=== PATIENT | female | born 1970 | race Caucasian/White ===

== ENCOUNTER 2020-09-03 10:30 | Outpatient (REF) | payer OTHER, SELFPAY ==
[2020-09-03 11:58] LABS: MANUAL DIFF FLAG NO
[2020-09-03 12:10] LABS: Basophils Absolute Auto 0.1 X10*3/uL (0.0-0.2); Basophils Percent Auto 0.8 % (0-2); Eosinophils Absolute Auto 0.2 X10*3/uL (0.0-0.4); Eosinophils Percent Auto 2.3 % (0-4); Hematocrit 38.4 % (37-47); Hemoglobin 12.8 g/dl (12.0-16.0); Imm Gran Abs Auto 0.04 X10*3/uL (0.00-0.03); Imm Gran Pct Auto 0.5 % (0.0-0.4); Lymphocytes Absolute Auto 2.2 X10*3/uL (1.2-4.9); Lymphocytes Percent Auto 26.1 % (20-40); Mean Corpuscular HGB Conc 33.3 g/dl (31.0-35.0); Mean Corpuscular Hemoglobin 28.8 pg (27.0-33.0); Mean Corpuscular Volume 86.5 fL (80-98); Mean Platelet Volume 10.9 fL (9.4-12.3); Monocytes Percent Auto 12.3 % (2-11); Neutrophils Absolute Auto 4.8 X10*3/uL (2.0-8.3); Platelet Count 347 X10*3/uL (160-400); Red Blood Count 4.44 X10*6/uL (4.20-5.50); Red Cell Distribution Width 13.7 % (11.0-16.0); White Blood Count 8.3 X10*3/uL (4.8-10.8)
== END 2020-09-03 10:31 | disposition home or self-care (01) ==
LOC: HO.LAB 10:30
PROVIDERS: PCP Internal Medicine; Referring Provider Internal Medicine; Visit Provider Internal Medicine Pulmonary Disease
DX: J45.51 Severe persistent asthma with (acute) exacerbation (principal); Z91.09 Other allergy status, other than to drugs and biological substances; Z79.899 Other long term (current) drug therapy; Z79.891 Long term (current) use of opiate analgesic; Z87.891 Personal history of nicotine dependence
CPT/HCPCS: 36415; 82785; 85025; 86003

== ENCOUNTER → 2020-10-02 10:20 | Outpatient (BNVA) | payer OTHER, SELFPAY | PROVIDERS: PCP Internal Medicine; Visit Provider Internal Medicine Pulmonary Disease | DX: Z76.89 Persons encountering health services in other specified circumstances (principal) ==

== ENCOUNTER 2020-11-21 14:25 | Outpatient (REF) | payer OTHER, SELFPAY ==
[2020-11-21 17:34] LABS: MANUAL DIFF FLAG NO
[2020-11-21 17:43] LABS: Glucose Urine UA NEG (NEG); Leukocyte Esterase Urine NEG (NEG); Nitrite Urine NEG (NEG); Urine Blood NEG (NEG); Urine Ketones 5 MG/DL (NEG); Urine Protein NEG (NEG-TRACE)
[2020-11-21 17:46] LABS: Basophils Absolute Auto 0.1 X10*3/uL (0.0-0.2); Basophils Percent Auto 0.7 % (0-2); Eosinophils Absolute Auto 0.2 X10*3/uL (0.0-0.4); Eosinophils Percent Auto 1.8 % (0-4); Hemoglobin 13.4 g/dl (12.0-16.0); Imm Gran Abs Auto 0.04 X10*3/uL (0.00-0.03); Imm Gran Pct Auto 0.4 % (0.0-0.4); Lymphocytes Absolute Auto 2.3 X10*3/uL (1.2-4.9); Lymphocytes Percent Auto 23.7 % (20-40); Mean Corpuscular HGB Conc 33.5 g/dl (31.0-35.0); Mean Corpuscular Hemoglobin 29.7 pg (27.0-33.0); Mean Corpuscular Volume 88.7 fL (80-98); Monocytes Percent Auto 9.8 % (2-11); Neutrophils Absolute Auto 6.3 X10*3/uL (2.0-8.3); Neutrophils Percent Auto 63.6 % (45-73); Platelet Count 354 X10*3/uL (160-400); Red Blood Count 4.51 X10*6/uL (4.20-5.50); Red Cell Distribution Width 13.4 % (11.0-16.0); White Blood Count 9.9 X10*3/uL (4.8-10.8)
[2020-11-21 17:46] LABS: Appearance Urine CLEAR; Color Urine YELLOW
[2020-11-21 18:03] LABS: Bacteria Urine TRACE /LPF; RBC Urine 0 /HPF (0); Squamous Epithelial Cell Urine 2+ /LPF; WBC Urine 0 /HPF (0-4)
[2020-11-21 18:10] LABS: Alanine Aminotransferase 10 U/L (0-31); Albumin Level 4.5 g/dL (3.5-5.0); Alkaline Phosphatase 53 U/L (39-117); Anion Gap 15 (12-20); Aspartate Amino Transferase 15 U/L (5-31); Bilirubin Total < 0.2 mg/dL (0.0-1.0); Blood Urea Nitrogen 25 mg/dL (9-16); C Reactive Protein 0.65 mg/dL (< or = 0.50); Calcium 9.2 mg/dL (8.4-10.2); Carbon Dioxide 24 mmol/L (22-29); Chloride 103 mmol/L (96-108); Estimated Glomerular Filt Rate > 60; Glucose Random 82 mg/dL (60-115); Potassium 4.1 mmol/l (3.3-5.1); Sodium 138 mmol/L (135-145); Total Protein 7.5 g/dL (6.5-8.0)
[2020-11-21 18:31] LABS: Erythrocyte Sedimentation Rate 10 MM/HR (0-20)
[2020-11-22 11:02] LABS: Thyroglobulin Antibodies <1 IU/mL (< or = 1); Thyroid Peroxidase Antibodies <1 IU/mL (<9)
[2020-11-22 15:48] LABS: Cyclic Citrullinated Peptide <16 UNITS
[2020-11-23 13:27] LABS: Complement C3 141 mg/dL (83-193)
[2020-11-23 21:42] LABS: Immunoglobulin E 60 kU/L (<OR=114)
== END 2020-11-21 14:26 | disposition home or self-care (01) ==
LOC: HO.LAB 14:25
PROVIDERS: Internal Medicine Pulmonary Disease; PCP Internal Medicine; Referring Provider Internal Medicine; Visit Provider Student in an Organized Health Care Education/Training Program
DX: R76.8 Other specified abnormal immunological findings in serum (principal); M25.50 Pain in unspecified joint; Z79.899 Other long term (current) drug therapy; Z79.891 Long term (current) use of opiate analgesic; Z91.09 Other allergy status, other than to drugs and biological substances
CPT/HCPCS: 36415; 80053; 81001; 82785; 85025; 85652; 86140; 86160; 86200; 86376; 86800

== ENCOUNTER → 2020-12-10 10:06 | Outpatient (BNVA) | payer OTHER, SELFPAY | PROVIDERS: PCP Internal Medicine; Visit Provider Internal Medicine Pulmonary Disease ==

== ENCOUNTER → 2021-11-11 09:42 | Outpatient (BNVA) | payer OTHER, SELFPAY | PROVIDERS: PCP Internal Medicine; Visit Provider Internal Medicine Pulmonary Disease ==

== ENCOUNTER 2021-12-16 10:41 | Outpatient (REF) | payer OTHER, SELFPAY ==
--- NOTE | ~2021-12-16 | MM_ITS ---
EXAMINATION: MM SCREENING DIGITAL BREAST TOMOSYNTHESIS, BILATERAL CLINICAL INFORMATION: Screening. Asymptomatic. The lifetime risk of breast cancer based on the Tyrer-Cuzick Model is 5%. COMPARISON: Outside mammography: 08/21/2017, 08/17/2017, 02/12/2015 ([facility]). TECHNIQUE: Digital breast tomosynthesis is performed in both the craniocaudal and mediolateral oblique views along with computer-aided detection (CAD). Synthesized 2D images are generated from the tomosynthesis. FINDINGS: There are scattered areas of fibroglandular density (ACR BI-RADS breast composition Category b). There are no significant masses, abnormal calcifications, or other abnormalities. No significant changes from prior outside exam. There is biopsy clip marker again noted mid lower inner left breast. The axilla and skin contours are unremarkable. MM/MM tomosynthesis screening BI IMPRESSION: No mammographic evidence of malignancy. ASSESSMENT: BI-RADS 1: Negative RECOMMENDATION: Routine annual mammography screening. This patient's information was entered into a reminder system with a target due date for their next mammogram.
== END 2021-12-16 10:42 | disposition home or self-care (01) ==
LOC: HO.MAMMO 10:41
PROVIDERS: Visit Provider Advanced Practice Midwife
DX: Z12.31 Encounter for screening mammogram for malignant neoplasm of breast (principal)
CPT/HCPCS: 77063; 77067

== ENCOUNTER → 2022-03-05 09:06 | Outpatient (BNVA) | payer OTHER, SELFPAY | PROVIDERS: PCP Internal Medicine; Visit Provider Internal Medicine Rheumatology | DX: M75.102 Unspecified rotator cuff tear or rupture of left shoulder, not specified as traumatic (principal); M79.7 Fibromyalgia; R76.8 Other specified abnormal immunological findings in serum | CPT/HCPCS: 99212 ==

== ENCOUNTER → 2022-05-14 10:02 | Outpatient (BNVA) | payer OTHER, SELFPAY | PROVIDERS: PCP Internal Medicine; Visit Provider Internal Medicine Pulmonary Disease | DX: J45.50 Severe persistent asthma, uncomplicated (principal); Z91.09 Other allergy status, other than to drugs and biological substances | CPT/HCPCS: 99212 ==

== ENCOUNTER 2022-07-08 10:48 | Outpatient (REF) | payer OTHER, SELFPAY ==
[2022-07-08 13:37] LABS: MANUAL DIFF FLAG NO
[2022-07-08 13:40] LABS: Basophils Absolute Auto 0.1 X10*3/uL (0.0-0.2); Basophils Percent Auto 0.6 % (0-2); Eosinophils Absolute Auto 0.2 X10*3/uL (0.0-0.4); Eosinophils Percent Auto 1.6 % (0-4); Hematocrit 40.4 % (37.0-47.0); Hemoglobin 13.7 g/dl (12.0-16.0); Imm Gran Abs Auto 0.07 X10*3/uL (0.00-0.03); Imm Gran Pct Auto 0.6 % (0.0-0.4); Lymphocytes Percent Auto 17.6 % (20-40); Mean Corpuscular HGB Conc 33.9 g/dl (31.0-35.0); Mean Corpuscular Hemoglobin 30.1 pg (27.0-33.0); Mean Corpuscular Volume 88.8 fL (80.0-98.0); Mean Platelet Volume 10.7 fL (9.4-12.3); Monocytes Percent Auto 8.7 % (2-11); Neutrophils Percent Auto 70.9 % (45-73); Platelet Count 409 X10*3/uL (160-400); Red Blood Count 4.55 X10*6/uL (4.20-5.50); Red Cell Distribution Width 12.7 % (11.0-16.0); White Blood Count 11.3 X10*3/uL (4.8-10.8)
[2022-07-08 13:53] LABS: Iron 67 mcg/dL (30-160); Percent Iron Saturation 22 % (15-50); Total Iron Binding Capacity 303 mcg/dL (228-428); Unsaturated Iron Binding 236 ug/dL
[2022-07-08 14:16] LABS: TSH reflex Free T4 0.65 uIU/mL (0.32-4.0)
== END 2022-07-08 10:49 | disposition home or self-care (01) ==
LOC: HO.10HDL 10:48
PROVIDERS: Visit Provider Internal Medicine Rheumatology
DX: M75.102 Unspecified rotator cuff tear or rupture of left shoulder, not specified as traumatic (principal); R53.83 Other fatigue; R76.8 Other specified abnormal immunological findings in serum; M79.7 Fibromyalgia
CPT/HCPCS: 36415; 83540; 84443; 85025; 99212

== ENCOUNTER 2022-12-10 09:10 | Outpatient (REF) | payer OTHER, SELFPAY ==
--- NOTE | ~2022-12-10 | XR_ITS ---
EXAMINATION: XR LUMBOSACRAL SPINE CLINICAL INFORMATION: Lower back pain. COMPARISON: CT abdomen and pelvis dated 11/11/2019. TECHNIQUE: AP and lateral views of the lumbar spine and lateral view of the lumbosacral junction. FINDINGS: The vertebral body heights are normal. There is a very mild thoracolumbar levoscoliosis. The lower thoracic and lumbar disc spaces are preserved. The posterior elements are intact. The paraspinal soft tissues are normal. An 8 mm left renal upper pole calculus is redemonstrated. XR/XR lumbar spine 2-3V IMPRESSION: 1. There is a very mild thoracolumbar levoscoliosis. 2. The lumbar disc spaces are well-maintained. 3. No acute fracture or spondylolisthesis is seen. 4. An 8 mm left renal upper pole calculus is redemonstrated.
== END 2022-12-10 09:11 | disposition home or self-care (01) ==
LOC: HO.XRAY 09:10
PROVIDERS: PCP Internal Medicine; Visit Provider Internal Medicine Rheumatology
DX: M79.7 Fibromyalgia (principal); M54.50 Low back pain, unspecified; M25.562 Pain in left knee; M25.561 Pain in right knee; M75.102 Unspecified rotator cuff tear or rupture of left shoulder, not specified as traumatic; M25.511 Pain in right shoulder; R76.8 Other specified abnormal immunological findings in serum; Z79.899 Other long term (current) drug therapy
CPT/HCPCS: 72100; 99212

== ENCOUNTER 2022-12-10 10:14 | Outpatient (REF) | payer OTHER, SELFPAY ==
[2022-12-10 13:42] LABS: MANUAL DIFF FLAG NO
[2022-12-10 13:54] LABS: Basophils Absolute Auto 0.1 X10*3/uL (0.0-0.2); Basophils Percent Auto 0.6 % (0-2); Eosinophils Absolute Auto 0.2 X10*3/uL (0.0-0.4); Eosinophils Percent Auto 1.9 % (0-4); Hematocrit 40.2 % (37.0-47.0); Hemoglobin 13.7 g/dl (12.0-16.0); Imm Gran Abs Auto 0.07 X10*3/uL (0.00-0.03); Imm Gran Pct Auto 0.8 % (0.0-0.4); Lymphocytes Absolute Auto 1.8 X10*3/uL (1.2-4.9); Mean Corpuscular HGB Conc 34.1 g/dl (31.0-35.0); Mean Corpuscular Volume 88.2 fL (80.0-98.0); Monocytes Absolute Auto 0.9 X10*3/uL (0.1-1.2); Monocytes Percent Auto 9.9 % (2-11); Neutrophils Percent Auto 66.8 % (45-73); Platelet Count 379 X10*3/uL (160-400); Red Blood Count 4.56 X10*6/uL (4.20-5.50); Red Cell Distribution Width 13.2 % (11.0-16.0); White Blood Count 8.9 X10*3/uL (4.8-10.8)
[2022-12-10 14:20] LABS: Anion Gap 17 (12-20); Blood Urea Nitrogen 22 mg/dL (9-16); Calcium 9.1 mg/dL (8.4-10.2); Carbon Dioxide 20 mmol/L (22-29); Chloride 105 mmol/L (96-108); Estimated Glomerular Filt Rate > 60; Glucose Random 89 mg/dL (60-115); Potassium 3.7 mmol/L (3.3-5.1); Sodium 138 mmol/L (135-145)
[2022-12-10 14:26] LABS: Protein/Creatinine Ratio, Ur 0.06 (<0.2); Total Protein Urine Random 18 mg/dL (<12)
[2022-12-10 14:33] LABS: Erythrocyte Sedimentation Rate 13 MM/HR (0-20)
[2022-12-11 13:39] LABS: Complement C3 170 mg/dL (83-193)
[2022-12-12 09:23] LABS: Anti DNA DS Antibody <1 IU/mL; SM/Ribonucleoprotein Ab <1.0 NEG AI (<1.0 NEG); Smith Protein <1.0 NEG AI (<1.0 NEG)
== END 2022-12-10 10:15 | disposition home or self-care (01) ==
LOC: HO.10HDL 10:14
PROVIDERS: Visit Provider Internal Medicine Rheumatology
DX: R76.8 Other specified abnormal immunological findings in serum (principal); M79.7 Fibromyalgia; M54.50 Low back pain, unspecified
CPT/HCPCS: 36415; 80048; 84156; 85025; 85652; 86160; 86225; 86235

== ENCOUNTER 2023-02-04 09:03 | Outpatient (REF) | payer OTHER, SELFPAY ==
--- NOTE | ~2023-02-04 | MM_ITS ---
EXAMINATION: MM DIAGNOSTIC DIGITAL BREAST TOMOSYNTHESIS, BILATERAL US DIAGNOSTIC ULTRASOUND BREAST, LEFT CLINICAL INFORMATION: Due for yearly. Left breast pain for approximately 6 months upper breast. No palpable mass or discharge. No family history breast cancer. The lifetime risk of breast cancer based on the Tyrer-Cuzick Model is 7%. COMPARISON: Prior mammography exams, most recent 12/16/2021. Outside ultrasound left breast 02/23/2015 ([facility]). TECHNIQUE: Digital breast tomosynthesis is performed in both the craniocaudal and mediolateral oblique views along with computer-aided detection (CAD). Synthesized 2D images are generated from the tomosynthesis. Additional right CC view is provided. Ultrasound left breast is targeted to the areas of clinical concern upper breast 10:00 through 2:00 position using grayscale imaging and color Doppler without and with harmonics. FINDINGS: There are scattered areas of fibroglandular density (ACR BI-RADS breast composition Category b). Parenchymal pattern is similar to prior studies and there is no developing density or architectural abnormality or significant mass. No abnormal calcifications. The axilla and skin contours are unremarkable. No skin thickening or coarsening of the José Antonio's ligaments. There is a biopsy clip marker again seen mid lower inner quadrant left breast. Ultrasound left breast demonstrates an incidental small simple cyst anterior 11:00 position proximally 0.5 cm. This may correspond to the subcentimeter cyst noted on outside ultrasound 2014. There is no solid mass or architectural abnormality or focal duct ectasia. No skin thickening or edema tracking in soft tissue planes. No hyperemia on color Doppler. Results are discussed with the patient at time of visit. MM/MM tomosynthesis diagnostic BI IMPRESSION: -No mammographic evidence of malignancy or inflammatory changes. -Small incidental cyst under 1 cm anterior left breast. No inflammatory changes. ASSESSMENT: BI-RADS 2: Benign RECOMMENDATION: 1. Patient's left mastodynia should be managed based on the clinical impression. 2. Otherwise, routine annual screening mammography. This patient's information was entered into a reminder system with a target due date for their next mammogram.
== END 2023-02-04 09:04 | disposition home or self-care (01) ==
LOC: HO.MAMMO 09:03
PROVIDERS: PCP Internal Medicine; Visit Provider Internal Medicine
DX: N64.4 Mastodynia (principal)
CPT/HCPCS: 76642; 77062; 77066

== ENCOUNTER → 2023-04-22 11:26 | Outpatient (BNVA) | payer OTHER, SELFPAY | PROVIDERS: PCP Internal Medicine; Visit Provider Internal Medicine Pulmonary Disease | DX: J45.50 Severe persistent asthma, uncomplicated (principal); Z91.09 Other allergy status, other than to drugs and biological substances; Z79.899 Other long term (current) drug therapy | CPT/HCPCS: 99212 ==

== ENCOUNTER 2023-05-20 13:01 | Outpatient (REF) | payer OTHER, SELFPAY ==
[2023-05-21 07:28] LABS: Vitamin D 25-OH Total 21.7 ng/mL (>30)
== END 2023-05-20 13:02 | disposition home or self-care (01) ==
LOC: HO.CHCLDS 13:01
PROVIDERS: Visit Provider Internal Medicine
DX: G89.4 Chronic pain syndrome (principal); G43.009 Migraine without aura, not intractable, without status migrainosus
CPT/HCPCS: 36415; 82306

== ENCOUNTER 2023-06-09 10:05 | Outpatient (AMB) | payer OTHER, SELFPAY ==
[2023-06-09 10:11] VITALS: BP 121/74; PULSE 68; RESP 16; TEMP 36.4; O2SAT 98; BMI 32.6
--- NOTE | 2023-06-09 10:11 | A.OFFVIS_ITS ---
Intake Vital Signs 06/09/23 10:11 Height 5 ft 4 in Weight 189 lb 13.088 oz BMI 32.6 BP 121/74 Blood Pressure Location Rt brachial Position Sitting Respiration 16 Pulse 68 Temp 97.5 F Temp Source Skin Pulse Oximetry (%) 98 Oxygen Delivery Method Room Air Intake Visit Reasons: FM Tar Man Required: No Allergies duloxetine Adverse Reaction (Severe, Verified 06/09/23 10:14) hallucinations (severe) sumatriptan [From IMITREX] Adverse Reaction (Unknown, Verified 06/09/23 10:14) HEADACHES Medication List - Last Reconciled 06/09/23 by Claudia Urbano RN albuterol sulfate 2.5 mg (3 mL) inhalation QID 30 days albuterol sulfate 90 mcg/actuation (ProAir HFA) 1 inh inhalation QID 30 days amitriptyline 50 mg PO BEDTIME beclomethasone dipropionate 80 mcg/actuation (Qvar RediHaler) 1 inh inhalation BID Bifidobacterium infantis (Align) 4 mg PO BEDTIME famotidine 20 mg PO BID hydrochlorothiazide 12.5 mg PO DAILY ibuprofen 800 mg PO TID PRN lidocaine 5% topical lisinopril 10 mg PO QAM omeprazole 20 mg PO DAILY pregabalin 100 mg PO BID topiramate 400 mg PO BEDTIME tramadol 50 mg PO Q8H PRN triamcinolone acetonide 0.1% 1 appl topical BID HPI HPI Comments History of Present Illness Details Patient returns for evaluation of her fibromyalgia and history of positive DONA. She is still recovering from a left rotator cuff repair last October but is pleased with his progress. She is complaining today of numbness in the right hand. This tends to come and go. It is worse at night. She also notes it during the day with use of the hand. Other areas of pain including the neck, shoulders, lower back and knees remain about the same. She is on amitriptyline at night which helps with sleep, Lyrica 100 mg twice a day and ibu profen if needed for pain. [facility] Medical History DONA positive Asthma Fibromyalgia Fibromyalgia GERD (gastroesophageal reflux disease) HTN (hypertension) Hypercholesteremia Internal and external bleeding hemorrhoids Migraine Rotator cuff tear, left Surgical History H/O hemorrhoidectomy History of arthroscopy of left shoulder (~10/2022) Hx of hysterectomy S/P tendon repair Family History Mother HTN (hypertension) Asthma Glaucoma Father Diabetes HTN (hypertension) Sister Down syndrome Social History Household Members: Family Housing: House Alcohol intake: never Patient Tobacco Use Status: Never used Tobacco service: No Current occupational status: employed 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 Negative for appetite change, weight change, fever, chills, malaise Eyes Details: Occasional headaches. Negative for vision change, dry eyes and dizziness ENT Details: Negative for hearing change, tinnitus, oral ulcer, nose bleeds and oral dryness. Card Details: Negative chest pain, edema and syncope Resp Details: Negative for SOB, cough and wheezing GI Details: Negative indigestion/heartburn, nausea, abdominal pain, bowel changes, diarrhea, constipation and bloody stool. Neuro Details: Nocturnal and occasional the time paresthesias in the right hand. Chronic numbness in the left hand related to nerve damage from elbow surgery. Negative for epilepsy, palsy, stroke, changes in speech and weakness Endo Details: Negative for polyuria and polydypsia Tamir/Lymph Details: Negative for excessive bruising or bleeding. Physical Exam Vital Signs: Last Vital Signs Temp 97.5 F 06/09/23 10:11 Pulse 68 06/09/23 10:11 Resp 16 06/09/23 10:11 BP 121/74 06/09/23 10:11 Pulse Ox 98 06/09/23 10:11 Oxygen Delivery Method Room Air 06/09/23 10:11 BMI result Body Mass Index 32.6 APPEARANCE: Patient in no acute distress EYES no redness, pupils equal and reactive to light, eyelids normal EXTREMITIES: No edema, no calf tenderness, normal peripheral pulses. JOINT EXAM: JOINT EXAM: Cervical Spine:.? Mild to moderate pain with extremes of normal range of motion without pain; mild paraspinal muscle tenderness. Thoracic Spine:.? No scoliosis.? No tenderness on palpation. Lumbar Spine:.? Alignment normal.? Lumbar pain with flexion at 30 degrees with moderate paraspinal muscle tenderness. Chest Wall:.? No tenderness, swelling, increased warmth or erythema. Hands:.? Right: Normal pain-free range of motion with slight tenderness across a few of the PIP joints but no swelling, increased warmth or erythema. Able to make a full fist and has a good diamond saw operator strength. No sensory loss, weakness or thenar atrophy. Left: She lacks ability to extend the 5th PIP and the IP. No areas of tenderness or swelling. No sensory loss. The Wrists:.? Right: Normal pain-free range of motion without tenderness, swelling, increased warmth or erythema. Left: Mild pain with flexion extension at 45 degrees. Mostly this is on the volar aspect. That area is tender without redness or swelling. She cannot do the Phalen's test because the this is too painful for her. Elbows:. Normal pain-free range of motion without tenderness, swelling, increased warmth or erythema. Shoulders:.??Left:? Mild pain with abduction at 120 degrees or with more than 20 degrees of rotation.? There is mild anterior and subacromial tenderness.? There seems to be some abductor weakness without adenopathy or swelling.? Right:Full range of motion without pain.? Slight tenderness over the trapezius area but no weakness, swelling, adenopathy, increased warmth or erythema. Hips:.? Full range of motion without pain. Hip bursa:.? No tenderness. Knees:.? Right:? Mild pain with extremes of motion with some mild patellofemoral crepitus and medial compartment tenderness but no redness or effusion.? Left:? Normal pain-free range of motion with mild patellofemoral crepitus in slight medial tenderness but no effusion,? tenderness, swelling, increased warmth or erythema.? Ankles:.? Normal pain-free range of motion without tenderness, swelling, increased warmth or erythema. Feet:? Normal pain-free range of motion with mild tenderness across the insteps.? No other areas of tenderness, swelling, increased warmth or erythema. Tender points:? Mild tenderness to digital palpation at the occiput, trapezius, second rib, lateral epicondyle, knees, greater trochanter and gluteal area bilaterally. ? Results Reviewed Results Reviewed: Laboratory Tests 02/08/23 02/08/23 02/08/23 10:20 10:20 10:20 WBC 8.9 Hct 40.2 Plt Count 379 ESR 13 Creatinine 0.76 Sm (S[place]elo) Antibody SM/ROLLER BEARING INSPECTOR IgG Antibody Double Strand DNA Ab Complement C3 Complement C4 12/10/22 10:20 WBC Hct Plt Count ESR Creatinine Sm ([place]) Antibody <1.0 NEG SM/ROLLER BEARING INSPECTOR IgG Antibody <1.0 NEG Double Strand DNA Ab <1 Complement C3 170 Complement C4 [address] [address] XRay Report Signed Patient: Johana Kaminski MR#: [id number] : 1970 Acct:[id number] Age/Sex: 51 / F ADM Date: 12/10/22 Loc: HO.XRAY Attending Dr: Sj Rees MD Ordering Physician: Sj Rees MD Date of Service: 12/10/22 Procedure(s): XR lumbar spine 2-3V Accession Number(s): [id number] cc: Sj Rees MD~ EXAMINATION: XR LUMBOSACRAL SPINE CLINICAL INFORMATION: Lower back pain. COMPARISON: CT abdomen and pelvis dated 11/11/2019. TECHNIQUE: AP and lateral views of the lumbar spine and lateral view of the lumbosacral junction. FINDINGS: The vertebral body heights are normal. There is a very mild thoracolumbar levoscoliosis. The lower thoracic and lumbar disc spaces are preserved. The posterior elements are intact. The paraspinal soft tissues are normal. An 8 mm left renal upper pole calculus is redemonstrated. XR/XR lumbar spine 2-3V IMPRESSION: ? 1. There is a very mild thoracolumbar levoscoliosis. ? 2. The lumbar disc spaces are well-maintained. ? 3. No acute fracture or spondylolisthesis is seen. ? 4. An 8 mm left renal upper pole calculus is redemonstrated. ? Dictated By: Brendon Saeed MD Assessment & Plan Assessment & Plan (1) Carpal tunnel syndrome of right wrist: Code(s): G56.01 - Carpal tunnel syndrome, right upper limb (2) Fibromyalgia: Code(s): M79.7 - Fibromyalgia Plan The fibromyalgia symptoms continue. I think the right hand symptoms are out of line with that disorder. She seems to have nocturnal and occasional daytime paresthesias consistent with carpal tunnel syndrome. Additionally the volar aspect of the wrist is tender. We will try to treat this with a wrist splint. She will try that nightly for 6 weeks. If that does not improve the paresthesias we would proceed with further workup including nerve conduction studies. A follow-up is arranged for 3-4 months but if she does not improve with 6 weeks of splinting she will call us back for a referral for nerve conduction studies. Medications: New Brace,wrist wear on right wrist at night 1 ea 0RF G56.01 - Carpal tunnel syndrome, right upper limb Coding Level of Care Code Est Pt Level 3 (56387) Diagnoses Carpal tunnel syndrome of right wrist G56.01 Fibromyalgia M79.7
== END 2023-06-09 10:46 | disposition home or self-care (01) ==
PROVIDERS: PCP Internal Medicine; Visit Provider Internal Medicine Rheumatology
DX: G56.01 Carpal tunnel syndrome, right upper limb (principal); M79.7 Fibromyalgia
CPT/HCPCS: 99213

== ENCOUNTER → 2023-06-09 10:05 | Outpatient (BNVA) | payer OTHER, SELFPAY | PROVIDERS: PCP Internal Medicine; Visit Provider Internal Medicine Rheumatology | DX: G56.01 Carpal tunnel syndrome, right upper limb (principal); M79.7 Fibromyalgia | CPT/HCPCS: 99212 ==

== ENCOUNTER 2023-09-03 15:37 | Outpatient (AMB) | payer OTHER, SELFPAY ==
--- NOTE | 2023-09-03 15:39 | MHC.OFFVIS ---
Intake Vital Signs 09/03/23 15:48 Height 5 ft 4 in Weight 185 lb BMI 31.8 BP 113/56 L Blood Pressure Location Rt brachial Position Sitting Pulse 70 Intake Visit Reasons: External prolapsed hemorroids Intake Note: This patient presents for an assessment for external prolapsed hemorrhoids. Patient c/o; reports no bleeding, external, reports pain, reports constipation and straining with bowel movements. Cooler Worker Required: No Accompanied by: Self / Same As Patient Allergies duloxetine Adverse Reaction (Severe, Verified 09/03/23 15:46) hallucinations (severe) sumatriptan [From IMITREX] Adverse Reaction (Unknown, Verified 09/03/23 15:46) HEADACHES Medication List - Last Reconciled 09/03/23 by Jesus Gonzalez MD albuterol sulfate 2.5 mg (3 mL) inhalation QID 30 days albuterol sulfate 90 mcg/actuation (Ventolin HFA) 1 puff inhalation QID amitriptyline 50 mg PO BEDTIME beclomethasone dipropionate 80 mcg/actuation (Qvar RediHaler) 1 inh inhalation BID Bifidobacterium infantis (Align) 4 mg PO BEDTIME Brace,wrist wear on right wrist at night famotidine 20 mg PO BID hydrochlorothiazide 12.5 mg PO DAILY ibuprofen 800 mg PO TID PRN lidocaine 5% topical lisinopril 10 mg PO QAM omeprazole 20 mg PO DAILY pregabalin 100 mg PO BID topiramate 400 mg PO BEDTIME tramadol 50 mg PO Q8H PRN triamcinolone acetonide 0.1% 1 appl topical BID HPI External prolapsed hemorroids HPI Details 52-year-old female referred for hemorrhoids. She is actually known to me. She had undergone hemorrhoidectomy in November, She says for the for the past 2 weeks, she feels that the hemorrhoids have been acting up again. She says that this seemed to be swelling with pain. She says that she has had significant constipation. This appears to have been precipitating her hemorrhoid issues She denies significant bleeding although would occasionally sees small amounts of blood with wiping. She says that she seemed to have done well after her 1st hemorrhoidectomy almost 4 years ago. However, she continued to have significant constipation. [facility] Medical History (Updated 09/03/23 @ 16:01 by Jesus Gonzalez MD) Hemorrhoids with complication Rotator cuff tear, left Fibromyalgia DONA positive Fibromyalgia Migraine Hypercholesteremia Internal and external bleeding hemorrhoids GERD (gastroesophageal reflux disease) Asthma HTN (hypertension) Surgical History History of arthroscopy of left shoulder (~10/2022) H/O hemorrhoidectomy S/P tendon repair Hx of hysterectomy Family History Mother HTN (hypertension) Asthma Glaucoma Father Diabetes HTN (hypertension) Sister Down syndrome Social History Household Members: Family Housing: House Alcohol intake: never Patient Tobacco Use Status: Never used Tobacco service: No Current occupational status: employed 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 Sexual orientation: Straight/Heterosexual Gender identity: Female Review of Systems Const Denies chills and Denies fever(s) Card Denies chest pain, Denies dyspnea and Denies dyspnea on exertion Resp Denies cough, Denies dyspnea and Denies dyspnea on exertion GI Denies hematochezia, Denies change in bowel habits and Reports constipation Denies hematuria Musc Denies back pain and Denies limited range of motion Neuro Denies focal weakness and Denies convulsions Psych Denies depression and Denies mood swings Physical Exam Vital Signs: Last Vital Signs Pulse 70 09/03/23 15:48 BP 113/56 L 09/03/23 15:48 BMI result Body Mass Index 31.8 Const General: comfortable and no acute distress Orientation/consciousness: patient oriented x3 Neck Neck: Yes no lymphadenopathy Resp Auscultation: clear to auscultation bilaterally Cardio Rhythm: regular rhythm GI Other: Rectal exam - moderate size external hemorrhoids on the left, anoscopy as described Palpation (GI): Soft to palpation, nontender and no guarding Neuro General: patient oriented x3 Office Procedures Anoscopy She was in tammy-knife position. The anoscope was gently inserted. A full examination of the anal canal was done. She had takes internal and external columns both the left and right side although moderate-sized. There was 1 large external hemorrhoidal column on the left. There was no fissure. There was no bleeding. She had good sphincter tone. She was tender diffusely. [id number] Assessment & Plan Assessment & Plan (1) Hemorrhoids with complication: Code(s): K64.8 - Other hemorrhoids Plan: She does have internal external hemorrhoids with swelling and pain. She has significant constipation. At this time, she has a little bit of redness over hemorrhoidal columns. I will start her on steroid suppositories. I also told her that we need to have better control of her constipation. I have asked her to increase her Colace to twice a day and I will send a prescription for Metamucil as well. I will see her again in the office in about 3 weeks. We will evaluate and offer option of hemorrhoidectomy if she continues to have severe symptoms. Coding Level of Care Code New Pt Level 3 (72820) Diagnoses Hemorrhoids with complication K64.8 CPT Codes Details - CPT: 62411-[id number] ([id number])
[2023-09-03 15:48] VITALS: BP 113/56; PULSE 70; BMI 31.8
== END 2023-09-03 16:01 | disposition home or self-care (01) ==
PROVIDERS: PCP Internal Medicine; Referring Provider Internal Medicine; Visit Provider Surgery
DX: K64.8 Other hemorrhoids (principal)
CPT/HCPCS: 46600; 99203

== ENCOUNTER → 2023-09-03 15:37 | Outpatient (BNVA) | payer OTHER, SELFPAY | PROVIDERS: PCP Internal Medicine; Referring Provider Internal Medicine; Visit Provider Surgery | DX: K64.8 Other hemorrhoids (principal) | CPT/HCPCS: 46600; 99202 ==

== ENCOUNTER 2023-09-14 13:48 | Outpatient (AMB) | payer OTHER, SELFPAY ==
[2023-09-14 13:55] VITALS: BP 117/61; PULSE 77; BMI 30.6
--- NOTE | 2023-09-14 13:55 | A.OFFVIS_ITS ---
Intake Vital Signs 09/14/23 13:55 Height 5 ft 4 in Weight 178 lb BMI 30.6 BP 117/61 Blood Pressure Location Rt brachial Position Standing Pulse 77 Intake Visit Reasons: External prolapsed hemorroids, 2 wk follow up Intake Note: This patient presetns for a two week follow-up assessment for external prolapsed hemorrhoids. Patient c/o; reports severe pain, unable to sit or stand for prolong periods of time, reports yellowish discharge. Head Sampler Required: No Accompanied by: Self / Same As Patient Allergies duloxetine Adverse Reaction (Severe, Verified 09/14/23 14:06) hallucinations (severe) sumatriptan [From IMITREX] Adverse Reaction (Unknown, Verified 09/14/23 14:06) HEADACHES Medication List - Last Reconciled 09/14/23 by Jesus Gonzalez MD albuterol sulfate 2.5 mg (3 mL) inhalation QID 30 days albuterol sulfate 90 mcg/actuation (Ventolin HFA) 1 puff inhalation QID amitriptyline 50 mg PO BEDTIME beclomethasone dipropionate 80 mcg/actuation (Qvar RediHaler) 1 inh inhalation BID Bifidobacterium infantis (Align) 4 mg PO BEDTIME Brace,wrist wear on right wrist at night famotidine 20 mg PO BID hydrochlorothiazide 12.5 mg PO DAILY hydrocortisone acetate (Anusol-HC) 25 mg TN BID ibuprofen 800 mg PO TID PRN lidocaine 5% topical lisinopril 10 mg PO QAM omeprazole 20 mg PO DAILY pregabalin 100 mg PO BID psyllium seed (sugar) (Metamucil (sugar) oral powder) 1 tbsp PO BID topiramate 400 mg PO BEDTIME tramadol 50 mg PO Q8H PRN triamcinolone acetonide 0.1% 1 appl topical BID HPI External prolapsed hemorroids, 2 wk follow up HPI Details 52-year-old female for anal pain. I had actually seen her last 09/04/2023 for hemorrhoidal pain. At that time, it appeared that she had edema of her hemorrhoids. I had given her prescription for Calmoseptine However for the past for days, she says that she has more pain on the left side. She feels that the areas swollen as well. She also notices some drainage. [facility] Medical History (Updated 09/14/23 @ 14:15 by Jesus Gonzalez MD) Anal abscess Hemorrhoids with complication Rotator cuff tear, left Fibromyalgia DONA positive Fibromyalgia Migraine Hypercholesteremia Internal and external bleeding hemorrhoids GERD (gastroesophageal reflux disease) Asthma HTN (hypertension) Surgical History History of arthroscopy of left shoulder (~10/2022) H/O hemorrhoidectomy S/P tendon repair Hx of hysterectomy Family History Mother HTN (hypertension) Asthma Glaucoma Father Diabetes HTN (hypertension) Sister Down syndrome Social History Household Members: Family Housing: House Alcohol intake: never Patient Tobacco Use Status: Never used Tobacco service: No Current occupational status: employed 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 Sexual orientation: Straight/Heterosexual Gender identity: Female Review of Systems Const Denies chills and Denies fever(s) Card Denies chest pain, Denies dyspnea and Denies dyspnea on exertion Resp Denies cough, Denies dyspnea and Denies dyspnea on exertion GI Denies hematochezia and Denies change in bowel habits Denies hematuria Musc Denies back pain and Denies limited range of motion Neuro Denies focal weakness and Denies convulsions Psych Denies depression and Denies mood swings Physical Exam Vital Signs: Last Vital Signs Pulse 77 09/14/23 13:55 BP 117/61 09/14/23 13:55 BMI result Body Mass Index 30.6 Const General: comfortable and no acute distress Orientation/consciousness: patient oriented x3 Neck Neck: Yes no lymphadenopathy Resp Auscultation: clear to auscultation bilaterally Cardio Rhythm: regular rhythm GI Other: Rectal exam shows an area of swelling on the left perianal area with what appears to be a small sinus next to an external hemorrhoid; there is some scanty drainage as well. The area is very tender Palpation (GI): Soft to palpation, nontender and no guarding Neuro General: patient oriented x3 Assessment & Plan Assessment & Plan (1) Anal abscess: Code(s): K61.0 - Anal abscess Plan: She has this swelling and tenderness on the left perianal area just at the area of the verge adjacent to her external hemorrhoid. This is suggestive on an abscess. She says that this area is very tender and not improved in 4 days. I told her it will be best to proceed with exam under anesthesia, I&D and possible seton placement if I find a fistula. I explained to her the technique of this procedure. I reviewed the risks including but not limited to bleeding, infections, postop pain and poor healing, as well as the benefits and alternatives She has given consent. We will put her on the add on list for tomorrow. Coding Level of Care Code Est Pt Level 3 (64818) Diagnoses Anal abscess K61.0
== END 2023-09-14 14:11 | disposition home or self-care (01) ==
PROVIDERS: PCP Internal Medicine; Visit Provider Surgery
DX: K61.0 Anal abscess (principal)
CPT/HCPCS: 99213

== ENCOUNTER → 2023-09-14 13:48 | Outpatient (BNVA) | payer OTHER, SELFPAY | PROVIDERS: PCP Internal Medicine; Visit Provider Surgery | DX: K61.0 Anal abscess (principal) | CPT/HCPCS: 99212 ==

== ENCOUNTER 2023-09-15 09:53 | Day surgery (SDC) | payer OTHER, SELFPAY ==
[2023-09-15] VITALS (8 sets, daily range): BP systolic 101–132; BP diastolic 46–67; PULSE 59–90; RESP 14–18; TEMP 36.1–36.7; O2SAT 97–99; BMI 30.6
[2023-09-15] MEDS: Lactated Ringers 1,000 ML 50 ML IVCONT (10:43)
--- NOTE | 2023-09-15 11:44 | MHC.SHP ---
Pre-Procedural Eval Section A Date of Service: 09/15/23 The patient is an INPATIENT: No Changes since office visit: No Cold of Flu in the past 2 weeks, No New Medical Problems, No Changes in Medication and No Patient answered all questions The History & Physical has been completed within 30 days and I have reviewed it.: Yes Section B Chief Complaint: Anal abscess Allergies: Allergies Allergy/AdvReac Type Severity Reaction Status Date / Time duloxetine AdvReac Severe hallucinations Verified 09/15/23 10:26 (severe) sumatriptan [From IMITREX] AdvReac Unknown HEADACHES Verified 09/15/23 10:26 Plan I have reviewed the history and physical and performed a pertinent physical examination on my patient. No changes have occurred unless specified. Time Spent With Patient Time: Total time managing care of this patient today ____ minutes.
--- NOTE | 2023-09-15 11:58 | P.CONAN_ITS ---
HPI - Anesthesia Eval Consult details Narrative: rectal abscess PMFSH Active Problems Active Problems: All Active Problems (Updated 09/14/23 @ 14:15 by Jesus Gonzalez MD) Anal abscess (Acute) Hemorrhoids with complication (Acute) Carpal tunnel syndrome of right wrist (Acute) Lower back pain (Acute) Fatigue (Acute) Rotator cuff tear, left (Acute) Fibromyalgia (Acute) DONA positive (Acute) Environmental allergies (Acute) Severe persistent asthma (Acute) Past Medical History Medical History Anal abscess Hemorrhoids with complication Rotator cuff tear, left Fibromyalgia DONA positive Fibromyalgia Migraine Hypercholesteremia Internal and external bleeding hemorrhoids GERD (gastroesophageal reflux disease) Asthma HTN (hypertension) Family History Family History Mother HTN (hypertension) Asthma Glaucoma Father Diabetes HTN (hypertension) Sister Down syndrome Family history of problems with anesthesia: No Surgical History Surgical History History of arthroscopy of left shoulder (~10/2022) H/O hemorrhoidectomy S/P tendon repair Hx of hysterectomy History of Problems with Anesthesia: No Social History Social History Household Members: Family Housing: House Alcohol intake: never Patient Tobacco Use Status: Never used Tobacco Are you DNR?: No Advance Directives: No Advance Directives Information Provided: Yes Nutrition Risks: No Nutritional Risk service: No Current occupational status: employed 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 Sexual orientation: Straight/Heterosexual Gender identity: Female Meds Allergies Allergy/AdvReac Type Severity Reaction Status Date / Time duloxetine AdvReac Severe hallucinations Verified 09/15/23 10:26 (severe) sumatriptan [From IMITREX] AdvReac Unknown HEADACHES Verified 09/15/23 10:26 Active Medications: Current Medications Lactated Ringer's (Lr) 1,000 mls @ 50 mls/hr IVCONT .Q20H MARTA Last Admin: 09/15/23 10:43 Dose: 50 mls/hr Home Medications Medication Instructions Recorded Confirmed Last Taken Type hydrochlorothiazide 12.5 mg tablet 12.5 mg PO DAILY 09/03/20 09/15/23 Unknown History topiramate 100 mg tablet 400 mg PO BEDTIME 09/03/20 09/15/23 09/15/23 History tramadol 50 mg tablet 50 mg PO Q8H PRN Pain 09/03/20 09/15/23 Unknown History amitriptyline 25 mg tablet 50 mg PO BEDTIME 07/08/22 09/15/23 Unknown History ibuprofen 800 mg tablet 800 mg PO TID PRN Pain 07/08/22 09/15/23 Unknown History famotidine 20 mg tablet 20 mg PO BID 12/10/22 09/15/23 09/15/23 History lidocaine 5 % topical ointment topical 12/10/22 09/14/23 Unknown History lisinopril 10 mg tablet 10 mg PO QAM 12/10/22 09/15/23 Unknown History omeprazole 20 mg capsule,delayed 20 mg PO DAILY 12/10/22 09/15/23 09/15/23 History release Bifidobacterium infantis 4 mg 4 mg PO BEDTIME 06/09/23 09/15/23 Unknown History capsule (Align) triamcinolone acetonide 0.1 % 1 appl topical BID 06/09/23 09/15/23 Unknown History topical cream Exam Exam Date and Time: September 15, 2023 1158 Height,Weight and Vital Signs: Height 5 ft 4 in Weight 80.739 kg Last Vital Signs Temp 98.0 F 09/15/23 10:41 Pulse 71 09/15/23 10:41 Resp 18 09/15/23 10:41 BP 109/62 09/15/23 10:41 Pulse Ox 99 09/15/23 10:41 O2 Del Method Room Air 09/15/23 10:41 Airway Mallampati Class: II TM Dist: >3cm Neck ROM: Limited Heart: rrr Lungs: cta Assessment and Plan Assessment Anesthesia Assessment: Anesthesia Plan Discussed Final Anesthetic Review Family History of Problems with Anesthesia: No History of Problems with Anesthesia: No NPO: Yes ASA Class: II Final Preanesthetic Review: No Changes in Pt Med Stat, Meds/Allgs Chart Reviewed, Consent Obtained/Reviewed and Anes Risks/Benef Reviewed Patient Risk: Intermediate Procedure Risk: Low Anesthetic Plan Anesthetic Plan: GA and Agree w/ Assess. and Plan Disposition: Standard PACU
--- NOTE | 2023-09-15 12:49 | P.OP_ITS ---
Operative Note Operative Note Date of Service: 09/15/23 Narrative: Preop diagnosis: Perianal abscess Postop diagnosis: Fistula in ano Procedure: Exam under anesthesia, placement of seton Surgeon: Jesus Gonzalez MD The patient is a 52-year-old female was seen in the office because of pain in the perianal area. She also describes and drainage. Initially, the impression was a swollen hemorrhoid but she had worsening of her pain along with drainage the past few days. Examination in the office yesterday showed induration along with a sinus in the left perianal area. I therefore scheduled her for exam under anesthesia and possible seton placement. She understood the technique of the procedure as well as the risks, benefits, and alternatives. She was brought to the operating room and placed in prone tammy-knife position under general anesthesia via endotracheal tube. The buttocks were retracted with wide tape laterally. The perianal area was prepped and draped in the usual sterile fashion. Surgical time-out was done. The patient received Cefotan 2 g IV preoperatively . Examination of the anal orifice showed an external sinus about 2 cm from the anal verge. She also had external hemorrhoids on both the left and right side . I inserted the Ladarius Sotelo retractor to examine the anal canal circumferentially. There was note of an obvious internal sinus at the level of the dentate line on the left anal canal radial to the external sinus. There was note of hemorrhoidal columns on both the left and right side. There was note of induration on the left anal canal. I was able to be passed a probe from the external sinus all the way to the internal sinus. I passed a yellow vessel loop as a seton using this probe. This was looped around the fistula tract. I shortened the fistula tract by dividing the skin overlying the fistulous tract adjacent to the external sinus using electrocautery. I closed the vessel loop with silk 2-0 ties. Hemostasis was then observed. I infiltrated the perianal area with Marcaine 0.5% for postop analgesia. The p rocedure was completed The patient tolerated the procedure well. There were no immediate complications. Initial and final counts of sponges and instruments were correct. Estimated blood loss about 5 cc . The patient was extubated without difficulty and transferred to the recovery room with stable vital signs.
[2023-09-15] MEDS: HYDROmorphone HCl 0.5 MG/0.5 ML SYRINGE 0.25 MG IVPUSH (13:03)
[2023-09-15] MEDS: Acetaminophen 325 MG TABLET 650 MG PO (13:30)
[2023-09-15] MEDS: oxyCODONE HCl Immed Release 5 MG TABLET PO (13:30)
== END 2023-09-15 14:56 | disposition home or self-care (01) ==
PROVIDERS: PCP Orthopaedic Surgery; Visit Provider Surgery
PROC: (CPT 46020; principal; 2023-09-15 12:40)
DX: K60.3 Anal fistula (principal); K64.8 Other hemorrhoids; K64.4 Residual hemorrhoidal skin tags; K21.9 Gastro-esophageal reflux disease without esophagitis; I10 Essential (primary) hypertension; E78.00 Pure hypercholesterolemia, unspecified; J45.909 Unspecified asthma, uncomplicated; M79.7 Fibromyalgia; Z79.899 Other long term (current) drug therapy; Z79.1 Long term (current) use of non-steroidal anti-inflammatories (NSAID); Z88.8 Allergy status to other drugs, medicaments and biological substances; Z98.890 Other specified postprocedural states
CPT/HCPCS: 46020; J0330; J1100; J1170; J1630; J1885; J2405; J2704; J2795; J3010

== ENCOUNTER → 2023-09-15 09:53 | Outpatient (BNV) | payer OTHER, SELFPAY | PROVIDERS: PCP Orthopaedic Surgery; Visit Provider Surgery | DX: K60.3 Anal fistula (principal) | CPT/HCPCS: 46020 ==

== ENCOUNTER 2023-09-28 15:39 | Outpatient (AMB) | payer OTHER, SELFPAY ==
--- NOTE | 2023-09-28 15:47 | MHC.OFFVIS ---
Intake Vital Signs 09/28/23 15:53 Height 5 ft 4 in Weight 177 lb 4 oz BMI 30.4 BP 126/64 Blood Pressure Location Lt brachial Position Sitting Pulse 83 Intake Visit Reasons: S/P EUA,poss hemorrhoidectomy Intake Note: Patient is seen in office for post op assessment post hemorrhoidectomy. 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 She tolerated the procedure well. She is here for a postop visit. She says she feels well overall. She denies significant complaints. [facility] Medical History (Updated 09/28/23 @ 16:08 by Jesus Gonzalez MD) Anal fistula Anal abscess Hemorrhoids with complication Rotator cuff tear, left Fibromyalgia DONA positive Fibromyalgia Migraine Hypercholesteremia Internal and external bleeding hemorrhoids GERD (gastroesophageal reflux disease) Asthma HTN (hypertension) Surgical History History of arthroscopy of left shoulder (~10/2022) H/O hemorrhoidectomy S/P tendon repair Hx of hysterectomy Family History Mother HTN (hypertension) Asthma Glaucoma Father Diabetes HTN (hypertension) Sister Down syndrome Household Members: Family Housing: House Alcohol intake: never Patient Tobacco Use Status: Never used Tobacco service: No Current occupational status: employed 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 Sexual orientation: Straight/Heterosexual Gender identity: Female Review of Systems Const Denies chills and Denies fever(s) Card Denies chest pain, Denies dyspnea and Denies dyspnea on exertion Resp Denies cough, Denies dyspnea and Denies dyspnea on exertion GI Denies hematochezia and Denies change in bowel habits Denies hematuria Musc Denies back pain and Denies limited range of motion Neuro Denies focal weakness and Denies convulsions Psych Denies depression and Denies mood swings Physical Exam Vital Signs: Last Vital Signs Pulse 83 09/28/23 15:53 BP 126/64 09/28/23 15:53 BMI result Body Mass Index 30.4 Const General: comfortable and no acute distress GI Other: Rectal exam shows the seton in place, no new induration, no active drainage, Assessment & Plan Assessment & Plan (1) Anal fistula: Code(s): K60.3 - Anal fistula Plan: Status post seton placement. The seton is in place. There is no new sinus or induration. I told her that I will see her in about 3 weeks and plan to tighten the seton. She can continue to do hot Sitz baths in the meantime. She seems to be doing well overall. Coding Level of Care Code Global (63183) Diagnoses Anal fistula K60.3
[2023-09-28 15:53] VITALS: BP 126/64; PULSE 83; BMI 30.4
== END 2023-09-28 16:12 | disposition home or self-care (01) ==
PROVIDERS: PCP Internal Medicine; Visit Provider Surgery
DX: K60.3 Anal fistula (principal)
CPT/HCPCS: 99024

== ENCOUNTER → 2023-09-28 15:39 | Outpatient (BNVA) | payer OTHER, SELFPAY | PROVIDERS: PCP Internal Medicine; Visit Provider Surgery ==

== ENCOUNTER 2023-10-07 10:20 | Outpatient (AMB) | payer OTHER, SELFPAY ==
[2023-10-07 10:22] VITALS: BP 114/78; PULSE 79; RESP 17; TEMP 2.3; TEMP 36.2; O2SAT 98; BMI 30.8
--- NOTE | 2023-10-07 10:22 | A.OFFVIS_ITS ---
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 Accompanied by: Self / Same As Patient Allergies duloxetine Adverse Reaction (Severe, Verified 10/07/23 10:24) hallucinations (severe) sumatriptan [From IMITREX] Adverse Reaction (Unknown, Verified 10/07/23 10:24) HEADACHES Medication List - Last Reconciled 10/07/23 by Claudia Urbano RN albuterol sulfate 2.5 mg (3 mL) inhalation QID 30 days albuterol sulfate 90 mcg/actuation (Ventolin HFA) 1 puff inhalation QID amitriptyline 50 mg PO BEDTIME beclomethasone dipropionate 80 mcg/actuation (Qvar RediHaler) 1 inh inhalation BID Bifidobacterium infantis (Align) 4 mg PO BEDTIME Brace,wrist wear on right wrist at night famotidine 20 mg PO BID hydrochlorothiazide 12.5 mg PO DAILY hydrocortisone acetate (Anusol-HC) 25 mg ID BID ibuprofen 800 mg PO TID PRN lidocaine 5% topical lisinopril 10 mg PO QAM omeprazole 20 mg PO DAILY pregabalin 100 mg PO BID psyllium seed (sugar) (Metamucil (sugar) oral powder) 1 tbsp PO BID topiramate 400 mg PO BEDTIME tramadol 50 mg PO Q8H PRN triamcinolone acetonide 0.1% 1 appl topical BID HPI HPI Comments History of Present Illness Details The patient returns for evaluation of her fibromyalgia and hand numbness. There is quite a bit of recurrent nighttime and intermittent daytime hand numbness in the right hand. I gave her a prescription for wrist splint and she has been using it. There has been diminished severity of those symptoms but she still experiences them. Additionally the left hand has similar symptoms although not quite as frequent. She has been having some low back pain that radiates to the right buttock and thigh. There is a prior history of some injections in the back, I think that was with [facility]. She remains on pregabalin 100 b.i.d., amitriptyline at night, occasional tramadol prescribed by her primary doctor and a topical lidocaine gel p.r.n.. [facility] Medical History Anal fistula Anal abscess Hemorrhoids with complication Rotator cuff tear, left Fibromyalgia DONA positive Fibromyalgia Migraine Hypercholesteremia Internal and external bleeding hemorrhoids GERD (gastroesophageal reflux disease) Asthma HTN (hypertension) Surgical History History of arthroscopy of left shoulder (~10/2022) H/O hemorrhoidectomy S/P tendon repair Hx of hysterectomy Family History Mother HTN (hypertension) Asthma Glaucoma Father Diabetes HTN (hypertension) Sister Down syndrome Social History Household Members: Family Housing: House Alcohol intake: never Patient Tobacco Use Status: Never used Tobacco service: No Current occupational status: employed 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 Negative for appetite change, weight change, fever, chills, malaise Card Details: Negative chest pain, edema and syncope Resp Details: Negative for SOB, cough and wheezing GI Details: Negative indigestion/heartburn, nausea, abdominal pain, bowel changes, diarrhea, constipation and bloody stool. Neuro Details: Negative for epilepsy, palsy, stroke, changes in speech, tingling and weakness Psych Details: Negative for anxiety, depression and stress Tamir/Lymph Details: Negative for excessive bruising or bleeding. Physical Exam Vital Signs: Last Vital Signs Temp 36.2 F L 10/07/23 10:22 Pulse 79 10/07/23 10:22 Resp 17 10/07/23 10:22 BP 114/78 10/07/23 10:22 Pulse Ox 98 10/07/23 10:22 Oxygen Delivery Method Room Air 10/07/23 10:22 BMI result Body Mass Index 30.8 APPEARANCE: Patient in no acute distress JOINT EXAM: Cervical Spine:.? Mild pain with extremes of normal range of motion without pain; mild paraspinal muscle tenderness. Thoracic Spine:.? No scoliosis.? No tenderness on palpation. Lumbar Spine:.? Alignment normal.? Lumbar pain with flexion at 30 degrees with moderate paraspinal muscle tenderness. Straight leg raising on the right causes some buttock pain at about 45 degrees. The lower extremity reflexes and strength seem to be normal. No sensory deficits. Chest Wall:.? No tenderness, swelling, increased warmth or erythema. Hands:.? Right: Normal pain-free range of motion with slight tenderness across a few of the PIP joints but no swelling, increased warmth or erythema. Able to make a full fist and has a good burrer hand strength. No sensory loss, weakness or thenar atrophy. Left: She lacks ability to extend the 5th PIP and the IP. No areas of tenderness or swelling. No sensory loss. Wrists:.? Right: Mild pain with extremes of normal flexion or extension. There is some slight tenderness but no swelling, increased warmth or erythema. Negative Phalen's and Tinel signs. After the attempted Phalen's test she developed some spasm in muscle pain along the forearm. This took about 5 minutes to resolve. There was moderate tenderness at the time but no redness or swelling. Left: Mild pain with flexion extension at 75 degrees. Mostly this is on the volar aspect. That area is slightly tender without redness or swelling. Negative Phalen's and Tinel signs. Elbows:. Normal pain-free range of motion without tenderness, swelling, increased warmth or erythema. Shoulders:.??Left:? Mild pain with abduction at 150 degrees or with the extremes of normal internal or external rotation.? There is mild anterior and subacromial tenderness.? There seems to be some abductor weakness without adenopathy or swelling.? Right:Full range of motion without pain.? Slight tenderness over the trapezius area but no weakness, swelling, adenopathy, increased warmth or erythema. Hips:.? Full range of motion without pain. Hip bursa:.? No tenderness. Knees:.? Right:? Mild pain with extremes of motion with some mild patellofemoral crepitus and medial compartment tenderness but no redness or effusion.? Left:? Normal pain-free range of motion with mild patellofemoral crepitus in slight medial tenderness but no effusion,? tenderness, swelling, increased warmth or erythema.? Ankles:.? Normal pain-free range of motion without tenderness, swelling, increased warmth or erythema. Feet:? Normal pain-free range of motion with mild tenderness across the insteps.? No other areas of tenderness, swelling, increased warmth or erythema. Tender points:? Mild tenderness to digital palpation at the occiput, trapezius, second rib, lateral epicondyle, knees, greater trochanter and gluteal area bilaterally. ? Results Reviewed Results Reviewed: [address] [address] XRay Report Signed Patient: Johana Kaminski MR#: [id number] : 1970 Acct:[id number] Age/Sex: 51 / F ADM Date: 12/10/22 Ordering Physician: Sj Rees MD Date of Service: 12/10/22 Procedure(s): XR lumbar spine 2-3V Accession Number(s): [id number] cc: Sj Rees MD~ EXAMINATION: XR LUMBOSACRAL SPINE CLINICAL INFORMATION: Lower back pain. COMPARISON: CT abdomen and pelvis dated 11/11/2019. TECHNIQUE: AP and lateral views of the lumbar spine and lateral view of the lumbosacral junction. FINDINGS: The vertebral body heights are normal. There is a very mild thoracolumbar levoscoliosis. The lower thoracic and lumbar disc spaces are preserved. The posterior elements are intact. The paraspinal soft tissues are normal. An 8 mm left renal upper pole calculus is redemonstrated. XR/XR lumbar spine 2-3V IMPRESSION: 1. There is a very mild thoracolumbar levoscoliosis. 2. The lumbar disc spaces are well-maintained. 3. No acute fracture or spondylolisthesis is seen. 4. An 8 mm left renal upper pole calculus is redemonstrated. Dictated By: Brendon Saeed MD Assessment & Plan Assessment & Plan (1) Lower back pain: Comment: had injections before -?2019 Code(s): M54.50 - Low back pain, unspecified (2) Numbness in both hands: Comment: R>L Code(s): R20.0 - Anesthesia of skin (3) Fibromyalgia: Code(s): M79.7 - Fibromyalgia Plan She continues with fairly widespread pains. There are no swollen joints to suggest an active synovitis picture consistent with autoimmune inflammatory disease. These are mostly pains due to fibromyalgia. The lumbar/hip pain is likely due to degenerative disc disease. There are certainly some paresthesias more prominent on the right hand than one would expect with fibromyalgia. These have improved a bit with wrist splinting but I think it is reasonable to pursue further diagnostic testing with nerve conduction studies which we will request. The back pain has been treated previously she said with corticosteroid injections so we will ask her to be re-evaluated at [facility]. She will continue with the current medications including the pregabalin. Follow-up at 4 months is reasonable. Orders: Orders NE electromyogram (EMG) Today R20.0 - Anesthesia of skin Referrals Physiatry Referral M54.50 - Low back pain, unspecified Medications: Refilled pregabalin 100 mg PO BID 60 caps 3RF M79.7 - Fibromyalgia Coding Level of Care Code Est Pt Level 3 (72371) Diagnoses Lower back pain M54.50 Numbness in both hands R20.0 Fibromyalgia M79.7
== END 2023-10-07 11:15 | disposition home or self-care (01) ==
PROVIDERS: PCP Internal Medicine; Visit Provider Internal Medicine Rheumatology
DX: M54.50 Low back pain, unspecified (principal); R20.0 Anesthesia of skin; M79.7 Fibromyalgia
CPT/HCPCS: 99213

== ENCOUNTER → 2023-10-07 10:20 | Outpatient (BNVA) | payer OTHER, SELFPAY | PROVIDERS: PCP Internal Medicine; Visit Provider Internal Medicine Rheumatology | DX: M54.50 Low back pain, unspecified (principal); M79.7 Fibromyalgia; R20.0 Anesthesia of skin | CPT/HCPCS: 99212 ==

== ENCOUNTER 2023-10-21 09:11 | Outpatient (AMB) | payer OTHER, SELFPAY ==
[2023-10-21 09:12] VITALS: BP 100/55; PULSE 73; BMI 30.4
--- NOTE | 2023-10-21 09:12 | MHC.OFFVIS ---
Intake Vital Signs 10/21/23 09:12 Height 5 ft 4 in Weight 177 lb BMI 30.4 BP 100/55 L Blood Pressure Location Rt brachial Position Sitting Pulse 73 Intake Visit Reasons: 3 wks post hemorrhoidectomy Intake Note: This patient presents for a three week follow-up assessment status post EUA, seton. Patient c/o; reports no complaints at this time. 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 She denies any complaints at this time. She denies any significant discharge or bleeding. [facility] Medical History Anal fistula Anal abscess Hemorrhoids with complication Rotator cuff tear, left Fibromyalgia DONA positive Fibromyalgia Migraine Hypercholesteremia Internal and external bleeding hemorrhoids GERD (gastroesophageal reflux disease) Asthma HTN (hypertension) Surgical History History of arthroscopy of left shoulder (~10/2022) H/O hemorrhoidectomy S/P tendon repair Hx of hysterectomy Family History Mother HTN (hypertension) Asthma Glaucoma Father Diabetes HTN (hypertension) Sister Down syndrome Social History Household Members: Family Housing: House Alcohol intake: never Patient Tobacco Use Status: Never used Tobacco service: No Current occupational status: employed 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 Sexual orientation: Straight/Heterosexual Gender identity: Female Review of Systems Const Denies chills and Denies fever(s) Card Denies chest pain, Denies dyspnea and Denies dyspnea on exertion Resp Denies cough, Denies dyspnea and Denies dyspnea on exertion GI Denies hematochezia and Denies change in bowel habits Denies hematuria Musc Reports abnormal gait, Reports back pain and Denies limited range of motion Neuro Reports abnormal gait, Denies focal weakness and Denies convulsions Psych Denies depression and Denies mood swings Physical Exam Vital Signs: Last Vital Signs Pulse 73 10/21/23 09:12 BP 100/55 L 10/21/23 09:12 BMI result Body Mass Index 30.4 Const General: comfortable and no acute distress GI Other: Rectal exam shows the seton to be in place, loose around the remaining fistula tract, no new induration or sinus Assessment & Plan Assessment & Plan (1) Anal fistula: Code(s): K60.3 - Anal fistula Plan: Status post seton placement. She is doing well and I tightened the seton using a silk 3-0 tie to make this snug around the fistula tract. I will see her again in about 3 weeks and plan to tighten the seton some more. Coding Level of Care Code Global (73227) Diagnoses Anal fistula K60.3
== END 2023-10-21 09:33 | disposition home or self-care (01) ==
PROVIDERS: PCP Internal Medicine; Visit Provider Surgery
DX: K60.3 Anal fistula (principal)
CPT/HCPCS: 99024

== ENCOUNTER → 2023-10-21 09:11 | Outpatient (BNVA) | payer OTHER, SELFPAY | PROVIDERS: PCP Internal Medicine; Visit Provider Surgery | DX: Z48.815 Encounter for surgical aftercare following surgery on the digestive system (principal); Z98.890 Other specified postprocedural states | CPT/HCPCS: 99212 ==

== ENCOUNTER 2023-11-11 09:07 | Outpatient (AMB) | payer OTHER, SELFPAY ==
[2023-11-11 09:10] VITALS: BP 107/56; PULSE 75; BMI 30.6
--- NOTE | 2023-11-11 09:10 | MHC.OFFVIS ---
Intake Vital Signs 11/11/23 09:10 Height 5 ft 4 in Weight 178 lb BMI 30.6 BP 107/56 L Blood Pressure Location Rt brachial Position Sitting Pulse 75 Intake Visit Reasons: 3 wk follow up, s/p seton Intake Note: This patient presents for a three week follow-up assessment for seton. Patient c/o; reports no changes or complaints at this time. 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 Accompanied by: Self / Same As Patient Allergies duloxetine Adverse Reaction (Severe, Verified 11/11/23 09:16) hallucinations (severe) sumatriptan [From IMITREX] Adverse Reaction (Unknown, Verified 11/11/23 09:16) HEADACHES Medication List - Last Reconciled 11/11/23 by Jesus Gonzalez MD albuterol sulfate 2.5 mg (3 mL) inhalation QID 30 days albuterol sulfate 90 mcg/actuation (Ventolin HFA) 1 puff inhalation QID amitriptyline 50 mg PO BEDTIME beclomethasone dipropionate 80 mcg/actuation (Qvar RediHaler) 1 inh inhalation BID Bifidobacterium infantis (Align) 4 mg PO BEDTIME Brace,wrist wear on right wrist at night famotidine 20 mg PO BID hydrochlorothiazide 12.5 mg PO DAILY hydrocortisone acetate (Anusol-HC) 25 mg [place] BID ibuprofen 800 mg PO TID PRN lidocaine 5% topical lisinopril 10 mg PO QAM omeprazole 20 mg PO DAILY pregabalin 100 mg PO BID psyllium seed (sugar) (Metamucil (sugar) oral powder) 1 tbsp PO BID topiramate 400 mg PO BEDTIME tramadol 50 mg PO Q8H PRN triamcinolone acetonide 0.1% 1 appl topical BID HPI 3 wk follow up, s/p seton HPI Details She is here for follow-up for anal fistula with a seton in place. She denies any new complaints. She occasionally sees some blood on wiping. She does have some pain periodically. [facility] Medical History Anal fistula Anal abscess Hemorrhoids with complication Rotator cuff tear, left Fibromyalgia DONA positive Fibromyalgia Migraine Hypercholesteremia Internal and external bleeding hemorrhoids GERD (gastroesophageal reflux disease) Asthma HTN (hypertension) Surgical History History of arthroscopy of left shoulder (~10/2022) H/O hemorrhoidectomy S/P tendon repair Hx of hysterectomy Family History Mother HTN (hypertension) Asthma Glaucoma Father Diabetes HTN (hypertension) Sister Down syndrome Social History Household Members: Family Housing: House Alcohol intake: never Patient Tobacco Use Status: Never used Tobacco service: No Current occupational status: employed 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 Sexual orientation: Straight/Heterosexual Gender identity: Female Review of Systems Const Denies chills and Denies fever(s) Card Denies chest pain, Denies dyspnea and Denies dyspnea on exertion Resp Denies cough, Denies dyspnea and Denies dyspnea on exertion GI Denies hematochezia and Denies change in bowel habits Denies hematuria Musc Denies back pain and Denies limited range of motion Neuro Denies focal weakness and Denies convulsions Psych Denies depression and Denies mood swings Physical Exam Vital Signs: Last Vital Signs Pulse 75 11/11/23 09:10 BP 107/56 L 11/11/23 09:10 BMI result Body Mass Index 30.6 Const General: comfortable and no acute distress Resp Effort & Inspection: normal respiratory effort GI Other: Rectal exam shows the seton to be in place, the anal fistula tract appears to be much shorter, no new induration or sinus Assessment & Plan Assessment & Plan (1) Anal fistula: Code(s): K60.3 - Anal fistula Plan: Status post seton placement. I was able to tighten the seton with a silk 2 0 tie. This is snug on the remaining fistula tract The fistula tract is much shorter. I will see her again next month and plan to tighten the seton some more. Coding Level of Care Code Est Pt Level 2 (38541) Diagnoses Anal fistula K60.3
== END 2023-11-11 09:23 | disposition home or self-care (01) ==
PROVIDERS: PCP Internal Medicine; Visit Provider Surgery
DX: K60.3 Anal fistula (principal)
CPT/HCPCS: 99212

== ENCOUNTER → 2023-11-11 09:07 | Outpatient (BNVA) | payer OTHER, SELFPAY | PROVIDERS: PCP Internal Medicine; Visit Provider Surgery | DX: K60.3 Anal fistula (principal); Z98.890 Other specified postprocedural states | CPT/HCPCS: 99212 ==

== ENCOUNTER 2023-11-18 08:19 | Outpatient (AMB) | payer OTHER, SELFPAY ==
--- NOTE | 2023-11-18 08:21 | MHC.OFFVIS ---
Intake Vital Signs 11/18/23 08:22 Height 5 ft 4 in Weight 176 lb 5.917 oz BMI 30.3 BP 107/56 L Blood Pressure Location Rt brachial Position Sitting Intake Visit Reasons: Check seton, pain Intake Note: This patient presents for a seton check, pain. Patient c/o; reports pain and discomfort, reports spotting, reports unable to walk , sit or sleep due to pain. 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 Required: No Accompanied by: Self / Same As Patient Allergies duloxetine Adverse Reaction (Severe, Verified 11/18/23 08:27) hallucinations (severe) sumatriptan [From IMITREX] Adverse Reaction (Unknown, Verified 11/18/23 08:27) HEADACHES Medication List - Last Reconciled 11/18/23 by Jesus Gonzalez MD albuterol sulfate 2.5 mg (3 mL) inhalation QID 30 days albuterol sulfate 90 mcg/actuation (Ventolin HFA) 1 puff inhalation QID amitriptyline 50 mg PO BEDTIME beclomethasone dipropionate 80 mcg/actuation (Qvar RediHaler) 1 inh inhalation BID Bifidobacterium infantis (Align) 4 mg PO BEDTIME Brace,wrist wear on right wrist at night famotidine 20 mg PO BID hydrochlorothiazide 12.5 mg PO DAILY hydrocortisone acetate (Anusol-HC) 25 mg [place] BID ibuprofen 800 mg PO TID PRN lidocaine 5% topical lidocaine 4% 1 appl topical TID PRN lisinopril 10 mg PO QAM omeprazole 20 mg PO DAILY pregabalin 100 mg PO BID psyllium seed (sugar) (Metamucil (sugar) oral powder) 1 tbsp PO BID topiramate 400 mg PO BEDTIME tramadol 50 mg PO Q8H PRN triamcinolone acetonide 0.1% 1 appl topical BID HPI Check seton, pain HPI Details She states that she has been having pain in the anus since the day after I tighten the seton a week ago. She denies any bleeding. She describes the pain as sharp. [facility] Medical History Anal fistula Anal abscess Hemorrhoids with complication Rotator cuff tear, left Fibromyalgia DONA positive Fibromyalgia Migraine Hypercholesteremia Internal and external bleeding hemorrhoids GERD (gastroesophageal reflux disease) Asthma HTN (hypertension) Surgical History History of arthroscopy of left shoulder (~10/2022) H/O hemorrhoidectomy S/P tendon repair Hx of hysterectomy Family History Mother HTN (hypertension) Asthma Glaucoma Father Diabetes HTN (hypertension) Sister Down syndrome Social History Household Members: Family Housing: House Alcohol intake: never Patient Tobacco Use Status: Never used Tobacco service: No Current occupational status: employed Current occupation: [employer]/ rt handed Sexual orientation: Straight/Heterosexual Gender identity: Female Review of Systems Const Denies chills and Denies fever(s) Card Denies chest pain, Denies dyspnea and Denies dyspnea on exertion Resp Denies cough, Denies dyspnea and Denies dyspnea on exertion GI Denies hematochezia and Denies change in bowel habits Denies hematuria Musc Denies back pain and Denies limited range of motion Neuro Denies focal weakness and Denies convulsions Psych Denies depression and Denies mood swings Physical Exam Vital Signs: Last Vital Signs BP 107/56 L 11/18/23 08:22 BMI result Body Mass Index 30.3 Const General: no acute distress Resp Effort & Inspection: normal respiratory effort Cardio Rate: regular rate GI Other: Rectal exam - seton in place, a little tight the residual short fistula tract, swollen hemorrhoid adjacent to this on the left side, tender as well, no new sinuses, no abscess, no induration, no cellulitis Assessment & Plan Assessment & Plan (1) Anal fistula: Code(s): K60.3 - Anal fistula Plan: She has been having pain in the anus since last week. Examination reveals a swollen hemorrhoid, external, on the left. Since I just tighten the seton last week, I loosened this today by removing the silk tie that was placed last week as this may be contributing to her pain I have prescribed her lidocaine cream her this swollen hemorrhoid. I instructed her to do hot soaks or Sitz baths. She can take ibuprofen for the pain I will see her again in the office on her scheduled follow-up. Medications: New lidocaine 4% 1 appl topical TID PRN 15 grams 0RF pain Coding Level of Care Code Est Pt Level 2 (74661) Diagnoses Anal fistula K60.3
[2023-11-18 08:22] VITALS: BP 107/56; BMI 30.3
== END 2023-11-18 08:53 | disposition home or self-care (01) ==
PROVIDERS: PCP Internal Medicine; Visit Provider Surgery
DX: K60.3 Anal fistula (principal)
CPT/HCPCS: 99212

== ENCOUNTER → 2023-11-18 08:19 | Outpatient (BNVA) | payer OTHER, SELFPAY | PROVIDERS: PCP Internal Medicine; Visit Provider Surgery | DX: K60.3 Anal fistula (principal); K64.4 Residual hemorrhoidal skin tags | CPT/HCPCS: 99212 ==

== ENCOUNTER 2023-12-10 09:38 | Outpatient (AMB) | payer OTHER, SELFPAY ==
[2023-12-10 09:41] VITALS: BP 97/58; PULSE 68; BMI 29.9
--- NOTE | 2023-12-10 09:41 | MHC.OFFVIS ---
Intake Vital Signs 12/10/23 09:41 Height 5 ft 4 in Weight 174 lb BMI 29.9 BP 97/58 L Blood Pressure Location Rt brachial Position Sitting Pulse 68 Intake Visit Reasons: 1 month follow up, s/p seton Intake Note: This patient presents for a one month follow-up assessment seton. Pt c/o; reports no complaints at this time. 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 I had loosened the seton 3 weeks ago because of her complaints of pain. She feels much better now. She notices some blood occasionally on wiping. [facility] Medical History Anal fistula Anal abscess Hemorrhoids with complication Rotator cuff tear, left Fibromyalgia DONA positive Fibromyalgia Migraine Hypercholesteremia Internal and external bleeding hemorrhoids GERD (gastroesophageal reflux disease) Asthma HTN (hypertension) Surgical History History of arthroscopy of left shoulder (~10/2022) H/O hemorrhoidectomy S/P tendon repair Hx of hysterectomy Family History Mother HTN (hypertension) Asthma Glaucoma Father Diabetes HTN (hypertension) Sister Down syndrome Social History Household Members: Family Housing: House Alcohol intake: never Patient Tobacco Use Status: Never used Tobacco service: No Current occupational status: employed 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 Sexual orientation: Straight/Heterosexual Gender identity: Female Review of Systems Const Denies chills and Denies fever(s) Card Denies chest pain, Denies dyspnea and Denies dyspnea on exertion Resp Denies cough, Denies dyspnea and Denies dyspnea on exertion GI Reports hematochezia (on wiping) and Denies change in bowel habits Denies hematuria Musc Denies back pain and Denies limited range of motion Neuro Denies focal weakness and Denies convulsions Psych Denies depression and Denies mood swings Physical Exam Vital Signs: Last Vital Signs Pulse 68 12/10/23 09:41 BP 97/58 L 12/10/23 09:41 BMI result Body Mass Index 29.9 Const General: comfortable and no acute distress Resp Effort & Inspection: normal respiratory effort GI Other: rectal exam - seton in place, still seems a little snug on remaining fistula tract, some hemorrhoids Assessment & Plan Assessment & Plan (1) Anal fistula: Code(s): K60.3 - Anal fistula Plan: S/P seton. The seton seems still snug around the tract so I did not tighten this. I will see her in a month for a ffup. She is doing well overall. Coding Level of Care Code Est Pt Level 2 (15249) Global (32547) Diagnoses Anal fistula K60.3
== END 2023-12-10 09:57 | disposition home or self-care (01) ==
PROVIDERS: PCP Internal Medicine; Visit Provider Surgery
DX: K60.3 Anal fistula (principal)
CPT/HCPCS: 99024; 99212

== ENCOUNTER → 2023-12-10 09:38 | Outpatient (BNVA) | payer OTHER, SELFPAY | PROVIDERS: PCP Internal Medicine; Visit Provider Surgery | DX: K60.3 Anal fistula (principal); Z98.890 Other specified postprocedural states | CPT/HCPCS: 99212 ==

== ENCOUNTER 2024-01-07 10:02 | Outpatient (AMB) | payer OTHER, SELFPAY ==
--- NOTE | 2024-01-07 10:06 | A.OFFVIS_ITS ---
Intake Vital Signs 01/07/24 10:14 Height 5 ft 4 in Weight 175 lb BMI 30.0 BP 108/55 L Blood Pressure Location Rt brachial Position Sitting Pulse 65 Intake Visit Reasons: 1 month follow up, s/p seton Intake Note: This patient presents for a follow-up assessment for seton. Pt c/o; reports no complaints at this time. 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 Accompanied by: Self / Same As Patient Allergies duloxetine Adverse Reaction (Severe, Verified 01/07/24 10:07) hallucinations (severe) sumatriptan [From IMITREX] Adverse Reaction (Unknown, Verified 01/07/24 10:07) HEADACHES Medication List - Last Reconciled 01/07/24 by Jesus Gonzalez MD albuterol sulfate 2.5 mg (3 mL) inhalation QID 30 days albuterol sulfate 90 mcg/actuation (Ventolin HFA) 1 puff inhalation QID amitriptyline 50 mg PO BEDTIME beclomethasone dipropionate 80 mcg/actuation (Qvar RediHaler) 1 inh inhalation BID Bifidobacterium infantis (Align) 4 mg PO BEDTIME Brace,wrist wear on right wrist at night famotidine 20 mg PO BID hydrochlorothiazide 12.5 mg PO DAILY hydrocortisone acetate (Anusol-HC) 25 mg [place] BID ibuprofen 800 mg PO TID PRN lidocaine 5% topical lidocaine 4% 1 appl topical TID PRN lisinopril 10 mg PO QAM omeprazole 20 mg PO DAILY pregabalin 100 mg PO BID psyllium seed (sugar) (Metamucil (sugar) oral powder) 1 tbsp PO BID topiramate 400 mg PO BEDTIME tramadol 50 mg PO Q8H PRN triamcinolone acetonide 0.1% 1 appl topical BID HPI 1 month follow up, s/p seton HPI Details She is here for follow-up for her anal fistula with a seton in place. She denies any new complaints. She describes seeing some small amounts of blood on wiping once in a while. He denies any new pain or any new swelling or discharge. [facility] Medical History Anal fistula Anal abscess Hemorrhoids with complication Rotator cuff tear, left Fibromyalgia DONA positive Fibromyalgia Migraine Hypercholesteremia Internal and external bleeding hemorrhoids GERD (gastroesophageal reflux disease) Asthma HTN (hypertension) Surgical History History of arthroscopy of left shoulder (~10/2022) H/O hemorrhoidectomy S/P tendon repair Hx of hysterectomy Family History Mother HTN (hypertension) Asthma Glaucoma Father Diabetes HTN (hypertension) Sister Down syndrome Social History Household Members: Family Housing: House Alcohol intake: never Patient Tobacco Use Status: Never used Tobacco service: No Current occupational status: employed 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 Sexual orientation: Straight/Heterosexual Gender identity: Female Review of Systems Const Denies chills and Denies fever(s) Card Denies chest pain, Denies dyspnea and Denies dyspnea on exertion Resp Denies cough, Denies dyspnea and Denies dyspnea on exertion GI Details: Occasional blood on wiping seen Denies change in bowel habits Denies hematuria Musc Denies back pain and Denies limited range of motion Neuro Denies focal weakness and Denies convulsions Psych Denies depression and Denies mood swings Physical Exam Const General: comfortable and no acute distress Resp Effort & Inspection: normal respiratory effort Cardio Rate: regular rate GI Other: Rectal exam shows the seton to be in place, loose around the remaining fistula tract, fistula tract shorter, no new induration or sinuses, she has an external hemorrhoid as well adjacent to the fistula Palpation (GI): Soft to palpation Assessment & Plan Assessment & Plan (1) Anal fistula: Code(s): K60.3 - Anal fistula Plan: Status post seton placement. I tightened the seton using a silk 3-0 tie to make this snug around the remaining fistula tract. The fistula tract is much shorter. I will see her again next month and plan on removal of the seton depending on how this looks by then. Coding Level of Care Code Est Pt Level 2 (69798) Diagnoses Anal fistula K60.3
[2024-01-07 10:14] VITALS: BP 108/55; PULSE 65
== END 2024-01-07 10:26 | disposition home or self-care (01) ==
PROVIDERS: PCP Internal Medicine; Visit Provider Surgery
DX: K60.3 Anal fistula (principal)
CPT/HCPCS: 99212

== ENCOUNTER → 2024-01-07 10:02 | Outpatient (BNVA) | payer OTHER, SELFPAY | PROVIDERS: PCP Internal Medicine; Visit Provider Surgery | DX: Z46.89 Encounter for fitting and adjustment of other specified devices (principal); Z97.8 Presence of other specified devices; Z98.890 Other specified postprocedural states | CPT/HCPCS: 99212 ==

== ENCOUNTER 2024-02-10 10:20 | Outpatient (AMB) | payer OTHER, SELFPAY ==
--- NOTE | 2024-02-10 10:29 | MHC.OFFVIS ---
Intake Vital Signs 02/10/24 10:38 Height 5 ft 4 in Weight 175 lb 4.28 oz BMI 30.1 BP 112/76 Blood Pressure Location Rt brachial Position Sitting Pulse 86 Pulse Source Pulse Oximeter Pulse Oximetry (%) 98 Oxygen Delivery Method Room Air Intake Visit Reasons: FM Intake Note: Patient presents today to follow up on fibromyalgia. 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 Kaminski 53yoF returns for follow-up of her fibromyalgia and hand numbness. She continues with recurrent nighttime and intermittent daytime hand numbness in the right hand. She does use her wrist splint and she has been using it and the symptoms have lessened. Additionally the left hand has similar symptoms although not quite as frequent. Her story remains much the same as outlined below and she continues on the medications as prescribed. 10/2023 Dr. Rees: The patient returns for evaluation of her fibromyalgia and hand numbness. There is quite a bit of recurrent nighttime and intermittent daytime hand numbness in the right hand. I gave her a prescription for wrist splint and she has been using it. There has been diminished severity of those symptoms but she still experiences them. Additionally the left hand has similar symptoms although not quite as frequent. She has been having some low back pain that radiates to the right buttock and thigh. There is a prior history of some injections in the back, I think that was with [facility]. She remains on pregabalin 100 b.i.d., amitriptyline at night, occasional tramadol prescribed by her primary doctor and a topical lidocaine gel p.r.n.. [facility] Medical History Muscle spasm of shoulder region Large joint arthralgia of multiple sites Anal fistula Anal abscess Hemorrhoids with complication Rotator cuff tear, left Fibromyalgia DONA positive Fibromyalgia Migraine Hypercholesteremia Internal and external bleeding hemorrhoids GERD (gastroesophageal reflux disease) Asthma HTN (hypertension) Surgical History History of arthroscopy of left shoulder (~10/2022) H/O hemorrhoidectomy S/P tendon repair Hx of hysterectomy Family History Mother HTN (hypertension) Asthma Glaucoma Father Diabetes HTN (hypertension) Sister Down syndrome Social History Household Members: Family Housing: House Alcohol intake: never Patient Tobacco Use Status: Never used Tobacco service: No Current occupational status: employed 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 Mild pain with extremes of normal range of motion without pain; mild paraspinal muscle tenderness. Thoracic Spine:.? No scoliosis.? No tenderness on palpation. Lumbar Spine:.? Alignment normal.? Lumbar pain with flexion at 30 degrees with moderate paraspinal muscle tenderness. Straight leg raising on the right causes some buttock pain at about 45 degrees. The lower extremity reflexes and strength seem to be normal. No sensory deficits. Chest Wall:.? No tenderness, swelling, increased warmth or erythema. Hands:.? Right: Normal pain-free range of motion with slight tenderness across a few of the PIP joints but no swelling, increased warmth or erythema. 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 No sensory loss, weakness or thenar atrophy. Left: She lacks ability to extend the 5th PIP and the IP. No areas of tenderness or swelling. No sensory loss. Wrists:.? Right: Mild pain with extremes of normal flexion or extension. There is some slight tenderness but no swelling, increased warmth or erythema. Negative Phalen's and Tinel signs. After the attempted Phalen's test she developed some spasm in muscle pain along the forearm. This took about 5 minutes to resolve. There was moderate tenderness at the time but no redness or swelling. Left: Mild pain with flexion extension at 75 degrees. Mostly this is on the volar aspect. That area is slightly tender without redness or swelling. Negative Phalen's and Tinel signs. Elbows:. Normal pain-free range of motion without tenderness, swelling, increased warmth or erythema. Shoulders:.??Left:? Mild pain with abduction at 150 degrees or with the extremes of normal internal or external rotation.? There is mild anterior and subacromial tenderness.? There seems to be some abductor weakness without adenopathy or swelling.? Right:Full range of motion without pain.? Slight tenderness over the trapezius area but no weakness, swelling, adenopathy, increased warmth or erythema. Hips:.? Full range of motion without pain. Hip bursa:.? No tenderness. Knees:.? Right:? Mild pain with extremes of motion with some mild patellofemoral crepitus and medial compartment tenderness but no redness or effusion.? Left:? Normal pain-free range of motion with mild patellofemoral crepitus in slight medial tenderness but no effusion,? tenderness, swelling, increased warmth or erythema.? Ankles:.? Normal pain-free range of motion without tenderness, swelling, increased warmth or erythema. Feet:? Normal pain-free range of motion with mild tenderness across the insteps.? No other areas of tenderness, swelling, increased warmth or erythema. Tender points:? Mild tenderness to digital palpation at the occiput, trapezius, second rib, lateral epicondyle, knees, greater trochanter and gluteal area bilaterally. ? Results Reviewed Results Reviewed: [address] [address] XRay Report Signed Patient: Johana Kaminski MR#: [id number] : 1970 Acct:[id number] Age/Sex: 51 / F ADM Date: 12/10/22 Ordering Physician: Sj Rees MD Date of Service: 12/10/22 Procedure(s): XR lumbar spine 2-3V Accession Number(s): [id number] cc: Sj Rees MD~ EXAMINATION: XR LUMBOSACRAL SPINE CLINICAL INFORMATION: Lower back pain. COMPARISON: CT abdomen and pelvis dated 11/11/2019. TECHNIQUE: AP and lateral views of the lumbar spine and lateral view of the lumbosacral junction. FINDINGS: The vertebral body heights are normal. There is a very mild thoracolumbar levoscoliosis. The lower thoracic and lumbar disc spaces are preserved. The posterior elements are intact. The paraspinal soft tissues are normal. An 8 mm left renal upper pole calculus is redemonstrated. XR/XR lumbar spine 2-3V IMPRESSION: 1. There is a very mild thoracolumbar levoscoliosis. 2. The lumbar disc spaces are well-maintained. 3. No acute fracture or spondylolisthesis is seen. 4. An 8 mm left renal upper pole calculus is redemonstrated. Dictated By: Brendon Saeed MD Assessment & Plan Assessment & Plan (1) Lower back pain: Comment: had injections before -?2019 Code(s): M54.50 - Low back pain, unspecified Qualifiers: Back pain laterality: bilateral Chronicity: chronic Sciatica laterality: sciatica of right side Sciatica presence: with sciatica Qualified Code(s): M54.41 - Lumbago with sciatica, right side; G89.29 - Other chronic pain (2) Numbness in both hands: Comment: R>L Code(s): R20.0 - Anesthesia of skin (3) Fibromyalgia: Code(s): M79.7 - Fibromyalgia (4) Muscle spasm of shoulder region: Code(s): M62.838 - Other muscle spasm Plan #FM/Low back Pain/Hand Numbness: She continues with fairly widespread pains. There are no swollen joints to suggest an active synovitis picture consistent with autoimmune inflammatory disease. These are mostly pains due to fibromyalgia. The lumbar/hip pain is likely due to degenerative disc disease. She has paresthesias more prominent on the right hand. These have improved with wrist splinting. She had an EMG study in 2023 but no results were sent over to date. Most recent steroid injection, december 2023, with corticosteroid injections provided relief for only 3 days [facility]. She did one month of PT which was helpful. She wants to restart PT. I will prescribe PT again She will continue with the current medications including the pregabalin. I will obtain some labs and Iggs to evaluate the immune system for hyperactivity and ESR/CRP for systemic inflammation. #Muscle Spasm Shoulder region: RX Cyclobenzaprine. Discussed with patient that this can be sedating so better to use at night. Follow-up at 4 months I spent 40 minutes reviewing history, evaluating patient and documenting Orders: Orders Complete Blood Count Auto Diff 02/10/24 M25.50 - Pain in unspecified joint, R76.8 - Other specified abnormal immunological findings in serum C Reactive Protein 02/10/24 M25.50 - Pain in unspecified joint, R76.8 - Other specified abnormal immunological findings in serum Comprehensive Met. Panel 02/10/24 M25.50 - Pain in unspecified joint, R76.8 - Other specified abnormal immunological findings in serum Erythrocyte Sedimentation Rate 02/10/24 M25.50 - Pain in unspecified joint, R76.8 - Other specified abnormal immunological findings in serum Protein Electrophoresis, Serum 02/10/24 M25.50 - Pain in unspecified joint, R76.8 - Other specified abnormal immunological findings in serum Immunofixation Pnl, Serum 02/10/24 M25.50 - Pain in unspecified joint, R76.8 - Other specified abnormal immunological findings in serum Immunoglobulins,IgG IgA IgM 02/10/24 M25.50 - Pain in unspecified joint, R76.8 - Other specified abnormal immunological findings in serum Referrals Physiatry Referral M54.50 - Low back pain, unspecified Medications: New cyclobenzaprine 5 mg PO BID 60 tabs 2RF M62.838 - Other muscle spasm Coding Level of Care Code Est Pt Level 4 (64853) Diagnoses Chronic bilateral low back pain with right-sided sciatica M54.41; G89.29 Back pain laterality: bilateral Chronicity: chronic Sciatica laterality: sciatica of right side Sciatica presence: with sciatica Numbness in both hands R20.0 Fibromyalgia M79.7 Muscle spasm of shoulder region M62.838
[2024-02-10 10:38] VITALS: BP 112/76; PULSE 86; O2SAT 98; BMI 30.1
== END 2024-02-10 11:14 | disposition home or self-care (01) ==
PROVIDERS: PCP Internal Medicine; Visit Provider Nurse Practitioner Family
DX: M54.41 Lumbago with sciatica, right side (principal); G89.29 Other chronic pain; R20.0 Anesthesia of skin; M79.7 Fibromyalgia; M62.838 Other muscle spasm
CPT/HCPCS: 99214

== ENCOUNTER → 2024-02-10 10:20 | Outpatient (BNVA) | payer OTHER, SELFPAY | PROVIDERS: PCP Internal Medicine; Visit Provider Nurse Practitioner Family | DX: M54.41 Lumbago with sciatica, right side (principal); M79.7 Fibromyalgia; M62.838 Other muscle spasm; R20.0 Anesthesia of skin; G89.29 Other chronic pain | CPT/HCPCS: 99212 ==

== ENCOUNTER 2024-02-10 11:24 | Outpatient (REF) | payer OTHER, SELFPAY ==
[2024-02-10 13:26] LABS: MANUAL DIFF FLAG NO
[2024-02-10 13:59] LABS: Basophils Absolute Auto 0.1 X10*3/uL (0.0-0.2); Basophils Percent Auto 0.7 % (0-2); Eosinophils Absolute Auto 0.2 X10*3/uL (0.0-0.4); Eosinophils Percent Auto 1.5 % (0-4); Hematocrit 39.9 % (37.0-47.0); Hemoglobin 13.7 g/dl (12.0-16.0); Imm Gran Abs Auto 0.07 X10*3/uL (0.00-0.03); Imm Gran Pct Auto 0.7 % (0.0-0.4); Lymphocytes Absolute Auto 1.9 X10*3/uL (1.2-4.9); Lymphocytes Percent Auto 18.7 % (20-40); Mean Corpuscular HGB Conc 34.3 g/dl (31.0-35.0); Mean Corpuscular Volume 87.5 fL (80.0-98.0); Mean Platelet Volume 10.9 fL (9.4-12.3); Monocytes Absolute Auto 0.9 X10*3/uL (0.1-1.2); Monocytes Percent Auto 9.4 % (2-11); Neutrophils Absolute Auto 6.8 x10*3/uL (2.0-8.3); Platelet Count 345 X10*3/uL (160-400); Red Blood Count 4.56 X10*6/uL (4.20-5.50); Red Cell Distribution Width 12.6 % (11.0-16.0); White Blood Count 9.9 X10*3/uL (4.8-10.8)
[2024-02-10 14:34] LABS: Alanine Aminotransferase 22 U/L (0-31); Albumin Level 4.3 g/dL (3.5-5.0); Alkaline Phosphatase 64 U/L (39-117); Anion Gap 11 (12-20); Aspartate Amino Transferase 14 U/L (5-31); Bilirubin Total 0.3 mg/dL (0.0-1.0); Blood Urea Nitrogen 15 mg/dL (9-16); C Reactive Protein 1.69 mg/dL (< or = 0.50); Calcium 9.4 mg/dL (8.4-10.2); Carbon Dioxide 24 mmol/L (22-29); Chloride 105 mmol/L (96-108); Estimated Glomerular Filt Rate > 60; Glucose Random 92 mg/dL (60-115); Potassium 3.2 mmol/L (3.3-5.1); Sodium 137 mmol/L (135-145); Total Protein 7.7 g/dL (6.5-8.0)
[2024-02-10 14:55] LABS: Erythrocyte Sedimentation Rate 17 MM/HR (0-20)
[2024-02-11 22:08] LABS: Prot Elec - Albumin 4.3 g/dL (3.8-4.8); Prot Elec - Alpha1 0.3 g/dL (0.2-0.3); Prot Elec - Alpha2 0.8 g/dL (0.5-0.9); Prot Elec - Beta 1 0.5 g/dL (0.4-0.6); Prot Elec - Beta 2 0.5 g/dL (0.2-0.5); Prot Elec - Gamma 1.2 g/dL (0.8-1.7); Prot Elec - Total Protein 7.6 g/dL (6.1-8.1)
[2024-02-12 11:34] LABS: IgA 363 mg/dL (47-310); IgG 1207 mg/dL (600-1640); IgM 88 mg/dL (50-300)
== END 2024-02-10 11:25 | disposition home or self-care (01) ==
LOC: HO.10HDL 11:24
PROVIDERS: Visit Provider Nurse Practitioner Family
DX: R76.8 Other specified abnormal immunological findings in serum (principal); M25.50 Pain in unspecified joint
CPT/HCPCS: 36415; 80053; 82784; 84165; 85025; 85652; 86140; 86334

== ENCOUNTER 2024-02-17 10:05 | Outpatient (AMB) | payer OTHER, SELFPAY ==
--- NOTE | 2024-02-17 10:43 | A.OFFVIS_ITS ---
Intake Vital Signs 02/17/24 10:46 Height 5 ft 4 in Weight 175 lb 4.28 oz BMI 30.1 Intake Visit Reasons: One month follow-up seton Intake Note: This patient presents for a One month follow-up seton. Pt c/o; reports no complaints. 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 Accompanied by: Self / Same As Patient Allergies duloxetine Adverse Reaction (Severe, Verified 02/17/24 10:47) hallucinations (severe) sumatriptan [From IMITREX] Adverse Reaction (Unknown, Verified 02/17/24 10:47) HEADACHES Medication List - Last Reconciled 02/17/24 by Jesus Gonzalez MD albuterol sulfate 2.5 mg (3 mL) inhalation QID 30 days albuterol sulfate 90 mcg/actuation (Ventolin HFA) 1 puff inhalation QID amitriptyline 50 mg PO BEDTIME beclomethasone dipropionate 80 mcg/actuation (Qvar RediHaler) 1 inh inhalation BID Bifidobacterium infantis (Align) 4 mg PO BEDTIME Brace,wrist wear on right wrist at night cholecalciferol (vitamin D3) (Vitamin D3) 25 mcg PO DAILY cyclobenzaprine 5 mg PO BID famotidine 20 mg PO BID hydrochlorothiazide 12.5 mg PO DAILY ibuprofen 800 mg PO TID PRN lidocaine 4% 1 appl topical TID PRN lisinopril 10 mg PO QAM omeprazole 20 mg PO DAILY ondansetron HCl mg PO pregabalin 100 mg PO BID sennosides-docusate sodium 8.6-50 mg (Senexon-S) tabs PO topiramate 400 mg PO BEDTIME tramadol 50 mg PO Q8H PRN triamcinolone acetonide 0.1% 1 appl topical BID HPI One month follow-up seton HPI Details She is here for follow-up for an anal fistula with her seton in place. She denies any new complaints. She denies any drainage or pain. She does state that her hemorrhoids have swollen up in recently because of her seton. [facility] Medical History Muscle spasm of shoulder region Large joint arthralgia of multiple sites Anal fistula Anal abscess Hemorrhoids with complication Rotator cuff tear, left Fibromyalgia DONA positive Fibromyalgia Migraine Hypercholesteremia Internal and external bleeding hemorrhoids GERD (gastroesophageal reflux disease) Asthma HTN (hypertension) Surgical History History of arthroscopy of left shoulder (~10/2022) H/O hemorrhoidectomy S/P tendon repair Hx of hysterectomy Family History Mother HTN (hypertension) Asthma Glaucoma Father Diabetes HTN (hypertension) Sister Down syndrome Social History Household Members: Family Housing: House Alcohol intake: never Patient Tobacco Use Status: Never used Tobacco service: No Current occupational status: employed 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 Sexual orientation: Straight/Heterosexual Gender identity: Female Review of Systems Const Denies chills and Denies fever(s) Card Denies chest pain, Denies dyspnea and Denies dyspnea on exertion Resp Denies cough, Denies dyspnea and Denies dyspnea on exertion GI Denies hematochezia and Denies change in bowel habits Denies hematuria Musc Denies back pain and Denies limited range of motion Neuro Denies focal weakness and Denies convulsions Psych Denies depression and Denies mood swings Physical Exam Vital Signs: BMI result Body Mass Index 30.1 Const General: comfortable and no acute distress Resp Effort & Inspection: normal respiratory effort Cardio Rate: regular rate GI Other: Rectal exam - seton in place, no new drainage, induration or sinus, the seton seems to be loose around the fistula tract, and the fistula tract does seem shorter; she has some external hemorrhoids that appeared to be a little edematous adjacent to the seton Assessment & Plan Assessment & Plan (1) Anal fistula: Code(s): K60.3 - Anal fistula Plan: Seton in place. I tighten the seton again with a silk 3-0 tie. She tolerated this well The fistula tract continues to get shorter. I will see her again in the office next month and hopefully we can remove the seton by then. Coding Level of Care Code Est Pt Level 2 (67681) Diagnoses Anal fistula K60.3
[2024-02-17 10:46] VITALS: BMI 30.1
== END 2024-02-17 11:28 | disposition home or self-care (01) ==
PROVIDERS: PCP Internal Medicine; Visit Provider Surgery
DX: K60.3 Anal fistula (principal)
CPT/HCPCS: 99212

== ENCOUNTER → 2024-02-17 10:05 | Outpatient (BNVA) | payer OTHER, SELFPAY | PROVIDERS: PCP Internal Medicine; Visit Provider Surgery | DX: K60.3 Anal fistula (principal) | CPT/HCPCS: 99212 ==

== ENCOUNTER 2024-03-21 10:53 | Outpatient (AMB) | payer OTHER, SELFPAY ==
--- NOTE | 2024-03-21 10:58 | MHC.OFFVIS ---
Vital Signs 03/21/24 11:03 Height 5 ft 4 in Weight 176 lb 2 oz BMI 30.2 BP 103/59 L Blood Pressure Location Lt brachial Position Sitting Pulse 73 Intake Visit Reasons: One month follow-up seton Intake Note: Patient is seen in office for one month follow up visit, post seton placement. 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 Accompanied by: Self / Same As Patient Allergies duloxetine Adverse Reaction (Severe, Verified 02/17/24 10:47) hallucinations (severe) sumatriptan [From IMITREX] Adverse Reaction (Unknown, Verified 02/17/24 10:47) HEADACHES Medication List - Last Reconciled 03/21/24 by Jesus Gonzalez MD albuterol sulfate 2.5 mg (3 mL) inhalation QID 30 days albuterol sulfate 90 mcg/actuation (Ventolin HFA) 1 puff inhalation QID amitriptyline 50 mg PO BEDTIME beclomethasone dipropionate 80 mcg/actuation (Qvar RediHaler) 1 inh inhalation BID Bifidobacterium infantis (Align) 4 mg PO BEDTIME Brace,wrist wear on right wrist at night cholecalciferol (vitamin D3) (Vitamin D3) 25 mcg PO DAILY cyclobenzaprine 5 mg PO BID famotidine 20 mg PO BID hydrochlorothiazide 12.5 mg PO DAILY ibuprofen 800 mg PO TID PRN lidocaine 4% 1 appl topical TID PRN lisinopril 10 mg PO QAM omeprazole 20 mg PO DAILY ondansetron HCl mg PO pregabalin 100 mg PO BID sennosides-docusate sodium 8.6-50 mg (Senexon-S) tabs PO topiramate 400 mg PO BEDTIME tramadol 50 mg PO Q8H PRN triamcinolone acetonide 0.1% 1 appl topical BID HPI HPI One month follow-up seton: Details: She is here for follow-up anal fistula with a seton in place. I had been tightening this seton in the office and the fistula tract has been getting shorter. She denies any new complaints. [facility] Medical History Muscle spasm of shoulder region Large joint arthralgia of multiple sites Anal fistula Anal abscess Hemorrhoids with complication Rotator cuff tear, left Fibromyalgia DONA positive Fibromyalgia Migraine Hypercholesteremia Internal and external bleeding hemorrhoids GERD (gastroesophageal reflux disease) Asthma HTN (hypertension) Surgical History History of arthroscopy of left shoulder (~10/2022) H/O hemorrhoidectomy S/P tendon repair Hx of hysterectomy Family History Mother HTN (hypertension) Asthma Glaucoma Father Diabetes HTN (hypertension) Sister Down syndrome Social History Household Members: Family Housing: House Alcohol intake: never Patient Tobacco Use Status: Never used Tobacco service: No Current occupational status: employed 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 Sexual orientation: Straight/Heterosexual Gender identity: Female Review of Systems Const Denies chills and Denies fever(s) Card Denies chest pain, Denies dyspnea and Denies dyspnea on exertion Resp Denies cough, Denies dyspnea and Denies dyspnea on exertion GI Denies hematochezia and Denies change in bowel habits Denies hematuria Musc Denies back pain and Denies limited range of motion Neuro Denies focal weakness and Denies convulsions Psych Denies depression and Denies mood swings Physical Exam Const General: comfortable and no acute distress GI Other: Rectal exam shows the seton to be in place, no new sinus or induration Palpation (GI): Soft to palpation Assessment & Plan Assessment & Plan (1) Anal fistula: Code(s): K60.3 - Anal fistula Category: Medical Plan: The seton is in place. The fistula tract is much shorter. There was an adjacent external hemorrhoid that seems to keep swelling because of irritation from the seton She wants the seton removed. She understands the risk of recurrence although this may be unlikely as the fistula sac is much shorter I therefore removed the seton by cutting this. I will see her again in the office in about 3 weeks to see how she is doing. She also says that her hemorrhoid has been bothering her so we will consider hemorrhoid surgery down the line for symptoms as well. Coding Level of Care Code Est Pt Level 2 (29348) Diagnoses Anal fistula K60.3
[2024-03-21 11:03] VITALS: BP 103/59; PULSE 73; BMI 30.2
== END 2024-03-21 11:09 | disposition home or self-care (01) ==
PROVIDERS: PCP Internal Medicine; Visit Provider Surgery
DX: K60.3 Anal fistula (principal)
CPT/HCPCS: 99212

== ENCOUNTER → 2024-03-21 10:53 | Outpatient (BNVA) | payer OTHER, SELFPAY | PROVIDERS: PCP Internal Medicine; Visit Provider Surgery | DX: K60.3 Anal fistula (principal) | CPT/HCPCS: 99212 ==

== ENCOUNTER 2024-04-11 09:19 | Outpatient (AMB) | payer OTHER, SELFPAY ==
[2024-04-11 09:20] VITALS: BP 104/66; PULSE 70; BMI 30.2
--- NOTE | 2024-04-11 09:20 | A.OFFVIS_ITS ---
Vital Signs 04/11/24 09:20 Height 5 ft 4 in Weight 176 lb BMI 30.2 BP 104/66 Blood Pressure Location Lt brachial Position Sitting Pulse 70 Intake Visit Reasons: One month follow-up seton Intake Note: This patient presents for a one month follow-up for seton. Pt c/o; reports no complaints. 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: No Accompanied by: Self / Same As Patient Allergies duloxetine Adverse Reaction (Severe, Verified 04/11/24 09:20) hallucinations (severe) sumatriptan [From IMITREX] Adverse Reaction (Unknown, Verified 04/11/24 09:20) HEADACHES Medication List - Last Reconciled 04/11/24 by Jesus Gonzalez MD albuterol sulfate 2.5 mg (3 mL) inhalation QID 30 days albuterol sulfate 90 mcg/actuation (Ventolin HFA) 1 puff inhalation QID amitriptyline 50 mg PO BEDTIME beclomethasone dipropionate 80 mcg/actuation (Qvar RediHaler) 1 inh inhalation BID Bifidobacterium infantis (Align) 4 mg PO BEDTIME Brace,wrist wear on right wrist at night cholecalciferol (vitamin D3) (Vitamin D3) 25 mcg PO DAILY cyclobenzaprine 5 mg PO BID famotidine 20 mg PO BID hydrochlorothiazide 12.5 mg PO DAILY ibuprofen 800 mg PO TID PRN lidocaine 4% 1 appl topical TID PRN lisinopril 10 mg PO QAM omeprazole 20 mg PO DAILY ondansetron HCl mg PO pregabalin 100 mg PO BID sennosides-docusate sodium 8.6-50 mg (Senexon-S) tabs PO topiramate 400 mg PO BEDTIME tramadol 50 mg PO Q8H PRN triamcinolone acetonide 0.1% 1 appl topical BID HPI HPI One month follow-up seton: Details: 53-year-old female here for a follow-up for her anal fistula. I had removed her seton last month. She seems to be doing well with regards to the fistula. However she also has this external hemorrhoid that has been bothering her for several months now. This is also on the left side. As a matter of fact, when she had the seton, this hemorrhoid would get swollen frequently as this was rubbing on the seton She says that this continues to bother her. She says that this gets very tender and painful because the swelling. She says she wants this removed. [facility] Medical History (Updated 04/11/24 @ 09:35 by Jesus Gonzalez MD) External hemorrhoids with complication Muscle spasm of shoulder region Large joint arthralgia of multiple sites Anal fistula Anal abscess Hemorrhoids with complication Rotator cuff tear, left Fibromyalgia DONA positive Fibromyalgia Migraine Hypercholesteremia Internal and external bleeding hemorrhoids GERD (gastroesophageal reflux disease) Asthma HTN (hypertension) Surgical History History of arthroscopy of left shoulder (~10/2022) H/O hemorrhoidectomy S/P tendon repair Hx of hysterectomy Family History Mother HTN (hypertension) Asthma Glaucoma Father Diabetes HTN (hypertension) Sister Down syndrome Social History Household Members: Family Housing: House Alcohol intake: never Patient Tobacco Use Status: Never used Tobacco service: No Current occupational status: employed 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 Sexual orientation: Straight/Heterosexual Gender identity: Female Review of Systems Const Denies chills and Denies fever(s) Card Denies chest pain, Denies dyspnea and Denies dyspnea on exertion Resp Denies cough, Denies dyspnea and Denies dyspnea on exertion GI Denies hematochezia and Denies change in bowel habits Denies hematuria Musc Denies back pain and Denies limited range of motion Neuro Denies focal weakness and Denies convulsions Psych Denies depression and Denies mood swings Physical Exam Const General: comfortable and no acute distress Resp Effort & Inspection: normal respiratory effort GI Other: Rectal exam shows the fistula site to be resolved with no new induration or no obvious sinus. However she has this external hemorrhoid that appears swollen on the left side. This measures about 1 cm in size Palpation (GI): Soft to palpation Assessment & Plan Assessment & Plan (1) Anal fistula: Code(s): K60.3 - Anal fistula Category: Medical Plan: She had a seton in place and I had removed this last month. She seems to be doing well in this regard. I do not see any residual tract or any new induration. (2) External hemorrhoids with complication: Code(s): K64.4 - Residual hemorrhoidal skin tags Category: Medical Plan: She has this external hemorrhoid that keeps getting swollen frequently. In view of these symptoms, she wants to proceed with hemorrhoidectomy. I reviewed with the technique of exam under anesthesia and hemorrhoidectomy. I explained the risks including but not limited to bleeding, infections, postop pain, injury to the sphincter, as well as the benefits and alternatives. I explained to her what to expect postoperatively She wants to proceed. Coding Level of Care Code Est Pt Level 3 (40803) Diagnoses Anal fistula K60.3 External hemorrhoids with complication K64.4
== END 2024-04-11 09:33 | disposition home or self-care (01) ==
PROVIDERS: PCP Internal Medicine; Visit Provider Surgery
DX: K60.3 Anal fistula (principal); K64.4 Residual hemorrhoidal skin tags
CPT/HCPCS: 99214

== ENCOUNTER → 2024-04-11 09:19 | Outpatient (BNVA) | payer OTHER, SELFPAY | PROVIDERS: PCP Internal Medicine; Visit Provider Surgery | DX: K60.3 Anal fistula (principal); K64.4 Residual hemorrhoidal skin tags | CPT/HCPCS: 99212 ==

== ENCOUNTER 2024-05-23 12:21 | Outpatient (REF) | payer OTHER, SELFPAY ==
--- NOTE | ~2024-05-23 | XR_ITS ---
EXAMINATION: XR SHOULDER, RIGHT CLINICAL INFORMATION: Right shoulder pain for 6 months COMPARISON: None available. TECHNIQUE: AP external rotation, Grashey, scapular Y, and axillary views of the right shoulder. FINDINGS: The bones and soft tissues are normal. No fracture. Glenohumeral and acromioclavicular alignment is anatomic with normal joint space. No abnormal soft tissue calcifications. XR/XR shoulder RT min 2V IMPRESSION: Normal right shoulder.
== END 2024-05-23 12:22 | disposition home or self-care (01) ==
LOC: HO.HHCX 12:21
PROVIDERS: Visit Provider Internal Medicine
DX: M25.511 Pain in right shoulder (principal); G89.29 Other chronic pain
CPT/HCPCS: 73030

== ENCOUNTER 2024-05-27 08:29 | Day surgery (SDC) | payer OTHER, SELFPAY ==
[2024-05-25 12:56] VITALS: BMI 30.2
--- NOTE | 2024-05-25 13:16 | P.CONAN_ITS ---
Documented by User: Darlene Parsons NP 05/25/24 13:17 HPI - Anesthesia Eval Consult details Narrative: 53yo F for EUA,Hemorrhoidectomy PMFSH Active Problems Active Problems: All Active Problems External hemorrhoids with complication (Acute) Muscle spasm of shoulder region (Acute) Large joint arthralgia of multiple sites (Acute) Numbness in both hands (Acute) Anal fistula (Acute) Anal abscess (Acute) Hemorrhoids with complication (Acute) Carpal tunnel syndrome of right wrist (Acute) Lower back pain (Acute) Fatigue (Acute) Rotator cuff tear, left (Acute) Fibromyalgia (Acute) DONA positive (Acute) Environmental allergies (Acute) Severe persistent asthma (Acute) Past Medical History Medical History (Updated 04/11/24 @ 09:35 by Jesus Gonzalez MD) External hemorrhoids with complication Muscle spasm of shoulder region Large joint arthralgia of multiple sites Anal fistula Anal abscess Hemorrhoids with complication Rotator cuff tear, left Fibromyalgia DONA positive Fibromyalgia Migraine Hypercholesteremia Internal and external bleeding hemorrhoids GERD (gastroesophageal reflux disease) Asthma HTN (hypertension) Family History Family History Mother HTN (hypertension) Asthma Glaucoma Father Diabetes HTN (hypertension) Sister Down syndrome Family history of problems with anesthesia: No Surgical History Surgical History History of arthroscopy of left shoulder (~10/2022) H/O hemorrhoidectomy S/P tendon repair Hx of hysterectomy History of Problems with Anesthesia: No Social History Social History Household Members: Family Housing: House Alcohol intake: never Patient Tobacco Use Status: Never used Tobacco Use of substances other than those prescribed or required for medical reasons: No Are you DNR?: No Advance Directives: No Advance Directives Information Provided: Yes service: No Current occupational status: employed 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 Sexual orientation: Straight/Heterosexual Gender identity: Female Meds Allergies Allergy/AdvReac Type Severity Reaction Status Date / Time duloxetine AdvReac Severe hallucinations Verified 04/11/24 09:20 (severe) sumatriptan [From IMITREX] AdvReac Unknown HEADACHES Verified 04/11/24 09:20 Home Medications ?Medication ?Instructions ?Recorded ?Confirmed ?Last Taken ?Type hydrochlorothiazide 12.5 mg tablet 12.5 mg PO DAILY 09/03/20 05/27/24 Unknown History topiramate 100 mg tablet 400 mg PO BEDTIME 09/03/20 05/27/24 09/15/23 History tramadol 50 mg tablet 50 mg PO Q8H PRN Pain 09/03/20 04/11/24 Unknown History amitriptyline 25 mg tablet 50 mg PO BEDTIME 07/08/22 05/27/24 Unknown History ibuprofen 800 mg tablet 800 mg PO TID PRN Pain 07/08/22 04/11/24 Unknown History famotidine 20 mg tablet 20 mg PO BID 12/10/22 05/27/24 09/15/23 History lisinopril 10 mg tablet 10 mg PO QAM 12/10/22 05/27/24 Unknown History omeprazole 20 mg capsule,delayed 20 mg PO DAILY 12/10/22 05/27/24 09/15/23 History release Bifidobacterium infantis 4 mg 4 mg PO BEDTIME 06/09/23 05/27/24 Unknown History capsule (Align) triamcinolone acetonide 0.1 % 1 appl topical BID 06/09/23 05/27/24 Unknown History topical cream cholecalciferol (vitamin D3) 25 25 mcg PO DAILY 02/10/24 05/27/24 Unknown History mcg (1,000 unit) tablet (Vitamin D3) ondansetron HCl 4 mg tablet mg PO 02/10/24 04/11/24 Unknown History sennosides 8.6 mg-docusate sodium tab PO 02/10/24 04/11/24 Unknown History 50 mg tablet (Senexon-S) Exam Height,Weight and Vital Signs: Height 5 ft 4 in Weight 79.832 kg Pertinent Lab Results Pertinent Lab Results: Laboratory Tests 02/10/24 11:26 WBC 9.9 Hgb 13.7 Hct 39.9 Plt Count 345 Sodium 137 Potassium 3.2 L Chloride 105 Carbon Dioxide 24 BUN 15 Creatinine 0.68 Assessment and Plan Assessment Anesthesia Assessment: Chart Reviewed Final Anesthetic Review Family History of Problems with Anesthesia: No History of Problems with Anesthesia: No Documented by User: Cori Ag MD 05/27/24 10:03 [facility] Past Medical History Medical History (Updated 04/11/24 @ 09:35 by Jesus Gonzalez MD) External hemorrhoids with complication Muscle spasm of shoulder region Large joint arthralgia of multiple sites Anal fistula Anal abscess Hemorrhoids with complication Rotator cuff tear, left Fibromyalgia DONA positive Fibromyalgia Migraine Hypercholesteremia Internal and external bleeding hemorrhoids GERD (gastroesophageal reflux disease) Asthma HTN (hypertension) Family History Family History Mother HTN (hypertension) Asthma Glaucoma Father Diabetes HTN (hypertension) Sister Down syndrome Surgical History Surgical History History of arthroscopy of left shoulder (~10/2022) H/O hemorrhoidectomy S/P tendon repair Hx of hysterectomy Social History Social History Household Members: Family Housing: House Alcohol intake: never Patient Tobacco Use Status: Never used Tobacco Use of substances other than those prescribed or required for medical reasons: No Are you DNR?: No Advance Directives: No Advance Directives Information Provided: Yes service: No Current occupational status: employed 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 Sexual orientation: Straight/Heterosexual Gender identity: Female Meds Allergies Allergy/AdvReac Type Severity Reaction Status Date / Time duloxetine AdvReac Severe hallucinations Verified 04/11/24 09:20 (severe) sumatriptan [From IMITREX] AdvReac Unknown HEADACHES Verified 04/11/24 09:20 Home Medications ?Medication ?Instructions ?Recorded ?Confirmed ?Last Taken ?Type hydrochlorothiazide 12.5 mg tablet 12.5 mg PO DAILY 09/03/20 05/27/24 Unknown History topiramate 100 mg tablet 400 mg PO BEDTIME 09/03/20 05/27/24 09/15/23 History tramadol 50 mg tablet 50 mg PO Q8H PRN Pain 09/03/20 04/11/24 Unknown History amitriptyline 25 mg tablet 50 mg PO BEDTIME 07/08/22 05/27/24 Unknown History ibuprofen 800 mg tablet 800 mg PO TID PRN Pain 07/08/22 04/11/24 Unknown History famotidine 20 mg tablet 20 mg PO BID 12/10/22 05/27/24 09/15/23 History lisinopril 10 mg tablet 10 mg PO QAM 12/10/22 05/27/24 Unknown History omeprazole 20 mg capsule,delayed 20 mg PO DAILY 12/10/22 05/27/24 09/15/23 History release Bifidobacterium infantis 4 mg 4 mg PO BEDTIME 06/09/23 05/27/24 Unknown History capsule (Align) triamcinolone acetonide 0.1 % 1 appl topical BID 06/09/23 05/27/24 Unknown History topical cream cholecalciferol (vitamin D3) 25 25 mcg PO DAILY 02/10/24 05/27/24 Unknown History mcg (1,000 unit) tablet (Vitamin D3) ondansetron HCl 4 mg tablet mg PO 02/10/24 04/11/24 Unknown History sennosides 8.6 mg-docusate sodium tab PO 02/10/24 04/11/24 Unknown History 50 mg tablet (Senexon-S) Exam Airway Mallampati Class: II TM Dist: >3cm Neck ROM: Full Heart: rrr Lungs: cta Assessment and Plan Assessment Anesthesia Assessment: Anesthesia Plan Discussed Final Anesthetic Review NPO: Yes ASA Class: II Final Preanesthetic Review: No Changes in Pt Med Stat, Meds/Allgs Chart Reviewed and Consent Obtained/Reviewed Patient Risk: Low Procedure Risk: Low Anesthetic Plan Anesthetic Plan: GA Disposition: Standard PACU
[2024-05-27] VITALS (21 sets, daily range): BP systolic 92–157; BP diastolic 36–71; PULSE 48–77; RESP 9–18; TEMP 36.1–36.3; O2SAT 95–99
--- NOTE | 2024-05-27 09:57 | P.HPSUR_ITS ---
Pre-Procedural Eval Section A - 24 Hr Update-Section A only Date of Service: 05/27/24 Section B - Complete if H&P > 30 days Chief Complaint: Residual hemorrhoidal skin tags Details of Present Illness: She has a large external hemorrhoid with frequent pain swelling Relevant Social History: None Present Medications: see Short Stay Collaborative assessment Medical History: Significant History (Fibromyalgia, asthma) History of Previous Operations: Relevant previous surgery/procedure and date(s) (History of seton for anal fistula) Allergies: Allergies Allergy/AdvReac Type Severity Reaction Status Date / Time duloxetine AdvReac Severe hallucinations Verified 04/11/24 09:20 (severe) sumatriptan [From IMITREX] AdvReac Unknown HEADACHES Verified 04/11/24 09:20 Review of Systems Sugical H&P ROS: Negative: Constitution, Cardiovascular, Respiratory, Rashad rological, Psychiatric, Hem-Onc, Allergic/Immunologic, Gastrointestinal, Genitourinary, Musculoskeletal, Integumentary, Endocrine and Eyes/Ears/Nose/Throat Exam Surgical H&P Exam: Normal: HEENT, Normal: Heart, Normal: Lungs, Normal: Extremities, Normal: Abdomen, Normal: Skin and Normal: Neurological Exam Comment: Has external hemorrhoids Plan Diagnosis/Plan: Unchanged I have reviewed the history and physical and performed a pertinent physical examination on my patient. No changes have occurred unless specified. Time Spent With Patient Time: Total time managing care of this patient today ____ minutes.
[2024-05-27] MEDS: Lactated Ringers 1,000 ML 100 ML IVCONT (10:04)
--- NOTE | 2024-05-27 11:00 | W.PM.OPN ---
Operative Note Operative Note Date of Service: 05/27/24 Narrative: Preop diagnosis: Internal and external hemorrhoids with pain and swelling Postop diagnosis: The same Procedure: Exam under anesthesia hemorrhoidectomy x2 columns Surgeon: Jesus Gonzalez MD The patient is a 53 year female he has a long history of pain and swelling with her hemorrhoids. She wanted to proceed with hemorrhoidectomy. She understood the technique of the planned procedure as well as the risks, benefits, and alternatives She also had history of an anal fistula and had this treated with a seton. She was brought to the operating room. She was placed in prone tammy-knife position under general anesthesia via endotracheal tube. The buttocks were retracted with wide tape laterally. The perianal area was prepped and draped in the usual sterile fashion. A surgical time-out was done. The patient received Cefotan 2 g IV preoperatively . I infiltrated the perianal area with lidocaine 1%. There was note of a large external hemorrhoids on the left and another 1 on the right side. I inserted the views with retractor. I examined the anal canal circumferentially. These hemorrhoidal columns were seen and were noted to be a mix of internal external components I applied a Clinton grasper at the hemorrhoidal column the left to retract this out in the field. I made a zyxgnw-it-pzmpo stitch with a chromic 3-0 at its pedicle. I made an incision around this hemorrhoidal column the perianal skin with a blade 15. I excised this hemorrhoidal column above the plane of the sphincters along this incision with scissors. I closed the incision with a running chromic 3-0 stitch. Additional hemostatic jvocuz-ao-nepcj sutures were placed The same procedure was duplicated on the hemorrhoidal column on the right. Again a abgyoa-wl-wqefc stitch was placed at the pedicle and I made an incision around this hemorrhoidal column to the perianal skin. I excised this hemorrhoidal column above the plane of the sphincters with scissors and closed this incision with a running chromic 3-0 stitch Once hemostasis was confirmed, I infiltrated the perianal area with Marcaine 0.5% for postop analgesia. There was note of some hypergranulation on the old external fistulous site and I cauterized this with electrocautery. I applied a rolled Gelfoam packing into the anal canal Once hemostasis was confirmed, the procedure was completed The patient tolerated the procedure well. There were no immediate complications. Initial and final counts of sponges and instruments were correct. Estimated blood loss was about 75 cc The patient was extubated without difficulty and transferred to the recovery room with stable vital signs.
[2024-05-27] MEDS: fentaNYL citrate/PF 100 MCG/2 ML VIAL 50 MCG IVPUSH ×4 (11:15→11:55)
[2024-05-27] MEDS: oxyCODONE HCl Immed Release 5 MG TABLET PO (12:25)
== END 2024-05-27 13:10 | disposition home or self-care (01) ==
PROVIDERS: Visit Provider Surgery
PROC: (CPT 46260; principal; 2024-05-27 10:20)
DX: K64.8 Other hemorrhoids (principal); K64.4 Residual hemorrhoidal skin tags; K60.3 Anal fistula; L92.8 Other granulomatous disorders of the skin and subcutaneous tissue; M79.7 Fibromyalgia; I10 Essential (primary) hypertension; E78.00 Pure hypercholesterolemia, unspecified; J45.909 Unspecified asthma, uncomplicated; Z79.1 Long term (current) use of non-steroidal anti-inflammatories (NSAID); Z79.899 Other long term (current) drug therapy; Z88.8 Allergy status to other drugs, medicaments and biological substances
CPT/HCPCS: 46260; 17250; 88304; J0690; J1100; J1885; J2250; J2405; J2704; J2795; J3010

== ENCOUNTER → 2024-05-27 08:29 | Outpatient (BNV) | payer OTHER, SELFPAY | PROVIDERS: Visit Provider Surgery | DX: K64.8 Other hemorrhoids (principal) | CPT/HCPCS: 46260 ==

== ENCOUNTER 2024-06-09 10:03 | Outpatient (AMB) | payer OTHER, SELFPAY ==
--- NOTE | 2024-06-09 10:10 | MHC.OFFVIS ---
Intake Visit Reasons: S/P hemorrhoidectomy Intake Note: This patient presents for a post-op assessment status post hemorrhoidectomy. Pt c/o; reports no complaints. 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 She tolerated procedure well She says she had pain postoperatively and she continues to have this. This has been slowly improving. Denies any significant bleeding. [facility] Medical History External hemorrhoids with complication Muscle spasm of shoulder region Large joint arthralgia of multiple sites Anal fistula Anal abscess Hemorrhoids with complication Rotator cuff tear, left Fibromyalgia DONA positive Fibromyalgia Migraine Hypercholesteremia Internal and external bleeding hemorrhoids GERD (gastroesophageal reflux disease) Asthma HTN (hypertension) Surgical History History of arthroscopy of left shoulder (~10/2022) H/O hemorrhoidectomy S/P tendon repair Hx of hysterectomy Family History Mother HTN (hypertension) Asthma Glaucoma Father Diabetes HTN (hypertension) Sister Down syndrome Social History Household Members: Family Housing: House Alcohol intake: never Patient Tobacco Use Status: Never used Tobacco service: No Current occupational status: employed 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 Sexual orientation: Straight/Heterosexual Gender identity: Female Review of Systems Const Denies chills and Denies fever(s) Card Denies chest pain at rest Resp Denies cough Physical Exam Const General: comfortable and no acute distress Resp Effort & Inspection: normal respiratory effort GI Other: Rectal exam shows residual edema on the hemorrhoidectomy site on the right, otherwise no signs of infection, no induration, no discharge Assessment & Plan Assessment & Plan (1) Hemorrhoids with complication: Code(s): K64.8 - Other hemorrhoids Category: Medical Plan: Status post hemorrhoidectomy x2 columns. Her surgical sites are healing well. There was note of some residual edema so I instructed her to continue doing warm soaks I will refill her Percocet. I will see her in the office in about another month for a wound check. Coding Level of Care Code Global (46340) Diagnoses Hemorrhoids with complication K64.8
== END 2024-06-09 10:26 | disposition home or self-care (01) ==
PROVIDERS: PCP Internal Medicine; Visit Provider Surgery
DX: K64.8 Other hemorrhoids (principal)
CPT/HCPCS: 99024

== ENCOUNTER → 2024-06-09 10:03 | Outpatient (BNVA) | payer OTHER, SELFPAY | PROVIDERS: PCP Internal Medicine; Visit Provider Surgery | DX: K64.8 Other hemorrhoids (principal) | CPT/HCPCS: 99212 ==

== ENCOUNTER 2024-07-01 14:09 | Outpatient (AMB) | payer OTHER, SELFPAY ==
--- NOTE | 2024-07-01 15:07 | A.OFFVIS_ITS ---
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 Patient reports this has been going on for 7 months. She says it started with cracking and popping noises whenever she moved her shoulder but this gradually turned into severe pain. She expresses she currently is having a 8-9 out of 10 pain. With ROM she says her shoulder completely drops. She says it feels as if her arm has weights on them, can not lift above head. She has tried Motrin, electrical, oxycodone, heat, ice, old PT exercises from right shoulder, and tramadol and found no relief. 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 Patient reports that she had no particular injury to cause this pain, but states that she woke one morning and had pain in her R shoulder. 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 Patient reports that her pain is now at a 9 on a 1-10 scale. She reports that she previously experienced similar symptoms in her L shoulder, but she cannot recall the diagnosis, but does state that treatment required surgery. Denies numbness or tingling in the RUE. No other acute complaints or concerns at this time. [facility] Medical History External hemorrhoids with complication Muscle spasm of shoulder region Large joint arthralgia of multiple sites Anal fistula Anal abscess Hemorrhoids with complication Rotator cuff tear, left Fibromyalgia DONA positive Fibromyalgia Migraine Hypercholesteremia Internal and external bleeding hemorrhoids GERD (gastroesophageal reflux disease) Asthma HTN (hypertension) Surgical History History of arthroscopy of left shoulder (~10/2022) H/O hemorrhoidectomy S/P tendon repair Hx of hysterectomy Family History Mother HTN (hypertension) Asthma Glaucoma Father Diabetes HTN (hypertension) Sister Down syndrome Social History Household Members: Family Housing: House Alcohol intake: never Patient Tobacco Use Status: Never used Tobacco service: No Current occupational status: employed 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 Sexual orientation: Straight/Heterosexual Gender identity: Female Review of Systems Const All systems reviewed & are unremarkable except as noted in HPI and below Physical Exam Extrem Other: Right shoulder exam On Inspection, there is no visible deformity of the right shoulder No erythema, edema, ecchymosis noted No lacerations or abrasions No evidence of infection Patient reports diffuse tenderness to palpation about the right shoulder Patient is able to forward flex the shoulder to approximately 60-70 degrees, restricted due to pain and stiffness Patient is able to externally rotate the right shoulder to approximately 30 degrees past neutral, restricted due to pain Negative empty can Positive belly press Unable to assess lift-off test due to restricted range of motion Positive [place] Results Reviewed Results Reviewed: X-rays obtained on 05/23/2024 and independently reviewed by me, Jose Francisco Caba, demonstrate no fracture or acute bony abnormality. Assessment & Plan Assessment & Plan (1) Right shoulder pain: Code(s): M25.511 - Pain in right shoulder Category: Medical Plan 1. Right shoulder pain and stiffness Ongoing for approximately 7 months At this time, index of suspicion for rotator cuff injury versus other soft tissue pathology, such as but not limited to impingement and adhesive capsulitis, of the shoulder is high Therefore, patient is referred for MRI of right shoulder without contrast to assess the soft tissue structures of the right shoulder Patient is amenable to this plan Patient is offered referral to physical therapy, but states that she has been doing home PT exercises that were given to her during her treatment for her left shoulder, and they have not been effective, so she does not feel that PT will help her at this time Patient will follow-up after MRI for MRI review, sooner with any acute concerns Orders: Orders MR shoulder RT wo con 07/01/24 M77.8 - Other enthesopathies, not elsewhere classified Coding Level of Care Code New Pt Level 3 (49892) Diagnoses Right shoulder pain M25.511
== END 2024-07-01 15:35 | disposition home or self-care (01) ==
DX: M25.511 Pain in right shoulder (principal)
CPT/HCPCS: 99203

== ENCOUNTER → 2024-07-01 14:09 | Outpatient (BNVA) | payer OTHER, SELFPAY | DX: M25.511 Pain in right shoulder (principal); M77.8 Other enthesopathies, not elsewhere classified | CPT/HCPCS: 99202 ==

== ENCOUNTER 2024-07-07 09:32 | Outpatient (AMB) | payer OTHER, SELFPAY ==
--- NOTE | 2024-07-07 09:44 | A.OFFVIS_ITS ---
Vital Signs 07/07/24 09:45 Height 5 ft 5 in Weight 166 lb BMI 27.6 Intake Visit Reasons: 1 month follow up hemorrhoidectomy Intake Note: This patient presents for one month follow-up s/p hemorrhoidectomy, seton. Pt c/o; reports no complaints. 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 She now feels much better. She says she does not have any significant complaints with regards to her anus anymore. Her main complaint now is that she has rotator cuff injury in the right shoulder and is unable to move her right arm. [facility] Medical History External hemorrhoids with complication Muscle spasm of shoulder region Large joint arthralgia of multiple sites Anal fistula Anal abscess Hemorrhoids with complication Rotator cuff tear, left Fibromyalgia DONA positive Fibromyalgia Migraine Hypercholesteremia Internal and external bleeding hemorrhoids GERD (gastroesophageal reflux disease) Asthma HTN (hypertension) Surgical History History of arthroscopy of left shoulder (~10/2022) H/O hemorrhoidectomy S/P tendon repair Hx of hysterectomy Family History Mother HTN (hypertension) Asthma Glaucoma Father Diabetes HTN (hypertension) Sister Down syndrome Social History Household Members: Family Housing: House Alcohol intake: never Patient Tobacco Use Status: Never used Tobacco service: No Current occupational status: employed 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 Sexual orientation: Straight/Heterosexual Gender identity: Female Review of Systems Const Denies chills and Denies fever(s) Card Denies chest pain GI Details: Occasional blood with bowel movements Physical Exam Vital Signs: BMI result Body Mass Index 27.6 Const General: comfortable and no acute distress Resp Effort & Inspection: normal respiratory effort GI Other: Hemorrhoidectomy sites now well healed, no induration, no redness, no discharge Assessment & Plan Assessment & Plan (1) External hemorrhoids with complication: Code(s): K64.4 - Residual hemorrhoidal skin tags Category: Medical Plan: Status post hemorrhoidectomy. She is now doing very well. Hemorrhoidectomy sites are well healed. She has had no further issues with regards to her anus. She can therefore follow up on a p.r.n. basis. Coding Level of Care Code Global (85009) Diagnoses External hemorrhoids with complication K64.4
[2024-07-07 09:45] VITALS: BMI 27.6
== END 2024-07-07 09:51 | disposition home or self-care (01) ==
PROVIDERS: PCP Internal Medicine; Visit Provider Surgery
DX: K64.4 Residual hemorrhoidal skin tags (principal)
CPT/HCPCS: 99024

== ENCOUNTER → 2024-07-07 09:32 | Outpatient (BNVA) | payer OTHER, SELFPAY | PROVIDERS: PCP Internal Medicine; Visit Provider Surgery | DX: Z09 Encounter for follow-up examination after completed treatment for conditions other than malignant neoplasm (principal); Z98.890 Other specified postprocedural states; Z87.19 Personal history of other diseases of the digestive system | CPT/HCPCS: 99212 ==

== ENCOUNTER 2024-07-11 10:36 | Outpatient (REF) | payer OTHER, SELFPAY ==
[2024-07-11 14:35] LABS: MANUAL DIFF FLAG NO
[2024-07-11 14:40] LABS: Basophils Absolute Auto 0.1 X10*3/uL (0.0-0.2); Basophils Percent Auto 0.6 % (0-2); Eosinophils Absolute Auto 0.3 X10*3/uL (0.0-0.4); Eosinophils Percent Auto 2.6 % (0-4); Hemoglobin 13.6 g/dl (12.0-16.0); Imm Gran Abs Auto 0.06 X10*3/uL (0.00-0.03); Imm Gran Pct Auto 0.6 % (0.0-0.4); Lymphocytes Absolute Auto 2.3 X10*3/uL (1.2-4.9); Lymphocytes Percent Auto 23.6 % (20-40); Mean Corpuscular HGB Conc 34.9 g/dl (31.0-35.0); Mean Corpuscular Hemoglobin 30.8 pg (27.0-33.0); Mean Corpuscular Volume 88.2 fL (80.0-98.0); Mean Platelet Volume 10.8 fL (9.4-12.3); Monocytes Absolute Auto 0.9 X10*3/uL (0.1-1.2); Monocytes Percent Auto 9.8 % (2-11); Neutrophils Percent Auto 62.8 % (45-73); Platelet Count 362 X10*3/uL (160-400); Red Blood Count 4.42 X10*6/uL (4.20-5.50); Red Cell Distribution Width 13.1 % (11.0-16.0); White Blood Count 9.5 X10*3/uL (4.8-10.8)
[2024-07-11 15:09] LABS: Alanine Aminotransferase 14 U/L (0-31); Albumin Level 4.4 g/dL (3.5-5.0); Alkaline Phosphatase 58 U/L (39-117); Anion Gap 14 (12-20); Aspartate Amino Transferase 15 U/L (5-31); Bilirubin Total 0.2 mg/dL (0.0-1.0); Blood Urea Nitrogen 24 mg/dL (9-16); Carbon Dioxide 23 mmol/L (22-29); Chloride 106 mmol/L (96-108); Cholesterol 278 mg/dL (<200); Estimated Glomerular Filt Rate > 60; Glucose Random 82 mg/dL (60-115); HDL Cholesterol 42 mg/dL (>40); LDL Cholesterol Calculated 202 mg/dL (<100); Sodium 140 mmol/L (135-145); Total Protein 7.8 g/dL (6.5-8.0); Triglycerides 173 mg/dL (<150)
[2024-07-11 15:11] LABS: TSH reflex Free T4 1.23 uIU/mL (0.32-4.0)
[2024-07-12 17:58] LABS: Lyme Abs Screen <0.90 index
== END 2024-07-11 10:37 | disposition home or self-care (01) ==
LOC: HO.CHCLDS 10:36
PROVIDERS: Visit Provider Internal Medicine
DX: Z00.00 Encounter for general adult medical examination without abnormal findings (principal); I10 Essential (primary) hypertension; E78.00 Pure hypercholesterolemia, unspecified
CPT/HCPCS: 36415; 80053; 80061; 84443; 85025; 86617; 86618

== ENCOUNTER 2024-07-30 11:20 | Outpatient (REF) | payer OTHER, SELFPAY ==
--- NOTE | ~2024-07-30 | MR_ITS ---
EXAMINATION: MR SHOULDER WITHOUT CONTRAST, RIGHT CLINICAL INFORMATION: Right shoulder pain and numbness. Concern for adhesive capsulitis versus rotator cuff pathology. COMPARISON: Right shoulder radiographs dated 05/23/2024. TECHNIQUE: MRI of the shoulder without contrast was performed on a high-field scanner. FINDINGS: ROTATOR CUFF: Kgvj-gn-psamkuco supraspinatus tendinosis with distal bursal surface partial tearing measuring approximately 1.6 x 0.8 cm (AP x ML). There is extension into the junctional fibers. More mild infraspinatus and subscapularis tendinosis. Articular surface partial tearing of the distal subscapularis tendon measuring up to 1.2 cm in ML dimension. No full-thickness rotator cuff tendon tear. No muscle atrophy or fatty infiltration. BICEPS: Fluid within the proximal long head biceps tendon sheath, consistent with mild tenosynovitis. No tendon tear. CORACOACROMIAL ARCH: The undersurface of the acromion is curved with no subacromial spur. The acromioclavicular joint is normal. Trace fluid within subacromial-subdeltoid bursa, consistent with minimal bursitis. LABRUM/CAPSULE: Linear increased T2 signal within the undersurface of the superior labrum which could represent a nondisplaced undersurface tear. Thickening and heterogeneous with adjacent edema throughout the joint capsule which can be seen in the setting of adhesive capsulitis. GLENOHUMERAL JOINT/MARROW: Intact articular cartilage. No acute osseous injury. MR/MR shoulder RT wo con IMPRESSION: 1. Zdwq-gm-nfafpcks supraspinatus tendinosis with distal bursal surface partial tearing extending into the junctional fibers. Mild infraspinatus and subscapularis tendinosis with articular surface partial tearing of the distal subscapularis tendon. No full-thickness rotator cuff tendon tear. 2. Proximal long head biceps tenosynovitis without a measurable tendon tear. 3. Minimal subacromial-subdeltoid bursitis. 4. Possible nondisplaced undersurface tear of the superior labrum. 5. Thickening and heterogeneous edema throughout the joint capsule which can be seen in the setting of adhesive capsulitis. Electronically signed by: Delonte Ontiveros MD 08/02/2024 08:55 PM EDT
== END 2024-07-30 11:21 | disposition home or self-care (01) ==
LOC: HO.MRI 11:20
PROVIDERS: PCP Internal Medicine
DX: M77.8 Other enthesopathies, not elsewhere classified (principal)
CPT/HCPCS: 73221

== ENCOUNTER 2024-08-17 13:48 | Outpatient (AMB) | payer OTHER, SELFPAY ==
--- NOTE | 2024-08-17 14:01 | MHC.OFFVIS ---
Intake Visit Reasons: OV- Right shoulder MRI review Intake Note: Johana is a 53 year old right hand dominant female who presents today for an MRI review of her right shoulder. The patient reports her symptoms have not improved since last visit, and then she has continued with physical therapy exercises previously prescribed to her for her left shoulder when she was previously diagnosed with adhesive capsulitis on that side, to minimal effect. Patient can the patient continues to report decreased range of motion and strength in the right arm and shoulder. Patient reports that she has discontinue use of the sling since last visit. No numbness or tingling in the right upper extremity noted. No other acute complaints or concerns at this time. Allergies duloxetine Adverse Reaction (Severe, Verified 08/17/24 14:01) hallucinations (severe) sumatriptan [From IMITREX] Adverse Reaction (Unknown, Verified 08/17/24 14:01) HEADACHES PFSH Medical History External hemorrhoids with complication Muscle spasm of shoulder region Large joint arthralgia of multiple sites Anal fistula Anal abscess Hemorrhoids with complication Rotator cuff tear, left Fibromyalgia DONA positive Fibromyalgia Migraine Hypercholesteremia Internal and external bleeding hemorrhoids GERD (gastroesophageal reflux disease) Asthma HTN (hypertension) Surgical History History of arthroscopy of left shoulder (~10/2022) H/O hemorrhoidectomy S/P tendon repair Hx of hysterectomy Family History Mother HTN (hypertension) Asthma Glaucoma Father Diabetes HTN (hypertension) Sister Down syndrome Social History Household Members: Family Housing: House Alcohol intake: never Patient Tobacco Use Status: Never used Tobacco service: No Current occupational status: employed 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 Sexual orientation: Straight/Heterosexual Gender identity: Female Physical Exam Extrem Other: Right shoulder exam On Inspection, there is no visible deformity of the right shoulder No erythema, edema, ecchymosis noted No lacerations or abrasions No evidence of infection Patient reports diffuse tenderness to palpation about the right shoulder Patient is able to forward flex the shoulder to approximately 60-70 degrees, restricted due to pain and stiffness Patient is able to externally rotate the right shoulder to approximately 30 degrees past neutral, restricted due to pain Negative empty can Positive belly press Unable to assess lift-off test due to restricted range of motion Positive [place] Results Reviewed Results Reviewed: MR/MR shoulder RT wo con IMPRESSION: 1. Bnfw-[id number] supraspinatus tendinosis with distal bursal surface partial tearing extending into the junctional fibers. Mild infraspinatus and subscapularis tendinosis with articular surface partial tearing of the distal subscapularis tendon. No full-thickness rotator cuff tendon tear. 2. Proximal long head biceps tenosynovitis without a measurable tendon tear. 3. Minimal subacromial-subdeltoid bursitis. 4. Possible nondisplaced undersurface tear of the superior labrum. 5. Thickening and heterogeneous edema throughout the joint capsule which can be seen in the setting of adhesive capsulitis. Electronically signed by: Delonte Ontiveros MD 08/02/2024 08:55 PM EDT Assessment & Plan Assessment & Plan (1) Adhesive capsulitis of right shoulder: Code(s): M75.01 - Adhesive capsulitis of right shoulder Category: Medical (2) Internal derangement of right shoulder: Code(s): M24.811 - Other specific joint derangements of right shoulder, not elsewhere classified Category: Medical Plan 1. Adhesive capsulitis of right shoulder 2. Partial supraspinatus and subscapularis tendon tears 3. Subacromial bursitis Patient is educated about this condition Patient is educated about the typical recovery course of the treatment options available At this time, patient was referred to physical therapy for range of motion and strengthening of the right shoulder in the setting of adhesive capsulitis Patient is also referred to Dr. Munroe for surgical consult to discuss any potential surgical intervention indicated for her adhesive capsulitis, partial rotator cuff tendon tears, or subacromial bursitis Patient was amenable to this plan In the meantime, patient was advised on the importance of activity modification and conservative pain management measures for management of her symptoms Patient will follow-up with next available appointment with Dr. Munroe for further discussion of her right shoulder pain and limited range of motion, sooner with any acute concerns Orders: Orders PT Evaluation and Treatment Today M75.01 - Adhesive capsulitis of right shoulder Coding Level of Care Code Est Pt Level 3 (99530) Diagnoses Adhesive capsulitis of right shoulder M75.01 Internal derangement of right shoulder M24.628
== END 2024-08-17 14:34 | disposition home or self-care (01) ==
PROVIDERS: PCP Internal Medicine
DX: M75.01 Adhesive capsulitis of right shoulder (principal); M24.811 Other specific joint derangements of right shoulder, not elsewhere classified
CPT/HCPCS: 99213

== ENCOUNTER → 2024-08-17 13:48 | Outpatient (BNVA) | payer OTHER, SELFPAY | PROVIDERS: PCP Internal Medicine | DX: M75.01 Adhesive capsulitis of right shoulder (principal); M24.811 Other specific joint derangements of right shoulder, not elsewhere classified | CPT/HCPCS: 99212 ==

== ENCOUNTER 2024-08-25 13:07 | Outpatient (REF) | payer OTHER, SELFPAY ==
[2024-08-25 16:00] LABS: Anion Gap 11 (12-20); Blood Urea Nitrogen 21 mg/dL (9-16); Calcium 9.4 mg/dL (8.4-10.2); Carbon Dioxide 24 mmol/L (22-29); Chloride 110 mmol/L (96-108); Estimated Glomerular Filt Rate > 60; Glucose Random 86 mg/dL (60-115); Potassium 2.7 mmol/L (3.3-5.1); Sodium 142 mmol/L (135-145)
== END 2024-08-25 13:08 | disposition home or self-care (01) ==
LOC: HO.CHCLDS 13:07
PROVIDERS: Visit Provider Internal Medicine
DX: E87.6 Hypokalemia (principal)
CPT/HCPCS: 36415; 80048

== ENCOUNTER 2024-08-30 11:19 | Outpatient (AMB) | payer OTHER, SELFPAY ==
--- NOTE | 2024-08-30 11:29 | A.OFFVIS_ITS ---
Vital Signs 08/30/24 11:32 Height 5 ft 5 in Weight 161 lb BMI 26.8 Intake Visit Reasons: Right shoulder pain and stiffness Intake Note: Johana is a 53 year old female who presents with complaints of progressively worsening right shoulder pain and stiffness. The patient states that she did undergo left shoulder surgery in the past at [facility] for a frozen shoulder. She does not recall the name of the surgeon. The patient reports minimal discomfort in her left shoulder today. She describes her right shoulder pain as sharp and severe in nature, 08/11. Her right shoulder pain has gotten worse over the last year in spite of continued non operative treatments. She has tried Tylenol and anti-inflammatory medicines which gave her minimal relief. She has also done physical therapy which aggravated her pain. The patient states that she has not been able to lift her right hand to shoulder height for the last 6 months. She has had injections in the past. The most recent injection gave her no relief. Allergies duloxetine Adverse Reaction (Severe, Verified 08/30/24 11:32) hallucinations (severe) sumatriptan [From IMITREX] Adverse Reaction (Unknown, Verified 08/30/24 11:32) HEADACHES Medication List - Last Reconciled 08/30/24 by Fabian Munroe MD albuterol sulfate 2.5 mg (3 mL) inhalation QID 30 days albuterol sulfate 90 mcg/actuation (Ventolin HFA) 1 puff inhalation QID amitriptyline 50 mg PO BEDTIME beclomethasone dipropionate 80 mcg/actuation (Qvar RediHaler) 1 inh inhalation BID Bifidobacterium infantis (Align) 4 mg PO BEDTIME Brace,wrist wear on right wrist at night cholecalciferol (vitamin D3) (Vitamin D3) 25 mcg PO DAILY cyclobenzaprine 5 mg PO BID docusate sodium (Colace) 100 mg PO BID famotidine 20 mg PO BID hydrochlorothiazide 12.5 mg PO DAILY ibuprofen 800 mg PO TID PRN lidocaine 4% 1 appl topical TID PRN lisinopril 10 mg PO QAM omeprazole 20 mg PO DAILY ondansetron HCl mg PO potassium chloride ER (Klor-Con) 25 mEq PO DAILY pregabalin 100 mg PO BID rosuvastatin 20 mg PO DAILY sennosides-docusate sodium 8.6-50 mg (Senexon-S) tabs PO topiramate 400 mg PO BEDTIME tramadol 50 mg PO Q8H PRN triamcinolone acetonide 0.1% 1 appl topical BID PFSH Medical History External hemorrhoids with complication Muscle spasm of shoulder region Large joint arthralgia of multiple sites Anal fistula Anal abscess Hemorrhoids with complication Rotator cuff tear, left Fibromyalgia DONA positive Fibromyalgia Migraine Hypercholesteremia Internal and external bleeding hemorrhoids GERD (gastroesophageal reflux disease) Asthma HTN (hypertension) Surgical History History of arthroscopy of left shoulder (~10/2022) H/O hemorrhoidectomy S/P tendon repair Hx of hysterectomy Family History Mother HTN (hypertension) Asthma Glaucoma Father Diabetes HTN (hypertension) Sister Down syndrome Social History Household Members: Family Housing: House Alcohol intake: never Patient Tobacco Use Status: Never used Tobacco service: No Current occupational status: employed 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 Sexual orientation: Straight/Heterosexual Gender identity: Female Physical Exam Vital Signs: BMI result Body Mass Index 26.8 Const Other: Well-nourished well-developed very friendly female awake alert and oriented x3 in no acute distress Extrem Other: Bilateral upper extremity examination shows good capillary refill, no skin lesions noted, normal sensation light touch Right shoulder examination shows decreased active and passive range of motion when compared to her left shoulder, pain with range of motion, positive impingement signs, tenderness over her acromioclavicular joint, no instability, 5/5 strength with supraspinatus testing Results Reviewed Results Reviewed: X-rays of the patient's right shoulder show severe acromioclavicular joint narrowing, a type 2 acromion MRI of the patient's right shoulder show severe acromioclavicular joint narrowing, a type 2 acromion, signal change within the supraspinatus tendon most likely due to adhesive capsulitis Assessment & Plan Assessment & Plan (1) Adhesive capsulitis of right shoulder: Code(s): M75.01 - Adhesive capsulitis of right shoulder Category: Medical Plan Ms. Kaminski presents with progressively worsening right shoulder pain and stiffness due to impingement syndrome, acromioclavicular joint arthritis and adhesive capsulitis. I had a lengthy discussion with the patient regarding the treatment options. At this point she has failed continued non operative treatments. The risks and benefits of right shoulder surgery were discussed at length with the patient. The patient wishes to proceed with surgery. Surgery will involve right shoulder diagnostic arthroscopy with arthroscopic distal clavicle excision, acromioplasty, capsular release and manipulation under anesthesia. The patient will be scheduled for next available date. She will follow-up as instructed. Feel free to call me at any time should questions regarding her orthopedic management arise. Thank you very much for asking me to see this very friendly patient. I spent 20 minutes in reviewing the patient's records and imaging studies, seeing the patient and documenting in the medical record. Coding Level of Care Code New Pt Level 3 (40591) Complex EM visit Add On G2211 Diagnoses Adhesive capsulitis of right shoulder M75.01
[2024-08-30 11:32] VITALS: BMI 26.8
== END 2024-08-30 11:47 | disposition home or self-care (01) ==
LOC: HO.HOS 11:19
PROVIDERS: PCP Internal Medicine; Visit Provider Orthopaedic Surgery
DX: M75.01 Adhesive capsulitis of right shoulder (principal)
CPT/HCPCS: 99203; G2211

== ENCOUNTER → 2024-08-30 11:19 | Outpatient (BNVA) | payer OTHER, SELFPAY | PROVIDERS: PCP Internal Medicine; Visit Provider Orthopaedic Surgery | DX: M75.01 Adhesive capsulitis of right shoulder (principal) | CPT/HCPCS: 99202 ==

== ENCOUNTER 2024-09-16 10:58 | Outpatient (RCR) | payer OTHER, SELFPAY | END 2024-12-08 16:00 | disposition home or self-care (01) | LOC: HO.PT 10:58 | PROVIDERS: PCP Internal Medicine | DX: M75.01 Adhesive capsulitis of right shoulder (principal) ==

== ENCOUNTER → 2024-10-11 12:49 | Outpatient (BNV) | payer OTHER, SELFPAY | PROVIDERS: PCP Internal Medicine; Visit Provider Internal Medicine Cardiovascular Disease | DX: Z01.818 Encounter for other preprocedural examination (principal) | CPT/HCPCS: 93010 ==

== ENCOUNTER 2024-10-17 17:25 | Outpatient (REF) | payer OTHER, SELFPAY ==
[2024-10-18 11:45] LABS: Bacterial Vaginosis PCR NEGATIVE (Negative); Candida Group PCR DETECTED (Not Detect); Candida glab krusei PCR NOT DETECTED (Not Detect); Trichomonas vaginalis PCR NOT DETECTED (Not Detect)
[2024-10-18 14:03] LABS: CT PCR NOT DETECTED (Not Detect.); NG PCR NOT DETECTED (Not Detect.)
== END 2024-10-17 17:26 | disposition home or self-care (01) ==
LOC: HO.HHCLNP 17:25
PROVIDERS: Visit Provider Internal Medicine
DX: R93.89 Abnormal findings on diagnostic imaging of other specified body structures (principal); N89.8 Other specified noninflammatory disorders of vagina
CPT/HCPCS: 0352U; 87086; 87491; 87591

== ENCOUNTER 2024-10-28 07:29 | Day surgery (SDC) | payer OTHER, SELFPAY ==
--- NOTE | 2024-10-11 | ECG_ITS ---
Test Reason : preop Blood Pressure : / mmHG Vent. Rate : 073 BPM Atrial Rate : 073 BPM P-R Int : 160 ms QRS Dur : 072 ms QT Int : 402 ms P-R-T Axes : 060 -01 009 degrees QTc Int : 442 ms Normal sinus rhythm Low voltage QRS Borderline ECG No previous ECGs available Referred By: Fabian Munroe Electronically Signed By:NOAM CALI MD
[2024-10-11 12:19] VITALS: BP 115/70; PULSE 70; RESP 16; O2SAT 97; BMI 28.2
[2024-10-11 14:02] LABS: Anion Gap 12 (12-20); Blood Urea Nitrogen 26 mg/dL (9-16); Calcium 9.6 mg/dL (8.4-10.2); Carbon Dioxide 24 mmol/L (22-29); Chloride 104 mmol/L (96-108); Creatinine Clr Calc Pharmacy 86.3; Estimated Glomerular Filt Rate > 60; Glucose Random 87 mg/dL (60-115); Potassium 3.3 mmol/L (3.3-5.1); Sodium 137 mmol/L (135-145)
[2024-10-28] VITALS (11 sets, daily range): BP systolic 100–125; BP diastolic 58–75; PULSE 77–94; RESP 12–17; TEMP 36.1–36.9; O2SAT 96–100; BMI 28.1
[2024-10-28] MEDS: Lactated Ringers 1,000 ML 100 ML IVCONT (08:08)
--- NOTE | 2024-10-28 08:40 | P.CONAN_ITS ---
Documented by User: Darlene Parsons NP 10/27/24 08:37 HPI - Anesthesia Eval Consult details Narrative: 53yo F for Right Shoulder Arthroscopy,clavical excision,acromioplasty,capsular release and manipulation, 10/28/24 No recent illness No CP/SOB, limited by pain Hypokalemia: On K+ supplement and provider has since d/c'd hctz. Recheck labs with PAT with WNL Asthma: Well controlled with scheduled inhaler daily, rare albuterol GERD: controlled on ppi and H2 PMFSH Active Problems Active Problems: All Active Problems Internal derangement of right shoulder (Acute) Adhesive capsulitis of right shoulder (Acute) Right shoulder pain (Acute) Numbness in both hands (Acute) Carpal tunnel syndrome of right wrist (Acute) Lower back pain (Acute) Fatigue (Acute) Environmental allergies (Acute) Severe persistent asthma (Acute) External hemorrhoids with complication (Acute) Muscle spasm of shoulder region (Acute) Large joint arthralgia of multiple sites (Acute) Anal fistula (Acute) Anal abscess (Acute) Hemorrhoids with complication (Acute) Rotator cuff tear, left (Acute) Fibromyalgia (Acute) DONA positive (Acute) Past Medical History Medical History (Updated 10/10/24 @ 16:52 by Agueda Morales, RN) Hx of hypokalemia History of blood transfusion (~2013) Nausea Arthritis Right hip pain Anxiety Rosacea External hemorrhoids with complication Muscle spasm of shoulder region Large joint arthralgia of multiple sites Anal fistula Anal abscess Hemorrhoids with complication Rotator cuff tear, left Fibromyalgia DONA positive Fibromyalgia Migraine Hypercholesteremia Internal and external bleeding hemorrhoids GERD (gastroesophageal reflux disease) Asthma HTN (hypertension) Family History Family History Mother HTN (hypertension) Asthma Glaucoma Father Diabetes HTN (hypertension) Sister Down syndrome Family history of problems with anesthesia: No Surgical History Surgical History Hx of appendectomy Hx of elbow surgery History of arthroscopy of left shoulder (~10/2022) H/O hemorrhoidectomy S/P tendon repair Hx of hysterectomy (~2013) History of Problems with Anesthesia: No Social History Social History (Updated 10/11/24 @ 09:29 by Agueda Morales, RN) Household Members: Family Housing: House Are you a primary assisted living care manager to a significant other at home: No Do you presently have visiting nurse or other home services: No Alcohol intake: never Patient Tobacco Use Status: Never used Tobacco Use of substances other than those prescribed or required for medical reasons: No Have you been hit, kicked, punched, or otherwise hurt by someone within the past year? 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 Sexual orientation: Straight/Heterosexual Gender identity: Female Meds Allergies Allergy/AdvReac Type Severity Reaction Status Date / Time duloxetine AdvReac Severe hallucinations Verified 10/28/24 07:43 (severe) sumatriptan [From IMITREX] AdvReac Severe HEADACHES Verified 10/28/24 07:43 Home Medications ?Medication ?Instructions ?Recorded ?Confirmed ?Last Taken ?Type topiramate 100 mg tablet 100 mg PO BID 09/03/20 10/28/24 10/28/24 History tramadol 50 mg tablet 50 mg PO Q8H PRN Pain 09/03/20 10/28/24 Unknown History amitriptyline 25 mg tablet 50 mg PO BEDTIME 07/08/22 10/28/24 Unknown History ibuprofen 800 mg tablet 800 mg PO TID PRN Pain 07/08/22 10/28/24 10/25/24 History famotidine 20 mg tablet 20 mg PO BID 12/10/22 10/28/24 10/28/24 History lisinopril 10 mg tablet 10 mg PO QAM 12/10/22 10/28/24 10/27/24 History omeprazole 20 mg capsule,delayed 20 mg PO DAILY 12/10/22 10/28/24 10/28/24 History release triamcinolone acetonide 0.1 % 1 appl topical BID PRN Rash 06/09/23 10/28/24 Unknown History topical cream cholecalciferol (vitamin D3) 25 25 mcg PO DAILY 02/10/24 10/28/24 Unknown History mcg (1,000 unit) tablet (Vitamin D3) ondansetron HCl 4 mg tablet 4 mg PO TID PRN Nausea 02/10/24 10/28/24 Unknown History rosuvastatin 20 mg tablet 20 mg PO DAILY 08/30/24 10/28/24 Unknown History potassium chloride 20 mEq 20 meq PO DAILY 10/10/24 10/28/24 10/27/24 History tablet,extended release(part/cryst) (Klor-Con M) albuterol sulfate 90 mcg/actuation 1 puff inhalation QID PRN 10/11/24 10/28/24 Unknown History aerosol inhaler (Ventolin HFA) Shortness Of Breath Or Wheezing hydroxyzine HCl 10 mg tablet 10 mg PO DAILY 10/11/24 10/28/24 Unknown History Exam Height,Weight and Vital Signs: Height 5 ft 5 in Weight 76.8 kg Last Vital Signs Pulse 70 10/11/24 12:19 Resp 16 10/11/24 12:19 BP 115/70 10/11/24 12:19 Pulse Ox 97 10/11/24 12:19 O2 Del Method Room Air 10/11/24 12:19 Pertinent Lab Results Pertinent Lab Results: Lab Results 10/11/24 Range/Units 12:52 Sodium 137 (135-145) mmol/L Potassium 3.3 D (3.3-5.1) mmol/L Chloride 104 (96-108) mmol/L Carbon Dioxide 24 (22-29) mmol/L Anion Gap 12 (12-20) BUN 26 H (9-16) mg/dL Creatinine 0.79 (0.5-1.4) mg/dL Estim Creat Clear Calc 86.3 Estimated GFR > 60 Random Glucose 87 (60-115) mg/dL Calcium 9.6 (8.4-10.2) mg/dL Narrative Narrative: EKG 10/2024 Vent. Rate : 073 BPM Atrial Rate : 073 BPM P-R Int : 160 ms QRS Dur : 072 ms QT Int : 402 ms P-R-T Axes : 060 -01 009 degrees QTc Int : 442 ms Normal sinus rhythm Low voltage QRS Borderline ECG No previous ECGs available Airway Mallampati Class: II TM Dist: >3cm Neck ROM: Full Loose/Missing/Broken Teeth: No Heart: rrr Lungs: cta Assessment and Plan Assessment Anesthesia Assessment: Anesthesia Plan Discussed and PAT Visit Final Anesthetic Review Family History of Problems with Anesthesia: No History of Problems with Anesthesia: No Documented by User: Claribel Ramírez DO 10/28/24 12:13 PMFSH Past Medical History Medical History (Updated 10/10/24 @ 16:52 by Agueda Morales, RN) Hx of hypokalemia History of blood transfusion (~2013) Nausea Arthritis Right hip pain Anxiety Rosacea External hemorrhoids with complication Muscle spasm of shoulder region Large joint arthralgia of multiple sites Anal fistula Anal abscess Hemorrhoids with complication Rotator cuff tear, left Fibromyalgia DONA positive Fibromyalgia Migraine Hypercholesteremia Internal and external bleeding hemorrhoids GERD (gastroesophageal reflux disease) Asthma HTN (hypertension) Family History Family History Mother HTN (hypertension) Asthma Glaucoma Father Diabetes HTN (hypertension) Sister Down syndrome Family history of problems with anesthesia: No Surgical History Surgical History Hx of appendectomy Hx of elbow surgery History of arthroscopy of left shoulder (~10/2022) H/O hemorrhoidectomy S/P tendon repair Hx of hysterectomy (~2013) History of Problems with Anesthesia: No Social History Social History (Updated 10/11/24 @ 09:29 by Agueda Morales RN) Household Members: Family Housing: House Are you a primary assisted living care manager to a significant other at home: No Do you presently have visiting nurse or other home services: No Alcohol intake: never Patient Tobacco Use Status: Never used Tobacco Use of substances other than those prescribed or required for medical reasons: No Have you been hit, kicked, punched, or otherwise hurt by someone within the past year? 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 Sexual orientation: Straight/Heterosexual Gender identity: Female Meds Allergies Allergy/AdvReac Type Severity Reaction Status Date / Time duloxetine AdvReac Severe hallucinations Verified 10/28/24 07:43 (severe) sumatriptan [From IMITREX] AdvReac Severe HEADACHES Verified 10/28/24 07:43 Home Medications ?Medication ?Instructions ?Recorded ?Confirmed ?Last Taken ?Type topiramate 100 mg tablet 100 mg PO BID 09/03/20 10/28/24 10/28/24 History tramadol 50 mg tablet 50 mg PO Q8H PRN Pain 09/03/20 10/28/24 Unknown History amitriptyline 25 mg tablet 50 mg PO BEDTIME 07/08/22 10/28/24 Unknown History ibuprofen 800 mg tablet 800 mg PO TID PRN Pain 07/08/22 10/28/24 10/25/24 History famotidine 20 mg tablet 20 mg PO BID 12/10/22 10/28/24 10/28/24 History lisinopril 10 mg tablet 10 mg PO QAM 12/10/22 10/28/24 10/27/24 History omeprazole 20 mg capsule,delayed 20 mg PO DAILY 12/10/22 10/28/24 10/28/24 History release triamcinolone acetonide 0.1 % 1 appl topical BID PRN Rash 06/09/23 10/28/24 Unknown History topical cream cholecalciferol (vitamin D3) 25 25 mcg PO DAILY 02/10/24 10/28/24 Unknown History mcg (1,000 unit) tablet (Vitamin D3) ondansetron HCl 4 mg tablet 4 mg PO TID PRN Nausea 02/10/24 10/28/24 Unknown History rosuvastatin 20 mg tablet 20 mg PO DAILY 08/30/24 10/28/24 Unknown History potassium chloride 20 mEq 20 meq PO DAILY 10/10/24 10/28/24 10/27/24 History tablet,extended release(part/cryst) (Klor-Con M) albuterol sulfate 90 mcg/actuation 1 puff inhalation QID PRN 10/11/24 10/28/24 Unknown History aerosol inhaler (Ventolin HFA) Shortness Of Breath Or Wheezing hydroxyzine HCl 10 mg tablet 10 mg PO DAILY 10/11/24 10/28/24 Unknown History Exam Exam Date and Time: 10/28/24 0840 Height,Weight and Vital Signs: Height 5 ft 5 in Weight 76.8 kg Last Vital Signs Pulse 70 10/11/24 12:19 Resp 16 10/11/24 12:19 BP 115/70 10/11/24 12:19 Pulse Ox 97 10/11/24 12:19 O2 Del Method Room Air 10/11/24 12:19 Vital Signs Pulse Rate 70 10/11/24 12:19 Respiratory Rate 16 10/11/24 12:19 Blood Pressure 115/70 10/11/24 12:19 Pulse Oximetry 97 10/11/24 12:19 Oxygen Delivery Method Room Air 10/11/24 12:19 Temperature 97.0 F 10/28/24 11:07 Pulse Rate 79 10/28/24 12:08 Respiratory Rate 16 10/28/24 12:08 Blood Pressure 114/72 10/28/24 12:08 Pulse Oximetry 99 10/28/24 12:08 Oxygen Delivery Method Room Air 10/28/24 12:08 Airway Mallampati Class: II TM Dist: >3cm Neck ROM: Full Loose/Missing/Broken Teeth: No Heart: S1S2 Lungs: CTAB Assessment and Plan Assessment Anesthesia Assessment: Anesthesia Plan Discussed and Chart Reviewed Final Anesthetic Review Family History of Problems with Anesthesia: No History of Problems with Anesthesia: No NPO: Yes ASA Class: II Final Preanesthetic Review: No Changes in Pt Med Stat, Meds/Allgs Chart Reviewed, Consent Obtained/Reviewed and Anes Risks/Benef Reviewed Patient Risk: Low Procedure Risk: Low Anesthetic Plan Anesthetic Plan: GA, Regional Block (right brachial plexus block) and Agree w/ Assess. and Plan Disposition: Standard PACU
--- NOTE | 2024-10-28 09:00 | PC.NURSE ---
Unable to trim patients armpit in preop as patient could not lift arm at all due to excruciating pain. Pita Jerome OR nurse made aware.
--- NOTE | 2024-10-28 09:43 | PC.NURSE ---
Patient in preop. Nerve block right side performed by Dr. Ramírez, tolerated well. Patient monitored post block. Right eye became slightly droopy, unable to lift eye lid fully. Dr. Ramírez at bedside. Marquise MURCIA made aware as well as Pita rhodes.
--- NOTE | 2024-10-28 11:20 | PM.OP ---
Brief Operative Note Date of Service: 10/28/24 Pre-op diagnosis: Right shoulder impingement syndrome, right shoulder acromioclavicular joint arthritis, right shoulder adhesive capsulitis Post-op diagnosis: same Procedure: Right shoulder diagnostic arthroscopy with right shoulder arthroscopic distal clavicle excision, right shoulder arthroscopic acromioplasty, right shoulder arthroscopic anterior capsular release, right shoulder manipulation under anesthesia Implants: richard Surgeon: Fabian Munroe MD Anesthesia: GETA and regional Was an Receivable Manager used for this Procedure?: No Estimated blood loss (mL): 10 Pathology: none sent Condition: stable Disposition: PACU
--- NOTE | 2024-10-28 11:21 | P.OP_ITS ---
Operative Note Operative Note Date of Service: 10/28/24 Narrative: After the patient was identified as Johana Kaminski and her right shoulder was initialed by myself the patient was brought to the holding area where a right shoulder interscalene regional block was performed by the anesthesiologist in routine fashion. The patient was then brought to the operating room where general anesthesia was induced by the anesthesiologist in routine fashion. The patient was given 2 g of IV Ancef preoperatively for infection prophylaxis. Examination under anesthesia of the patient's right shoulder showed decreased passive range of motion when compared to the left shoulder. The patient's right shoulder had passive forward flexion to 30 degrees compared to 160 degrees, external rotation to 0 degrees compared to 50 degrees, and internal rotation to 30 degrees compared to 40 degrees. The patient was gently positioned in the beach chair position with all bony prominences well padded. The patient's right shoulder region and upper extremity were prepped and draped in sterile fashion. A formal time-out was completed. A #11 scalpel blade was used to make a posterior portal 2 cm inferior and 1 cm medial to the posterolateral corner of the acromion. Blunt trocar technique was used to enter the glenohumeral joint in routine fashion. An anterior portal was made just lateral to the coracoid process after proper positioning was confirmed using a spinal needle. Diagnostic arthroscopy showed minimal degenerative changes of the glenoid and humeral head articular surfaces. There was no evidence of rotator cuff tearing. There was no evidence of injury to the biceps tendon or its insertion onto the glenoid. There was inflammation of the anterior joint capsule consistent with adhesive capsulitis. The ArthroCare Wand was then used to perform an anterior capsular release between the inferior border of the biceps tendon and the superior border of the subscapularis tendon. The arthroscope was then placed from the posterior portal into the subacromial space. A lateral portal was made 2 fingerbreadths lateral to the anterior lateral corner of the acromion. The ArthroCare Wand was used to ablate soft tissues along the undersurface of the acromion as well as to excise the coracoacromial ligament. There was a sharp spur along the undersurface of the acromion which was removed using the hooded bur. The arthroscope was then placed into the lateral portal and the acromiopla sty was completed with the bur in the posterior portal using the posterior aspect of the acromion as a cutting block. The ArthroCare Wand was then brought in through the anterior portal and was used to ablate soft tissues along the acromioclavicular joint and distal clavicle. The posterior and superior ligamentous structures were left intact. A distal clavicle excision of 8 mm was performed using the fluted bur. Any remaining bursal tissue was removed using the arthroscopic shaver. The subacromial space was irrigated and then drained. All arthroscopic instruments were removed. A gentle manipulation under anesthesia was then performed. Full passive range of motion was easily attained. The 3 portals were closed with 3-0 nylon interrupted suture. The subacromial space was injected with Marcaine. Dry sterile dressing was placed over all incisions. The patient's right upper extremity was placed into a sling. The patient was awoken and extubated in the operating room. The patient was transferred to the recovery room in stable condition.
[2024-10-28] MEDS: Ketorolac Tromethamine 30 MG/ML VIAL IVPUSH (12:19)
[2024-10-28] MEDS: cefTRIAXone sodium 1 GM VIAL IVPUSH (12:36)
== END 2024-10-28 13:55 | disposition home or self-care (01) ==
PROVIDERS: Nurse Practitioner; PCP Internal Medicine; Visit Provider Orthopaedic Surgery
PROC: (CPT 29805; principal; 2024-10-28 09:30)
DX: M75.41 Impingement syndrome of right shoulder (principal); M75.01 Adhesive capsulitis of right shoulder; M19.011 Primary osteoarthritis, right shoulder; M79.7 Fibromyalgia; I10 Essential (primary) hypertension; E78.00 Pure hypercholesterolemia, unspecified; J45.909 Unspecified asthma, uncomplicated; Z79.1 Long term (current) use of non-steroidal anti-inflammatories (NSAID); Z79.899 Other long term (current) drug therapy; Z88.8 Allergy status to other drugs, medicaments and biological substances; Z98.890 Other specified postprocedural states
CPT/HCPCS: 29824; 29825; 29826; 36415; 80048; 93005; J0131; J0171; J0690; J0696; J1100; J1885; J2003; J2250; J2795; J3010

== ENCOUNTER → 2024-10-28 07:29 | Outpatient (BNV) | payer OTHER, SELFPAY | PROVIDERS: PCP Internal Medicine; Visit Provider Orthopaedic Surgery | DX: M19.011 Primary osteoarthritis, right shoulder (principal); M75.41 Impingement syndrome of right shoulder; M75.01 Adhesive capsulitis of right shoulder | CPT/HCPCS: 29824; 29826 ==

== ENCOUNTER 2024-11-10 11:21 | Outpatient (AMB) | payer OTHER, SELFPAY ==
--- NOTE | 2024-11-10 11:45 | MHC.OFFVIS ---
Vital Signs 11/10/24 11:47 Height 5 ft 5 in Weight 168 lb BMI 28.0 Intake Visit Reasons: PO RT shoulder 10/28/24 Intake Note: Johana is a 53 year old female who presents today for her first post operative visit after undergoing a right shoulder arthroscopy on 10/28/24. She reports moderate discomfort in her right shoulder. She does take oxycodone which gives her fairly good relief. She continues with her home stretching program. She denies any fevers or chills. Allergies duloxetine Adverse Reaction (Severe, Verified 11/10/24 11:47) hallucinations (severe) sumatriptan [From IMITREX] Adverse Reaction (Severe, Verified 11/10/24 11:47) HEADACHES Medication List - Last Reconciled 11/10/24 by Fabian Munroe MD albuterol sulfate 90 mcg/actuation (Ventolin HFA) 1 puff inhalation QID PRN albuterol sulfate 2.5 mg (3 mL) inhalation QID 30 days amitriptyline 50 mg PO BEDTIME beclomethasone dipropionate 80 mcg/actuation (Qvar RediHaler) 1 inh inhalation BID Brace,wrist wear on right wrist at night cholecalciferol (vitamin D3) (Vitamin D3) 25 mcg PO DAILY cyclobenzaprine 5 mg PO BID docusate sodium (Colace) 100 mg PO BID famotidine 20 mg PO BID hydroxyzine HCl 10 mg PO DAILY ibuprofen 800 mg PO TID PRN lidocaine 4% 1 appl topical TID PRN lisinopril 10 mg PO QAM omeprazole 20 mg PO DAILY ondansetron HCl 4 mg PO TID PRN oxycodone 10 mg (2 x 5 mg) PO Q4H PRN potassium chloride ER (Klor-Con M) 20 mEq PO DAILY pregabalin 100 mg PO BID rosuvastatin 20 mg PO DAILY topiramate 100 mg PO BID tramadol 50 mg PO Q8H PRN triamcinolone acetonide 0.1% 1 appl topical BID PRN PFSH Medical History (Updated 10/10/24 @ 16:52 by Agueda Morales RN) Hx of hypokalemia History of blood transfusion (~2013) Nausea Arthritis Right hip pain Anxiety Rosacea External hemorrhoids with complication Muscle spasm of shoulder region Large joint arthralgia of multiple sites Anal fistula Anal abscess Hemorrhoids with complication Rotator cuff tear, left Fibromyalgia DONA positive Fibromyalgia Migraine Hypercholesteremia Internal and external bleeding hemorrhoids GERD (gastroesophageal reflux disease) Asthma HTN (hypertension) Surgical History Hx of appendectomy Hx of elbow surgery History of arthroscopy of left shoulder (~10/2022) H/O hemorrhoidectomy S/P tendon repair Hx of hysterectomy (~2013) Family History Mother HTN (hypertension) Asthma Glaucoma Father Diabetes HTN (hypertension) Sister Down syndrome Social History (Updated 10/11/24 @ 09:29 by Agueda Morales RN) Household Members: Family Housing: House Are you a primary care coordination manager to a significant other at home: No Do you presently have visiting nurse or other home services: No 75 years or older and lives alone: No Alcohol intake: never Patient Tobacco Use Status: Never used Tobacco Advance Directives Date on File: 07/08/22 service: No Current occupational status: employed 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 Kaminski is doing very well after undergoing right shoulder arthroscopic surgery on 10/28/2024. Her sutures were removed and Steri-Strips placed over her incisions. She will continue with her home stretching program. The do's and don'ts of lifting were discussed at length with the patient. She will contact me prior to her follow-up appointment in 6 weeks should any questions or concerns arise. Feel free to call me at any time should questions regarding her orthopedic management arise. Medications: New oxycodone Partial Fill upon patient request. 5 mg PO Q4H PRN 40 tabs 0RF pain Coding Level of Care Code Global (25146) Diagnoses Right shoulder pain M25.511
[2024-11-10 11:47] VITALS: BMI 28.0
== END 2024-11-10 12:09 | disposition home or self-care (01) ==
PROVIDERS: PCP Internal Medicine; Visit Provider Orthopaedic Surgery
DX: M25.511 Pain in right shoulder (principal)
CPT/HCPCS: 99024

== ENCOUNTER → 2024-11-10 11:21 | Outpatient (BNVA) | payer OTHER, SELFPAY | PROVIDERS: PCP Internal Medicine; Visit Provider Orthopaedic Surgery | DX: M25.511 Pain in right shoulder (principal) | CPT/HCPCS: 99212 ==

== ENCOUNTER 2024-11-15 11:31 | Outpatient (AMB) | payer OTHER, SELFPAY ==
[2024-11-15 11:32] VITALS: BP 102/64; PULSE 77; O2SAT 100; BMI 28.2
--- NOTE | 2024-11-15 11:32 | MHC.OFFVIS ---
Vital Signs 11/15/24 11:32 Height 5 ft 5 in Weight 169 lb 12.095 oz BMI 28.2 BP 102/64 Blood Pressure Location Lt brachial Position Sitting Pulse 77 Pulse Source Doppler Pulse Oximetry (%) 100 Oxygen Delivery Method Room Air Intake Visit Reasons: Asthma Allergies duloxetine Adverse Reaction (Severe, Verified 11/15/24 11:37) hallucinations (severe) sumatriptan [From IMITREX] Adverse Reaction (Severe, Verified 11/15/24 11:37) HEADACHES HPI HPI Asthma: Details: 53-year-old lady, former minimal smoker in high school, followed for underlying severe persistent asthma and environmental allergies.? She continues on QVAR 80 and albuterol MDI with good control of her underlying symptoms. She denies any recent exacerbations. Patient recently had rotator cuff surgery and is recovering from it. She rarely needs to use her hydroxyzine for environmental allergies. [facility] Medical History (Updated 11/14/24 @ 14:37 by ASHOK Maya) Internal derangement of right shoulder Rotator cuff tear, left Anal abscess Anal fistula Muscle spasm of shoulder region Lower back pain Numbness in both hands Right shoulder pain Hx of hypokalemia History of blood transfusion (~2013) Nausea Arthritis Right hip pain Anxiety Rosacea External hemorrhoids with complication Large joint arthralgia of multiple sites Hemorrhoids with complication Fibromyalgia DONA positive Fibromyalgia Migraine Hypercholesteremia Internal and external bleeding hemorrhoids GERD (gastroesophageal reflux disease) Asthma HTN (hypertension) Surgical History Hx of appendectomy Hx of elbow surgery History of arthroscopy of left shoulder (~10/2022) H/O hemorrhoidectomy S/P tendon repair Hx of hysterectomy (~2013) Family History Mother HTN (hypertension) Asthma Glaucoma Father Diabetes HTN (hypertension) Sister Down syndrome Social History (Updated 10/11/24 @ 09:29 by Agueda Morales RN) Household Members: Family Housing: House Are you a primary career development coordinator/teacher to a significant other at home: No Do you presently have visiting nurse or other home services: No 75 years or older and lives alone: No Alcohol intake: never Patient Tobacco Use Status: Never used Tobacco Advance Directives Date on File: 09/06/22 service: No Current occupational status: employed 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 Sexual orientation: Straight/Heterosexual Gender identity: Female Review of Systems Const Denies daytime sleepiness, Denies excessive sweating, Denies fatigue, Denies fever(s), Denies lethargy, Denies malaise, Denies night sweats, Denies snoring and Denies weight loss Eyes Denies blurry vision and Denies itchy eyes ENT Denies nasal congestion, Denies post nasal drip, Denies sinus pain, Denies sinus pressure and Denies other ( Thrush) Card Denies chest pain, Denies pedal edema, Denies dyspnea, Denies orthopnea and Denies paroxysmal nocturnal dyspnea Resp Denies cough, Denies hemoptysis, Denies excessive phlegm production, Denies dyspnea, Denies snoring and Denies wheezing GI Denies abdominal pain and Denies heartburn Musc Denies myalgias, Denies arthralgias and Denies joint swelling Skin/Breast Denies rash Neuro Denies memory loss and Denies seizure-like activity Psych Denies abnormal sleep pattern, Denies anxiety and Denies memory loss Endo Denies excessive sweating, Denies fatigue and Denies heat intolerance Tamir/Lymph Denies easy bruising Aller/Immun Denies itchy eyes, Denies seasonal rhinorrhea and Denies wheezing Physical Exam Vital Signs: Last Vital Signs Pulse 77 11/15/24 11:32 BP 102/64 11/15/24 11:32 Pulse Ox 100 11/15/24 11:32 Oxygen Delivery Method Room Air 11/15/24 11:32 BMI result Body Mass Index 28.2 Const General: no acute distress and alert Nutritional Appearance: not obese Orientation/consciousness: Other orientation findings ( oriented) HEENT Head: Yes atraumatic Eyes General: appearance normal, both eyes and all related structures Sclerae: sclerae normal EOM: EOMs intact bilaterally Neck Neck: Yes supple Lymphatic: no lymphadenopathy noted Resp Effort & Inspection: normal respiratory effort and no use of accessory muscles Auscultation: clear to auscultation bilaterally Cardio Rate: regular rate Rhythm: regular rhythm Heart sounds: no gallops, no murmurs and no rubs Skin General skin exam: other ( warm) Extrem General: No clubbing, No cyanosis and No edema Assessment & Plan Assessment & Plan (1) Severe persistent asthma: Code(s): J45.50 - Severe persistent asthma, uncomplicated Category: Medical Plan: Well controlled on QVAR and albuterol MDI/nebs. Continue current regimen. (2) Environmental allergies: Code(s): Z91.09 - Other allergy status, other than to drugs and biological substances Category: Medical Plan: Well controlled on as needed hydroxyzine. Continue current regimen. Medications: Refilled beclomethasone dipropionate 80 mcg/actuation (Qvar RediHaler) 1 inh inhalation BID 10.6 grams 7RF Coding Level of Care Code Est Pt Level 4 (67065) Diagnoses Severe persistent asthma J45.50 Environmental allergies Z91.09
== END 2024-11-15 11:49 | disposition home or self-care (01) ==
PROVIDERS: PCP Internal Medicine; Visit Provider Internal Medicine Pulmonary Disease
DX: J45.50 Severe persistent asthma, uncomplicated (principal); Z91.09 Other allergy status, other than to drugs and biological substances
CPT/HCPCS: 99214

== ENCOUNTER → 2024-11-15 11:31 | Outpatient (BNVA) | payer OTHER, SELFPAY | PROVIDERS: PCP Internal Medicine; Visit Provider Internal Medicine Pulmonary Disease | DX: Z01.818 Encounter for other preprocedural examination (principal); J45.50 Severe persistent asthma, uncomplicated; Z91.09 Other allergy status, other than to drugs and biological substances; Z86.39 Personal history of other endocrine, nutritional and metabolic disease | CPT/HCPCS: 99212 ==

== ENCOUNTER 2024-11-15 14:07 | Outpatient (AMB) | payer OTHER, SELFPAY ==
[2024-11-15 14:10] VITALS: BP 118/63; PULSE 73; BMI 28.2
--- NOTE | 2024-11-15 14:10 | A.OFFVIS_ITS ---
Vital Signs 3 11/15/24 14:10 Height 5 ft 5 in Weight 169 lb 12.095 oz BMI 28.2 BP 118/63 Blood Pressure Location Lt brachial Position Sitting Pulse 73 Intake Visit Reasons: positive cologuard, colo screening Intake Note: Patient in office today for colonoscopy screening. CC: Patient c/o abd bloating, GERD, blood in stool sometimes with blood clots, and left sided and RLQ abd pain when she needs to have a BM. She states that she is always constipated and has to take senna because sometimes she can last a week without a BM. 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 She is referred by [facility]. PMX Asthma Hypertension High cholesterol Fibromyalgia syndrome Generalized osteoarthritis with arthralgias Carpal tunnel syndrome right wrist * SURGICAL HISTORY Left rotator cuff surgery Right rotator cuff surgery Rectal abscess and fistula drainage Appendectomy Ulnar nerve release left elbow Hemorrhoidectomy Hysterectomy * ALLERGIES Cymbalta Sumatriptan * Acheive CCA LABS: Laboratory Tests 07/11/24 10/11/24 10:37 12:52 WBC 9.5 Hgb 13.6 Hct 39.0 Plt Count 362 Estimated GFR > 60 Total Bilirubin 0.2 AST 15 ALT 14 Alkaline Phosphatase 58 TSH 1.23 Laboratory Tests 07/11/24 08/25/24 10/11/24 10:37 13:08 12:52 Potassium 3.0 L 2.7 L* 3.3 D TODAY'S VISIT She had a pror colonoscopy a very long time ago for GI problems w/o any findings on colonoscopy, just irritation with EGD. Her hypokalemia is of unknown cause and she takes k+ supplements - she has never seen a renal specialist. Her asthma is well controlled and she denies any cardiac problems. No prior problems with anesthesia or sedation. No ID problems. There is no known FHX of crc or polyps. [facility] Medical History (Updated 11/15/24 @ 14:40 by ASHOK Maya) Internal derangement of right shoulder Rotator cuff tear, left Anal abscess Anal fistula Muscle spasm of shoulder region Lower back pain Numbness in both hands Right shoulder pain Hx of hypokalemia History of blood transfusion (~2013) Nausea Arthritis Right hip pain Anxiety Rosacea External hemorrhoids with complication Large joint arthralgia of multiple sites Hemorrhoids with complication Fibromyalgia DONA positive Fibromyalgia Migraine Hypercholesteremia Internal and external bleeding hemorrhoids GERD (gastroesophageal reflux disease) Asthma HTN (hypertension) Surgical History History of esophagogastroduodenoscopy (EGD) H/O colonoscopy Hx of appendectomy Hx of elbow surgery History of arthroscopy of left shoulder (~10/2022) H/O hemorrhoidectomy S/P tendon repair Hx of hysterectomy (~2013) Family History Mother HTN (hypertension) Asthma Glaucoma Father Diabetes HTN (hypertension) Sister Down syndrome Social History Household Members: Family Housing: House Are you a primary health care manager to a significant other at home: No Do you presently have visiting nurse or other home services: No 75 years or older and lives alone: No Alcohol intake: never Patient Tobacco Use Status: Never used Tobacco Advance Directives Date on File: 07/08/22 service: No Current occupational status: employed 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 Sexual orientation: Straight/Heterosexual Gender identity: Female Review of Systems Const Denies fatigue, Denies fever(s), Denies night sweats, Denies poor appetite and Denies weight loss Eyes Details: glasses Reports requires corrective lenses ENT Reports Normal hearing present, Denies dental pain, Denies dysphagia, Denies hearing loss, Denies mouth pain, Denies odynophagia, Denies throat swelling, Denies tongue swelling and Reports other (Dentition adequate) Card Reports no additional complaints Resp Reports no additional complaints GI Details: Denies abdominal pain, Denies melena, Denies bloating, Denies hematochezia, Denies constipation, Denies GI cramping, Denies dysphagia, Denies excessive flatus, Denies early satiety, Denies heartburn, Denies diarrhea, Denies nausea, Denies odynophagia, Denies vomiting and Denies hematemesis Musc Reports back pain, Reports arthralgias and Reports joint swelling Skin/Breast Denies pruritus, Denies lesions, Denies rash and Denies jaundice Neuro Reports Normal hearing present and Denies Abnormal speech present Endo Denies fatigue Aller/Immun Denies throat swelling and Denies tongue swelling Physical Exam Vital Signs: Last Vital Signs Pulse 73 11/15/24 14:10 BP 118/63 11/15/24 14:10 BMI result Body Mass Index 28.2 Const General: cooperative, no acute distress, well developed and well groomed Nutritional Appearance: well nourished, obese and overweight Orientation/consciousness: oriented to person, oriented to place and oriented to time Limitations: No language barrier, ambulation with cane, ambulation with walker and wheelchair HEENT Head: Yes normocephalic and Yes atraumatic Eyes General: appearance normal, both eyes and all related structures Pupils: Equal, round and reactive pupils present Neck Neck: Yes normal visual inspection and Yes no lymphadenopathy Thyroid: Thyroid normal Resp Effort & Inspection: normal respiratory effort and able to speak in complete sentences Auscultation: clear to auscultation bilaterally Cardio Rate: regular rate Rhythm: regular rhythm Heart sounds: Normal, physiologic split S2 sound present Peripheral pulses: radial pulses present and posterior tibial pulses present GI Inspection: No distended, No Abdominal panniculus present, Yes scar and Yes striae Palpation (GI): Soft to palpation, nontender, no guarding, not rigid and No hepatosplenomegaly present Percussion: Yes normal to percussion Auscultation: normal bowel sounds Rectal Exam - Female: deferred Abdomen image: 2 1. surgical scars 2. 3. Skin General skin exam: no rashes or lesions noted, turgor normal, skin not dry, no jaundice, No spider nevi and no striae Rashes: no rashes Nails: normal Neuro General: oriented to person, oriented to place and oriented to time Cranial nerves: Yes Equal, round and reactive pupils present and Yes Normal hearing present Speech: No Abnormal speech present Extrem General: Yes normal to inspection, No clubbing, No cyanosis and No edema Right upper extremity: shoulder/upper arm Details: tenderness Location: of the proximal humerus; ROM limited Psych Thought process: Normal thought process present and not confabulating Thought content: Normal thought content present Insight: Good insight present (Psych) Judgement: Good judgement present (Psych) Assessment & Plan Assessment & Plan (1) Pre-op examination: Code(s): Z01.818 - Encounter for other preprocedural examination Category: Medical (2) Asthma: Code(s): J45.909 - Unspecified asthma, uncomplicated Category: Medical (3) Hx of hypokalemia: Comment: K+ 2.7 08/25/24 K-chelsie increased to 10 maximus bid Code(s): Z86.39 - Personal history of other endocrine, nutritional and metabolic disease Category: Medical Plan She had a pror colonoscopy a very long time ago for GI problems w/o any findings on colonoscopy, just irritation with EGD. Her hypokalemia is of unknown cause and she takes k+ supplements - she has never seen a renal specialist. Her asthma is well controlled and she denies any cardiac problems. No prior problems with anesthesia or sedation. No ID problems. There is no known FHX of crc or polyps. Orders: Orders 2 Colonoscopy - GI Use Only Today Z01.818 - Encounter for other preprocedural examination Medications: New 2 polyethylene glycol 3350 (Miralax) 238 grams PO ONCE 1 day 238 grams 0RF colonoscopy prep Z01.818 - Encounter for other preprocedural examination bisacodyl (Dulcolax (bisacodyl)) 10 mg (2 x 5 mg) PO BEDTIME 2 days 4 tabs 0RF Coding Level of Care Code New Pt Level 3 (23139) Diagnoses Pre-op examination Z01.818 Asthma J45.909 Hx of hypokalemia Z86.39
== END 2024-11-15 14:57 | disposition home or self-care (01) ==
PROVIDERS: PCP Internal Medicine; Visit Provider Nurse Practitioner
DX: Z01.818 Encounter for other preprocedural examination (principal); Z12.11 Encounter for screening for malignant neoplasm of colon; R19.5 Other fecal abnormalities; Z86.39 Personal history of other endocrine, nutritional and metabolic disease
CPT/HCPCS: 99212

== ENCOUNTER 2024-12-01 13:07 | Outpatient (AMB) | payer OTHER, SELFPAY ==
--- NOTE | 2024-12-01 13:14 | MHC.OFFVIS ---
Vital Signs 12/01/24 13:17 Height 5 ft 5 in Weight 170 lb 13.732 oz BMI 28.4 BP 112/70 Blood Pressure Location Lt brachial Position Sitting Respiration 16 Pulse 53 Pulse Source Pulse Oximeter Pulse Oximetry (%) 93 Oxygen Delivery Method Room Air Intake Visit Reasons: FM Intake Note: Patient presents for FM follow up and test results. Allergies duloxetine Adverse Reaction (Severe, Verified 12/01/24 13:17) hallucinations (severe) sumatriptan [From IMITREX] Adverse Reaction (Severe, Verified 12/01/24 13:17) HEADACHES HPI Comments Details: Patient is a 53-year-old female with hypertension, hyperlipidemia, asthma and fibromyalgia who presents today for follow up Interval History: Patient last seen 02/10/2024 with Vy monge. At that time she continued to have persistence of her fibromyalgia type pains. No changes were made to her medication at that time Today patient continues to have her widespread pains. Currently complaining of pain to the medial aspect of bilateral knees, her right outer hip and her right shoulder. Of note she recently had rotator cuff surgery in early October. She declined physical therapy because she had previous surgery on the left shoulder and thought that she could do the exercises herself at home. Rheumatologic History: Patient initially seen 11/21/2020 for the evaluation of polyarthralgias in the setting of positive DONA. Examination did not reveal any signs of active inflammatory arthritis and she had all the tender points that was consistent with fibromyalgia. Current Rheumatology Medication(s): Pregabalin 100 mg p.o. b.i.d. Cyclobenzaprine 5 mg p.o. b.i.d. [facility] Medical History (Updated 11/15/24 @ 14:40 by ASHOK aMya) Internal derangement of right shoulder Rotator cuff tear, left Anal abscess Anal fistula Muscle spasm of shoulder region Lower back pain Numbness in both hands Right shoulder pain Hx of hypokalemia History of blood transfusion (~2013) Nausea Arthritis Right hip pain Anxiety Rosacea External hemorrhoids with complication Large joint arthralgia of multiple sites Hemorrhoids with complication Fibromyalgia DONA positive Fibromyalgia Migraine Hypercholesteremia Internal and external bleeding hemorrhoids GERD (gastroesophageal reflux disease) Asthma HTN (hypertension) Surgical History History of esophagogastroduodenoscopy (EGD) H/O colonoscopy Hx of appendectomy Hx of elbow surgery History of arthroscopy of left shoulder (~10/2022) H/O hemorrhoidectomy S/P tendon repair Hx of hysterectomy (~2013) Family History Mother HTN (hypertension) Asthma Glaucoma Father Diabetes HTN (hypertension) Sister Down syndrome Social History Household Members: Family Housing: House Are you a primary laboratory animal care veterinarian to a significant other at home: No Do you presently have visiting nurse or other home services: No 75 years or older and lives alone: No Alcohol intake: never Patient Tobacco Use Status: Never used Tobacco Advance Directives Date on File: 07/08/22 service: No Current occupational status: employed 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 Sexual orientation: Straight/Heterosexual Gender identity: Female Review of Systems Const Details: Review of Systems Constitutional: Denies fever, chills, weight loss ENT: Denies vision changes, eye pain or eye redness, dental caries, dry mouth GI: Denies nausea, vomiting, diarrhea, abdominal pain, change in BM Pulm: Denies SOB, MCDERMOTT, hemoptysis, wheezing Cards: Denies chest pain, palpitations Skin: Denies Raynaud's, rash, nail changes, photosensitivity, PHYSICAL EDUCATION SPECIALIST: Denies headaches, weakness, paresthesias, recurrent falls MSK: as per HPI All other systems reviewed and are unremarkable except noted above Physical Exam Vital Signs: Last Vital Signs Pulse 53 12/01/24 13:17 Resp 16 12/01/24 13:17 BP 112/70 12/01/24 13:17 Pulse Ox 93 12/01/24 13:17 Oxygen Delivery Method Room Air 12/01/24 13:17 BMI result Body Mass Index 28.4 Vital signs reviewed Physical Examination CONSTITUITIONAL Patient alert and cooperative. Well appearing and in no apparent painful distress HEENT Conjunctiva and sclera clear. ?Pupils equal round and reactive to light. ?No lymphadenopathy. ? CHEST/RESPIRATORY SYSTEM Normal respiratory effort and able to speak in complete sentences. ?Clear to auscultation bilaterally. ?No crackles, rales, rhonchi, wheezes heard. CARDIAC SYSTEM Regular rate and rhythm. ?S1 and S2 heard no murmurs. ?Radial pulses intact bilaterally MSK Hands: ?Good electrical designer drafter strength bilaterally. No deformities noted. ?No synovitis noted to the MCPs, PIPs or DIPs. ?No tenderness to palpation of these joints. Wrists: ?Full range of motion at the wrists without pain. ?No tenderness to palpation or synovitis noted to the wrists. Elbows: Full range of motion without pain. No tenderness, weakness, swelling, increased warmth or erythema. Shoulders: Right shoulder with tenderness to palpation of the right subacromial bursa. Surgical scar seen and healed. Left shoulder with full range of motion. No pain to palpation of the subacromial bursa. Hips: Full range of motion without pain. Hip bursa: Tenderness to palpation of the right greater trochanteric bursa Knees: ?Full range of motion. ?No swelling noted. Tenderness to palpation of the right and left pes anserine bursa. Right worse than left Ankles: Full range of motion. ?No tenderness, swelling, increased warmth or erythema.? Feet: ?Negative squeeze test. ?No tenderness to palpation or swelling of the MTPs. Tender points:? Tenderness to palpation of bilateral trapezius, supraspinatus, right greater trochanter SKIN Skin intact without rashes. Office Procedures AMB Joint Injection/Aspiration Joint Injection/Aspiration Details: Procedure was explained to the patient and consent was obtained. ? The area of interest was identified and confirmed with patient. ?This was subsequently cleaned with chlorhexidine x3. ? The area was then anesthetized using ethyl chloride spray. 40 mg Kenalog with 1 cc 1% lidocaine was injected without issue. ?Minimal to no bleeding. ?Patient tolerated procedure. Primary Site: other (Right subacromial bursa) Prep: site was prepped using aseptic technique and ethochloride spray was applied Injected: 40 mg of, Kenalog, with 1 mL of and 1% plain lidocaine Approach Used: other Procedure: The patient tolerated the procedure well Coding 40769 - Glenohumeral/Tronchanteric Bursa/Intraarticular Procedure code (CPT) selection complete AMB Joint Injection/Aspiration Joint Injection/Aspiration Details: Procedure was explained to the patient and consent was obtained. ? The area of interest was identified and confirmed with patient. ?This was subsequently cleaned with chlorhexidine x3. ? The area was then anesthetized using ethyl chloride spray. 40 mg Kenalog with 1 cc 1% lidocaine was injected without issue. ?Minimal to no bleeding. ?Patient tolerated procedure. Primary Site: other (Right pes anserine bursa) Prep: site was prepped using aseptic technique and ethochloride spray was applied Injected: 40 mg of, Kenalog, with 1 mL of and 1% plain lidocaine Approach Used: other Procedure: The patient tolerated the procedure well Coding 44456 - Glenohumeral/Tronchanteric Bursa/Intraarticular Procedure code (CPT) selection complete AMB Joint Injection/Aspiration Joint Injection/Aspiration Details: Procedure was explained to the patient and consent was obtained. ? The area of interest was identified and confirmed with patient. ?This was subsequently cleaned with chlorhexidine x3. ? The area was then anesthetized using ethyl chloride spray. 40 mg Kenalog with 1 cc 1% lidocaine was injected without issue. ?Minimal to no bleeding. ?Patient tolerated procedure. Primary Site: other (Right greater trochanteric bursa) Prep: site was prepped using aseptic technique and ethochloride spray was applied Injected: 40 mg of, Kenalog, with 1 mL of and 1% plain lidocaine Approach Used: other Procedure: The patient tolerated the procedure well Coding 45909 - Glenohumeral/Tronchanteric Bursa/Intraarticular Procedure code (CPT) selection complete Office Meds lidocaine (PF) 10 mg/mL (1 %) injection solution Performing Provider: Keely Rodriguez MD Performing Location: [facility] [place] [facility] Administered by: Keely Rodriguez MD on 12/01/24 14:41 Dose Route Admin Location Dispensed Lot Number Expiration Date [facility] [place] [employer] 10 mg Infiltration Right subacromial bursa 2 mL [id number] 01/31/27 13395-631-27 [facility] Kenalog 40 mg/mL suspension for injection Performing Provider: Keely Rodriguez MD Performing Location: [facility] [place] Rhe[facility] Administered by: Keely Rodriguez MD on 12/01/24 14:41 Dose Route Admin Location Dispensed Lot Number Expiration Date [facility] [place] [employer] 40 mg intrabursal Right subacromial bursa 1 mL [id number] 05/02/26 [address]-3 [employer] lidocaine (PF) 10 mg/mL (1 %) injection solution Performing Provider: Keely Rodriguez MD Performing Location: [facility] [place] Rhe[facility] Administered by: Keely Rodriguez MD on 12/01/24 15:30 Dose Route Admin Location Dispensed Lot Number Expiration Date [facility] [place] [employer] 10 mg Infiltration right pes anserine bursa 2 mL [id number] 01/31/27 36976-232-72 [employer] Kenalog 40 mg/mL suspension for injection Performing Provider: Keely Rodriguez MD Performing Location: [facility] [place] [facility] Administered by: Keely Rodriguez MD on 12/01/24 15:30 Dose Route Admin Location Dispensed Lot Number Expiration Date [facility] [place] [employer] 40 mg intrabursal 1 mL [id number] 05/02/26 [address]-4 [employer] lidocaine (PF) 10 mg/mL (1 %) injection solution Performing Provider: Keely Rodriguez MD Performing Location: [facility] [place] Rhe[facility] Administered by: Keely Rodriguez MD on 12/01/24 14:31 Dose Route Admin Location Dispensed Lot Number Expiration Date [facility] [place] [employer] 10 mg Infiltration Right greater trochanter 2 mL [id number] 01/31/27 82606-503-41 [employer] Kenalog 40 mg/mL suspension for injection Performing Provider: Keely Rodriguez MD Performing Location: [facility] [place] [facility] Administered by: Keely Rodriguez MD on 12/01/24 14:31 Dose Route Admin Location Dispensed Lot Number Expiration Date [facility] [place] [employer] 40 mg intrabursal Right greater trochanter 1 mL [id number] 05/02/26 [address]-2 [employer] Results Reviewed Results Reviewed: Laboratory Tests 12/10/22 02/10/24 07/11/24 10:20 11:26 10:37 WBC 9.5 RBC 4.42 Hgb 13.6 Hct 39.0 Plt Count 362 ESR 17 Sodium Potassium Chloride Carbon Dioxide BUN Creatinine IgG Total 1207 IgA Total 363 H IgM 88 Sm (Sotelo) Antibody <1.0 NEG SM/SIGNAL TESTER IgG Antibody <1.0 NEG Double Strand DNA Ab <1 10/11/24 12:52 WBC RBC Hgb Hct Plt Count ESR Sodium 137 Potassium 3.3 D Chloride 104 Carbon Dioxide 24 BUN 26 H Creatinine 0.79 IgG Total IgA Total IgM Sm (Sotelo) Antibody SM/SIGNAL TESTER IgG Antibody Double Strand DNA Ab MRI Right Shoulder 07/2024 FINDINGS: ROTATOR CUFF: Kajq-gj-znhpeaov supraspinatus tendinosis with distal bursal surface partial tearing measuring approximately 1.6 x 0.8 cm (AP x ML). There is extension into the junctional fibers. More mild infraspinatus and subscapularis tendinosis. Articular surface partial tearing of the distal subscapularis tendon measuring up to 1.2 cm in ML dimension. No full-thickness rotator cuff tendon tear. No muscle atrophy or fatty infiltration. BICEPS: Fluid within the proximal long head biceps tendon sheath, consistent with mild tenosynovitis. No tendon tear. CORACOACROMIAL ARCH: The undersurface of the acromion is curved with no subacromial spur. The acromioclavicular joint is normal. Trace fluid within subacromial-subdeltoid bursa, consistent with minimal bursitis. LABRUM/CAPSULE: Linear increased T2 signal within the undersurface of the superior labrum which could represent a nondisplaced undersurface tear. Thickening and heterogeneous with adjacent edema throughout the joint capsule which can be seen in the setting of adhesive capsulitis. GLENOHUMERAL JOINT/MARROW: Intact articular cartilage. No acute osseous injury. Assessment & Plan Assessment & Plan (1) Fibromyalgia: Code(s): M79.7 - Fibromyalgia Category: Medical Plan: #Fibromyalgia Patient is a 53-year-old female with fibromyalgia. Had a discussion with patient about the diagnosis and that it requires consistency with physical activity and stretching. No changes to medications made today. Plan - pregabalin 100 mg b.i.d. - cyclobenzaprine 5 mg b.i.d. - RTC 6-8 months (2) Greater trochanteric bursitis of right hip: Code(s): M70.61 - Trochanteric bursitis, right hip Plan: #Trochanteric bursitis of the right hip Patient is a 53-year-old female with fibromyalgia today complicated by bursitis affecting her right hip. She is status post 40 mg Kenalog injection to the trochanteric bursa. Discussed with patient that she needs to do stretching or else this will recur. (3) Subacromial bursitis of right shoulder joint: Code(s): M75.51 - Bursitis of right shoulder Plan: #Right subacromial bursitis Patient with right subacromial bursitis after surgery over a month ago. Status post 40 mg Kenalog injection to the subacromial bursa on the right. Discussed with patient that she needs to return to physical therapy. She has follow up appointment with her orthopedic surgeon in December and she will get referral at that time. (4) Pes anserinus bursitis of right knee: Code(s): M70.51 - Other bursitis of knee, right knee Plan: #Pes anserine bursitis Patient today complain of medial right knee pain associated with swelling. Exam consistent with pes anserine bursitis. Status post 40 mg Kenalog injection to the right pes anserine bursa. Discussed with patient that she needs to stretch because her tight thigh muscles we will cause a recurrence of this. Plan I spent 20 minutes reviewing the record and labs, taking a history, examining the patient, discussing the treatment plan and documenting in the medical record Orders: Orders AMB Joint Injection/Aspiration Today M70.61 - Trochanteric bursitis, right hip AMB Joint Injection/Aspiration Today M75.51 - Bursitis of right shoulder AMB Joint Injection/Aspiration Today M70.51 - Other bursitis of knee, right knee Medications: Changed From cyclobenzaprine 5 mg PO BID 60 tabs 2RF M62.838 - Other muscle spasm To cyclobenzaprine Do not take with tramadol 5 mg PO BID 60 tabs 5RF M62.838 - Other muscle spasm Refilled pregabalin 100 mg PO BID 60 caps 5RF M79.7 - Fibromyalgia Coding Level of Care Code Est Pt Level 3 (53842) Diagnoses Fibromyalgia M79.7 Greater trochanteric bursitis of right hip M70.61 Subacromial bursitis of right shoulder joint M75.51 Pes anserinus bursitis of right knee M70.51 CPT Codes Coding - Joint 7: 38020 - Glenohumeral/Tronchanteric Bursa/Intraarticular ([id number]) Coding - Joint 7: 98316 - Glenohumeral/Tronchanteric Bursa/Intraarticular ([id number]) Coding - Joint 7: 72264 - Glenohumeral/Tronchanteric Bursa/Intraarticular ([id number])
[2024-12-01 13:17] VITALS: BP 112/70; PULSE 53; RESP 16; O2SAT 93; BMI 28.4
--- OUTSIDE RECORDS SUMMARY | 2024-12-01 16:54 | XMS_ITS | Encounter Summary ---
Author Organization [employer] Address [address] [place] [address] [place] [address] Care Team Providers Care Electric Meter Installer Helper Name Role Phone Deyvi Goldsmith MD Primary Care Provider [phone]- [phone] Encounter Details Date Type Department Care Team ([facility] Contact Info) Description 05/21/2023 Orders Only [facility] [address] [place], [place] [phone] Deyvi Goldsmith MD [address] [place], [place] [phone] Low vitamin D level (Primary Dx) Social History Tobacco Use Types Packs/Day Years Used Date Smoking Tobacco: Never Passive Smoke Exposure: Never Smokeless Tobacco: Never Alcohol Use Standard Drinks/Week Comments Never 0 (1 standard drink = 0.6 oz pur e alcohol) Depression Answer Date Recorded Patient Health Questionnaire-9 Score 0 02/11/2023 Depression Answer Date Recorded Patient Health Questionnaire-2 Score 0 02/11/2023 Comments Unknown Sex and Gender Information Value Date Recorded Sex Assigned at Female 09/01/2022 10:17 AM EDT Legal Sex Female 10:17 AM EDT Gender Identity Female 09/01/2022 10:17 AM EDT Sexual Orientation Straight 09/01/2022 10 :17 AM EDT COVID-19 Exposure Response Date Recorded In the last 10 days, have yo u been in contact with someone who was confirmed or suspected to have Coronavirus/COVID-19? No / Unsure 04/30/2023 1:54 PM EDT documented as of this encounter Plan of Treatment Upcoming Encounters Date Type Department Care Team (Late st Contact Info) Description 12/15/2024 11:00 AM EST Clinical Support [facility] [address] [place] [address] Katelin Muller, SAMANTHA [address] [place] [address] documented as of this encounter Visit Diagnoses Diagnosis Low vitamin D level- Primary documented in this encounter Additional Health Concerns Assessment Noted Time PHQ-9 Depression Total Score: 0 02/12/20 11:35 AM EDT documented as of this encounter Care Teams Electric Meter Installer Helper Relationship Specialty Start Date End Date Deyvi Goldsmith MD [address] [place] [address] PCP - General Internal Medicine 11/02/18 documented as of this encounter
--- OUTSIDE RECORDS SUMMARY | 2024-12-01 16:54 | XMS_ITS | Encounter Summary ---
Author Organization [employer] Address [address] [place] [address] Care Team Providers Care Manager Payment Name Role Phone Deyvi Goldsmith MD Primary Care Provider [phone]- [phone] Reason for Visit * Reason Onset Date Comments Med Refill 01/22/2023 Encounter Details Date Type Department Care Team (Late st Contact Info) Description 01/22/2023 Telephone [facility] MED[facility] [address] [place] [address] Deyvi Goldsmith MD [address] [place] [address] Med Refill Social History Tobacco Use Types Packs/Day Years Used Date Smoking Tobacco: Never Smokeless Tobacco: Never Alcohol Use Standard Drinks/Week Comments Never 0 (1 standard drink = 0.6 oz pur e alcohol) Depression Answer Date Recorded Patient Health Questionnaire-9 Score 0 07/11/2024 Patient Health Questionnaire-9 Score 0 07/11/2024 Last PHQ-9: Questionnaire Data Not on file 0 07/11/2024 Housing Stability Answer Date Recorded What is your housing situation today? I have escobar garay 06/27/[address] you li ve. Do you have problems with any of the following? None of the above 06/27/2024 Food Insecurity Answer Date Recorded Within the past 12 months, y ou worried that your food would run out before you got money to buy more: Never True 06/27/2024 Within the past 12 months,th e food you bought just didn't last and you didn't have enough money to get more: Never True Transportation Answer Date Recorded In the past 12 months, has l ack of transportation kept you from medical appts, meetings, work or from getting things needed for daily living? No 06/27/2024 Utilities Answer Date Recorded In the past 12 months, has t he electric, gas, oil or water company threatened to shut off services in your home? No 06/27/2024 Depression Answer Date Recorded Patient Health Questionnaire-2 Score 0 07/11/2024 Internet Access Answer Date Recorded Internet Access Q1 Yes 07/01/2024 Internet Access Q2 I do not want or need it 06/04 Comments Unknown Sex and Gender Information Value [...] PM EDT documented as of this encounter Miscellaneous Notes * Telephone Encounter - Harvey Carr - 01/22/2023 8:41 AM EDT Tc from pt requesting a med refill for tramadol 50 mg documented in this encounter Plan of Treatment Upcoming Encounters Date Type Department Care Team (Late st Contact Info) Description 12/15/2024 11:00 AM EST Clinical Support [facility] [address] [place] [address] Katelin Muller RN [address] [place] [address] documented as of this encounter Visit Diagnoses Not on filedocumented in this encounter Care Teams Manager Payment Relationship Specialty Start Date End Date Deyvi Goldsmith MD [address] [place] [address] PCP - General Internal Medicine 11/02/18 documented as of this encounter
--- OUTSIDE RECORDS SUMMARY | 2024-12-01 16:54 | XMS_ITS | Clinical Summary ---
Author Organization [employer] Address [address] [place] [address] [address] [place] [address] Care Team Providers Care Access Coordinator Name Role Phone Deyvi Goldsmith MD Primary Care Provider [phone] Allergies Active Allergy Reactions Criticality Noted Date Comments Duloxetine Hallucinations High 08/04/2019 Sumatriptan 02/06/2023 Medications diphenhydrAMINE (BENADryl) 25 MG tabletIndicatio ns:Rash and nonspecific skin eruption Take 1 tablet (25 mg) by mouth every 6 (six) hours if needed for itching. 30 tablet 02/21/20 23 Active Blood Pressure Monitoring (Blood Pressure Cuff) miscIndications :Essential hypertension 1 kit Once daily. Check bp at least once a day 1 each 03/18/20 23 Active Blood Pressure kit Check BP every other day 1 kit 03/20/20 23 Active polyethylene glycol, PEG, 3350 (MiraLax) 17 GM/SCOOP powder Take 17 g by mouth in the morning. 527 g 2 09/01/20 23 Active senna-docusate sodium (Senokot-S) 8.6-50 MG tablet Take 2 tablets by mouth if needed at bedtime for constipation. 60 tablet 09/01/20 23 Active albuterol (2.5 MG/3ML) 0.083% nebulizer solution Take 3 mL by nebulization every 8 (eight) hours. 75 mL 11 01/14/20 24 Active triamcinolone (Kenalog) 0.1 % creamIndication s:Rash and nonspecific skin eruption APPLY TOPICALLY IF NEEDED IN THE MORNING AND AT BEDTIME (PAIN AND SWELLING). 30 g 2 02/24/20 24 Active ondansetron (Zofran) 4 MG tablet TAKE 1 TABLET (4 MG) BY MOUTH EVERY 8 (EIGHT) HOURS. 9 tablet 4 04/14/20 24 Active methocarbamol (Robaxin) 750 MG tabletIndicatio ns:Chronic right shoulder pain Take 1 tablet (750 mg) by mouth 4 times daily for 10 days. 40 tablet 05/23/20 24 Active D3-1000 25 MCG (1000 UT) tabletIndicatio ns:Low vitamin D level TAKE 1 TABLET (25 MCG) BY MOUTH IN THE MORNING 60 tablet 11 06/15/20 24 Active rosuvastatin (Crestor) 20 MG tabletIndicatio ns:Hypercholest erolemia Take 1 tablet (20 mg) by mouth Once per day. 30 tablet 11 07/12/20 24 2024 Active famotidine (Pepcid) 20 MG tabletIndicatio ns:Gastroesopha geal reflux disease without esophagitis TAKE 1 TABLET BY MOUTH TWICE A DAY 60 tablet 3 09/09/20 24 Active hydrocortisone 2.5 % creamIndication s:Intertrigo of genital labia Apply topically 2 times daily. 20 g 09/19/20 24 Active econazole nitrate 1 % creamIndication s:Intertrigo of genital labia Apply topically Once per day. 30 g 09/19/20 24 2024 Active hydrOXYzine HCl (Atarax) 10 MG tabletIndicatio ns:Intertrigo of genital labia Take 1 tablet (10 mg) by mouth every 8 (eight) hours if needed for itching for up to 10 days. 30 tablet 09/19/20 24 Active KLOR-CON 20 MEQ ER tabletIndicatio ns:Hypokalemia TAKE 1 TABLET (20 MEQ) BY MOUTH ONCE PER DAY FOR 20 DAYS. DO NOT CRUSH OR CHEW. 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 20 tablet 10/24/20 24 Active ibuprofen 800 MG tabletIndicatio ns:Chronic pain syndrome TAKE 1 TABLET BY MOUTH EVERY 8 HOURS NEEDED FOR MILD PAIN. 90 tablet 11/07/19 25 Active lisinopril 10 MG tabletIndicatio ns:Essential hypertension TAKE 1 TABLET BY MOUTH EVERY DAY IN THE MORNING 90 tablet 3 11/07/19 25 Active lidocaine (Xylocaine) 5 % ointment APPLY TOPICALLY IF NEEDED FOR MILD PAIN. 35.44 g 3 11/14/19 25 Active omeprazole (PriLOSEC) [address] capsuleIndicati ons:Nausea TAKE 1 CAPSULE BY MOUTH EVERY DAY 30 MINUTES TO 1 HOUR BEFORE A MEAL 30 capsule 2 11/16/19 25 Active lisinopril 10 MG tabletIndicatio ns:Essential hypertension TAKE 1 TABLET BY MOUTH EVERY DAY IN THE MORNING 90 tablet 3 11/09/19 24 2024 Discontinued ibuprofen 800 MG tabletIndicatio ns:Chronic pain syndrome TAKE 1 TABLET BY MOUTH EVERY 8 HOURS NEEDED FOR MILD PAIN. 90 tablet 08/03/20 24 2024 Discontinued omeprazole (PriLOSEC) [address] capsuleIndicati ons:Nausea TAKE 1 CAPSULE BY MOUTH EVERY DAY 30 MINUTES TO 1 HOUR BEFORE A MEAL 30 capsule 2 08/10/20 24 2024 Discontinued Active Problems Problem Noted Date Diagnosed Date Skin irritation 08/26/2024 Assessment & Plan (08/26/2024 12:02 PM EDT): Maintain area dry and clean Chronic right shoulder pain 05/23/2024 Rash and nonspecific skin eruption 02/20/2023 Rosacea 02/20/2023 Hypertensive disorder 02/06/2023 Degeneration of lumbar intervertebral disc 02/06 Migraine 02/06/2023 Migraine headache 10/03/2022 Essential hypertension 10/03/2022 Mild intermittent asthma 10/03/2022 Hypercholesterolemia 10/03/2022 Chronic pain syndrome 10/03/2022 Lumbar degenerative disc disease 10/03/2022 Fibromyalgia 10/03/2022 External prolapsed hemorrhoids 09/03/2018 Assessment & Plan (09/01/2023 2:51 PM EDT): Patient with Hx of hemorrhoids with complications of constipation will be prescribed Anusol-HC suppository, MiraLax, and Senokot to treat discomfort. -Will be referred to General Surgery. Encounters Date Type Department Care Team Description 11/30/2024 Refill [facility] [address] [place] [address] Deyvi Goldsmith MD Chronic pain syndrome 11/16/2024 Refill [facility] [address] [place] [address] Deyvi Goldsmith MD Nausea 11/13/2024 Refill [facility] [address] [place] [phone] Deyvi Goldsmith MD 11/05/2024 Refill [facility] [address] [place] [phone] Deyvi Goldsmith MD Essential hypertension 11/04/2024 Refill [facility] [address] [place] [address] Deyvi Goldsmith MD Chronic pain syndrome 10/24/2024 Refill [facility] [address] [place] [phone] Deyvi Goldsmith MD Lumbar degenerative disc disease 10/22/2024 Refill [facility] [address] [place] [address] Deyvi Goldsmith MD Hypokalemia 10/17/2024 9:00 AM EST Office Visit [facility] [address] [place] [phone] Deyvi Goldsmith MD Vaginal discharge (Primary Dx); Bladder pain 10/11/2024 Orders Only GENERIC EXTERNAL DATA DEPARTMENT Provider, Generic External Data 10/06/2024 Refill [facility] [address] [place] [address] Deyvi Goldsmith MD Lumbar degenerative disc disease 09/19/2024 1:20 PM EST Office Visit [facility] [address] [place] [phone] Deyvi Goldsmith MD Intertrigo of genital labia (Primary Dx) 09/15/2024 2:00 PM EST Clinical Support [facility] [address] [place] [address] McMKatelin renee RN Chronic pain syndrome 09/15/2024 9:40 AM EST Office Visit [facility] [address] [place] [address] Leonarda Chand MD Cellulitis of perineum (Primary Dx) 09/15/2024 Refill [facility] [address] [place] [address] Katelin Muller RN Lumbar degenerative disc disease 09/15/2024 Travel 09/14/2024 Telephone [facility] [address] [place], [place] [phone] Katelin Muller RN 09/09/2024 Refill [facility] [address] [place], [place] [phone] Deyvi Goldsmith MD Gastroesophageal reflux disease without esophagitis from Last 3 Months Immunizations Name Administration Dates Next Due Hep B, adult 01/19/2017,09/22/2016,08/13/2016 Influenza injectable quadriv alent IIV4 with preservative 08/24/2019,07/21/2018,08/13/2016 Influenza injectable quadriv alent preservative free 07/11/2022,07/31/2021,08/06/2020,2017 Influenza, Injectable, MDCK, preservative free 07/11/2024 Pneumococcal Conjugate PCV 20 07/11/2024 Tdap 09/22/2016 Zoster, Recombinant 10/17/2024,07/11/2024 Social History Tobacco Use Types Packs/Day Years Used Date Smoking Tobacco: Never Passive Smoke Exposure: Never Smokeless Tobacco: Never Tobacco Cessation:Counseling Given: Not Answered Alcohol Use Standard Drinks/Week Comments Never 0 [...] Orientation Straight 09/01/2022 10 :17 AM EDT Last Filed Vital Signs Vital Sign Reading Time Taken Comments Blood Pressure 118/69 10/17/2024 9:00 AM EST Pulse 75 10/17/2024 9:00 AM EST Temperature 36.7 ??C (98.1 ??F) 10/17/2024 9:00 AM ES T Respiratory Rate 16 10/17/2024 9:00 AM EST Oxygen Saturation 99% 10/17/2024 9:00 AM EST Inhaled Oxygen Concentration - - Weight 76.2 kg (168 lb) 10/17/2024 9:00 AM EST Height 164.6 cm (5' 4.8 ) 08/12/2024 9:13 AM EDT Body Mass Index 28.13 08/12/2024 9:13 AM EDT Plan of Treatment Upcoming Encounters Date Type Department Care Team ([facility] st Contact Info) Description 12/15/2024 11:00 AM EST Clinical Support [facility] [address] [place] [address] Katelin Muller RN [address] [place] [address] Health Maintenance Due Date Last Done Comments CT Colonography 1972 Colonoscopy 1972 FIT 1972 FOBT 1972 Sigmoidoscopy 1972 Alcohol/Substance Use Screening 1984 Family Planning (PISQ) 1987 Pap Smear 1993 Cervical Cancer Screening 2002 HPV/Cotest 2002 COVID-19 Vaccine () 07/03/2024 07/31/2021, 01/05/2021, 12/15/2020 Mammogram 02/04/2025 02/04/2023, 02/04/2023 SDOH Screening 06/27/2025 06/27/2024 Depression Screening 07/11/2025 07/11/2024, 07/11/20 Tobacco Screening 08/26/2025 08/26/2024 DTaP/Tdap/Td Vaccines (2 - Td or Tdap) 09/22/2026 09/22/2016 Colorectal Cancer Screening 07/22/2027 FIT DNA/Cologuard 07/22/2027 07/22/2024 Lipid Panel 07/11/2029 07/11/2024, 07/15/2022 RSV Patients and Patients Aged 60 years or older (1 - 1-dose 75+ series) 2047 Hepatitis B Vaccines Completed 01/19/2017, 09/22/2016, 08/13/2016 HIV Screening Completed 07/15/2022 Hepatitis C Screening Completed 07/15/2022 Influenza Vaccine Completed 07/11/2024, , 07/11/2022, Additional history exists Pneumococcal Vaccine: 50+ Years Completed 07/11/2024 Zoster Vaccines Completed 10/17/2024, 07/11/2024 HIB Vaccines Aged Out No longer eligi ble based on patient's age to complete this topic HPV Vaccines Aged Out No longer eligi ble based on patient's age to complete this topic Hepatitis A Vaccines Aged Out No long er eligible based on patient's age to complete this topic IPV Vaccines Aged Out No longer eligi ble based on patient's age to complete this topic Meningococcal Vaccine Aged Out No cookie latasha eligible based on patient's age to complete this topic RSV under 20 months Aged Out No longe r eligible based on patient's age to complete this topic Rotavirus Vaccines Aged Out No longer eligible based on patient's age to complete this topic Procedures Procedure Name Priority Date/Time Associated Diagnosis Comments POCT URINALYSIS DIPSTICK Routine 10/17/2024 9:17 AM EST Bladder pain CHLAMYDIA/N. GONORRHOEAE RNA, TMA, UROGENITAL Routine 10/17/2024 12:00 AM EST Vaginal discharge BACTERIAL VAGINOSIS PANEL Routine 10/17/2024 12:00 AM EST Vaginal discharge CULTURE, URINE, ROUTINE Routine 10/17/2024 12:00 AM EST Bladder pain Vaginal discharge BASIC METABOLIC PANEL Routine 10/11/2024 12:52 PM EST POCT JUNE-14 URINE DRUG SCREEN Routine 09/15/2024 2:17 PM EST Chronic pain syndrome LAB COLOGUARD?? COLON CANCER SCREEN Routine 07/22/2024 7:30 PM EDT Screening for colon cancer LIPID PANEL, STANDARD Routine 07/11/2024 10:37 AM EDT Hypercholesterolem ia BI MAMMOGRAM DIAGNOSTIC TOMOSYNTHESIS BILATERAL Routine 02/04/2023 9:30 AM EDT ZZZ HISTORICAL HEPATITIS C AB W/REFL TO HCV RNA, QN, PCR Routine 07/15/2022 8:50 AM EDT HIV 1/2 ANTIGEN/ANTIBODY, FOURTH GENERATION W/RFL Routine 07/15/2022 8:50 AM EDT from Last 3 Months or Most Recently Relevant to Health Maintenance Results * POCT urinalysis dipstick manually resulted (10/17/2024 9:17 AM EST) Color, UA Yellow Clarity, UA Clear Glucose, UA Negative Bilirubin, UA Negative Ketones, UA Negative Spec Grav, UA 1.030 Blood, UA Negative Negative, None Detected pH, UA 6.0 Protein, UA Negative Urobilinogen, UA 0.2 Leukocytes, UA Trace Negative, Rare, Trace Nitrite, UA Negative Negative, None Detected Appearance, UA OK Urine 10/17/2024 9:17 AM EST Deyvi Goldsmith MD POINT OF CARE TEST ENTER/ED IT ORDERABLES Final Result * (ABNORMAL) Bacterial Vaginosis (10/17/2024 12:00 AM EST) TRICHOMONAS VAGINALIS DETECTION BY PCR NOT DETECTED Not Detect [facility] BACTERIAL VAGINOSIS DETECTION BY PCR NEGATIVE Negative [facility] Comment:The BV organism targ ets of the Xpert Xpress MVP test can becommensal in women; Xpert Xpress MVP positive results forbacterial vaginosis should be considered in conjunction withother clinical and patient information to determine thedisease status. Organisms that are not detected by the XpertXpress MVP test have also been reported to be associatedwith BV and aerobic vaginitis.The Xpert Xpress MVP test performance has not been evaluatedin patients under the age of 14. NICKIE GROUP DETECTION BY PCR DETECTED(A) Not Detect [facility] Nickie glab krusei PCR NOT DETECTED Not Detect [facility] Swab Vaginal structure / Unknown 10/17/2024 10/17/2024 us Deyvi Goldsmith MD LAB MICROBIOLOGY - GENERAL ORDERABLES Final Result [facility] [address] [place] [address] [phone] * Chlamydia/N. Gonorrhoeae RNA, TMA, Urogenitial (10/17/2024 12:00 AM EST) CT PCR NOT DETECTED Not Detect. [facility] Comment:A not detected test result does not exclude the possibilityof infection because test results can be affected byimproper specimen collection, concurrent antibiotic therapy,or the number of organisms in the specimen which may bebelow the sensitivity of the test. As with many diagnostictests, results from the Xpert CT/NG assay should beinterpreted in conjunction with other laboratory andclinical data available to the clinician.Xpert CT/NG performance has not been evaluated in patientsless than 14 years of age. The assay should not be used forthe evaluationof suspected sexual abuse or for other medico-legalindications. Additional testing is recommended in anycircumstance when false positive or false negative resultscould lead to adverse medical, social or psychologicalconsequences. NG PCR NOT DETECTED Not Detect. [facility] Comment:A not detected test result does not exclude the possibilityof infection because test results can be affected byimproper specimen collection, concurrent antibiotic therapy,or the number of organisms in the specimen which may bebelow the sensitivity of the test. As with many diagnostictests, results from the Xpert CT/NG assay should beinterpreted in conjunction with other laboratory andclinical data available to the clinician.Xpert CT/NG performance has not been evaluated in patientsless than 14 years of age. The assay should not be used forthe evaluationof suspected sexual abuse or for other medico-legalindications. Additional testing is recommended in anycircumstance when false positive or false negative resultscould lead to adverse medical, social or psychologicalconsequences. Urine, Random 10/17/2024 10/17/2024 [facility] - 10/18/2024 2:03 PM EST Vaginal us Deyvi Goldsmith MD LAB MICROBIOLOGY - GENERAL ORDERABLES Final Result [facility] [address] [place] [phone] * Culture, Urine, Routine (10/17/2024 12:00 AM EST) Urine Urine specimen obtained by clean catch procedure / Unknown 10/17/2024 10/17/2024 Comment:[facility] - 10/19/2024 7:46 AM EST Urine Culture No growth. Specimen Source: Urine clean catch us Deyvi Goldsmith MD LAB MICROBIOLOGY - GENERAL ORDERABLES Final Result Performing Organization Address [facility]/ZIP Co de Phone Number [facility] [address] [place] [phone] * (ABNORMAL) Basic Metabolic Panel (10/11/2024 12:52 PM EST) Sodium 137 135 - 145 mmol/L [facility] Potassium 3.3 3.3 - 5.1 mmol/L [facility] Chloride 104 96 - 108 mmol/L [facility] Carbon Dioxide 24 22 - 29 mmol/L [facility] Anion Gap 12 12 - 20 [facility] Urea Nitrogen (BUN) 26(H) 9 - 16 mg/dL [facility] Creatinine, Serum 0.79 0.5 - 1.4 mg/dL [facility] Creatinine Clr Calc Pharmacy 86.3 [facility] Comment:Provided height and weight: 165.1 cm,76.8 kg.eGFR (calculated from the MDRD study equation) and eCrCl(calculated from the Cockcroft-Gault equation) are based ondifferent parameters and may not yield comparable results.If eCrCl result is absurd, please check patient'sheight/weight. Estimated Glomerular Filt Rate >60 [facility] Comment:Chronic Kidney Disea se: Estimated GFR < 60 mL/min/1.11d7Judtes Kidney Disease: Estimated GFR < 15 mL/min/1.73m2 Glucose 87 60 - 115 mg/dL [facility] Calcium 9.6 8.4 - 10.2 mg/dL [facility] 10/11/2024 12:5 2 PM EST 10/11/2024 12:54 PM EST us Generic External Data Provider LAB BLOOD ORDERAB LES Final Result Performing Organization Address [facility]/ZIP Co de Phone Number [facility] [address] [place] [phone] * POCT JUNE-14 Urine Drug Screen (09/15/2024 2:17 PM EST) TCA, Urine Positive Urine Urine specimen obtained by clean catch procedure / Unknown 09/15/2024 2:17 PM EST Narrative Katelin Muller, RN - 09/15/2024 2:17 PM EST Lot# [id number] Exp: 09-17-25 Deyvi Goldsmith MD POINT OF CARE TEST ENTER/ED IT ORDERABLES Final Result * (ABNORMAL) Cologuard?? colon cancer screening (07/22/2024 7:30 PM EDT) Cologuard Result Positive( A) Negative 07/30/2024 3:22 AM EDT [facility] (CLIA #:[id number]) Comment: POSITIVE TEST RESULT. A positive Cologuard result should be followed with a colonoscopy or visual examination of the colon. The normal value (reference range) for this assay is negative. TEST DESCRIPTION: Composite algorithmic analysis of stool DNA-biomarkers with hemoglobin immunoassay. ?? Quantitative values of individual biomarkers are not reportable and are not associated with individual biomarker result reference ranges. Cologuard is intended for colorectal cancer screening of adults of either sex, 45 years or older, who are at average-risk for colorectal cancer (CRC). Cologuard has been approved for use by the U.S. FDA. The performance of Cologuard was established in a cross sectional study of average-risk adults aged 50-84. Cologuard performance in patients ages 45 to 49 years was estimated by sub-group analysis of near-age groups. Colonoscopies performed for a positive result may find as the most clinically significant lesion: colorectal cancer [4.0%], advanced adenoma (including sessile serrated polyps greater than or equal to 1cm diameter) [20%] or non- advanced adenoma [31%]; or no colorectal neoplasia [45%]. These estimates are derived from a prospective cross-sectional screening study of 10,000 individuals at average risk for colorectal cancer who were screened with both Cologuard and colonoscopy. (Imperiale T. et al, N Engl J Med 2014;370(14):1268-4258.) Cologuard may produce a false negative or false positive result (no colorectal cancer or precancerous polyp present at colonoscopy follow up). A negative Cologuard test result does not guarantee the absence of CRC or advanced adenoma (pre-cancer). The current Cologuard screening interval is every 3 years. ([place] [employer] and U.S. Multi-Society Task Force). Cologuard performance data in a 10,000 patient pivotal study using colonoscopy as the reference method can be accessed at the following location: [email or web address]. Additional description of the Cologuard test process, warnings and precautions can be found at [email or web address]. Stool specimen (specimen) 07/22/2024 7:30 PM EDT 07/25/2024 10:50 AM EDT Deyvi Goldsmith MD LAB MOLECULAR DIAGNOSTICS O RDERABLES Final Result [facility] (CLIA #:[id number]) [address] [place] [address], * (ABNORMAL) Lipid Panel, Standard (07/11/2024 10:37 AM EDT) Triglycerides 173(H) <150 mg/dL [facility] Comment:Desirable Triglyceri de: less than 150 mg/dLBorderline High Triglyceride 150-199 mg/dLHigh Triglyceride: 200-499 mg/dLVery High Triglyceride: greater than or equal to 5OO mg/dL Cholesterol 278(H) <200 mg/dL [facility] Comment:Desirable Cholestero l: less than 200 mg/dLBorderline High Cholesterol: 200-239 mg/dLHigh Cholesterol: greater than 239 mg/dL LDL Cholesterol Calculated 202(H) <100 mg/dL [facility] Comment:Desirable LDL: less than 100 mg/dLNear Optimal/Above Optimal LDL: 110- 129 mg/dLBorderline High LDL: 130-159 mg/dLHigh LDL: 160-189 mg/dLVery High LDL: greater than or equal to 190 mg/dL HDL Cholesterol 42 >40 mg/dL [facility] Comment:Desirable HDL: great er than 40 mg/dL Note: This HDL assay may give artificially low results in patients with liver disease. Blood Venous blood specimen / Unknown 07/11/2024 10:37 AM EDT 07/11/2024 2:26 PM EDT us Deyvi Goldsmith MD LAB BLOOD ORDERABLES Final Result [facility] [address] [place] [phone] * BI Mammogram Diagnostic Tomosynthesis Bilateral (02/04/2023 9:30 AM EDT) Anatomical Region Laterality Modality Breast Bilateral Mammography 02/04/2023 9:30 AM EDT Narrative 02/04/2023 12:24 PM EDT ? [facility] ? [address] ?[place] [address] ? Mammography Report ? Signed ? Patient: GordyHelenJohana E ?MR#: [id number] ?? [id number] ? : 1970 ?Acct:[id number] ? Age/Sex: 52 / F ?ADM Date: 04// ? Loc: HO.MAMMO ? Attending Dr: Deyvi Goldsmith MD ? Ordering Physician: Deyvi Goldsmith MD ?Results: 2 ?? Benign Findings ? Date of Service: //23 ?Follow Up: 1 Year From Orig ?? inal Mammogram ? Procedure(s): MM tomosynthesis diagnostic BI ?? Accession Number(s): [id number] ? cc: Deyvi Goldsmith MD ? EXAMINATION: ?? MM DIAGNOSTIC DIGITAL BREAST TOMOSYNTHESIS, BILATERAL ?? US DIAGNOSTIC ULTRASOUND BREAST, LEFT ? CLINICAL INFORMATION: ? Due for yearly. Left breast pain for approximately 6 months upper ?? breast. No palpable mass or discharge. No family history breast cancer. ? The lifetime risk of breast cancer based on the Tyrer-Cuzick Model is ?? 7%. ? COMPARISON: ?? Prior mammography exams, most recent 12/16/2021. Outside ultrasound ?? left breast 02/23/2015 ([facility]). ? TECHNIQUE: ?? Digital breast tomosynthesis is performed in both the craniocaudal and ?? mediolateral oblique views along with computer-aided detection (CAD). ?? Synthesized 2D images are generated from the tomosynthesis. ??Additional ?? right CC view is provided. ? Ultrasound left breast is targeted to the areas of clinical concern ?? upper breast 10:00 through 2:00 position using grayscale imaging and ?? color Doppler without and with harmonics. ? FINDINGS: ?? There are scattered areas of fibroglandular density (ACR BI-RADS breast ?? composition Category b). ? Parenchymal pattern is similar to prior studies and there is no ?? developing density or architectural abnormality or significant mass. No ?? abnormal calcifications. The axilla and skin contours are unremarkable. ?? No skin thickening or coarsening of the José Antonio's ligaments. There is a ?? biopsy clip marker again seen mid lower inner quadrant left breast. ? Ultrasound left breast demonstrates an incidental small simple cyst ?? anterior 11:00 position proximally 0.5 cm. This may correspond to the ?? subcentimeter cyst noted on outside ultrasound 2015. There is no solid ?? mass or architectural abnormality or focal duct ectasia. No skin ?? thickening or edema tracking in soft tissue planes. No hyperemia on ?? color Doppler. ? Results are discussed with the patient at time of visit. ? MM/MM tomosynthesis diagnostic BI ?? IMPRESSION: ?? -No mammographic evidence of malignancy or inflammatory changes. ?? -Small incidental cyst under 1 cm anterior left breast. No inflammatory ?? changes. ? ASSESSMENT: ? BI-RADS 2: Benign ? RECOMMENDATION: ?? 1. Patient's left mastodynia should be managed based on the clinical ?? impression. ? 2. Otherwise, routine annual screening mammography. ? This patient's information was entered into a reminder system with a ?? target due date for their next mammogram. ? Dictated By: ?Anderson Hammond MD ? Signed By: ?<Electronically signed by Anderson Hammond MD in OV> ?02/04/23 1221 ? DD/ 0930 ? TD/TT: ? 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 Procedure Note Yelitza, Richy - 02/04/2023 [facility] [address] [place] [address] Mammography Report Signed Patient: Johana Kaminski EMR#: [id number] : 1970Acct:[id number] Age/Sex: 52 / FADM Date: 02/04/23 Loc: HO.MAMMO Attending Dr: Deyvi Goldsmith MD Ordering Physician: Deyvi Goldsmith MDResults: 2 Benign Findings Date of Service: 02/04/23Follow Up: 1 Year From [facility] Mammogram Procedure(s): MM tomosynthesis diagnostic BI Accession Number(s): [id number] cc: Deyvi Goldsmith MD EXAMINATION: MM DIAGNOSTIC DIGITAL BREAST TOMOSYNTHESIS, BILATERAL US DIAGNOSTIC ULTRASOUND BREAST, LEFT CLINICAL INFORMATION: Due for yearly. Left breast pain for approximately 6 months upper breast. No palpable mass or discharge. No family history breast cancer. The lifetime risk of breast cancer based on the Tyrer-Cuzick Model is 7%. COMPARISON: Prior mammography exams, most recent 12/16/2021. Outside ultrasound left breast 02/23/2015 ([facility]). TECHNIQUE: Digital breast tomosynthesis is performed in both the craniocaudal and mediolateral oblique views along with computer-aided detection (CAD). Synthesized 2D images are generated from the tomosynthesis. Additional right CC view is provided. Ultrasound left breast is targeted to the areas of clinical concern upper breast 10:00 through 2:00 position using grayscale imaging and color Doppler without and with harmonics. FINDINGS: There are scattered areas of fibroglandular density (ACR BI-RADS breast composition Category b). Parenchymal pattern is similar to prior studies and there is no developing density or architectural abnormality or significant mass. No abnormal calcifications. The axilla and skin contours are unremarkable. No skin thickening or coarsening of the José Antonio's ligaments. There is a biopsy clip marker again seen mid lower inner quadrant left breast. Ultrasound left breast demonstrates an incidental small simple cyst anterior 11:00 position proximally 0.5 cm. This may correspond to the subcentimeter cyst noted on outside ultrasound 2014. There is no solid mass or architectural abnormality or focal duct ectasia. No skin thickening or edema tracking in soft tissue planes. No hyperemia on color Doppler. Results are discussed with the patient at time of visit. MM/MM tomosynthesis diagnostic BI IMPRESSION: -No mammographic evidence of malignancy or inflammatory changes. -Small incidental cyst under 1 cm anterior left breast. No inflammatory changes. ASSESSMENT: BI-RADS 2: Benign RECOMMENDATION: 1. Patient's left mastodynia should be managed based on the clinical impression. 2. Otherwise, routine annual screening mammography. This patient's information was entered into a reminder system with a target due date for their next mammogram. Dictated By: Anderson Hammond MD Signed By: <Electronically signed by Anderson Hammond MD in OV> 02/04/23 1221 DD/ 0930 TD/TT: Louver Door Assembler: READ [facility] External Provider IMG BI PROCEDURES Final Result * HEPATITIS C AB W/REFL TO HCV RNA, QN, PCR (07/15/2022 8:50 AM EDT) HEPATITIS C ANTIBODY NON-REACT ANAMARIA NON-REACT ANAMARIA [facility] INDEX 0.08 <1.00 [facility] Comment: ?? HCV antibody was non-reactive. There is no laboratory ?? evidence of HCV infection. ?? In most cases, no further action is required. However, if recent HCV exposure is suspected, a test for HCV RNA (test code 63823) is suggested. ?? For additional information please refer to http://[employer]/faq/TCF17g4 (This link is being provided for informational/ educational purposes only.) ?? 07/15/2022 8:50 AM EDT us Deyvi Goldsmith MD HISTORICAL/NON ORDERABLE LA BS Final Result [facility] [address] * HIV 1/2 ANTIGEN/ANTIBODY,FOURTH GENERATION W/RFL (07/15/2022 8:50 AM EDT) HIV-1/2 ANTIGEN AND ANTIBODIES, 4TH GENERATION W/ REFLEX NON-REACT ANAMARIA NON-REACT ANAMARIA [facility] Comment: HIV-1 antigen and HIV-1/HIV-2 antibodies were not detected. There is no laboratory evidence of HIV infection. ?? PLEASE NOTE: This information has been disclosed to you from records whose confidentiality may be protected by state law. ??If your state requires such protection, then the state law prohibits you from making any further disclosure of the information without the specific written consent of the person to whom it pertains, or as otherwise permitted by law. A general authorization for the release of medical or other information is NOT sufficient for this purpose. ? For additional information please refer to http://[employer]/faq/RTW868 (This link is being provided for informational/ educational purposes only.) ? The performance of this assay has not been clinically validated in patients less than 2 years old. ?? 07/15/2022 8:50 AM EDT us Deyvi Goldsmith MD LAB BLOOD ORDERABLES Final Result [facility] [address] from Last 3 Months or Most Recently Relevant to Health Maintenance Insurance [facility] Care Teams Access Coordinator Relationship Specialty Start Date End Date Deyvi Goldsmith MD [address] [place] [id number] PCP - General Internal Medicine 11/02/18
--- OUTSIDE RECORDS SUMMARY | 2024-12-01 16:54 | XMS_ITS | Encounter Summary ---
Author Organization [employer] Address [address] [facility] 7 [place] [address] Care Team Providers Care Digital Archivist Name Role Phone Deyvi Goldsmith MD Primary Care Provider [phone] Reason for Visit * Reason Comments Med Refill Encounter Details Date Type Department Care Team ([facility] st Contact Info) Description 11/05/2024 Refill [facility] MED[facility]INE [address] [place] [address] Deyvi Goldsmith MD [address] [place] [address] Essential hypertension Social History Tobacco Use Types Packs/Day Years [...] Orientation Straight 09/01/2022 10 :17 AM EDT documented as of this encounter Plan of Treatment Upcoming Encounters Date Type Department Care Team (Late st Contact Info) Description 12/15/2024 11:00 AM EST Clinical Support [facility] MED & PEDS 505 [place] [address] Katelin Muller, SAMANTHA 505 [place] [address] documented as of this encounter Visit Diagnoses Diagnosis Essential hypertension Unspecified essential hypertension documented in this encounter Additional Health Concerns Assessment Noted Time PHQ-9 Depression Total Score: 0 07/11/20 24 9:36 AM EDT documented as of this encounter Care Teams Digital Archivist Relationship Specialty Start Date End Date Deyvi Goldsmith MD [address] [place] [address] PCP - General Internal Medicine 11/02/18 documented as of this encounter
--- OUTSIDE RECORDS SUMMARY | 2024-12-01 16:54 | XMS_ITS | Encounter Summary ---
Author Organization [employer] Address [address] [place] [address] 7 [place] [address] Care Team Providers Care Steam Drier Tender Name Role Phone Deyvi Goldsmith MD Primary Care Provider [phone] Reason for Visit * Reason Comments Med Refill Encounter Details Date Type Department Care Team ([facility] st Contact Info) Description 11/04/2024 Refill [facility] MED & PEDS [address] [place], [place] [phone] Deyvi Goldsmith MD 505 [place] [address] Chronic pain syndrome Social History Tobacco Use Types Packs/Day Years [...] Description 12/15/2024 11:00 AM EST Clinical Support [facility] MED & PEDS [address] [place] [address] Katelin Muller, RN 505 [place] [address] documented as of this encounter Visit Diagnoses Diagnosis Chronic pain syndrome documented in this encounter Additional Health Concerns Assessment Noted Time PHQ-9 Depression Total Score: 0 07/11/20 24 9:36 AM EDT documented as of this encounter Care Teams Steam Drier Tender Relationship Specialty Start Date End Date Deyvi Goldsmith MD [address] [place] [address] PCP - General Internal Medicine 11/02/18 documented as of this encounter
--- OUTSIDE RECORDS SUMMARY | 2024-12-01 16:54 | XMS_ITS | Encounter Summary ---
Author Organization [employer] [facility] Address [address] [place] [address] [place] [address] Care Team Providers Care Sports Coordinator Name Role Phone Deyvi Goldsmith MD Primary Care Provider [phone] Encounter Details Date Type Department Care Team (Late Contact Info) Description 12/12/2022 Orders Only [facility] MED & PEDS [address] [place] [address] Valeria De La Vega LPN Social History Tobacco Use Types Packs/Day Years Used Date Smoking Tobacco: Never Smokeless Tobacco: Never Alcohol Use Standard Drinks/Week Comments Never 0 (1 standard drink = 0.6 oz pur e alcohol) Comments Unknown Sex and Gender Information Value [...] suspected to have Coronavirus/COVID-19? No / Unsure 12/02/2022 10:19 AM EST documented as of this encounter Plan of Treatment Upcoming Encounters Date Type Department Care Team (Late Contact Info) Description 12/15/2024 11:00 AM EST Clinical Support [facility] MED & PEDS [address] [place] [address] Katelin Muller, SAMANTHA [address] [place] [address] documented as of this encounter Visit Diagnoses Not on filedocumented in this encounter Care Teams Sports Coordinator Relationship Specialty Start Date End Date Deyvi Goldsmith MD [address] [place] [address] PCP - General Internal Medicine 11/02/18 documented as of this encounter
--- OUTSIDE RECORDS SUMMARY | 2024-12-01 16:54 | XMS_ITS | Encounter Summary ---
Author Organization [facility] Address [address] [place] [address] Care Team Providers Care Rigger Supervisor Name Role Phone Deyvi Goldsmith MD Primary Care Provider [phone] Reason for Visit * Reason Comments Med Refill Encounter Details Date Type Department Care Team (Late Contact Info) Description 11/22/2022 Refill [facility] MED & PEDS [address] [place], [place] [phone] Deyvi Goldsmith MD [address] [place] [address] Chronic pain syndrome Social History Tobacco Use Types Packs/Day Years Used Date Smoking Tobacco: Never Assessed Comments Unknown Sex and Gender Information Value Date Recorded Sex Assigned at Female 09/01/2022 10:17 AM EDT Legal Sex Female 10:17 AM EDT Gender Identity Female 09/01/2022 10:17 AM EDT Sexual Orientation Straight 09/01/2022 10 :17 AM EDT documented as of this encounter Miscellaneous Notes * Telephone Encounter - Katelin Zuluaga RN - 12/02/2022 10:45 AM EST Pt asking for Lidocaine cream, it was lusted in your plan on 02/27/22. Patient states she never got a Rx and would like to try it. documented in this encounter Plan of Treatment Upcoming Encounters Date Type Department Care Team (Late Contact Info) Description 12/15/2024 11:00 AM EST Clinical Support [facility] MED & PEDS [address] [place] [address] Katelin Muller, SAMANTHA 505 [place], [place] [phone] documented as of this encounter Visit Diagnoses Diagnosis Chronic pain syndrome documented in this encounter Care Teams Rigger Supervisor Relationship Specialty Start Date End Date Deyvi Goldsmith MD [address] [place] [address] PCP - General Internal Medicine 11/02/18 documented as of this encounter
--- OUTSIDE RECORDS SUMMARY | 2024-12-01 16:54 | XMS_ITS | Encounter Summary ---
Author Organization [employer] Address [address] [place] [address] Care Team Providers Care Sign Builder Name Role Phone Deyvi Goldsmith MD Primary Care Provider [phone] Reason for Visit * Reason Onset Date Comments Med Refill 04/01/2023 Encounter Details Date Type Department Care Team (Late st Contact Info) Description 04/01/[address] [facility] MEDICINE [address] [place] [address] Deyvi Goldsmith MD [address] [place] [address] Med Refill Social History Tobacco Use Types [...] is your housing situation today? I have escobarcassandra garay 06/27/[address] you [...] * Telephone Encounter - Harvey Carr - 04/01/2023 9:20 AM EDT Tc from pt requesting a med refill for tramadol 50 mg documented in this encounter Plan of Treatment Upcoming Encounters Date Type Department Care Team ([facility] st Contact Info) Description 12/15/2024 11:00 AM EST Clinical Support [facility] MED & PEDS 505 [place] [address] Katelin Muller RN 505 [place] [address] documented as of this encounter Visit Diagnoses Not on filedocumented in this encounter Additional Health Concerns Assessment Noted Time PHQ-9 Depression Total Score: 0 02/12/20 23 11:35 AM EDT documented as of this encounter Care Teams Sign Builder Relationship Specialty Start Date End Date Deyvi Goldsmith MD [address] [place] [address] PCP - General Internal Medicine 11/02/18 documented as of this encounter
--- OUTSIDE RECORDS SUMMARY | 2024-12-01 16:54 | XMS_ITS | Encounter Summary ---
Author Organization [employer] Address [address] [facility] 7 [place] [address] Care Team Providers Care Lace Burn Out Tender Name Role Phone Deyvi Goldsmith MD Primary Care Provider [phone] Reason for Visit * Reason Comments Med Refill Encounter Details Date Type Department Care Team ([facility] st Contact Info) Description 11/13/2024 Refill [facility] [address] [place] [address] Deyvi Goldsmith MD 505 [place] [address] Social History Tobacco Use Types Packs/Day Years [...] is your housing situation today? I have esocbar garay 06/27/[address] you [...] Description 12/15/2024 11:00 AM EST Clinical Support [facility] MED & PEDS 505 [place] [address] Katelin Muller, SAMANTHA [address] [place] [address] documented as of this encounter Visit Diagnoses Not on filedocumented in this encounter Additional Health Concerns Assessment Noted Time PHQ-9 Depression Total Score: 0 07/11/20 24 9:36 AM EDT documented as of this encounter Care Teams Lace Burn Out Tender Relationship Specialty Start Date End Date Deyvi Goldsmith MD [address] [place] [address] PCP - General Internal Medicine 11/02/18 documented as of this encounter
--- OUTSIDE RECORDS SUMMARY | 2024-12-01 16:54 | XMS_ITS | Clinical Summary ---
Author Organization [facility] Address [address] [place] [address] Care Team Providers Care Manual Control Auger Press Operator Name Role Phone Robyn Guerrier MD Primary Care Provider [phone] Surgical History Surgery Date Site/Laterality Comments HYSTERECTOMY PROCEDURE: HISTORICAL HYSTERECTOMY TUBAL LIGATION PROCEDURE: HISTORICAL TUBAL LIGATION OTHER SURGICAL HISTORY Left PROCEDURE: HISTORICAL ARM SURGERY APPENDECTOMY PROCEDURE: OK APPENDECTOMY OTHER SURGICAL HISTORY PROCEDURE: OK ANESTHESIA LUMBAR REGION NOS HEMORRHOID SURGERY PROCEDURE: OK INCISION THROMBOSED HEMORRHOID EXTERNAL Medical History Medical History Date Comments Arthralgia of shoulder region DX :Arthralgia of shoulder region Fibromyalgia DX:Fibromyalgia Low back pain DX:Low back pain Tendonitis DX:Tendonitis Left shoulder pain DX:Left shoul oswald pain Asthma DX:Asthma Essential hypertension DX:Essent ial hypertension Esophageal reflux DX:Esophageal reflux Migraines DX:Migraines Hypothyroid DX:Hypothyroid Hyperlipidemia DX:Hyperlipidemi a History of fracture DX:History o f fracture; COMMENT: left arm Seasonal allergies DX:Seasonal a llergies Vitamin D deficiency DX:Vitamin D deficiency Depressive disorder DX:Depressiv e disorder Anxiety state DX:Anxiety state Insomnia DX:Insomnia History of kidney stones DX:Hist ory of kidney stones Duodenitis DX:Duodenitis DONA positive DX:DONA positive History of blood transfusion DX: History of blood transfusion Family History Medical History Relation Name Comments Osteoporosis Mother Other: Osteoarthritis Mother Relation Name Status Comments Mother Social History Tobacco Use Types Packs/Day Years Used Date Smoking Tobacco: Never Smokeless Tobacco: Never Alcohol Use Standard Drinks/Week Comments Never 0 (1 standard drink = 0.6 oz pur e alcohol) Sex and Gender Information Value Date Recorded Sex Assigned at Not on file Gender Identity Not on file Sexual Orientation Not on file Obstetrics History Last Filed Vital Signs Vital Sign Reading Time Taken Comments Blood Pressure 118/70 11/06/2022 1:10 PM EST Sit ting R Arm Pulse 82 11/06/2022 1:10 PM EST Temperature - - Respiratory Rate - - Oxygen Saturation - - Inhaled Oxygen Concentration - - Weight 73.5 kg (162 lb) 10/08/2023 10:36 AM EST Height 162.6 cm (5' 4 ) 10/08/2023 10:36 AM EST Body Mass Index 27.81 10/08/2023 10:36 AM EST Plan of Treatment Health Maintenance Due Date Last Done Comments Breast Cancer Screening 1972 DTaP,Tdap,and Td Vaccines (1 - Tdap) 1991 Hepatitis B Vaccines (1 of 3 - 19+ 3-dose series) 1991 Cervical Cancer Screening: P ap Smear 1993 Colorectal Cancer Screening: Colonoscopy 10/12/2022 Depression Screening 10/12/2022 HIV Screening 10/12/2022 Hepatitis C Screening 10/12/2022 Social Influencers of Health Screening 10/12/2022 Zoster Vaccines (1 of 2) 2022 COVID-19 Vaccine ( - 2023-2 5 season) 2024 Influenza Vaccine (#1) 2024 HIB Vaccines Aged Out No longer eligi [...] on patient's age to complete this topic MMR Vaccines Aged Out No longer eligi ble based on patient's age to complete this topic Meningococcal ACWY Vaccine Aged Out N o longer eligible based on patient's age to complete this topic Pneumococcal Vaccine: Pediat rics (0 to 5 Years) and At-Risk Patients (6 to 64 Years) Aged Out No longer eligible b ased on patient's age to complete this topic RSV Immunization Patients Un oswald 20 months Aged Out No longer eligible b ased on patient's age to complete this topic Varicella Vaccines Aged Out No longer eligible based on patient's age to complete this topic Care Teams Manual Control Auger Press Operator Relationship Specialty Start Date End Date Robyn Guerrier MD [address] [place] [phone] PCP - General 10/04/18
--- OUTSIDE RECORDS SUMMARY | 2024-12-01 16:54 | XMS_ITS | Encounter Summary ---
Author Organization [employer] Address [address] [place] [address] 7 [place] [address] Care Team Providers Care Tabulating Supervisor Name Role Phone Deyvi Goldsmith MD Primary Care Provider [phone] Encounter Details Date Type Department Care Team ([facility] st Contact Info) Description 08/25/2024 Orders Only [facility] CH[facility] MED & PEDS [address] [place], [place] [phone] Deyvi Goldsmith MD [address] [place] [address] Hypokalemia (Primary Dx) Social History Tobacco Use Types [...] Description 12/15/2024 11:00 AM EST Clinical Support [facility] MED & PEDS [address] [place] [address] Katelin Muller RN [address] [place] [address] Scheduled Orders Name Type Priority Associated Diagnoses Orde r Schedule Potassium Lab Routine Hypokalemia Expected: 08/25/2024, Expires: 08/25/2025 documented as of this encounter Visit Diagnoses Diagnosis Hypokalemia- Primary Hypopotassemia documented in this encounter Additional Health Concerns Assessment Noted Time PHQ-9 Depression Total Score: 0 07/11/20 24 9:36 AM EDT documented as of this encounter Care Teams Tabulating Supervisor Relationship Specialty Start Date End Date Deyvi Goldsmith MD [address] [place] [address] PCP - General Internal Medicine 11/02/18 documented as of this encounter
--- OUTSIDE RECORDS SUMMARY | 2024-12-01 16:55 | XMS_ITS | Encounter Summary ---
Author Organization [employer] Address [address] [place] [address] [place] [address] Care Team Providers Care Tonsorial Artist Name Role Phone Deyvi Goldsmith MD Primary Care Provider [phone] Reason for Visit * Reason Comments Med Refill Encounter Details Date Type Department Care Team ([facility] st Contact Info) Description 11/30/2024 Refill [facility] MED & PEDS [address] [place], [place] [phone] Deyvi Goldsmith MD [address] [place] [address] Chronic pain syndrome Social History Tobacco Use [...] Description 12/15/2024 11:00 AM EST Clinical Support [facility] MED & PEDS [address] [place] [address] Katelin Muller, RN [address] [place] [address] documented as of this encounter Visit Diagnoses Diagnosis Chronic pain syndrome documented in this encounter Additional Health Concerns Assessment Noted Time PHQ-9 Depression Total Score: 0 07/11/20 24 9:36 AM EDT documented as of this encounter Care Teams Tonsorial Artist Relationship Specialty Start Date End Date Deyvi Goldsmith MD [address] [place] [address] PCP - General Internal Medicine 11/02/18 documented as of this encounter
--- OUTSIDE RECORDS SUMMARY | 2024-12-01 16:55 | XMS_ITS | Encounter Summary ---
Author Organization [employer] Address [address] [place] [address] 7 [place] [address] Care Team Providers Care Acquisition Editor Name Role Phone Deyvi Goldsmith MD Primary Care Provider [phone] Encounter Details Date Type Department Care Team (Latest Contact Info) Description 07/12/2024 Orders Only [facility] CHC MED & PEDS [address] [place], [place] [phone] Deyvi Goldsmith MD [address] [place] [address] Hypercholesterolemia (Primary Dx); Hypokalemia Social History Tobacco Use Types Packs/Day Years [...] 12/15/2024 11:00 AM EST Clinical Support [facility] [address] [place] [address] Katelin Muller, RN [address] [place] [address] documented as of this encounter Procedures Procedure Name Priority Date/Time Associated Diagnosis Comments BASIC METABOLIC PANEL Routine 08/25/2024 1:08 PM EDT Hypokalemia MR SHOULDER WO CONTRAST RIGHT Routine 07/30/2024 12:28 PM EDT documented in this encounter Results * (ABNORMAL) Basic Metabolic Panel (08/25/2024 1:08 PM EDT) Sodium 142 135 - 145 mmol/L [facility] Potassium 2.7(LL) 3.3 - 5.1 mmol/L [facility] Comment:Critical value for t est(s):POTS Results called to and readback by: MEMO Lazcano Person calling: VITOR Date: 08/25/24Time: 1559 Chloride 110(H) 96 - 108 mmol/L [facility] Carbon Dioxide 24 22 - 29 mmol/L [facility] Anion Gap 11(L) 12 - 20 [facility] Urea Nitrogen (BUN) 21(H) 9 - 16 mg/dL [facility] Creatinine, Serum 0.80 0.5 - 1.4 mg/dL [facility] Estimated Glomerular Filt Rate >60 [facility] Comment:NOTE: For -Am erican individuals, multiply the result by 1.210.Chronic Kidney Disease: Estimated GFR < 60 mL/min/1.43d0Hebctr Kidney Disease: Estimated GFR < 15 mL/min/1.73m2 Glucose 86 60 - 115 mg/dL [facility] Calcium 9.4 8.4 - 10.2 mg/dL [facility] Blood Venous blood specimen / Unknown 08/25/2024 1:08 PM EDT 08/25/2024 2:21 PM EDT Deyvi Goldsmith MD LAB BLOOD ORDERABLES Final Result Performing Organization Address City/State/[facility] Co de Phone Number [facility] [address] [place] [address] [phone] * MR Shoulder w/o Contrast Right (07/30/2024 12:28 PM EDT) Anatomical Region Laterality Modality Upper Extremities, Shoulder Right Magn etic Resonance 07/30/2024 12:2 8 PM EDT Narrative 08/02/2024 8:59 PM EDT ? [facility] ?[address] ?[place] [address] ? Magnetic Resonance Report ? Signed ? Patient: Gordy,Johana E ?MR#: [id number] ?? 006 ? : 1970 ?Acct:[id number] ? Age/Sex: 53 / F ?ADM Date: 09/28/24 ? Loc: HO.MRI ? Attending : Jose Francisco FITZGERALD ? Ordering Physician: Jose Francisco Daniel ?? Date of Service: 07/30/24 ?? Procedure(s): MR shoulder RT wo con ?? Accession Number(s): [id number] ? cc: Jose Francisco Daniel; Deyvi Goldsmith MD ? EXAMINATION: ?? MR SHOULDER WITHOUT CONTRAST, RIGHT ? CLINICAL INFORMATION: ?? Right shoulder pain and numbness. Concern for adhesive capsulitis ?? versus rotator cuff pathology. ? COMPARISON: ?? Right shoulder radiographs dated 05/23/2024. ? TECHNIQUE: ?? MRI of the shoulder without contrast was performed on a high-field ?? scanner. ? FINDINGS: ? ROTATOR CUFF: Inup-ht-ldzbkxwn supraspinatus tendinosis with distal ?? bursal surface partial tearing measuring approximately 1.6 x 0.8 cm (AP ?? x ML). There is extension into the junctional fibers. More mild ?? infraspinatus and subscapularis tendinosis. Articular surface partial ?? tearing of the distal subscapularis tendon measuring up to 1.2 cm in ML ?? dimension. No full-thickness rotator cuff tendon tear. No muscle ?? atrophy or fatty infiltration. ? BICEPS: Fluid within the proximal long head biceps tendon sheath, ?? consistent with mild tenosynovitis. No tendon tear. ? CORACOACROMIAL ARCH: The undersurface of the acromion is curved with no ?? subacromial spur. The acromioclavicular joint is normal. Trace fluid ?? within subacromial-subdeltoid bursa, consistent with minimal bursitis. ? LABRUM/CAPSULE: Linear increased T2 signal within the undersurface of ?? the superior labrum which could represent a nondisplaced undersurface ?? tear. Thickening and heterogeneous with adjacent edema throughout the ?? joint capsule which can be seen in the setting of adhesive capsulitis. ? GLENOHUMERAL JOINT/MARROW: Intact articular cartilage. No acute osseous ?? injury. ? MR/MR shoulder RT wo con ?? IMPRESSION: ?? 1. Xlkg-go-uvvnibxn supraspinatus tendinosis with distal bursal surface ?? partial tearing extending into the junctional fibers. Mild ?? infraspinatus and subscapularis tendinosis with articular surface ?? partial tearing of the distal subscapularis tendon. No full-thickness ?? rotator cuff tendon tear. ? 2. Proximal long head biceps tenosynovitis without a measurable tendon ?? tear. ? 3. Minimal subacromial-subdeltoid bursitis. ? 4. Possible nondisplaced undersurface tear of the superior labrum. ? 5. Thickening and heterogeneous edema throughout the joint capsule ?? which can be seen in the setting of adhesive capsulitis. ? Electronically signed by: ??Delonte Ontiveros MD ??08/02/2024 08:55 PM EDT ?? RP Workstation: [id number] ? Dictated By: ?Delonte Ontiveros MD ? Signed By: ?<Electronically signed by Delonte Ontiveros MD in OV> ?08/02/242054 ? DD/ 1228 ? TD/TT: 07/30/24 1248 ? Supervisor Stitching Department: SR ? Procedure Note Donpoojater, Image - 08/02/2024 [place] [address] Magnetic Resonance Report Signed Patient: Johana Kaminski EMR#: [id number] 006 : 1970Acct:[id number] Age/Sex: 53 / FADM Date: 07/30/24 Loc: HO.MRI Attending Dr: Jose Francisco FITZGERALD Ordering Physician: Jose Francisco Daniel Date of Service: 07/30/24 Procedure(s): MR shoulder RT wo con Accession Number(s): [id number] cc: Jose Francisco Daniel; Deyvi Goldsmith MD EXAMINATION: MR SHOULDER WITHOUT CONTRAST, RIGHT CLINICAL INFORMATION: Right shoulder pain and numbness. Concern for adhesive capsulitis versus rotator cuff pathology. COMPARISON: Right shoulder radiographs dated 05/23/2024. TECHNIQUE: MRI of the shoulder without contrast was performed on a high-field scanner. FINDINGS: ROTATOR CUFF: Crbc-vh-dkpcivms supraspinatus tendinosis with distal bursal surface partial tearing measuring approximately 1.6 x 0.8 cm (AP x ML). There is extension into the junctional fibers. More mild infraspinatus and subscapularis tendinosis. Articular surface partial tearing of the distal subscapularis tendon measuring up to 1.2 cm in ML dimension. No full-thickness rotator cuff tendon tear. No muscle atrophy or fatty infiltration. BICEPS: Fluid within the proximal long head biceps tendon sheath, consistent with mild tenosynovitis. No tendon tear. CORACOACROMIAL ARCH: The undersurface of the acromion is curved with no subacromial spur. The acromioclavicular joint is normal. Trace fluid within subacromial-subdeltoid bursa, consistent with minimal bursitis. LABRUM/CAPSULE: Linear increased T2 signal within the undersurface of the superior labrum which could represent a nondisplaced undersurface tear. Thickening and heterogeneous with adjacent edema throughout the joint capsule which can be seen in the setting of adhesive capsulitis. GLENOHUMERAL JOINT/MARROW: Intact articular cartilage. No acute osseous injury. MR/MR shoulder RT wo con IMPRESSION: 1. Qlev-lw-nvbktgqs supraspinatus tendinosis with distal bursal surface partial tearing extending into the junctional fibers. Mild infraspinatus and subscapularis tendinosis with articular surface partial tearing of the distal subscapularis tendon. No full-thickness rotator cuff tendon tear. 2. Proximal long head biceps tenosynovitis without a measurable tendon tear. 3. Minimal subacromial-subdeltoid bursitis. 4. Possible nondisplaced undersurface tear of the superior labrum. 5. Thickening and heterogeneous edema throughout the joint capsule which can be seen in the setting of adhesive capsulitis. Electronically signed by: Delonte Ontiveros MD 08/02/2024 08:55 PM EDT RP Dictated By: Delonte Ontiveros MD Signed By: <Electronically signed by Delonte Ontiveros MD in OV> 08/02/242054 DD/ 1228 TD/TT: 07/30/24 1248 Supervisor Stitching Department: [facility] External Provider IMG MRI PROCEDURES Edited Result - Final documented in this encounter Visit Diagnoses Diagnosis Hypercholesterolemia- Primary Pure hypercholesterolemia Hypokalemia Hypopotassemia documented in this encounter Additional Health Concerns Assessment Noted Time PHQ-9 Depression Total Score: 0 07/11/20 24 9:36 AM EDT documented as of this encounter Care Teams Acquisition Editor Relationship Specialty Start Date End Date Deyvi Goldsmith MD [address] [place] [address] PCP - General Internal Medicine 11/02/18 documented as of this encounter
--- OUTSIDE RECORDS SUMMARY | 2024-12-01 16:55 | XMS_ITS | Encounter Summary ---
Author Organization [email or web address] [facility] Address [address] [place] [address] 7t [place] [address] Care Team Providers Care Tunnel Inspector Name Role Phone Deyvi Goldsmith MD Primary Care Provider [phone] Reason for Visit * Reason Comments Med Change Request Encounter Details Date Type Department Care Team ([facility] Contact Info) Description 09/01/2023 Refill [facility] CHC MED & PEDS [address] [place] [address] Yessy Hughes MD [address] [place] [address] Social History Tobacco Use Types Packs/Day Years Used Date Smoking Tobacco: Never Passive Smoke Exposure: Never Smokeless Tobacco: Never Alcohol Use Standard Drinks/Week Comments Never 0 (1 standard drink = 0.6 oz pur e alcohol) Depression Answer Date Recorded Patient Health Questionnaire-9 Score 0 02/11/2023 Housing Stability Answer Date Recorded What is your housing situation today? Not on [facility] 08/25/[address] you li ve. Do you have problems with any of the following? None of the above 08/25/2023 Food Insecurity Answer Date Recorded Within the past 12 months, y ou worried that your food would run out before you got money to buy more: Never True 08/25/2023 Within the past 12 months,th e food you bought just didn't last and you didn't have enough money to get more: Never True Transportation Answer Date Recorded In the past 12 months, has l ack of transportation kept you from medical appts, meetings, work or from getting things needed for daily living? No 08/25/2023 Utilities Answer Date Recorded In the past 12 months, has t he electric, gas, oil or water company threatened to shut off services in your home? No 08/25/2023 Depression Answer Date Recorded Patient Health Questionnaire-2 [...] Description 12/15/2024 11:00 AM EST Clinical Support [facility] CHC MED & PEDS [address] [place] [address] Katelin Muller RN [address] [place] [address] documented as of this encounter Visit Diagnoses Not on filedocumented in this encounter Additional Health Concerns Assessment Noted Time PHQ-9 Depression Total Score: 0 02/12/20 23 11:35 AM EDT documented as of this encounter Care Teams Tunnel Inspector Relationship Specialty Start Date End Date Deyvi Goldsmith MD [address] [place] [address] PCP - General Internal Medicine 11/02/18 documented as of this encounter
--- OUTSIDE RECORDS SUMMARY | 2024-12-01 16:55 | XMS_ITS | Encounter Summary ---
Author Organization [employer] [facility] Address [address] [place] [address] Care Team Providers Care Pre Wave Assembler Name Role Phone Deyvi Goldsmith MD Primary Care Provider [phone] Reason for Visit * Reason Onset Date Comments triage 02/06/2023 Encounter Details Date Type Department Care Team ([facility] st Contact Info) Description 02/06/2023 Telephone [facility] CHC MED & PEDS [address] [place], [place] [phone] Deyvi Goldsmith MD [address] [place] [address] triage Social History Tobacco Use Types Packs/Day Years [...] suspected to have Coronavirus/COVID-19? No / Unsure 02/06/2023 10:16 AM EDT documented as of this encounter Miscellaneous Notes * Telephone Encounter - Kitty Easley RN - 02/06/2023 10:02 AM EDT Triage call Pt reports asthma flare up for last 2 weeks. Pt contacted pulmonary MD but, can't be seen till April. Pt is referred to PCP. Pt reports medications are not helping. Pt reports having difficulty breathing, chest is tight and a deep breath feels like Pt is choking. Pt denies wheezing but has dry cough, headache, neg for fever. Pt has not done a Covid test. Pt is requesting to be seen by provider today. apt in [facility] 02/06 @ 1020AM . Pt agrees with disposition and home care reviewed. Protocol Used: Asthma Attack (Adult) Protocol-Based Disposition: See in Office or Video Visit Today or Tomorrow Video visit not offered Positive Triage Question: * Mild asthma attack (e.g., no SOB at rest, mild SOB with walking, speaks normally in sentences, mild wheezing) and lasting > 24 hours on prescribed treatment * All higher-acuity triage questions were negative Care Advice Discussed: * Reassurance and Education - Mild Asthma Attack * Asthma Attack * Asthma Attack - Symptoms * Asthma Attack - Treatment - Quick-Relief Medicine * Asthma Attack - Treatment - Controller Medicine * Drink Plenty of Liquids and Use a Humidifier * Avoid Asthma Triggers * Remove Allergens * Note to Triager - Quick-Relief Medicines * Reasons To Call Back - An asthma attack is not better after 2 or 3 quick-relief treatments (such as albuterol by inhaleror nebulizer) 20 minutes apart. - Quick-relief asthma medicine (such as albuterol by inhaler or nebulizer) is needed more often than every 4 hours - Mild asthma symptoms not better after 24 hours - Mild wheezing or other asthma symptoms come and go for more than 3 days - You become worse * Telephone Encounter - Shaye Felton - 02/06/2023 9:40 AM EDT Symptom: Asthma - Caller Reports Outcome: Schedule a same-day appointment or talk to a nurse or provider today Reason: No high acuity concerns reported by caller The caller accepted this outcome documented in this encounter Plan of Treatment Upcoming Encounters Date Type Department Care Team (Late st Contact Info) Description 12/15/2024 11:00 AM EST Clinical Support [facility] MED & PEDS [address] [place] [address] Katelin Muller, SAMANTHA [address] [place] [address] documented as of this encounter Visit Diagnoses Not on filedocumented in this encounter Care Teams Pre Wave Assembler Relationship Specialty Start Date End Date Deyvi Goldsmith MD [address] [place] [address] PCP - General Internal Medicine 11/02/18 documented as of this encounter
--- OUTSIDE RECORDS SUMMARY | 2024-12-01 16:55 | XMS_ITS | Encounter Summary ---
Author Organization [employer] [facility] Address [address] [facility] 7t [place] [address] Care Team Providers Care Analysis Internship Name Role Phone Deyvi Goldsmith MD Primary Care Provider [phone] Reason for Visit * Reason Comments Med Change Request Encounter Details Date Type Department Care Team ([facility] Contact Info) Description 03/18/2023 Refill [facility] [address] [place], [place] [phone] Colby Love, SANGEETA Essential hypertension Social History Tobacco Use Types [...] suspected to have Coronavirus/COVID-19? No / Unsure 03/18/2023 11:03 AM EDT documented as of this encounter Plan of Treatment Upcoming Encounters Date Type Department Care Team ([facility] Contact Info) Description 12/15/2024 11:00 AM EST Clinical Support [facility] CHC MED & PEDS [address] [place] [address] Katelin Muller RN [address] [place] [address] documented as of this encounter Visit Diagnoses Diagnosis Essential hypertension Unspecified essential hypertension documented in this encounter Additional Health Concerns Assessment Noted Time PHQ-9 Depression Total Score: 0 02/12/20 23 11:35 AM EDT documented as of this encounter Care Teams Analysis Internship Relationship Specialty Start Date End Date Deyvi Goldsmith MD [address] [place] [address] PCP - General Internal Medicine 11/02/18 documented as of this encounter
--- OUTSIDE RECORDS SUMMARY | 2024-12-01 16:55 | XMS_ITS | Encounter Summary ---
Author Organization [employer] Address [address] [facility] [address] [place] [address] Care Team Providers Care Solids Control Technician Name Role Phone Deyvi Goldsmith MD Primary Care Provider [phone] Reason for Visit * Reason Comments Med Refill Encounter Details Date Type Department Care Team ([facility] Contact Info) Description 11/16/2024 Refill [facility] CHC MED & PEDS [address] [place], [place] [phone] Deyvi Goldsmith MD [address] [place] [address] Nausea Social History Tobacco Use Types Packs/Day Years [...] Description 12/15/2024 11:00 AM EST Clinical Support [facility] MED [facility] PEDS [address] [place] [address] Katelin Muller, SAMANTHA [address] [place] [address] documented as of this encounter Visit Diagnoses Diagnosis Nausea Nausea alone documented in this encounter Additional Health Concerns Assessment Noted Time PHQ-9 Depression Total Score: 0 07/11/20 24 9:36 AM EDT documented as of this encounter Care Teams Solids Control Technician Relationship Specialty Start Date End Date Deyvi Goldsmith MD [address] [place] [address] PCP - General Internal Medicine 11/02/18 documented as of this encounter
--- OUTSIDE RECORDS SUMMARY | 2024-12-01 16:55 | XMS_ITS | Encounter Summary ---
Author Organization [employer] [facility] Address [address] [facility] 7t [place] [address] Care Team Providers Care Pupil Personnel Services Director Name Role Phone Deyvi Goldsmith MD Primary Care Provider [phone] Reason for Visit * Reason Comments Med Change Request Encounter Details Date Type Department Care Team ([facility] Contact Info) Description 03/20/2023 Refill [facility] [address] [place], [place] [phone] Colby Love, SANGEETA Essential hypertension Social History [...] Upcoming Encounters Date Type Department Care Team ([facility] Contact Info) Description 12/15/2024 11:00 AM EST Clinical Support [facility] MED & PEDS [address] [place] [address] Katelin Muller RN [address] [place] [address] documented as of this encounter Visit Diagnoses Diagnosis Essential hypertension Unspecified essential hypertension documented in this encounter Additional Health Concerns Assessment Noted Time PHQ-9 Depression Total Score: 0 02/12/20 23 11:35 AM EDT documented as of this encounter Care Teams Pupil Personnel Services Director Relationship Specialty Start Date End Date Deyvi Goldsmith MD [address] [place] [address] PCP - General Internal Medicine 11/02/18 documented as of this encounter
== END 2024-12-01 14:05 | disposition home or self-care (01) ==
PROVIDERS: PCP Internal Medicine; Visit Provider Student in an Organized Health Care Education/Training Program
DX: M79.7 Fibromyalgia (principal); M70.61 Trochanteric bursitis, right hip; M75.51 Bursitis of right shoulder; M70.51 Other bursitis of knee, right knee
CPT/HCPCS: 20610; 99213

== ENCOUNTER → 2024-12-01 13:07 | Outpatient (BNVA) | payer OTHER, SELFPAY | PROVIDERS: PCP Internal Medicine; Visit Provider Student in an Organized Health Care Education/Training Program | DX: M70.61 Trochanteric bursitis, right hip (principal); M75.51 Bursitis of right shoulder; M70.51 Other bursitis of knee, right knee; M79.7 Fibromyalgia | CPT/HCPCS: 20610; 99212; J2003; J3300 ==

== ENCOUNTER 2024-12-29 10:43 | Outpatient (AMB) | payer OTHER, SELFPAY ==
[2024-12-29 10:48] VITALS: BMI 28.3
--- NOTE | 2024-12-29 10:48 | MHC.OFFVIS ---
Vital Signs 12/29/24 10:48 Height 5 ft 5 in Weight 170 lb BMI 28.3 Intake Visit Reasons: PO RT shoulder 10/28/24 Intake Note: Johana is a 54 year old female who presents today for a post operative visit after undergoing a right shoulder arthroscopy on 10/28/24. She reports mild to moderate discomfort in her right shoulder. She denies any fevers or chills. She is no longer taking narcotics for her discomfort. She would like to start outpatient physical therapy. Allergies duloxetine Adverse Reaction (Severe, Verified 12/29/24 10:53) hallucinations (severe) sumatriptan [From IMITREX] Adverse Reaction (Severe, Verified 12/29/24 10:53) HEADACHES Medication List - Last Reconciled 12/29/24 by Fabian Munroe MD albuterol sulfate 90 mcg/actuation (Ventolin HFA) 1 puff inhalation QID PRN albuterol sulfate 2.5 mg (3 mL) inhalation QID 30 days amitriptyline mg PO beclomethasone dipropionate 80 mcg/actuation (Qvar RediHaler) 1 inh inhalation BID bisacodyl (Dulcolax (bisacodyl)) 10 mg (2 x 5 mg) PO BEDTIME 2 days Brace,wrist wear on right wrist at night cholecalciferol (vitamin D3) (Vitamin D3) 25 mcg PO DAILY cyclobenzaprine 5 mg PO BID docusate sodium (Colace) 100 mg PO BID famotidine 20 mg PO BID hydroxyzine HCl 10 mg PO DAILY ibuprofen 800 mg PO TID PRN lidocaine 4% 1 appl topical TID PRN lisinopril 10 mg PO QAM omeprazole 20 mg PO DAILY ondansetron HCl 4 mg PO TID PRN polyethylene glycol 3350 (Miralax) 238 grams PO ONCE 1 day potassium chloride ER (Klor-Con M) 20 mEq PO DAILY pregabalin 100 mg PO BID rosuvastatin 20 mg PO DAILY topiramate 100 mg PO BID triamcinolone acetonide 0.1% 1 appl topical BID PRN PFSH Medical History (Updated 12/29/24 @ 11:18 by Fabian Munroe MD) Right shoulder pain Internal derangement of right shoulder Rotator cuff tear, left Anal abscess Anal fistula Muscle spasm of shoulder region Lower back pain Numbness in both hands Hx of hypokalemia History of blood transfusion (~2013) Nausea Arthritis Right hip pain Anxiety Rosacea External hemorrhoids with complication Large joint arthralgia of multiple sites Hemorrhoids with complication Fibromyalgia DONA positive Fibromyalgia Migraine Hypercholesteremia Internal and external bleeding hemorrhoids GERD (gastroesophageal reflux disease) Asthma HTN (hypertension) Surgical History History of esophagogastroduodenoscopy (EGD) H/O colonoscopy Hx of appendectomy Hx of elbow surgery History of arthroscopy of left shoulder (~10/2022) H/O hemorrhoidectomy S/P tendon repair Hx of hysterectomy (~2013) Family History Mother HTN (hypertension) Asthma Glaucoma Father Diabetes HTN (hypertension) Sister Down syndrome Social History Household Members: Family Housing: House Are you a primary respiratory care assistant to a significant other at home: No Do you presently have visiting nurse or other home services: No 75 years or older and lives alone: No Alcohol intake: never Patient Tobacco Use Status: Never used Tobacco Advance Directives Date on File: 07/08/22 service: No Current occupational status: employed 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 Kaminski continues to do well after undergoing right shoulder arthroscopic surgery on 10/28/2024. She will continue with her koxex-yc-oercsk exercises. I did give her a prescription to go to outpatient physical therapy. She will contact me prior to her follow-up appointment in 2-3 months should any questions or concerns arise. Feel free to call me at any time should questions regarding her orthopedic management arise. Orders: Orders PT Evaluation and Treatment Today M75.01 - Adhesive capsulitis of right shoulder Coding Level of Care Code Global (29729) Diagnoses Right shoulder pain M25.511
--- OUTSIDE RECORDS SUMMARY | 2024-12-29 12:43 | XMS_ITS | Clinical Summary ---
Author Organization [employer] Address [address] [place] [address] 7[address] [place] [address] Care Team Providers Care Electronic Repair Troubleshooter Name Role Phone Deyvi Goldsmith MD Primary Care Provider [phone] Allergies Active Allergy Reactions Criticality Noted Date [...] 30 tablet 11 07/12/20 24 2024 Active hydrocortisone 2.5 % creamIndication s:Intertrigo of [...] 24 Active traMADol (Ultram) 50 MG tabletIndicatio ns:MANUSCRIPT EDITOR checked 10/02/22 Take 1 tablet (50 mg) by mouth every 8 (eight) hours if needed for moderate pain. 20 tablet 10/24/20 24 Active lisinopril 10 MG tabletIndicatio ns:Essential hypertension TAKE 1 TABLET BY MOUTH EVERY DAY IN THE MORNING 90 tablet 3 11/07/19 25 Active lidocaine (Xylocaine) 5 % ointment APPLY TOPICALLY IF NEEDED FOR MILD PAIN. 35.44 g 3 11/14/19 25 Active ibuprofen 800 MG tabletIndicatio ns:Chronic pain syndrome TAKE 1 TABLET BY MOUTH EVERY 8 HOURS NEEDED FOR MILD PAIN. 90 tablet 12/02/19 25 Active famotidine (Pepcid) 20 MG tabletIndicatio ns:Gastroesopha geal reflux disease without esophagitis TAKE 1 TABLET BY MOUTH TWICE A DAY 180 tablet 2 12/14/19 25 Active omeprazole (PriLOSEC) [address] capsuleIndicati ons:Nausea TAKE 1 CAPSULE BY MOUTH EVERY DAY 30 MINUTES TO 1 HOUR BEFORE A MEAL 90 capsule 1 12/14/19 25 Active famotidine (Pepcid) 20 MG tabletIndicatio ns:Gastroesopha geal reflux disease without esophagitis TAKE 1 TABLET BY MOUTH TWICE A DAY 60 tablet 3 09/09/20 24 2024 Discontinued ibuprofen 800 MG tabletIndicatio ns:Chronic pain syndrome TAKE 1 TABLET BY MOUTH EVERY 8 HOURS NEEDED FOR MILD PAIN. 90 tablet 11/07/19 25 2024 Discontinued omeprazole (PriLOSEC) [address] capsuleIndicati ons:Nausea TAKE 1 CAPSULE BY MOUTH EVERY DAY 30 MINUTES TO 1 HOUR BEFORE A MEAL 30 capsule 2 11/16/19 25 2024 Discontinued Active Problems Problem Noted Date [...] Encounters Date Type Department Care Team Description 12/15/2024 Telephone [facility] [address] [place] [address] Katelin Muller, RN 12/15/2024 Telephone [facility] [address] [place] [address] Katelin Muller, SAMANTHA 12/13/2024 Refill [facility] [address] [place] [address] Deyvi Goldsmith MD Nausea 12/13/2024 Refill [facility] [address] [place] [address] Deyvi Goldsmith MD Gastroesophageal reflux disease without esophagitis 11/30/2024 Refill [facility] [address] [place] [address] Deyvi Goldsmith MD Chronic pain syndrome 11/16/2024 Refill [facility] [address] [place] [address] Deyvi Goldsmith MD Nausea 11/13/2024 Refill [facility] [address] [place] [address] Deyvi Goldsmith MD 11/05/2024 Refill [facility] [address] [place] [address] Deyvi Goldsmith MD Essential hypertension 11/04/2024 Refill [facility] [address] [place] [address] Dyevi Goldsmith MD Chronic pain syndrome 10/24/2024 Refill [facility] [address] [place] [address] Deyvi Goldsmith MD Lumbar degenerative disc disease 10/22/2024 Refill [facility] [address] [place] [address] Deyvi Goldsmith MD Hypokalemia 10/17/2024 9:00 AM EST Office Visit [facility] [address] [place] [phone] Deyvi Goldsmith MD Vaginal discharge (Primary Dx); Bladder pain 10/11/2024 Orders Only GENERIC EXTERNAL DATA DEPARTMENT Provider, Generic External Data 10/06/2024 Refill [facility] [address] [place] [address] Deyvi Goldsmith MD Lumbar degenerative disc disease from Last 3 Months Immunizations Name Administration [...] 08/12/2024 9:13 AM EDT Plan of Treatment Health Maintenance Due Date Last Done Comments CT Colonography 1972 Colonoscopy 1972 FIT 1972 FOBT 1972 Sigmoidoscopy 1972 Alcohol/Substance Use Screening 1984 Family Planning (PISQ) 1987 Pap Smear 1993 Cervical Cancer Screening 2002 HPV/Cotest 2002 COVID-19 Vaccine ( season) 2024 07/31/2021, 01/05/2021, 12/15/2020 Mammogram 02/04/2025 02/04/2023, 02/04/2023 SDOH Screening 06/27/2025 06/27/2024 Depression Screening 07/11/2025 07/11/2024, 09/09/20 24 Tobacco Screening 08/26/2025 08/26/2024 DTaP/Tdap/Td Vaccines (2 [...] METABOLIC PANEL Routine 10/11/2024 12:52 PM EST LAB COLOGUARD?? COLON CANCER SCREEN Routine 07/22/2024 [...] DETECTION BY PCR NOT DETECTED Not Detect [facility] BACTERIAL VAGINOSIS DETECTION BY PCR NEGATIVE Negative [facility] Comment:The BV organism targ ets [...] GROUP DETECTION BY PCR DETECTED(A) Not Detect [facility] Nickie glab krusei PCR NOT DETECTED Not Detect [facility] Swab Vaginal structure / Unknown 10/17/2024 10/17/2024 us Deyvi Goldsmith MD LAB MICROBIOLOGY - GENERAL ORDERABLES Final Result [facility] [address] [place] [address] [phone] * Chlamydia/N. Gonorrhoeae RNA, TMA, Urogenitial (10/17/2024 12:00 AM EST) CT PCR NOT DETECTED Not Detect. [facility] Comment:A not detected test result [...] psychologicalconsequences. NG PCR NOT DETECTED Not Detect. [facility] Comment:A not detected test result [...] social or psychologicalconsequences. Urine, Random 10/17/2024 10/17/2024 [facility] - 10/18/2024 2:03 PM EST Vaginal Deyvi Goldsmith MD LAB MICROBIOLOGY - GENERAL ORDERABLES Final Result Performing Organization Address [facility]/ZIP Co de Phone Number [facility] [address] [place] [phone] * Culture, Urine, Routine (10/17/2024 12:00 AM EST) Urine Urine specimen obtained by clean catch procedure / Unknown 10/17/2024 10/17/2024 Comment:[facility] - 10/19/2024 7:46 AM EST Urine Culture No growth. Specimen Source: Urine clean catch Deyvi Goldsmith MD LAB MICROBIOLOGY - GENERAL ORDERABLES Final Result Performing Organization Address City/[facility]/ZIP Co de Phone Number [facility] [address] [place] [phone] * (ABNORMAL) Basic Metabolic Panel (10/11/2024 12:52 PM EST) Sodium 137 135 - 145 mmol/L [facility] Potassium 3.3 3.3 - 5.1 mmol/L [facility] Chloride 104 96 - 108 mmol/L [facility] Carbon Dioxide 24 22 - 29 mmol/L [facility] Anion Gap 12 12 - 20 [facility] Urea Nitrogen (BUN) 26(H) 9 - 16 mg/dL [facility] Creatinine, Serum 0.79 0.5 - 1.4 mg/dL [facility] Creatinine Clr Calc Pharmacy 86.3 [facility] Comment:Provided height and weight: 165.1 cm,76.8 kg.eGFR (calculated from the MDRD study equation) and eCrCl(calculated from the Cockcroft-Gault equation) are based ondifferent parameters and may not yield comparable results.If eCrCl result is absurd, please check patient'sheight/weight. Estimated Glomerular Filt Rate >60 [facility] Comment:Chronic Kidney Disea se: Estimated GFR < 60 mL/min/1.31h8Uhjdlf Kidney Disease: Estimated GFR < 15 mL/min/1.73m2 Glucose 87 60 - 115 mg/dL [facility] Calcium 9.6 8.4 - 10.2 mg/dL [facility] 10/11/2024 12:5 2 PM EST 10/11/2024 12:54 PM EST us Generic External Data Provider LAB BLOOD ORDERAB LES Final Result [facility] [address] [place] [phone] * (ABNORMAL) Cologuard?? colon cancer screening (07/22/2024 7:30 PM EDT) Cologuard Result Positive( A) Negative 07/30/2024 3:22 AM EDT [facility] (CLIA #:[id number]) Comment: POSITIVE TEST RESULT. A positive Cologuard [...] were screened with both Cologuard and colonoscopy. (Lexus Tamez al, N Engl J Med 2014;370(14):2076-5121.) Cologuard may produce a false negative or false positive result (no colorectal cancer or precancerous polyp present at colonoscopy follow up). A negative Cologuard test result does not guarantee the absence of CRC or advanced adenoma (pre-cancer). The current Cologuard screening interval is every 3 years. ([place] [employer] and U.S. Multi-Society Task Force). Cologuard performance data in a 10,000 patient pivotal study using colonoscopy as the reference method can be accessed at the following location: www.[employer]/results. Additional description of the Cologuard test process, warnings and precautions can be found at www.BattlefyogReffpediard.com. Stool specimen (specimen) 07/22/2024 7:30 PM EDT 07/25/2024 10:50 AM EDT Deyvi Goldsmith MD LAB MOLECULAR DIAGNOSTICS O RDERABLES Final Result [facility] (CLIA #:[id number]) [address] [place] [address], * (ABNORMAL) Lipid Panel, Standard (07/11/2024 10:37 AM EDT) Triglycerides 173(H) <150 mg/dL [facility] Comment:Desirable Triglyceri de: less than 150 mg/dLBorderline High Triglyceride 150-199 mg/dLHigh Triglyceride: 200-499 mg/dLVery High Triglyceride: greater than or equal to 5OO mg/dL Cholesterol 278(H) <200 mg/dL [facility] Comment:Desirable Cholestero l: less than 200 mg/dLBorderline High Cholesterol: 200-239 mg/dLHigh Cholesterol: greater than 239 mg/dL LDL Cholesterol Calculated 202(H) <100 mg/dL [facility] Comment:Desirable LDL: less than 100 mg/dLNear Optimal/Above Optimal LDL: 110- 129 mg/dLBorderline High LDL: 130-159 mg/dLHigh LDL: 160-189 mg/dLVery High LDL: greater than or equal to 190 mg/dL HDL Cholesterol 42 >40 mg/dL [facility] Comment:Desirable HDL: great er than 40 mg/dL Note: This HDL assay may give artificially low results in patients with liver disease. Blood Venous blood specimen / Unknown 07/11/2024 10:37 AM EDT 07/11/2024 2:26 PM EDT us Deyvi Goldsmith MD LAB BLOOD ORDERABLES Final Result [facility] [address] [place] [phone] * BI Mammogram Diagnostic Tomosynthesis Bilateral (02/04/2023 9:30 AM EDT) Anatomical Region Laterality Modality Breast Bilateral Mammography 02/04/2023 9:30 AM EDT Narrative 02/04/2023 12:24 PM EDT ? [facility] ? [address] ?[place] [address] ? Mammography Report ? Signed ? Patient: Gordy,Johana E ?MR#: [id number] ?? [id number] ? : 1970 ?Acct:[id number] ? Age/Sex: 52 / F ?ADM Date: 04/05/23 ? Loc: HO.MAMMO ? Attending Dr: Deyvi Goldsmith MD ? Ordering Physician: Deyvi Goldsmith MD ?Results: 2 ?? Benign Findings ? Date of Service: 02/04/23 ?Follow Up: 1 Year From Orig ?? inal Mammogram ? Procedure(s): MM tomosynthesis diagnostic BI ?? Accession Number(s): [id number] ? cc: Deyvi Goldsmith MD ? EXAMINATION: [...] 12/16/2021. Outside ultrasound ?? left breast 02/23/2015 ([facility]). ? TECHNIQUE: ?? Digital breast tomosynthesis is [...] MD in OV> ?02/04/23 1221 ? DD/ 9 ? TD/TT: ? Computer Science Intern: READ ? Procedure Note Yelitza, Image - 02/04/2023 [facility] [address] [place], [place] [address] Mammography Report Signed Patient: Johana Kaminski EMR#: [id number] : 1970Acct:[id number] Age/Sex: 52 / FADM Date: 02/04/23 Loc: HO.MAMMO Attending Dr: Deyvi Goldsmith MD Ordering Physician: Deyvi Goldsmithesults: 2 Benign Findings Date of Service: 02/04/23Follow Up: 1 Year From Orig ina Mammogram Procedure(s): MM tomosynthesis diagnostic BI Accession Number(s): [id number] cc: Deyvi Goldsmith MD EXAMINATION: MM DIAGNOSTIC [...] recent 12/16/2021. Outside ultrasound left breast 02/23/2015 ([facility]). TECHNIQUE: Digital breast tomosynthesis is performed in [...] in OV> 02/04/23 1221 DD/ 0930 TD/TT: Computer Science Intern: READ [facility] External Provider IMG BI PROCEDURES Final Result * HEPATITIS C AB W/REFL TO HCV RNA, QN, PCR (07/15/2022 8:50 AM EDT) HEPATITIS C ANTIBODY NON-REACT ANAMARIA NON-REACT ANAMARIA [facility] INDEX 0.08 <1.00 [facility] Comment: ?? HCV antibody was non-reactive. There is no laboratory ?? evidence of HCV infection. ?? In most cases, no further action is required. However, if recent HCV exposure is suspected, a test for HCV RNA (test code 66069) is suggested. ?? For additional information please refer to http://education.Darudar/faq/PSC33g6 (This link is being provided for informational/ educational purposes only.) ?? 07/15/2022 8:50 AM EDT Deyvi Goldsmith MD HISTORICAL/NON ORDERABLE LA BS Final Result [facility] [address] * HIV 1/2 ANTIGEN/ANTIBODY,FOURTH GENERATION W/RFL (07/15/2022 8:50 AM EDT) HIV-1/2 ANTIGEN AND ANTIBODIES, 4TH GENERATION W/ REFLEX NON-REACT ANAMARIA NON-REACT ANAMARIA [facility] Comment: HIV-1 antigen and HIV-1/HIV-2 [...] ? For additional information please refer to http://education.Burst.it.Envestnet/faq/RNR719 (This link is being provided for informational/ educational purposes only.) ? The performance of this assay has not been clinically validated in patients less than 2 years old. ?? 07/15/2022 8:50 AM EDT us Deyvi Goldsmith MD LAB BLOOD ORDERABLES Final Result [facility] [address] from Last 3 Months or Most Recently Relevant to Health Maintenance Insurance [facility]LY [facility] Care Teams Electronic Repair Troubleshooter Relationship Specialty Start Date End Date Deyvi Goldsmith MD [address] [place] [phone] PCP - General Internal Medicine 11/02/18
--- OUTSIDE RECORDS SUMMARY | 2024-12-29 12:43 | XMS_ITS | Clinical Summary ---
Author Organization [facility] it Address [address] [place] [address] Care Team Providers Care Brake Operator Name Role Phone Robyn Guerrier MD Primary Care Provider [phone] Surgical History Surgery Date Site/Laterality Comments HYSTERECTOMY PROCEDURE: HISTORICAL HYSTERECTOMY TUBAL LIGATION PROCEDURE: HISTORICAL TUBAL LIGATION OTHER SURGICAL HISTORY Left PROCEDURE: HISTORICAL ARM SURGERY APPENDECTOMY PROCEDURE: [place] APPENDECTOMY OTHER SURGICAL HISTORY PROCEDURE: NH ANESTHESIA LUMBAR REGION NOS HEMORRHOID SURGERY PROCEDURE: [place] INCISION THROMBOSED HEMORRHOID EXTERNAL Medical History Medical [...] Recorded Sex Assigned at Not on file Legal Sex Female 10:47 PM EST Gender Identity Not on file Sexual Orientation [...] 10/12/2022 Social Influencers of Health Screening 10/12/2022 Pneumococcal Vaccine: 50+ Ye ars (1 of 1 - PCV) 2022 Zoster Vaccines (1 of 2) 2022 COVID-19 Vaccine (1 - 2023-2 5 season) 2024 Influenza Vaccine [...] patient's age to complete this topic Meningococcal B Vacine Aged Out No lo nger eligible based on patient's age to complete [...] age to complete this topic Care Teams Brake Operator Relationship Specialty Start Date End Date Robyn Guerrier MD [address] [place] [phone] PCP - General 10/04/18
--- OUTSIDE RECORDS SUMMARY | 2024-12-29 12:43 | XMS_ITS | Encounter Summary ---
Author Organization [facility] Address [address] [place] [address] Care Team Providers Care Stave Block Roller Name Role Phone Deyvi Goldsmith MD Primary Care Provider [phone] Reason for Visit * Reason Comments Med Refill Encounter Details Date Type Department Care Team ([facility] st Contact Info) Description 11/22/2022 Refill [facility] [address] [place], [place] [phone] Deyvi Goldsmith MD [address] [place] [address] Chronic pain syndrome Social History Tobacco Use [...] documented in this encounter Plan of Treatment Not on file documented as of this encounter Visit Diagnoses Diagnosis Chronic pain syndrome documented in this encounter Care Teams Stave Block Roller Relationship Specialty Start Date End Date Deyvi Goldsmith MD [address] [place] [phone] PCP - General Internal Medicine 11/02/18 documented as of this encounter
--- OUTSIDE RECORDS SUMMARY | 2024-12-29 12:43 | XMS_ITS | Encounter Summary ---
Author Organization [facility] Address [address] [facility] [address] [place] [address] Care Team Providers Care Advertising Editor Name Role Phone Deyvi Goldsmith MD Primary Care Provider [phone] Reason for Visit * Reason Comments Med Change Request Encounter Details Date Type Department Care Team ([facility] st Contact Info) Description 03/20/2023 Refill [facility] [address] [place] [address] Colby Love FNP Essential hypertension Social History Tobacco Use Types [...] as of this encounter Plan of Treatment Not on file documented as of this encounter Visit Diagnoses Diagnosis Essential hypertension Unspecified essential hypertension documented in this encounter Additional Health Concerns Assessment Noted Time PHQ-9 Depression Total Score: 0 04/12/20 23 11:35 AM EDT documented as of this encounter Care Teams Advertising Editor Relationship Specialty Start Date End Date Deyvi Goldsmith MD [address] [place] [phone] PCP - General Internal Medicine 11/02/18 documented as of this encounter
--- OUTSIDE RECORDS SUMMARY | 2024-12-29 12:43 | XMS_ITS | Encounter Summary ---
Author Organization [employer] Address [address] [facility] [address] [place] [address] Care Team Providers Care Doors Prefitter Name Role Phone Deyvi Goldsmith MD Primary Care Provider [phone] Encounter Details Date Type Department Care Team ([facility] st Contact Info) Description 12/15/2024 Telephone [facility] [address] [place], [place] [phone] Katelin Muller RN [address] [place] [address] Social History Tobacco Use Types Packs/Day Years [...] Miscellaneous Notes * Telephone Encounter - Katelin Muller RN - 12/15/2024 9:17 AM EST .What UNDERGROUND UTILITY LOCATOR Tier would you like this patient to be? Tier 1 = HIGH RISK, Monthly UNDERGROUND UTILITY LOCATOR visits Tier 2 = MODerate RISK, Q3 Month visits Tier 3 = LOW RISK = Q4-6 month visits documented in this encounter Plan of Treatment Not on file documented as of this encounter Visit Diagnoses Not on filedocumented in this encounter Additional Health Concerns Assessment Noted Time PHQ-9 Depression Total Score: 0 07/11/20 24 9:36 AM EDT documented as of this encounter Care Teams Doors Prefitter Relationship Specialty Start Date End Date Deyvi Goldsmith MD [address] [place] [phone] PCP - General Internal Medicine 11/02/18 documented as of this encounter
--- OUTSIDE RECORDS SUMMARY | 2024-12-29 12:43 | XMS_ITS | Encounter Summary ---
Author Organization [employer] Address [address] [place] [address] [address] [place] [address] Care Team Providers Care Automatic Serging Machine Operator Name Role Phone Deyvi Goldsmith MD Primary Care Provider [phone] Encounter Details Date Type Department Care Team ([facility] st Contact Info) Description 08/25/2024 Orders Only [facility] [address] [place], [place] [phone] Deyvi Goldsmith MD [address] [place] [address] Hypokalemia (Primary Dx) Social History Tobacco Use [...] as of this encounter Plan of Treatment Scheduled Orders Name Type Priority Associated Diagnoses Orde r Schedule Potassium Lab Routine Hypokalemia Expected: 08/25/2024, Expires: 08/25/2025 documented as of this encounter Visit Diagnoses Diagnosis Hypokalemia- Primary Hypopotassemia documented in this encounter Additional Health Concerns Assessment Noted Time PHQ-9 Depression Total Score: 0 07/11/20 24 9:36 AM EDT documented as of this encounter Care Teams Automatic Serging Machine Operator Relationship Specialty Start Date End Date Deyvi Goldsmith MD [address] [place] [address] PCP - General Internal Medicine 11/02/18 documented as of this encounter
--- OUTSIDE RECORDS SUMMARY | 2024-12-29 12:43 | XMS_ITS | Encounter Summary ---
Author Organization [employer] Address [address] [place] [address] [place] [address] Care Team Providers Care Lemon Grower Name Role Phone Deyvi Goldsmith MD Primary Care Provider [phone] Encounter Details Date Type Department Care Team ([facility] st Contact Info) Description 05/21/2023 Orders Only [facility] [address] [place], [place] [phone] Deyvi Goldsmith MD [address] [place] [address] Low vitamin D level (Primary Dx) Social [...] documented as of this encounter Care Teams Lemon Grower Relationship Specialty Start Date End Date Deyvi Goldsmith MD [address] [place] [address] PCP - General Internal Medicine 11/02/18 documented as of this encounter
--- OUTSIDE RECORDS SUMMARY | 2024-12-29 12:43 | XMS_ITS | Encounter Summary ---
Author Organization [employer] Address [address] [place] [address] 7 [place] [address] Care Team Providers Care Assistant Account Manager Name Role Phone Deyvi Goldsmith MD Primary Care Provider [phone] Encounter Details Date Type Department Care Team (Latest Contact Info) Description 07/12/2024 Orders Only [facility] 505 [place], [place] [phone] Deyvi Goldsmith MD 505 [place] [address] Hypercholesterolemia (Primary Dx); Hypokalemia Social History Tobacco [...] on file documented as of this encounter Procedures Procedure Name Priority Date/Time Associated Diagnosis Comments BASIC METABOLIC PANEL Routine 08/25/2024 1:08 PM EDT Hypokalemia MR SHOULDER WO CONTRAST RIGHT Routine 07/30/2024 12:28 PM EDT documented in this encounter Results * (ABNORMAL) Basic Metabolic Panel (08/25/2024 1:08 PM EDT) Sodium 142 135 - 145 mmol/L [facility] Potassium 2.7(LL) 3.3 - 5.1 mmol/L [facility] Comment:Critical value for t est(s):POTS Results called to and readback by: MEMO Lazcano Person calling: VITOR Date: 08/25/24Time: 1559 Chloride 110(H) 96 - 108 mmol/L [facility] Carbon Dioxide 24 22 - 29 mmol/L [facility] Anion Gap 11(L) 12 - 20 [facility] Urea Nitrogen (BUN) 21(H) 9 - 16 mg/dL [facility] Creatinine, Serum 0.80 0.5 - 1.4 mg/dL [facility] Estimated Glomerular Filt Rate >60 [facility] Comment:NOTE: For -Am erican individuals, multiply the result by 1.210.Chronic Kidney Disease: Estimated GFR < 60 mL/min/1.28k2Uvvihq Kidney Disease: Estimated GFR < 15 mL/min/1.73m2 Glucose 86 60 - 115 mg/dL [facility] Calcium 9.4 8.4 - 10.2 mg/dL [facility] Blood Venous blood specimen / Unknown 08/25/2024 1:08 PM EDT 08/25/2024 2:21 PM EDT us Deyvi Goldsmith MD LAB BLOOD ORDERABLES Final Result [facility] [address] [place] [address] [phone] * MR Shoulder w/o Contrast Right (07/30/2024 12:28 PM EDT) Anatomical Region Laterality Modality Upper Extremities, Shoulder Right Magn etic Resonance 07/30/2024 12:2 8 PM EDT Narrative 08/02/2024 8:59 PM EDT ? [facility] ?[address] ?[place] [address] ? Magnetic Resonance Report ? Signed ? Patient: Johana Kaminski ?MR#: [id number] ?? 006 ? : 1970 ?Acct:[id number] ? Age/Sex: 53 / F ?ADM Date: 07/30/24 ? Loc: HO.MRI ? Attending Dr: Jose Francisco FITZGERALD ? Ordering Physician: Jose Francisco Daniel ?? Date of Service: 07/30/24 ?? Procedure(s): MR shoulder RT wo con ?? Accession Number(s): [id number] ? cc: Jose Francisco Daniel; Deyvi Goldsmith MD ? EXAMINATION: ?? MR SHOULDER WITHOUT CONTRAST, RIGHT ? CLINICAL INFORMATION: ?? Right shoulder pain and numbness. Concern for adhesive capsulitis ?? versus rotator cuff pathology. ? COMPARISON: ?? Right shoulder radiographs dated 05/23/2024. ? TECHNIQUE: ?? MRI of the shoulder without contrast was performed on a high-field ?? scanner. ? FINDINGS: ? ROTATOR CUFF: Cxow-zr-hselljon supraspinatus tendinosis with distal ?? bursal surface [...] RT wo con ?? IMPRESSION: ?? 1. Jynq-nr-etxdkgyy supraspinatus tendinosis with distal bursal surface ?? [...] MD ??08/02/2024 08:55 PM EDT ?? RP ? Dictated By: ?Delonte Ontiveros MD ? Signed By: ?<Electronically signed by Delonte Ontiveros MD in OV> ?08/02/242054 ? DD/ 1228 ? TD/TT: 07/30/24 1248 ? Plastics Patternmaker: ? Procedure Note Donotuseinterpreter, Image - 08/02/2024 [place] [address] Magnetic Resonance Report Signed Patient: Johana Kaminski EMR#: [id number] : 1970Acct:[id number] Age/Sex: 53 / FADM Date: 07/30/24 Loc: HO.MRI Attending Dr: Jose Francisco FITZGERALD Ordering Physician: Jose Francisco Daniel Date of Service: 07/30/24 Procedure(s): MR shoulder RT wo con Accession Number(s): [id number] cc: Jose Francisco Daniel; Deyvi Goldsmith MD EXAMINATION: MR SHOULDER WITHOUT CONTRAST, RIGHT CLINICAL INFORMATION: Right shoulder pain and numbness. Concern for adhesive capsulitis versus rotator cuff pathology. COMPARISON: Right shoulder radiographs dated 05/23/2024. TECHNIQUE: MRI of the shoulder without contrast was performed on a high-field scanner. FINDINGS: ROTATOR CUFF: Bklm-ig-ithmrsic supraspinatus tendinosis with distal bursal surface partial [...] MR/MR shoulder RT wo con IMPRESSION: 1. Kfue-fg-obzjdwib supraspinatus tendinosis with distal bursal surface partial [...] Ontiveros MD 08/02/2024 08:55 PM EDT RP Workstation: [id number] Dictated By: Delonte Ontiveros MD Signed By: <Electronically signed by Delonte Ontiveros MD in OV> 08/02/242054 DD/ 1228 TD/TT: 07/30/24 1248 Plastics Patternmaker: [facility] External Provider IMG MRI PROCEDURES Edited Result - Final documented in this encounter Visit Diagnoses Diagnosis Hypercholesterolemia- Primary Pure hypercholesterolemia Hypokalemia Hypopotassemia documented in this encounter Additional Health Concerns Assessment Noted Time PHQ-9 Depression Total Score: 0 07/11/20 24 9:36 AM EDT documented as of this encounter Care Teams Assistant Account Manager Relationship Specialty Start Date End Date Deyvi Goldsmith MD [address] [place] [address] PCP - General Internal Medicine 11/02/18 documented as of this encounter
--- OUTSIDE RECORDS SUMMARY | 2024-12-29 12:43 | XMS_ITS | Encounter Summary ---
Author Organization [employer] Address [address] [place] [address] 7 [place] [address] Care Team Providers Care Software Intern Name Role Phone Deyvi Goldsmith MD Primary Care Provider [phone] Reason for Visit * Reason Comments Med Change Request Encounter Details Date Type Department Care Team ([facility] Contact Info) Description 12/13/2024 Refill [facility] MED [facility] PEDS 505 [place], [place] [phone] Deyvi Goldsmith MD 505 [place] [address] Nausea Social History Tobacco Use Types Packs/Day [...] documented as of this encounter Care Teams Software Intern Relationship Specialty Start Date End Date Deyvi Goldsmith MD [address] [place] [address] PCP - General Internal Medicine 11/02/18 documented as of this encounter
--- OUTSIDE RECORDS SUMMARY | 2024-12-29 12:43 | XMS_ITS | Encounter Summary ---
Author Organization [employer] Address [address] [place] [address] [place] [address] Care Team Providers Care Siderographist Name Role Phone Deyvi Goldsmith MD Primary Care Provider [phone] Reason for Visit * Reason Comments Med Change Request Encounter Details Date Type Department Care Team ([facility] Contact Info) Description 12/13/2024 Refill [facility] 505 [place], [place] [phone] Deyvi Goldsmith MD 505 [place] [address] Gastroesophageal reflux disease without esophagitis Social History Tobacco Use Types Packs/Day Years [...] your housing situation today? I have escobar sing 06/27/[address] you li [...] as of this encounter Visit Diagnoses Diagnosis Gastroesophageal reflux disease without esophagitis Esophageal reflux documented in this encounter Additional Health Concerns Assessment Noted Time PHQ-9 Depression Total Score: 0 07/11/20 24 9:36 AM EDT documented as of this encounter Care Teams Siderographist Relationship Specialty Start Date End Date Deyvi Goldsmith MD [address] [place] [address] PCP - General Internal Medicine 11/02/18 documented as of this encounter
--- OUTSIDE RECORDS SUMMARY | 2024-12-29 12:43 | XMS_ITS | Encounter Summary ---
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 No answer. Lvm for pt to c/b and r/s appt. documented in this encounter Plan of Treatment Not on file documented as of this encounter Visit Diagnoses Not on filedocumented in this encounter Additional Health Concerns Assessment Noted Time PHQ-9 Depression Total Score: 0 07/11/20 24 9:36 AM EDT documented as of this encounter Care Teams Girl Friday Relationship Specialty Start Date End Date Deyvi Goldsmith MD [address] [place] [address] PCP - General Internal Medicine 11/02/18 documented as of this encounter
--- OUTSIDE RECORDS SUMMARY | 2024-12-29 12:43 | XMS_ITS | Encounter Summary ---
Author Organization [employer] [facility] Address [address] [place] [address] 7t [place] [address] Care Team Providers Care Executive Vice President Of Sales Name Role Phone Deyvi Goldsmith MD Primary Care Provider [phone] Reason for Visit * Reason Comments Med Change Request Encounter Details Date Type Department Care Team ([facility] Contact Info) Description 09/01/2023 Refill [facility] MED & PEDS 505 [place] [address] Yessy Hughes MD 505 [place] [address] Social History Tobacco Use Types Packs/Day Years [...] documented as of this encounter Care Teams Executive Vice President Of Sales Relationship Specialty Start Date End Date Deyvi Goldsmith MD [address] [place] [address] PCP - General Internal Medicine 11/02/18 documented as of this encounter
--- OUTSIDE RECORDS SUMMARY | 2024-12-29 12:43 | XMS_ITS | Encounter Summary ---
Author Organization [facility] [facility] [facility] Address [address] [place] [address] Care Team Providers Care Supervisor Belt And Link Assembly Name Role Phone Deyvi Goldsmith MD Primary Care Provider [phone] Encounter Details Date Type Department Care Team (Late st Contact Info) Description 12/12/2022 Orders Only [facility] MED & PEDS 505 [place], [place] [phone] Valeria De La Vega LPN Social History [...] on filedocumented in this encounter Care Teams Supervisor Belt And Link Assembly Relationship Specialty Start Date End Date Deyvi Goldsmith MD 505 [place] [address] PCP - General Internal Medicine 11/02/18 documented as of this encounter
--- OUTSIDE RECORDS SUMMARY | 2024-12-29 12:43 | XMS_ITS | Encounter Summary ---
Author Organization [employer] [facility] Address [address] [place] [address] Care Team Providers Care Sewer Pipe Press Operator Name Role Phone Deyvi Goldsmith MD Primary Care Provider [phone] Reason for Visit * Reason Onset Date Comments triage 02/06/2023 Encounter Details Date Type Department Care Team ([facility] st Contact Info) Description 02/06/[address] [facility] MED & PEDS 505 [place], [place] [phone] Deyvi Goldsmith MD 505 [place] [address] triage Social History Tobacco Use Types Packs/Day [...] be seen by provider today. apt in [facility] 02/06 @ 1020AM . Pt agrees with [...] on filedocumented in this encounter Care Teams Sewer Pipe Press Operator Relationship Specialty Start Date End Date Deyvi Goldsmith MD [address] [place] [address] PCP - General Internal Medicine 11/02/18 documented as of this encounter
--- OUTSIDE RECORDS SUMMARY | 2024-12-29 12:43 | XMS_ITS | Encounter Summary ---
Author Organization [employer] Address [address] [place] [address] 7 [place] [address] Care Team Providers Care Driver Name Role Phone Deyvi Goldsmith MD Primary Care Provider [phone] Reason for Visit * Reason Comments Med Refill Encounter Details Date Type Department Care Team ([facility] st Contact Info) Description 11/30/2024 Refill [facility] MED & PEDS 505 [place], [place] [phone] Deyvi Goldsmith MD 505 [place] [address] Chronic pain syndrome Social History Tobacco Use [...] documented as of this encounter Care Teams Driver Relationship Specialty Start Date End Date Deyvi Goldsmith MD [address] [place] [address] PCP - General Internal Medicine 11/02/18 documented as of this encounter
--- OUTSIDE RECORDS SUMMARY | 2024-12-29 12:43 | XMS_ITS | Encounter Summary ---
Author Organization [employer] [facility] Address [address] [facility] 7t [place] [address] Care Team Providers Care Buckle Sewer Machine Name Role Phone Deyvi Goldsmith MD Primary Care Provider [phone] Reason for Visit * Reason Comments Med Change Request Encounter Details Date Type Department Care Team ([facility] st Contact Info) Description 03/18/2023 Refill [facility] [address] [place] [address] Colby Love FNP Essential hypertension Social History [...] documented as of this encounter Care Teams Buckle Sewer Machine Relationship Specialty Start Date End Date Deyvi Goldsmith MD [address] [place] [address] PCP - General Internal Medicine 11/02/18 documented as of this encounter
== END 2024-12-29 11:06 | disposition home or self-care (01) ==
PROVIDERS: PCP Internal Medicine; Visit Provider Orthopaedic Surgery
DX: M25.511 Pain in right shoulder (principal)
CPT/HCPCS: 99024

== ENCOUNTER → 2024-12-29 10:43 | Outpatient (BNVA) | payer OTHER, SELFPAY | PROVIDERS: PCP Internal Medicine; Visit Provider Orthopaedic Surgery | DX: M25.511 Pain in right shoulder (principal) | CPT/HCPCS: 99212 ==

== ENCOUNTER 2025-02-21 10:51 | Outpatient (RCR) | payer OTHER, SELFPAY ==
--- NOTE | 2025-01-18 14:00 | MHC.PT.EP ---
[facility] [place] [facility] [place] [facility] [place] Office [address] Claire Mendes [address] [phone] F: [phone] F: [phone] F: [phone] F: [phone] Physical Therapy Plan of Care Date of Evaluation: 01/18/25 Date of Surgery: 10/28/24 Diagnosis: ADHESIVE CAPSULITIS R SHOULDER P/O 10/28/24 Assessment: Pt IS 54 YO F REFERRED TO PT FROM [facility] (DR MERCADO)S/P R ARTHROSCOPIC SHOULDER SURGERY 10/28/24. Pt THEN WORKED ON HER OWN (HAD FROZEN SHOULDER ON L A FEW YEARS AGO). PRESENTS WITH DECREASED ROM (CAPSULAR PATTERN) AND STRENGTH R UE WITH PAIN ALL LIMITING ADLS. SHOULD BENEFIT FROM PT TO ADDRESS THESE ISSUES OF NOTE, Pt HAS DIFFICULTY WITH SIT<>SUP TRANSFERS Frequency and Duration: The patient will be seen 2X/WK X 6 WKS Short Term Goals: 1. INCREASED POSTURE AWARENESS AND AWARENESS SHLDER CARE 2. IMPROVED SLEEP Chicken Cleaner Goals: 1. INCREASED R SHLDER ROM FOR FLEX TO 160, ABD TO 150, ER TO 60 DEGREES 2. INCREASED STRENGTH R SHLDER 1/2 TO 1 MM GRADE T/O 3. DECREASED PAIN R SHLDER AT LEAST 50% WITH ADLS Treatment Plan: Modalities to reduce pain, spasms and effusion. Manual therapy to restore motion and function. Therapeutic exercise to improve strength and flexibility. Neuromuscular re-education for posture and balance. Therapeutic activities to return to functional activities of daily living. Electronically signed by: ELIDIA LEW PT Please sign and return to therapist. Thank you for your referral.
--- NOTE | 2025-03-03 11:35 | MHC.PT.DC ---
[facility] [place] Office [place] Office [place] Office [address] Claire Mendes [address] [phone] F: [phone] F: [phone] F: [phone] F: [phone] Physical Therapy Discharge Report Diagnosis: ADHESIVE CAPSULITIS R SHOULDER P/O 10/28/24 Date of Surgery: 10/28/24 Date of Evaluation: 01/18/25 Date of Discharge: 03/03/25 Treatments to Date: 6 Cancellations to Date: 4 No Shows to Date: 3 Discharge Status: Visit Non-compliance Discharge Summary: Pt with poor compliance with scheduling policy and is now d/c with 3 consecutive no show visits Electronically signed by: Shanthi Baxter PT Please sign and return to therapist. Thank you for your referral.
== END 2025-03-03 11:35 | disposition home or self-care (01) ==
LOC: HO.PT 10:51
PROVIDERS: PCP Internal Medicine; Visit Provider Orthopaedic Surgery
DX: M75.01 Adhesive capsulitis of right shoulder (principal); Z98.890 Other specified postprocedural states
CPT/HCPCS: 97110; 97140; 97161; 97530; 97535

== ENCOUNTER 2025-03-28 09:54 | Outpatient (AMB) | payer OTHER, SELFPAY ==
[2025-03-28 10:04] VITALS: BMI 27.8
--- NOTE | 2025-03-28 10:04 | A.OFFVIS_ITS ---
Vital Signs 03/28/25 10:04 Height 5 ft 5 in Weight 167 lb BMI 27.8 Intake Visit Reasons: OV- RT shoulder 10/28/24 DR Intake Note: Johana is a 54 year old female who presents today for a post operative visit after undergoing a right shoulder arthroscopy on 10/28/24. The patient reports continued mild to moderate discomfort along the lateral aspect of her right shou lder. She has completed formal physical therapy. She continues with her home stretching program. She denies any fevers or chills. Allergies duloxetine Adverse Reaction (Severe, Verified 03/28/25 10:09) hallucinations (severe) sumatriptan [From IMITREX] Adverse Reaction (Severe, Verified 03/28/25 10:09) HEADACHES Medication List - Last Reconciled 03/28/25 by Fabian Munroe MD albuterol sulfate 90 mcg/actuation (Ventolin HFA) 1 puff inhalation QID PRN albuterol sulfate 2.5 mg (3 mL) inhalation QID 30 days amitriptyline mg PO beclomethasone dipropionate 80 mcg/actuation (Qvar RediHaler) 1 inh inhalation BID bisacodyl (Dulcolax (bisacodyl)) 10 mg (2 x 5 mg) PO BEDTIME 2 days Brace,wrist wear on right wrist at night cholecalciferol (vitamin D3) (Vitamin D3) 25 mcg PO DAILY cyclobenzaprine 5 mg PO BID docusate sodium (Colace) 100 mg PO BID famotidine 20 mg PO BID hydroxyzine HCl 10 mg PO DAILY ibuprofen 800 mg PO TID PRN lidocaine 4% 1 appl topical TID PRN lisinopril 10 mg PO QAM omeprazole 20 mg PO DAILY ondansetron HCl 4 mg PO TID PRN polyethylene glycol 3350 (Miralax) 238 grams PO ONCE 1 day potassium chloride ER (Klor-Con M) 20 mEq PO DAILY pregabalin 100 mg PO BID rosuvastatin 20 mg PO DAILY topiramate 100 mg PO BID triamcinolone acetonide 0.1% 1 appl topical BID PRN PFSH Medical History (Updated 12/29/24 @ 11:18 by Fabian Munroe MD) Right shoulder pain Internal derangement of right shoulder Rotator cuff tear, left Anal abscess Anal fistula Muscle spasm of shoulder region Lower back pain Numbness in both hands Hx of hypokalemia History of blood transfusion (~2013) Nausea Arthritis Right hip pain Anxiety Rosacea External hemorrhoids with complication Large joint arthralgia of multiple sites Hemorrhoids with complication Fibromyalgia DONA positive Fibromyalgia Migraine Hypercholesteremia Internal and external bleeding hemorrhoids GERD (gastroesophageal reflux disease) Asthma HTN (hypertension) Surgical History History of esophagogastroduodenoscopy (EGD) H/O colonoscopy Hx of appendectomy Hx of elbow surgery History of arthroscopy of left shoulder (~10/2022) H/O hemorrhoidectomy S/P tendon repair Hx of hysterectomy (~2013) Family History Mother HTN (hypertension) Asthma Glaucoma Father Diabetes HTN (hypertension) Sister Down syndrome Social History Household Members: Family Housing: House Are you a primary daycare assistant to a significant other at home: No Do you presently have visiting nurse or other home services: No 75 years or older and lives alone: No Alcohol intake: never Patient Tobacco Use Status: Never used Tobacco Advance Directives Date on File: 07/08/22 service: No Current occupational status: employed 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 Sexual orientation: Straight/Heterosexual Gender identity: Female Physical Exam Vital Signs: BMI result Body Mass Index 27.8 Const Other: Well-nourished well-developed very friendly female awake alert and oriented x3 in no acute distress Extrem Other: Bilateral upper extremity examination shows good capillary refill, no skin lesions noted, normal sensation light touch Right shoulder examination shows that the surgical incisions are well healed, no erythema, slightly decreased range of motion when compared to her left shoulder, 4+ out of 5 strength with supraspinatus testing, no instability Assessment & Plan Assessment & Plan (1) Right shoulder pain: Code(s): M25.511 - Pain in right shoulder Category: Medical Plan Ms. Kaminski continues to do fairly well after undergoing right shoulder arthroscopic surgery on 10/28/2024. She will continue with her home stretching program. I discussed with the patient the fact that her discomfort should continue to improve over the next few months. She will contact me prior to her follow-up appointment in 3 months' time should any questions or concerns arise. Feel free to call me at any time should questions regarding her orthopedic management arise. I spent 21 minutes in reviewing the patient's records and imaging studies, seeing the patient and documenting in the medical record. Coding Level of Care Code Est Pt Level 3 (75305) Complex EM visit Add On G2211 Diagnoses Right shoulder pain M25.511
--- OUTSIDE RECORDS SUMMARY | 2025-03-28 10:32 | XMS_ITS | Encounter Summary ---
Author Organization [employer] [facility] Address [address] [place] [address] 7 [place] [address] Care Team Providers Care Housing Director Name Role Phone Deyvi Goldsmith MD Primary Care Provider [phone] Encounter Details Date Type Department Care Team (Late Contact Info) Description 12/12/2022 Orders Only [facility] [address] [place] [address] Valeria De La Vega LPN Social History [...] Department Care Team (Late Contact Info) Description 07/04/2025 1:00 PM EDT Clinical Support [facility] 505 [place] [address] Katelin Muller, RN 505 [place] [address] documented as of this encounter Visit Diagnoses Not on filedocumented in this encounter Care Teams Housing Director Relationship Specialty Start Date End Date Deyvi Goldsmith MD [address] [place] [address] PCP - General Internal Medicine 11/02/18 documented as of this encounter
== END 2025-03-28 10:26 | disposition home or self-care (01) ==
LOC: HO.HOS 09:55
PROVIDERS: PCP Internal Medicine; Visit Provider Orthopaedic Surgery
DX: M25.511 Pain in right shoulder (principal)
CPT/HCPCS: 99213; G2211

== ENCOUNTER → 2025-03-28 09:54 | Outpatient (BNVA) | payer OTHER, SELFPAY | PROVIDERS: PCP Internal Medicine; Visit Provider Orthopaedic Surgery | DX: M25.511 Pain in right shoulder (principal) | CPT/HCPCS: 99212 ==

== ENCOUNTER 2025-05-02 11:21 | Outpatient (AMB) | payer OTHER, SELFPAY ==
--- NOTE | 2025-05-02 12:05 | MHC.OFFVIS ---
Vital Signs 05/02/25 12:06 Height 5 ft 5 in Intake Visit Reasons: 4 wks, Migraine Allergies duloxetine Adverse Reaction (Severe, Verified 05/02/25 12:13) hallucinations (severe) sumatriptan (From IMITREX) Adverse Reaction (Severe, Verified 05/02/25 12:13) HEADACHES Medication List - Last Reconciled 05/02/25 by Rain Ramirez, JEFFREY albuterol sulfate 2.5 mg (3 mL) inhalation QID 30 days albuterol sulfate 90 mcg/actuation 1 puff PO QID amitriptyline 100 mg PO BEDTIME amitriptyline 100 mg PO beclomethasone dipropionate 80 mcg/actuation (Qvar RediHaler) 1 inh inhalation BID bisacodyl (Dulcolax (bisacodyl)) 10 mg (2 x 5 mg) PO BEDTIME 2 days Brace,wrist wear on right wrist at night cholecalciferol (vitamin D3) (Vitamin D3) 25 mcg PO DAILY cyclobenzaprine 5 mg PO BID docusate sodium (Colace) 100 mg PO BID famotidine 20 mg PO BID hydroxyzine HCl 10 mg PO DAILY ibuprofen 800 mg PO TID PRN lidocaine 4% 1 appl topical TID PRN lisinopril 10 mg PO QAM omeprazole 20 mg PO DAILY ondansetron HCl 4 mg PO TID PRN polyethylene glycol 3350 (Miralax) 238 grams PO ONCE 1 day potassium chloride ER (Klor-Con M) 20 mEq PO DAILY pregabalin 100 mg PO BID rosuvastatin 20 mg PO DAILY topiramate 2 tablets orally 2 times a day; triamcinolone acetonide 0.1% 1 appl topical BID PRN HPI Comments Details: She had 1 migraine in the last 4 weeks with throbbing and pressure-type pain to left side of head. She tried Nurtec sample and had relief within 30 minutes. No medication side effects. Triggers include heat and bright sunlight. She tried sumatriptan in the past which did not help and caused more headaches. Sleep was still so-so. She was scheduled for injections with [facility] tomorrow for LBP. No falls. She was having more migraines that were lasting longer between 10/2024-04/2025. She had 3 migraines in 03/2025 that lasted about 2 days each time. She had migraine on 04/02/2025 that lasted 6 days and she woke up with migraine on 04/13/2025. Pain was pressure and throbbing-type?to left-side of head and behind L eye, with photophobia, sonophobia, and nausea. She tried Excedrin and tramadol which did not help. No triggers identified.? Occasional asthma episode. Neck pain and stiffness from fibromyalgia. She has had onset of migraine headaches since age 16. She was getting 2-3 migraines/month so she started Topiramate 100 mg twice a day? which cut her migraines down to about one a month and they've been very manageable. No triggers have been identified. She has a strong family history of migraines in her father and and paternal aunts. Headache is generalized with nausea or photophobia and sonophobia. She is also taking amitriptyline. When she ran out of?amitriptyline, she developed a daily left occipital and left neck pain and headache going into the left trapezius. She also developed some arthralgias for which she has been seeing a entertainment agent. Had left frozen shoulder, had physical therapy without much success and has abduction limited to only 60 degrees, had surgery. [facility] Medical History Right shoulder pain Internal derangement of right shoulder Rotator cuff tear, left Anal abscess Anal fistula Muscle spasm of shoulder region Lower back pain Numbness in both hands Hx of hypokalemia History of blood transfusion (~2013) Nausea Arthritis Right hip pain Anxiety Rosacea External hemorrhoids with complication Large joint arthralgia of multiple sites Hemorrhoids with complication Fibromyalgia DONA positive Fibromyalgia Migraine Hypercholesteremia Internal and external bleeding hemorrhoids GERD (gastroesophageal reflux disease) Asthma HTN (hypertension) Surgical History History of esophagogastroduodenoscopy (EGD) H/O colonoscopy Hx of appendectomy Hx of elbow surgery History of arthroscopy of left shoulder (~10/2022) H/O hemorrhoidectomy S/P tendon repair Hx of hysterectomy (~2013) Family History Mother HTN (hypertension) Asthma Glaucoma Father Diabetes HTN (hypertension) Headache Sister Down syndrome Paternal Aunt Headache Social History Household Members: Family Housing: House Are you a primary healthcare interpreter to a significant other at home: No Do you presently have visiting nurse or other home services: No 75 years or older and lives alone: No Alcohol intake: never Patient Tobacco Use Status: Never used Tobacco Advance Directives Date on File: 07/08/22 service: No Current occupational status: employed 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 Sexual orientation: Straight/Heterosexual Gender identity: Female Review of Systems Const Denies chills, Denies daytime sleepiness, Reports difficulty sleeping, Denies fatigue, Denies fever(s), Denies frequent falls, Reports headache(s), Denies increased appetite, Denies poor appetite, Denies snoring, Denies weakness, Denies weight gain and Denies weight loss Eyes Denies loss of vision ENT Reports no additional complaints, Reports Normal hearing present, Denies vertigo, Denies dizziness, Reports headache(s) and Reports neck pain Card Denies chest pain at rest, Denies chest pain with activity, Denies syncope, Denies leg edema, Denies palpitations, Denies dyspnea and Denies dyspnea on exertion Resp Denies cough, Denies dyspnea, Denies dyspnea on exertion and Denies snoring GI Denies abdominal pain, Denies constipation, Denies heartburn, Denies diarrhea, Denies nausea and Denies vomiting Denies urinary frequency, Denies urinary incontinence and Denies urinary urgency Musc Denies abnormal gait, Reports back pain, Reports myalgias, Denies arthralgias, Reports neck pain, Reports numbness, Reports stiffness and Reports tingling Neuro Reports Normal hearing present, Denies Abnormal speech present, Denies abnormal gait, Denies vertigo, Denies dizziness, Denies syncope, Denies frequent falls, Reports headache(s), Denies lack of coordination, Denies loss of vision, Denies memory loss, Reports numbness, Denies Other visual disturbances, Denies restless legs, Denies seizure-like activity, Reports tingling, Denies paresthesias, Denies tremor(s) and Denies weakness Psych Reports anxiety, Reports depression, Denies memory loss, Denies visual hallucinations and Denies hallucinations Endo Denies fatigue and Denies palpitations Physical Exam Const General: no acute distress, alert and awake Orientation/consciousness: oriented to person, oriented to place and oriented to time Eyes Pupils: Equal, round and reactive pupils present Resp Effort & Inspection: normal respiratory effort Auscultation: clear to auscultation bilaterally Cardio Rate: regular rate Rhythm: regular rhythm Heart sounds: S1 normal heart sound present and S2 normal heart sound present Neuro Other: Extrapyramidal System: No tremor or rigidity. Normal facial expressions. No bradykinesia. No bradyphrenia. Normal arm swing and posture. No propulsion or retropulsion. General: oriented to person, oriented to place, oriented to time, moves all extremities, normal sensation to monofilament and deep tendon reflexes 2+ bilaterally Cranial nerves: Yes Equal, round and reactive pupils present and Yes Normal hearing present Cognition (Neuro): normal cognition Speech: No Abnormal speech present Gait exam (Neuro): Normal gait present Motor exam (neuro): 5/5 motor strength present throughout, Pronator motor function not present, no tremor noted, Motor fasciculations not present and Normal motor muscle tone present throughout Sensory Exam: other (Normal light touch, temperature, pinprick, vibration, and joint-position) Plantar Reflex Responses: downgoing: bilateral Coordination: [id number] test normal, [id number]-[id number] test normal, Romberg test negative, rapid alternating movements of the distal upper extremity normal and rapid alternating movements of the distal lower extremity normal Extrem Other: limited ROM bilat shoulders General: No edema Psych Mental Status: mental status grossly normal Affect: normal affect Attitude: cooperative Assessment & Plan Assessment & Plan (1) Migraine: Code(s): G43.909 - Migraine, unspecified, not intractable, without status migrainosus Category: Medical Qualifiers: Migraine type: unspecified Status migrainosus presence: without status migrainosus Intractability: not intractable Qualified Code(s): G43.909 - Migraine, unspecified, not intractable, without status migrainosus Plan: She tried Nurtec sample as needed with good relief within 30 minutes, no medication side effects. She tried and failed sumatriptan in the past (caused more headaches). She also tried Excedrin and Tramadol as needed without relief. Start Nurtec as needed, use/side effects. Continue topiramate 100mg 2 tablets orally twice a day Continue amitriptyline 100mg 1 tablet orally at bedtime (2) Fibromyalgia: Code(s): M79.7 - Fibromyalgia Category: Medical Plan: . (3) Migraine: Code(s): G43.909 - Migraine, unspecified, not intractable, without status migrainosus Plan As above. Meds tried: topiramate, amitriptyline, beta blockers contraindicated due to asthma, sumatriptan, Excedrin, tramadol Medications: New rimegepant (Nurtec ODT) 75 mg PO Q OTHER DAY PRN 8 tabs 3RF migraine headache 30 days Coding Level of Care Code Est Pt Level 4 (20221) Diagnoses Migraine without status migrainosus, not intractable, unspecified migraine type G43.909 Migraine type: unspecified Status migrainosus presence: without status migrainosus Intractability: not intractable Fibromyalgia M79.7 Migraine G43.909 Headache Associated headache symptoms: Denies nausea, Denies vomiting, Denies palpitations, Denies dyspnea, Reports headache(s), Denies loss of vision, Reports numbness, Denies weakness, Denies lack of coordination and Reports anxiety
--- OUTSIDE RECORDS SUMMARY | 2025-05-02 12:37 | XMS_ITS | Encounter Summary ---
Author Organization [employer] [facility] Address [address] [place] [address] 7 [place] [address] Care Team Providers Care Emulsion Operator Name Role Phone Deyvi Goldsmith MD Primary Care Provider [phone] Encounter Details Date Type Department Care Team (Late Contact Info) Description 12/12/2022 Orders Only [facility] [address] [place] [address] Valeria De La Vega LPN Social History [...] Description 07/04/2025 1:00 PM EDT Clinical Support [facility] [address] [place] [address] Katelin Muller, RN [address] [place] [address] documented as of this encounter Visit Diagnoses Not on filedocumented in this encounter Care Teams Emulsion Operator Relationship Specialty Start Date End Date Deyvi Goldsmith MD [address] [place] [id number] PCP - General Internal Medicine 11/02/18 documented as of this encounter
--- OUTSIDE RECORDS SUMMARY | 2025-05-02 12:37 | XMS_ITS | Clinical Summary ---
Author Organization [facility] Address [address] [place] [address] Care Team Providers Care Paddle Dyeing Machine Operator Name Role Phone Robyn Guerrier MD Primary Care Provider [phone] Surgical History Surgery Date Site/Laterality Comments HYSTERECTOMY PROCEDURE: HISTORICAL HYSTERECTOMY TUBAL LIGATION PROCEDURE: HISTORICAL TUBAL LIGATION OTHER SURGICAL HISTORY Left PROCEDURE: HISTORICAL ARM SURGERY APPENDECTOMY PROCEDURE: AL APPENDECTOMY OTHER SURGICAL HISTORY PROCEDURE: AL ANESTHESIA LUMBAR REGION NOS HEMORRHOID SURGERY PROCEDURE: AL INCISION THROMBOSED HEMORRHOID EXTERNAL Medical History Medical [...] - 2023-2 5 season) 2024 Influenza Vaccine (Season Ended) 2025 HIB Vaccines Aged Out No longer eligi [...] age to complete this topic Meningococcal B Vaccine Aged Out No l onger eligible based on patient's age to complete [...] age to complete this topic Care Teams Paddle Dyeing Machine Operator Relationship Specialty Start Date End Date Robyn Guerrier MD [address] [place] [phone] PCP - General 10/04/18
== END 2025-05-02 12:19 | disposition home or self-care (01) ==
LOC: HO.HSM 11:21
PROVIDERS: PCP Internal Medicine; Visit Provider Registered Nurse
DX: G43.909 Migraine, unspecified, not intractable, without status migrainosus (principal); M79.7 Fibromyalgia
CPT/HCPCS: 99214

== ENCOUNTER → 2025-05-02 11:21 | Outpatient (BNVA) | payer OTHER, SELFPAY | PROVIDERS: PCP Internal Medicine; Visit Provider Registered Nurse | DX: G43.909 Migraine, unspecified, not intractable, without status migrainosus (principal); M79.7 Fibromyalgia; F41.9 Anxiety disorder, unspecified | CPT/HCPCS: 99212 ==

== ENCOUNTER 2025-05-24 13:16 | Outpatient (AMB) | payer OTHER, SELFPAY ==
--- OUTSIDE RECORDS SUMMARY | 2025-05-24 13:42 | XMS_ITS | Clinical Summary ---
Author Organization [facility] it Address [address] [place] [address] Care Team Providers Care Car Top Bolter Name Role Phone Robyn Guerrier MD Primary Care Provider [phone] Surgical History Surgery Date Site/Laterality Comments HYSTERECTOMY PROCEDURE: HISTORICAL HYSTERECTOMY TUBAL LIGATION PROCEDURE: HISTORICAL TUBAL LIGATION OTHER SURGICAL HISTORY Left PROCEDURE: HISTORICAL ARM SURGERY APPENDECTOMY PROCEDURE: WI APPENDECTOMY OTHER SURGICAL HISTORY PROCEDURE: WI ANESTHESIA LUMBAR REGION NOS HEMORRHOID SURGERY PROCEDURE: WI INCISION THROMBOSED HEMORRHOID EXTERNAL Medical History Medical [...] Smear 1993 Colorectal Cancer Screening: Colonoscopy 10/12/2022 HIV Screening 10/12/2022 Hepatitis C Screening 10/12/2022 Social Influencers of Health Screening 10/12/2022 Pneumococcal Vaccine: 50+ Ye ars (1 of 1 - PCV) 2022 Zoster Vaccines (1 of 2) 2022 COVID-19 Vaccine (1 - 2023-2 5 season) 2024 Depression Screening 11/02/2024 Influenza Vaccine (#1) 2025 HIB Vaccines Aged Out No longer [...] age to complete this topic Care Teams Car Top Bolter Relationship Specialty Start Date End Date Robyn Guerrier MD [address] [place] [phone] PCP - General 10/04/18
--- OUTSIDE RECORDS SUMMARY | 2025-05-24 13:42 | XMS_ITS | Encounter Summary ---
Author Organization [employer] [facility] Address [address] [place] [address] [address] [place] [address] Care Team Providers Care Booth Cashier Name Role Phone Deyvi Goldsmith MD Primary Care Provider [phone] Encounter Details Date Type Department Care Team (Late Contact Info) Description 12/12/2022 Orders Only [facility] [address] [place] [address] Valeria De La Vega LPN Social History [...] Description 07/04/2025 1:00 PM EDT Clinical Support [facility] [address] [place] [address] Katelin Muller, RN [address] [place] [address] documented as of this encounter Visit Diagnoses Not on filedocumented in this encounter Care Teams Booth Cashier Relationship Specialty Start Date End Date Deyvi Goldsmith MD [address] [place] [id number] PCP - General Internal Medicine 11/02/18 documented as of this encounter
[2025-05-24 13:48] VITALS: BP 108/68; PULSE 71; O2SAT 99; BMI 29.2
--- NOTE | 2025-05-24 13:48 | MHC.OFFVIS ---
Vital Signs 05/24/25 13:48 Height 5 ft 5 in Weight 175 lb 7.807 oz BMI 29.2 BP 108/68 Blood Pressure Location Lt brachial Position Sitting Pulse 71 Pulse Source Pulse Oximeter Pulse Oximetry (%) 99 Oxygen Delivery Method Room Air Intake Visit Reasons: FM Intake Note: Patient presents for follow up on fibromyalgia symptoms. Patient is still having flares and complains of bilateral knee pain. Allergies duloxetine Adverse Reaction (Severe, Verified 05/24/25 13:51) hallucinations (severe) sumatriptan (From IMITREX) Adverse Reaction (Severe, Verified 05/24/25 13:51) HEADACHES Medication List - Last Reconciled 05/24/25 by Keely Rodriguez MD albuterol sulfate 2.5 mg (3 mL) inhalation QID 30 days albuterol sulfate 90 mcg/actuation 1 puff PO QID amitriptyline 100 mg PO BEDTIME amitriptyline 100 mg PO beclomethasone dipropionate 80 mcg/actuation (Qvar RediHaler) 1 inh inhalation BID bisacodyl (Dulcolax (bisacodyl)) 10 mg (2 x 5 mg) PO BEDTIME 2 days Brace,wrist wear on right wrist at night cholecalciferol (vitamin D3) (Vitamin D3) 25 mcg PO DAILY cyclobenzaprine 5 mg PO BID docusate sodium (Colace) 100 mg PO BID famotidine 20 mg PO BID hydroxyzine HCl 10 mg PO DAILY ibuprofen 800 mg PO TID PRN lidocaine 4% 1 appl topical TID PRN lisinopril 10 mg PO QAM omeprazole 20 mg PO DAILY ondansetron HCl 4 mg PO TID PRN polyethylene glycol 3350 (Miralax) 238 grams PO ONCE 1 day potassium chloride ER (Klor-Con M) 20 mEq PO DAILY pregabalin 100 mg PO BID rimegepant (Nurtec ODT) 75 mg PO Q OTHER DAY PRN 30 days rizatriptan take 1 tab at onset of headache; if no relief may repeat 1 tab after at least 4 hrs; max = 2 tabs/24 hr PO 30 days rosuvastatin 20 mg PO DAILY topiramate 2 tablets orally 2 times a day; triamcinolone acetonide 0.1% 1 appl topical BID PRN HPI Comments Details: Patient is a 53-year-old female with hypertension, hyperlipidemia, asthma and fibromyalgia who presents today for follow up Interval History: Patient last seen 12/01/24 with me - Continued widespread pains - Particularly: medial aspect of bilateral knees, her right outer hip and her right shoulder. Of note she recently had rotator cuff surgery in early October. She declined physical therapy because she had previous surgery on the left shoulder and thought that she could do the exercises herself at home. - received steroid injections to: Right pes anserine bursa, right subacromial bursa, and right trochanteric bursa - No changes made to medications Today - Injections helped for sometime - Also received steroid injections to the back - Has flares intermittently - C/o of knee pain today bilaterally Rheumatologic History: Patient initially seen 11/21/2020 for the evaluation of polyarthralgias in the setting of positive DONA. Examination did not reveal any signs of active inflammatory arthritis and she had all the tender points that was consistent with fibromyalgia. Current Rheumatology Medication(s): Pregabalin 100 mg p.o. b.i.d. Cyclobenzaprine 5 mg p.o. b.i.d. [facility] Medical History Right shoulder pain Internal derangement of right shoulder Rotator cuff tear, left Anal abscess Anal fistula Muscle spasm of shoulder region Lower back pain Numbness in both hands Hx of hypokalemia History of blood transfusion (~2013) Nausea Arthritis Right hip pain Anxiety Rosacea External hemorrhoids with complication Large joint arthralgia of multiple sites Hemorrhoids with complication Fibromyalgia DONA positive Fibromyalgia Migraine Hypercholesteremia Internal and external bleeding hemorrhoids GERD (gastroesophageal reflux disease) Asthma HTN (hypertension) Surgical History History of esophagogastroduodenoscopy (EGD) H/O colonoscopy Hx of appendectomy Hx of elbow surgery History of arthroscopy of left shoulder (~10/2022) H/O hemorrhoidectomy S/P tendon repair Hx of hysterectomy (~2013) Family History Mother HTN (hypertension) Asthma Glaucoma Father Diabetes HTN (hypertension) Headache Sister Down syndrome Paternal Aunt Headache Social History (Reviewed 12/01/24 @ 13:17 by HANS Courtney Household Members: Family Housing: House Are you a primary health care manager to a significant other at home: No Do you presently have visiting nurse or other home services: No 75 years or older and lives alone: No Alcohol intake: never Patient Tobacco Use Status: Never used Tobacco Advance Directives Date on File: 07/08/22 service: No Current occupational status: employed 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 Sexual orientation: Straight/Heterosexual Gender identity: Female Review of Systems Const Details: Review of Systems Constitutional: Denies fever, chills, weight loss ENT: Denies vision changes, eye pain or eye redness, dental caries, dry mouth GI: Denies nausea, vomiting, diarrhea, abdominal pain, change in BM Pulm: Denies SOB, MCDERMOTT, hemoptysis, wheezing Cards: Denies chest pain, palpitations Skin: Denies Raynaud's, rash, nail changes, photosensitivity, COBBLER APPRENTICE: Denies headaches, weakness, paresthesias, recurrent falls MSK: as per HPI All other systems reviewed and are unremarkable except noted above Physical Exam Exam Exam: Vital signs reviewed Physical Examination CONSTITUITIONAL Patient alert and cooperative. Well appearing and in no apparent painful distress MSK Hands Right Hand: Able to make a fist. No swelling or tenderness to palpation of these joints. No deformities noted. Left Hand: Able to make a fist. No swelling or tenderness to palpation of these joints. No deformities noted. Wrists Right Wrist: Full ROM. 70 degrees of wrist flexion, 80 degrees of wrist extension. No swelling or TTP Left Wrist: Full ROM. 70 degrees of wrist flexion, 80 degrees of wrist extension. No swelling or TTP Elbows Right Elbow: Full ROM. No swelling or TTP. No TTP of the medial and lateral epicondyles Left Elbow: Full ROM. No swelling or TTP. No TTP of the medial and lateral epicondyles Shoulders Right shoulder: Full ROM. No swelling noted. No TTP of the AC joint or posterior shoulder. TTP of the right subacromial bursa Left shoulder: Full ROM. No swelling noted. No TTP of the AC joint, subacromial bursa or posterior shoulder Hips Right hip: Good ROM. No pain elicited with hip flexion/internal rotation/external rotation Left hip: Good ROM. No pain elicited with hip flexion/internal rotation/external rotation Hip bursa: Mild TTP on the right (improved) Knees Right knee: Decreased knee extension. No swelling noted. No TTP of the knee joint lie or Left knee: Decreased knee extension. No swelling noted. No TTP of the knee joint lie TTP bilateral pes anserine bursa Ankles Right ankle: Good ankle dorsiflexion and plantar flexion. No swelling. No TTP of the ankle joint Left ankle: Good ankle dorsiflexion and plantar flexion. No swelling. No TTP of the ankle joint Feet Right foot: Negative squeeze test Left foot: Negative squeeze test Tender points? Tenderness to palpation of the bilateral trapezius, supraspinatus, anterior costochondral junctions, bilateral suboccipital muscle insertions SKIN No rashes Vital Signs: BMI result Body Mass Index 29.2 Office Procedures AMB Joint Injection/Aspiration Joint Injection/Aspiration Details: Procedure was explained to the patient and informed consent was obtained. ? Risks associated with the procedure were discussed with the patient including but not limited to bleeding, infection, drug reactions and reactions to the topical anesthetic. Patient made aware of signs to look out for infectious complications. The area of interest was identified and confirmed with patient. ?This was subsequently cleaned with chlorhexidine x3. ? The area was then anesthetized using ethyl chloride spray. 40 mg Kenalog with 1 cc 1% lidocaine was injected without issue. ?Minimal to no bleeding. ?Patient tolerated procedure. Primary Site: right knee (pes anserine bursa) Prep: site was prepped using aseptic technique and ethochloride spray was applied Injected: 40 mg of, Kenalog, with 1 mL of and 1% plain lidocaine Approach Used: anterior Procedure: The patient tolerated the procedure well Coding 15790 - Large joint Procedure code (CPT) selection complete AMB Joint Injection/Aspiration Joint Injection/Aspiration Details: Procedure was explained to the patient and informed consent was obtained. ? Risks associated with the procedure were discussed with the patient including but not limited to bleeding, infection, drug reactions and reactions to the topical anesthetic. Patient made aware of signs to look out for infectious complications. The area of interest was identified and confirmed with patient. ?This was subsequently cleaned with chlorhexidine x3. ? The area was then anesthetized using ethyl chloride spray. 40 mg Kenalog with 1 cc 1% lidocaine was injected without issue. ?Minimal to no bleeding. ?Patient tolerated procedure. Primary Site: left knee (left pes anserine bursa) Prep: site was prepped using aseptic technique and ethochloride spray was applied Injected: 40 mg of, Kenalog, with 1 mL of and 1% plain lidocaine Approach Used: anterior Procedure: The patient tolerated the procedure well Coding 03930 - Large joint Procedure code (CPT) selection complete AMB Joint Injection/Aspiration Joint Injection/Aspiration Details: Procedure was explained to the patient and informed consent was obtained. ? Risks associated with the procedure were discussed with the patient including but not limited to bleeding, infection, drug reactions and reactions to the topical anesthetic. Patient made aware of signs to look out for infectious complications. The area of interest was identified and confirmed with patient. ?This was subsequently cleaned with chlorhexidine x3. ? The area was then anesthetized using ethyl chloride spray. 40 mg Kenalog with 1 cc 1% lidocaine was injected without issue. ?Minimal to no bleeding. ?Patient tolerated procedure. Primary Site: right shoulder (subacromial bursa) Prep: site was prepped using aseptic technique and ethochloride spray was applied Injected: 40 mg of, Kenalog, with 1 mL of and 1% plain lidocaine Procedure: The patient tolerated the procedure well Coding 17087 - Glenohumeral/Tronchanteric Bursa/Intraarticular Procedure code (CPT) selection complete Office Meds lidocaine (PF) 10 mg/mL (1 %) injection solution Performing Provider: Keely Rodriguez MD [place] [facility] Administered by: Keely Rodriguez MD on 05/24/25 14:38 Dose Route Admin Location Dispensed Lot Number Expiration Date [facility] [employer] 1 mL Infiltration right pes anserine bursa 2 mL [id number] 01/31/27 71608-769-90 [employer] Total Dispensed Waste 2 mL 50 % Kenalog 40 mg/mL suspension for injection Performing Provider: Keely Rodriguez MD Performing Location: [facility] Administered by: Keely Rodriguez MD on 05/24/25 14:38 Dose Route Admin Location Dispensed Lot Number Expiration Date [facility] [employer] 40 mg intrabursal right pes anserine bursa 1 mL [id number] 01/31/26 [address]-6 [employer] Total Dispensed Waste 1 mL 0 % lidocaine (PF) 10 mg/mL (1 %) injection solution Performing Provider: Keely Rodriguez MD Performing Location: [facility] Administered by: Keely Rodriguez MD on 05/24/25 14:38 Dose Route Admin Location Dispensed Lot Number Expiration Date [employer] 1 mL Infiltration left pes anserine bursa 2 mL [id number] 01/31/27 21408-874-60 [employer] Total Dispensed Waste 2 mL 50 % Kenalog 40 mg/mL suspension for injection Performing Provider: Keely Rodriguez MD Performing Location: [facility] Administered by: Keely Rodriguez MD on 05/24/25 14:38 Dose Route Admin Location Dispensed Lot Number Expiration Date [place] [employer] 40 mg intrabursal left pes anserine bursa 1 mL [id number] 01/31/26 [address]-0 [employer] Total Dispensed Waste 1 mL 0 % lidocaine (PF) 10 mg/mL (1 %) injection solution Performing Provider: Keely Rodriguez MD Performing Location: [facility] Administered by: Keely Rodriguez MD on 05/24/25 14:38 Dose Route Admin Location Dispensed Lot Number Expiration Date [place] [employer] 1 mL Infiltration right subacromial bursa 2 mL [id number] 01/31/27 21258-942-45 [employer] Total Dispensed Waste 2 mL 50 % Kenalog 40 mg/mL suspension for injection Performing Provider: Keely Rodriguez MD Performing Location: [facility] Administered by: Keely Rodriguez MD on 05/24/25 14:38 Dose Route Admin Location Dispensed Lot Number Expiration Date ND [employer] 40 mg intrabursal right subacromial bur 1 mL [id number] 01/31/26 [address]-2 [employer] Total Dispensed Waste 1 mL 0 % Results Reviewed Results Reviewed: Laboratory Tests 12/10/22 02/10/24 07/11/24 10:20 11:26 10:37 WBC 9.5 RBC 4.42 Hgb 13.6 Hct 39.0 Plt Count 362 ESR 17 Sodium Potassium Chloride Carbon Dioxide BUN Creatinine IgG Total 1207 IgA Total 363 H IgM 88 Sm (Sotelo) Antibody <1.0 NEG SM/SATELLITE INSTALLATION TECHNICIAN IgG Antibody <1.0 NEG Double Strand DNA Ab <1 10/11/24 12:52 WBC RBC Hgb Hct Plt Count ESR Sodium 137 Potassium 3.3 D Chloride 104 Carbon Dioxide 24 BUN 26 H Creatinine 0.79 IgG Total IgA Total IgM Sm (Sotelo) Antibody SM/SATELLITE INSTALLATION TECHNICIAN IgG Antibody Double Strand DNA Ab MRI Right Shoulder 07/2024 FINDINGS: ROTATOR CUFF: [id number] supraspinatus tendinosis with distal bursal surface partial tearing measuring approximately 1.6 x 0.8 cm (AP x ML). There is extension into the junctional fibers. More mild infraspinatus and subscapularis tendinosis. Articular surface partial tearing of the distal subscapularis tendon measuring up to 1.2 cm in ML dimension. No full-thickness rotator cuff tendon tear. No muscle atrophy or fatty infiltration. BICEPS: Fluid within the proximal long head biceps tendon sheath, consistent with mild tenosynovitis. No tendon tear. CORACOACROMIAL ARCH: The undersurface of the acromion is curved with no subacromial spur. The acromioclavicular joint is normal. Trace fluid within subacromial-subdeltoid bursa, consistent with minimal bursitis. LABRUM/CAPSULE: Linear increased T2 signal within the undersurface of the superior labrum which could represent a nondisplaced undersurface tear. Thickening and heterogeneous with adjacent edema throughout the joint capsule which can be seen in the setting of adhesive capsulitis. GLENOHUMERAL JOINT/MARROW: Intact articular cartilage. No acute osseous injury. Assessment & Plan Assessment & Plan (1) Greater trochanteric bursitis of right hip: Code(s): M70.61 - Trochanteric bursitis, right hip Plan: #Trochanteric bursitis of the right hip Patient is a 53-year-old female with fibromyalgia today complicated by bursitis affecting her right hip. improved after 11/2024 injection (2) Subacromial bursitis of right shoulder joint: Code(s): M75.51 - Bursitis of right shoulder Plan: #Right subacromial bursitis Recurrence today s/p steroid injection (3) Pes anserinus bursitis of right knee: Code(s): M70.51 - Other bursitis of knee, right knee Plan: #Pes anserine bursitis Patient today complain of medial right and left knee pain associated with swelling. Exam consistent with pes anserine bursitis. s/p bilateral steroid injections Plan I spent 20 minutes reviewing the record and labs, taking a history, examining the patient, discussing the treatment plan and documenting in the medical record Orders: Orders AMB Joint Injection/Aspiration Today M70.51 - Other bursitis of knee, right knee, M70.52 - Other bursitis of knee, left knee AMB Joint Injection/Aspiration Today M75.50 - Bursitis of unspecified shoulder AMB Joint Injection/Aspiration Today M70.51 - Other bursitis of knee, right knee, M70.52 - Other bursitis of knee, left knee Coding Level of Care Code Est Pt Level 3 (49861) Complex EM visit Add On G2211 Diagnoses Greater trochanteric bursitis of right hip M70.61 Subacromial bursitis of right shoulder joint M75.51 Pes anserinus bursitis of right knee M70.51 CPT Codes Coding - 01286 Large joint: 46631 - Large joint ([id number]) Coding - 41276 Large joint: 54956 - Large joint ([id number]) Coding - Joint 7: 40242 - Glenohumeral/Tronchanteric Bursa/Intraarticular ([id number])
== END 2025-05-24 14:47 | disposition home or self-care (01) ==
LOC: HO.RHE 13:17
PROVIDERS: PCP Internal Medicine; Visit Provider Student in an Organized Health Care Education/Training Program
DX: M70.61 Trochanteric bursitis, right hip (principal); M75.51 Bursitis of right shoulder; M70.50 Other bursitis of knee, unspecified knee
CPT/HCPCS: 20610; 99213

== ENCOUNTER → 2025-05-24 13:16 | Outpatient (BNVA) | payer OTHER, SELFPAY | PROVIDERS: PCP Internal Medicine; Visit Provider Student in an Organized Health Care Education/Training Program | DX: M70.51 Other bursitis of knee, right knee (principal); M70.61 Trochanteric bursitis, right hip; M75.51 Bursitis of right shoulder | CPT/HCPCS: 20610; 99212; J2003; J3300 ==

== ENCOUNTER 2025-05-31 12:59 | Outpatient (AMB) | payer OTHER, SELFPAY ==
--- NOTE | 2025-05-31 13:12 | A.OFFVIS_ITS ---
Intake Visit Reasons: OV- RT shoulder 10/28/24 DR Intake Note: Johana is a 54 year old female who presents with complaints of intermittent discomfort in her right shoulder after undergoing right shoulder arthroscopic surgery on 10/28/2024. The patient states that she was recently given a cortisone injection into her right shoulder by another provider. She states that she got very good relief from the injection. She continues to take ibuprofen and tramadol as needed for her shoulder pain and fibromyalgia. She continues with her home stretching program. Allergies duloxetine Adverse Reaction (Severe, Verified 05/31/25 13:16) hallucinations (severe) sumatriptan (From IMITREX) Adverse Reaction (Severe, Verified 05/31/25 13:16) HEADACHES Medication List - Last Reviewed 05/31/25 by Anna Martinez albuterol sulfate 2.5 mg (3 mL) inhalation QID 30 days albuterol sulfate 90 mcg/actuation 1 puff PO QID amitriptyline 100 mg PO BEDTIME amitriptyline 100 mg PO beclomethasone dipropionate 80 mcg/actuation (Qvar RediHaler) 1 inh inhalation BID bisacodyl (Dulcolax (bisacodyl)) 10 mg (2 x 5 mg) PO BEDTIME 2 days Brace,wrist wear on right wrist at night cholecalciferol (vitamin D3) (Vitamin D3) 25 mcg PO DAILY cyclobenzaprine 5 mg PO BID docusate sodium (Colace) 100 mg PO BID famotidine 20 mg PO BID hydroxyzine HCl 10 mg PO DAILY ibuprofen 800 mg PO TID PRN lidocaine 4% 1 appl topical TID PRN lisinopril 10 mg PO QAM omeprazole 20 mg PO DAILY ondansetron HCl 4 mg PO TID PRN polyethylene glycol 3350 (Miralax) 238 grams PO ONCE 1 day potassium chloride ER (Klor-Con M) 20 mEq PO DAILY pregabalin 100 mg PO BID rimegepant (Nurtec ODT) 75 mg PO Q OTHER DAY PRN 30 days rizatriptan take 1 tab at onset of headache; if no relief may repeat 1 tab after at least 4 hrs; max = 2 tabs/24 hr PO 30 days rosuvastatin 20 mg PO DAILY topiramate 2 tablets orally 2 times a day; triamcinolone acetonide 0.1% 1 appl topical BID PRN PFSH Medical History Right shoulder pain Internal derangement of right shoulder Rotator cuff tear, left Anal abscess Anal fistula Muscle spasm of shoulder region Lower back pain Numbness in both hands Hx of hypokalemia History of blood transfusion (~2013) Nausea Arthritis Right hip pain Anxiety Rosacea External hemorrhoids with complication Large joint arthralgia of multiple sites Hemorrhoids with complication Fibromyalgia DONA positive Fibromyalgia Migraine Hypercholesteremia Internal and external bleeding hemorrhoids GERD (gastroesophageal reflux disease) Asthma HTN (hypertension) Surgical History History of esophagogastroduodenoscopy (EGD) H/O colonoscopy Hx of appendectomy Hx of elbow surgery History of arthroscopy of left shoulder (~10/2022) H/O hemorrhoidectomy S/P tendon repair Hx of hysterectomy (~2013) Family History Mother HTN (hypertension) Asthma Glaucoma Father Diabetes HTN (hypertension) Headache Sister Down syndrome Paternal Aunt Headache Social History Household Members: Family Housing: House Are you a primary healthcare representative to a significant other at home: No Do you presently have visiting nurse or other home services: No 75 years or older and lives alone: No Alcohol intake: never Patient Tobacco Use Status: Never used Tobacco Advance Directives Date on File: 07/08/22 service: No Current occupational status: employed 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 Kaminski continues to do well after undergoing right shoulder arthroscopic surgery on 10/28/2024. She will continue with her home stretching program. The do's and don'ts of lifting were discussed at length with the patient. She will contact me prior to her follow-up appointment in 3 months should any questions or concerns arise. Feel free to call me at any time should questions regarding her orthopedic management arise. I spent 21 minutes in reviewing the patient's records and imaging studies, seeing the patient and documenting in the medical record. Coding Level of Care Code Est Pt Level 3 (89687) Complex EM visit Add On G2211 Diagnoses Right shoulder pain M25.511
--- OUTSIDE RECORDS SUMMARY | 2025-05-31 13:33 | XMS_ITS | Encounter Summary ---
Author Organization [employer] Address [address] [place] [address] Care Team Providers Care Wash Worker Name Role Phone Deyvi Goldsmith MD Primary Care Provider [phone] Encounter Details Date Type Department Care Team (Late Contact Info) Description 12/12/2022 Orders Only [facility] [address] [place] [address] Valeria De La Vega LPN Social History [...] Description 07/04/2025 1:00 PM EDT Clinical Support [facility] [address] [place] [address] Katelin Muller, RN [address] [place] [address] documented as of this encounter Visit Diagnoses Not on filedocumented in this encounter Care Teams Wash Worker Relationship Specialty Start Date End Date Deyvi Goldsmith MD [address] [place] [id number] PCP - General Internal Medicine 11/02/18 documented as of this encounter
--- OUTSIDE RECORDS SUMMARY | 2025-05-31 13:33 | XMS_ITS | Clinical Summary ---
Author Organization [facility] it Address [address] [place] [address] Care Team Providers Care Inventory Associate Name Role Phone Robyn Guerrier MD Primary Care Provider [phone] Surgical History Surgery Date Site/Laterality Comments HYSTERECTOMY PROCEDURE: HISTORICAL HYSTERECTOMY TUBAL LIGATION PROCEDURE: HISTORICAL TUBAL LIGATION OTHER SURGICAL HISTORY Left PROCEDURE: HISTORICAL ARM SURGERY APPENDECTOMY PROCEDURE: NV APPENDECTOMY OTHER SURGICAL HISTORY PROCEDURE: NV ANESTHESIA LUMBAR REGION NOS HEMORRHOID SURGERY PROCEDURE: NV INCISION THROMBOSED HEMORRHOID EXTERNAL Medical History Medical [...] age to complete this topic Care Teams Inventory Associate Relationship Specialty Start Date End Date Robyn Guerrier MD [address] [place] [phone] PCP - General 10/04/18
== END 2025-05-31 13:25 | disposition home or self-care (01) ==
LOC: HO.HOS 13:00
PROVIDERS: PCP Internal Medicine; Visit Provider Orthopaedic Surgery
DX: M25.511 Pain in right shoulder (principal)
CPT/HCPCS: 99213

== ENCOUNTER → 2025-05-31 12:59 | Outpatient (BNVA) | payer OTHER, SELFPAY | PROVIDERS: PCP Internal Medicine; Visit Provider Orthopaedic Surgery | DX: M25.511 Pain in right shoulder (principal) | CPT/HCPCS: 99212 ==

== ENCOUNTER 2025-08-07 10:00 | Day surgery (SDC) | payer OTHER, SELFPAY ==
--- OUTSIDE RECORDS SUMMARY | 2025-07-31 14:50 | XMS_ITS | Encounter Summary ---
Author Organization [employer] Address [address] [place] [address] 7 [place] [address] Care Team Providers Care Search Marketing Coordinator Name Role Phone Deyvi Goldsmith MD Primary Care Provider [phone] Reason for Visit * Reason Onset Date Comments triage 02/06/2023 Encounter Details Date Type Department Care Team ([facility] st Contact Info) Description 02/06/2023 Telephone [facility] CHC MED & PEDS [address] [place], [place] [phone] Deyvi Goldsmith MD [address] [place] [address] triage Social History Tobacco Use Types Packs/Day [...] be seen by provider today. apt in [facility] 02/06 @ 1020AM . Pt agrees [...] Care Team (Late st Contact Info) Description 08/09/2025 10:45 AM EDT Office Visit [facility] MED & PEDS [address] [place] [address] Deyvi Goldsmith MD [address] [place] [address] 11/07/2025 11:00 AM EST Clinical Support [facility] MED & PEDS [address] [place] [address] Katelin Muller, SAMANTHA 505 [place] [address] documented as of this encounter Visit Diagnoses Not on filedocumented in this encounter Care Teams Search Marketing Coordinator Relationship Specialty Start Date End Date Deyvi Goldsmith MD [address] [place] [address] PCP - General Internal Medicine 11/02/18 documented as of this encounter
--- OUTSIDE RECORDS SUMMARY | 2025-07-31 14:50 | XMS_ITS | Encounter Summary ---
Author Organization [employer] Address [address] 7[address] [place] [address] Care Team Providers Care Griddle Cook Name Role Phone Deyvi Goldsmith MD Primary Care Provider [phone] Reason for Visit * Reason Comments Med Change Request Encounter Details Date Type Department [facility] Info[facility] Description 03/18/2023 Refill [facility] [address] [place], [place] [phone] Colby Love FNP Essential hypertension Social History [...] Upcoming Encounters Date Type Department Care Team ([facility] Contact Info) Description 08/09/2025 10:45 AM EDT Office Visit [facility] MED & PEDS [address] [place] [address] Deyvi Goldsmith MD [address] [place] [address] 11/07/2025 11:00 AM EST Clinical Support [facility] MED & PEDS [address] [place] [address] Katelin Muller RN [address] [place] [address] documented as of this encounter Visit Diagnoses Diagnosis Essential hypertension Unspecified essential hypertension documented in this encounter Additional Health Concerns Assessment Noted Time PHQ-9 Depression Total Score: 0 02/12/20 23 11:35 AM EDT documented as of this encounter Care Teams Griddle Cook Relationship Specialty Start Date End Date Deyvi Goldsmith MD [address] [place] [address] PCP - General Internal Medicine 11/02/18 documented as of this encounter
--- OUTSIDE RECORDS SUMMARY | 2025-07-31 14:50 | XMS_ITS | Encounter Summary ---
Author Organization [employer] Address [address] [facility] 7 [place] [address] Care Team Providers Care Mooner Name Role Phone Deyvi Goldsmith MD Primary Care Provider [phone] Reason for Visit * Reason Onset Date Comments Med Refill 02/06/2025 Encounter Details Date Type Department Care Team ([facility] st Contact Info) Description 02/06/2025 Telephone [facility] [address] [place] [address] Deyvi Goldsmith MD [address] [place] [address] Med Refill Social History Tobacco Use Types [...] encounter Miscellaneous Notes * Telephone Encounter - Richi Fuentes - 02/06/2025 2:24 PM EDT TC from pt requesting medication refill. Medications needing refill : traMADol (Ultram) 50 MG tablet To be sent to: [facility]/pharmacy #[id number] [place] AT [facility] documented in this encounter Plan of Treatment Upcoming Encounters Date Type Department Care Team (Late st Contact Info) Description 08/09/2025 10:45 AM EDT Office Visit [facility] MED & PEDS [address] [place] [address] Deyvi Goldsmith MD [address] [place] [address] 11/07/2025 11:00 AM EST Clinical Support [facility] MED & PEDS [address] [place] [address] Katelin Muller, SAMANTHA 505 [place] [address] documented as of this encounter Visit Diagnoses Not on filedocumented in this encounter Additional Health Concerns Assessment Noted Time PHQ-9 Depression Total Score: 0 07/11/20 24 9:36 AM EDT documented as of this encounter Care Teams Mooner Relationship Specialty Start Date End Date Deyvi Goldsmith MD [address] [place] [address] PCP - General Internal Medicine 11/02/18 documented as of this encounter
--- OUTSIDE RECORDS SUMMARY | 2025-07-31 14:50 | XMS_ITS | Encounter Summary ---
Author Organization [employer] Address [address] [place] [address] 7 [place] [address] Care Team Providers Care Handle And Vent Machine Operator Name Role Phone Deyvi Goldsmith MD Primary Care Provider [phone] Encounter Details Date Type Department Care Team (Late Contact Info) Description 12/12/2022 Orders Only [facility] MED & PEDS [address] [place] [address] Valeria De La Vega LPN Social History [...] Department Care Team (Late Contact Info) Description 08/09/2025 10:45 AM EDT Office Visit [facility] MED [facility] PEDS [address] [place] [address] Deyvi Goldsmith MD 505 [place] [address] 11/07/2025 11:00 AM EST Clinical Support [facility] MED [facility] PEDS [address] [place] [address] Katelin Muller, SAMANTHA 505 [place], [place] [phone] documented as of this encounter Visit Diagnoses Not on filedocumented in this encounter Care Teams Handle And Vent Machine Operator Relationship Specialty Start Date End Date Deyvi Goldsmith MD 505 [place] [address] PCP - General Internal Medicine 11/02/18 documented as of this encounter
--- OUTSIDE RECORDS SUMMARY | 2025-07-31 14:50 | XMS_ITS | Encounter Summary ---
Author Organization [employer] Address [address] [facility] [address] 7t [place] [address] Care Team Providers Care Spice [employer] Name Role Phone Deyvi Goldsmith MD Primary Care Provider [phone] Reason for Visit * Reason Comments Med Change Request Encounter Details Date Type Department Care Team ([facility] Contact Info) Description 03/20/2023 Refill [facility] [address] [place], [place] [phone] Colby Love FNP Essential hypertension Social History [...] Upcoming Encounters Date Type Department Care Team ([facility] Contact Info) Description 08/09/2025 10:45 AM EDT Office Visit [facility] MED & PEDS [address] [place] [address] Deyvi Goldsmith MD [address] [place] [address] 11/07/2025 11:00 AM EST Clinical Support [facility] MED & PEDS [address] [place] [address] Katelin Muller RN [address] [place] [address] documented as of this encounter Visit Diagnoses Diagnosis Essential hypertension Unspecified essential hypertension documented in this encounter Additional Health Concerns Assessment Noted Time PHQ-9 Depression Total Score: 0 02/12/20 23 11:35 AM EDT documented as of this encounter Care Teams Spice Miller [employer] Relationship Specialty Start Date End Date Deyvi Goldsmith MD [address] [place] [address] PCP - General Internal Medicine 11/02/18 documented as of this encounter
--- OUTSIDE RECORDS SUMMARY | 2025-07-31 14:50 | XMS_ITS | Encounter Summary ---
Author Organization [employer] Address [address] [facility] 7t [place] [address] Care Team Providers Care Manager Of Enterprise Name Role Phone Deyvi Goldsmith MD Primary Care Provider [phone] Encounter Details Date Type Department Care Team ([facility] st Contact Info) Description 08/25/2024 Orders Only [facility] CHC MED & PEDS [address] [place], [place] [phone] Deyvi Goldsmith MD 505 [place] [address] Hypokalemia (Primary Dx) Social History Tobacco Use [...] Upcoming Encounters Date Type Department Care Team ([facility] st Contact Info) Description 08/09/2025 10:45 AM EDT Office Visit [facility] MED & PEDS [address] [place] [address] Deyvi Goldsmith MD 505 [place] [address] 11/07/2025 11:00 AM EST Clinical Support [facility] MED & PEDS [address] [place] [address] Katelin Muller RN [address] [place] [address] Scheduled Orders Name Type Priority Associated Diagnoses Orde r Schedule Potassium Lab Routine Hypokalemia Expected: 08/25/2024, Expires: 08/25/2025 documented as of this encounter Visit Diagnoses Diagnosis Hypokalemia- Primary Hypopotassemia documented in this encounter Additional Health Concerns Assessment Noted Time PHQ-9 Depression Total Score: 0 07/11/20 9:36 AM EDT documented as of this encounter Care Teams Manager Of Enterprise Relationship Specialty Start Date End Date Deyvi Goldsmith MD [address] [place] [address] PCP - General Internal Medicine 11/02/18 documented as of this encounter
--- OUTSIDE RECORDS SUMMARY | 2025-07-31 14:50 | XMS_ITS | Encounter Summary ---
Author Organization [employer] Address [address] [facility] [address] 7[address] [place] [address] Care Team Providers Care Mold Setter Name Role Phone Deyvi Goldsmith MD Primary Care Provider [phone] Reason for Visit * Reason Comments Med Change Request Encounter Details Date Type Department Care Team ([facility] Contact Info) Description 09/01/2023 Refill [facility] CHC MED & PEDS [address] [place], [place] [phone] Yessy Hughes MD [address] [place] [address] Social History Tobacco Use Types Packs/Day Years [...] Description 08/09/2025 10:45 AM EDT Office Visit [facility] MED & PEDS [address] [place] [address] Deyvi Goldsmith MD [address] [place] [address] 11/07/2025 11:00 AM EST Clinical Support [facility] MED & PEDS [address] [place] [address] Katelin Muller, SAMANTHA 505 [place] [address] documented as of this encounter Visit Diagnoses Not on filedocumented in this encounter Additional Health Concerns Assessment Noted Time PHQ-9 Depression Total Score: 0 02/12/20 23 11:35 AM EDT documented as of this encounter Care Teams Mold Setter Relationship Specialty Start Date End Date Deyvi Goldsmith MD [address] [place] [address] PCP - General Internal Medicine 11/02/18 documented as of this encounter
--- OUTSIDE RECORDS SUMMARY | 2025-07-31 14:50 | XMS_ITS | Encounter Summary ---
Author Organization [employer] Address [address] [facility] 7t [place] [address] Care Team Providers Care Wire Inserter Name Role Phone Deyvi Goldsmith MD Primary Care Provider [phone] Encounter Details Date Type Department Care Team (Latest Contact Info) Description 07/12/2024 Orders Only [facility] CHC MED & PEDS [address] [place], [place] [phone] Deyvi Goldsmith MD [address] [place], [place] [phone] Hypercholesterolemia (Primary Dx); Hypokalemia Social History Tobacco [...] Upcoming Encounters Date Type Department Care Team ([facility] st Contact Info) Description 08/09/2025 10:45 AM EDT Office Visit [facility] MED & PEDS [address] [place] [address] Deyvi Goldsmith MD [address] [place] [address] 11/07/2025 11:00 AM EST Clinical Support [facility] MED & PEDS [address] [place] [address] Katelin Muller RN [address] [place] [address] documented as of this encounter Procedures Procedure Name Priority Date/Time Associated Diagnosis Comments BASIC METABOLIC PANEL Routine 08/25/2024 1:08 PM EDT Hypokalemia MR SHOULDER WO CONTRAST RIGHT Routine 07/30/2024 12:28 PM EDT documented in this encounter Results * (ABNORMAL) Basic Metabolic Panel (08/25/2024 1:08 PM EDT) Sodium 142 135 - 145 mmol/L [facility] Potassium 2.7(LL) 3.3 - 5.1 mmol/L [facility] Comment:Critical value for t est(s):POTS Results called to and readback by: MEMO Lazcano Person calling: VITOR Date: 08/25/24Time: 1559 Chloride 110(H) 96 - 108 mmol/L [facility] Carbon Dioxide 24 22 - 29 mmol/L [facility] Anion Gap 11(L) 12 - 20 [facility] Urea Nitrogen (BUN) 21(H) 9 - 16 mg/dL [facility] Creatinine, Serum 0.80 0.5 - 1.4 mg/dL [facility] Estimated Glomerular Filt Rate >60 [facility] Comment:NOTE: For -Am erican individuals, multiply the result by 1.210.Chronic Kidney Disease: Estimated GFR < 60 mL/min/1.06l2Bbrozc Kidney Disease: Estimated GFR < 15 mL/min/1.73m2 Glucose 86 60 - 115 mg/dL [facility] Calcium 9.4 8.4 - 10.2 mg/dL [facility] Blood Venous blood specimen / Unknown 08/25/2024 1:08 PM EDT 08/25/2024 2:21 PM EDT us Deyvi Goldsmith MD LAB BLOOD ORDERABLES Final Result [facility] [address] [place] [phone] * MR Shoulder w/o Contrast Right (07/30/2024 12:28 PM EDT) Anatomical Region Laterality Modality Upper Extremities, Shoulder Right Magn etic Resonance 07/30/2024 12:2 8 PM EDT Narrative 08/02/2024 8:59 PM EDT [place] [address] Magnetic Resonance Report Signed Patient: Johana Kaminski MR#: [id number] : 1970 Acct:[id number] Age/Sex: 53 / F ADM Date: 07/30/24 Loc: HO.MRI Attending Dr: Jose Francisco FITZGERALD Ordering Physician: Jose Francisco Daniel Date of Service: 07/30/24 Procedure(s): MR shoulder RT wo con Accession Number(s): [id number] cc: Jose Francisco Daniel; Deyvi Goldsmith MD EXAMINATION: MR SHOULDER WITHOUT CONTRAST, RIGHT CLINICAL INFORMATION: Right shoulder pain and numbness. Concern for adhesive capsulitis versus rotator cuff pathology. COMPARISON: Right shoulder radiographs dated 05/23/2024. TECHNIQUE: MRI of the shoulder without contrast was performed on a high-field scanner. FINDINGS: ROTATOR CUFF: Pydw-kk-enskubia supraspinatus tendinosis with distal bursal surface partial [...] MR/MR shoulder RT wo con IMPRESSION: 1. Rdnb-xd-ktyexzgp supraspinatus tendinosis with distal bursal surface partial [...] Delonte Ontiveros MD 08/02/2024 08:55 PM EDT Dictated By: Delonte Ontiveros MD Signed By: <Electronically signed by Delonte Ontiveros MD in OV> 08/02/242054 DD/ 1228 TD/TT: 07/30/24 1248 Service Desk Specialist: Procedure Note Donotuseinterpreter, Image - 08/02/2024 [place] [address] Magnetic Resonance Report Signed Patient: Johana Kaminski EMR#: [id number] : 1970Acct:[id number] Age/Sex: 53 / FADM Date: 07/30/24 Loc: HO.MRI Attending Dr: Jose Francisco FITZGERALD Ordering Physician: Jose Francisco Daniel Date of Service: 07/30/24 Procedure(s): MR shoulder RT wo con Accession Number(s): [id number] cc: Jose Francisco Daniel; Deyvi Goldsmith MD EXAMINATION: MR SHOULDER WITHOUT CONTRAST, RIGHT CLINICAL INFORMATION: Right shoulder pain and numbness. Concern for adhesive capsulitis versus rotator cuff pathology. COMPARISON: Right shoulder radiographs dated 05/23/2024. TECHNIQUE: MRI of the shoulder without contrast was performed on a high-field scanner. FINDINGS: ROTATOR CUFF: Zxbu-rw-esmktmum supraspinatus tendinosis with distal bursal surface partial [...] MR/MR shoulder RT wo con IMPRESSION: 1. Suca-rf-zcgltzug supraspinatus tendinosis with distal bursal surface partial [...] OV> 08/02/242054 DD/ 1228 TD/TT: 07/30/24 1248 Service Desk Specialist: SR [employer] External Provider IMG MRI PROCEDURES Edited Result - Final documented in this encounter Visit Diagnoses Diagnosis Hypercholesterolemia- Primary Pure hypercholesterolemia Hypokalemia Hypopotassemia documented in this encounter Additional Health Concerns Assessment Noted Time PHQ-9 Depression Total Score: 0 07/11/20 24 9:36 AM EDT documented as of this encounter Care Teams Wire Inserter Relationship Specialty Start Date End Date Deyvi Goldsmith MD [address] [place] [address] PCP - General Internal Medicine 11/02/18 documented as of this encounter
--- OUTSIDE RECORDS SUMMARY | 2025-07-31 14:50 | XMS_ITS | Clinical Summary ---
Author Organization [employer] Address [address] [facility] [place] [address] Care Team Providers Care Robotics Software Engineer Name Role Phone Deyvi Goldsmith MD Primary Care Provider [phone] Allergies Active Allergy Reactions Criticality Noted Date Comments Duloxetine Hallucinations High 08/04/2019 Sumatriptan 02/06/2023 Medications diphenhydrAMINE (BENADryl) 25 MG tabletIndication s:Rash and nonspecific skin eruption Take 1 tablet (25 mg) by mouth every 6 (six) hours if needed for itching. 30 tablet 3 Active Blood Pressure Monitoring (Blood Pressure Cuff) miscIndications: Essential hypertension 1 kit Once daily. Check bp at least once a day 1 each 3 Active Blood Pressure kit Check BP every other day 1 kit 3 Active polyethylene glycol, PEG, 3350 (MiraLax) 17 GM/SCOOP powder Take 17 g by mouth in the morning. 527 g 2 3 Active senna-docusate sodium (Senokot-S) 8.6-50 MG tablet Take 2 tablets by mouth if needed at bedtime for constipation. 60 tablet 3 Active albuterol (2.5 MG/3ML) 0.083% nebulizer solution Take 3 mL by nebulization every 8 (eight) hours. 75 mL 11 4 Active triamcinolone (Kenalog) 0.1 % creamIndications :Rash and nonspecific skin eruption APPLY TOPICALLY IF NEEDED IN THE MORNING AND AT BEDTIME (PAIN AND SWELLING). 30 g 2 4 Active ondansetron (Zofran) 4 MG tablet TAKE 1 TABLET (4 MG) BY MOUTH EVERY 8 (EIGHT) HOURS. 9 tablet 4 4 Active methocarbamol (Robaxin) 750 MG tabletIndication s:Chronic right shoulder pain Take 1 tablet (750 mg) by mouth 4 times daily for 10 days. 40 tablet 4 Active D3-1000 25 MCG (1000 UT) tabletIndication s:Low vitamin D level TAKE 1 TABLET (25 MCG) BY MOUTH IN THE MORNING 60 tablet 11 4 Active rosuvastatin (Crestor) 20 MG tabletIndication s:Hypercholester olemia Take 1 tablet (20 mg) by mouth Once per day. 30 tablet 11 4 Active hydrocortisone 2.5 % creamIndications :Intertrigo of genital labia Apply topically 2 times daily. 20 g 4 Active econazole nitrate 1 % creamIndications :Intertrigo of genital labia Apply topically Once per day. 30 g 4 025 Active hydrOXYzine HCl (Atarax) 10 MG tabletIndication s:Intertrigo of genital labia Take 1 tablet (10 mg) by mouth every 8 (eight) hours if needed for itching for up to 10 days. 30 tablet 4 Active KLOR-CON 20 MEQ ER tabletIndication s:Hypokalemia TAKE 1 TABLET (20 MEQ) BY MOUTH ONCE PER DAY FOR 20 DAYS. DO NOT CRUSH OR CHEW. 20 tablet 4 Active lisinopril 10 MG tabletIndication s:Essential hypertension TAKE 1 TABLET BY MOUTH EVERY DAY IN THE MORNING 90 tablet 3 5 Active lidocaine (Xylocaine) 5 % ointment APPLY TOPICALLY IF NEEDED FOR MILD PAIN. 35.44 g 3 5 Active famotidine (Pepcid) 20 MG tabletIndication s:Gastroesophage al reflux disease without esophagitis TAKE 1 TABLET BY MOUTH TWICE A DAY 180 tablet 2 5 Active traMADol (Ultram) 50 MG tabletIndication s:TIP FIXER checked 10/02/22 Take 1 tablet (50 mg) by mouth every 8 (eight) hours if needed for moderate pain. 20 tablet 5 Active Spacer/Aero-Hold ing Chambers (OptiChamber Manisha) misc 1 each every 4 (four) hours if needed (asthma). 1 each 5 Active albuterol 108 (90 Base) MCG/ACT inhaler Inhale 2 puffs every 4 (four) hours if needed for wheezing or shortness of breath. 18 g 3 5 026 Active amoxicillin-clav ulanate (Augmentin) 875-125 MG tablet Take 1 tablet by mouth 2 times daily. 14 tablet 5 Active fluconazole (Diflucan) 150 MG tablet Take 1 tablet (150 mg) by mouth Once per day. Prn yeast infection. May repeat in 3 days prn 2 tablet 5 Active ibuprofen 800 MG tabletIndication s:Chronic pain syndrome TAKE 1 TABLET BY MOUTH EVERY 8 HOURS NEEDED FOR MILD PAIN. 90 tablet 5 Active omeprazole (PriLOSEC) [address] capsuleIndicatio ns:Nausea TAKE 1 CAPSULE BY MOUTH EVERY DAY 30 MINUTES TO 1 HOUR BEFORE A MEAL 90 capsule 1 5 Active naloxone (Narcan) 4 mg/0.1 mL nasal spray Administer 1 spray (4 mg) into affected nostril(s) if needed for opioid reversal. May repeat every 2-3 minutes if needed, alternating nostrils, until medical assistance becomes available. 2 each 2 5 Active Active Problems Problem Noted Date Diagnosed Date Long-term current use of opiate analgesic 2024 Candidiasis of genitalia in female 02/27/2025 Assessment & Plan (02/27/2025 10:59 AM EDT): Status post antibiotics use for otitis. Avoid vaginal douches, use Diflucan tabs x 1 Acute otitis externa of right ear 02/27/2025 Assessment & Plan (02/27/2025 11:00 AM EDT): Use Cortisporin eardrops 3 times daily x 5 to 7 days Skin irritation 08/26/2024 Assessment & Plan (08/26/2024 [...] Encounters Date Type Department Care Team Description 07/04/2025 1:00 PM EDT Clinical Support [facility] [address] [place] [address] Katelin Muller RN Chronic pain syndrome 07/04/2025 Refill [facility] [address] [place] [address] Katelin Muller RN Lumbar degenerative disc disease 07/04/2025 Travel 07/01/2025 Travel 06/08/2025 Refill [facility] [address] [place] [address] Deyvi Goldsmith MD Nausea 06/03/2025 Refill [facility] [address] [place] [address] Deyvi Goldsmith MD Chronic pain syndrome 05/31/2025 9:20 AM EDT Office Visit [facility] [address] [place], [place] [phone] Varun Dao MD Mild intermittent asthma with acute exacerbation (Primary Dx); Acute suppurative otitis media of left ear without spontaneous rupture of tympanic membrane, recurrence not specified 05/31/2025 Travel from Last 3 Months Immunizations Immunization Administration Dates Next Due Hep B, adult [...] Sign Reading Time Taken Comments Blood Pressure 131/83 05/31/2025 9:18 AM EDT Pulse 84 05/31/2025 9:18 AM EDT Temperature 36.6 C (97.8 F) 05/31/2025 9:18 AM EDT Respiratory Rate 16 02/27/2025 10:25 AM EDT Oxygen Saturation 99% 05/31/2025 9:18 AM EDT Inhaled Oxygen Concentration - - Weight 78.5 kg (173 lb) 02/27/2025 10:25 AM EDT Height 164.6 cm (5' 4.8 ) 08/12/2024 9:13 AM EDT Body Mass Index 28.97 08/12/2024 9:13 AM EDT Plan of Treatment Upcoming Encounters Date Type Department Care Team ([facility] st Contact Info) Description 08/09/2025 10:45 AM EDT Office Visit [facility] [address] [place] [address] Deyvi Goldsmith MD [address] [place] [address] 11/07/2025 11:00 AM EST Clinical Support [facility] [address] [place] [address] Katelin Muller RN [address] [place] [address] Health Maintenance Due Date Last Done Comments CT Colonography 1972 Colonoscopy 1972 FIT 1972 Sigmoidoscopy 1972 Alcohol/Substance Use Screening 1984 Family Planning (PISQ) 1987 Pap Smear 1993 Cervical Cancer Screening 2002 HPV/Cotest 2002 Mammogram 02/04/2025 02/04/2023, 02/04/2023 SDOH Screening 06/27/2025 06/27/2024 COVID-19 Vaccine ( season) 2025 07/31/2021, 01/05/2021, 12/15/2020 Influenza Vaccine (#1) 2025 , 08/25/2023, 07/11/2022, Additional history exists Depression Screening 07/11/2025 07/11/2024, 07/11/20 FOBT 07/22/2025 07/22/2024 Tobacco Screening 05/31/2026 05/31/2025 Disability Screening 07/01/2026 07/01/2025 DTaP/Tdap/Td Vaccines (2 - Td or Tdap) 09/22/2026 09/22/2016 Colorectal Cancer Screening 07/22/2027 FIT DNA/Cologuard 07/22/2027 07/22/2024 Lipid Panel 07/11/2029 07/11/2024, 07/15/2022 RSV Patients and Patients Aged 60 years or older (1 - 1-dose 75+ series) 2047 Hepatitis B Vaccines Completed 01/19/2017, 09/22/2016, 08/13/2016 HIV Screening Completed 07/15/2022 Hepatitis C Screening Completed 07/15/2022 Pneumococcal Vaccine: 50+ Years Completed 07/11/2024 Zoster [...] Name Priority Date/Time Associated Diagnosis Comments POCT JUNE-14 URINE DRUG SCREEN Routine 07/04/2025 2:02 PM EDT Chronic pain syndrome POCT INFLUENZA B (ID NOW RAPID MOLECULAR) Routine 05/31/2025 10:06 AM EDT Acute suppurative otitis media of left ear without spontaneous rupture of tympanic membrane, recurrence not specified POCT INFLUENZA A (ID NOW RAPID MOLECULAR) Routine 05/31/2025 10:06 AM EDT Acute suppurative otitis media of left ear without spontaneous rupture of tympanic membrane, recurrence not specified POCT RAPID COVID ANTIGEN Routine 05/31/2025 10:06 AM EDT Acute suppurative otitis media of left ear without spontaneous rupture of tympanic membrane, recurrence not specified LAB COLOGUARD COLON CANCER SCREEN Routine 07/22/2024 7:30 PM EDT Screening for colon cancer LIPID PANEL, STANDARD Routine 07/11/2024 10:37 AM EDT Hypercholesterolemi a BI MAMMOGRAM DIAGNOSTIC TOMOSYNTHESIS BILATERAL Routine 02/04/2023 9:30 AM EDT ZZZ HISTORICAL HEPATITIS C AB W/REFL TO HCV RNA, QN, PCR Routine 07/15/2022 8:50 AM EDT HIV 1/2 ANTIGEN/ANTIBODY, FOURTH GENERATION W/RFL Routine 07/15/2022 8:50 AM EDT from Last 3 Months or Most Recently Relevant to Health Maintenance Results * (ABNORMAL) POCT JUNE-14 Urine Drug Screen (07/04/2025 2:02 PM EDT) THC Negative Negative Cocaine Screen, Urine Negative Negative Opiate Screen, Urine Negative Negative Methamphetamine Screen Urine Negative Negative Amphetamine Screen, Urine Negative Negative Benzodiazepines Screen, Urine Negative Negative Barbiturate Screen, Urine Negative Negative Methadone Screen, Urine Negative Negative Buprenophine Screen, Urine Negative Negative TCA, Urine Positive(A) Negative MDMA Urine Negative Negative ng/mL Oxycodone Screen, Urine Negative Negative Phencyclidine (PCP), Urine Negative Negative Propoxyphene, Urine Negative Negative Fentanyl, Urine Negative Negative Urine Urine specimen obtained by clean catch procedure / Unknown 07/04/2025 2:02 PM EDT Narrative Katelin Muller RN - 07/04/2025 2:02 PM EDT Internal Pass Control Lot# [id number] Exp: 09-01-26 Deyvi Goldsmith MD POINT OF CARE TEST ENTER/ED IT ORDERABLES Final Result * Influenza B (ID NOW Rapid Molecular) (05/31/2025 10:06 AM EDT) Pathologist [facility] Influenza B Negative Negative, Indeterminate [facility] Swab 05/31/2025 10:0 6 AM EDT Varun Dao MD POINT OF CARE TEST ENTER/EDIT OR DERABLES Final Result Performing Organization Address [facility] Co de Phone Number [facility] [address] [place] [phone] * Influenza A (ID NOW Rapid Molecular) (05/31/2025 10:06 AM EDT) [facility] Influenza A Negative Negative, Indeterminate [facility] Swab 05/31/2025 10:0 6 AM EDT Varun Dao MD POINT OF CARE TEST ENTER/EDIT OR DERABLES Final Result Performing Organization Address [facility] Co de Phone Number [facility] [address] [place] [phone] * POCT Rapid COVID Ag (05/31/2025 10:06 AM EDT) Rapid COVID Ag Negative [facility] Swab 05/31/2025 10:0 6 AM EDT Varun Dao MD POINT OF CARE TEST ENTER/EDIT OR DERABLES Final Result Performing Organization Address [facility] Co de Phone Number [facility] [address] [place] [phone] * (ABNORMAL) Cologuard?? colon cancer screening (07/22/2024 7:30 PM EDT) Cologuard Result Positive( A) Negative 07/30/2024 3:22 AM EDT [employer] (CLIA #:[id number]) Comment: POSITIVE TEST RESULT. A positive Cologuard result should be followed with a colonoscopy or visual examination of the colon. The normal value (reference range) for this assay is negative. TEST DESCRIPTION: Composite algorithmic analysis of stool DNA-biomarkers with hemoglobin immunoassay. Quantitative values of individual biomarkers are not [...] (Lexus Tamez al, N Engl J Med 2014;370(14):0597-5669.) Cologuard may produce a false negative or false positive result (no colorectal cancer or precancerous polyp present at colonoscopy follow up). A negative Cologuard test result does not guarantee the absence of CRC or advanced adenoma (pre-cancer). The current Cologuard screening interval is every 3 years. ([place] [employer] and U.S. Multi-Society Task Force). Cologuard performance data in a 10,000 patient pivotal study using colonoscopy as the reference method can be accessed at the following location: [email or web address]/results. Additional description of the Cologuard test process, warnings and precautions can be found at [email or web address].[facility]. Stool specimen (specimen) 07/22/2024 7:30 PM EDT 07/25/2024 10:50 AM EDT us Deyvi Goldsmith MD LAB MOLECULAR DIAGNOSTICS O RDERABLES Final Result [employer] (CLIA #:[id number]) [address] [place] [address], * (ABNORMAL) Lipid Panel, Standard (07/11/2024 10:37 AM EDT) Triglycerides 173(H) <150 mg/dL [facility] Comment:Desirable Triglyceri de: less than 150 mg/dLBorderline High Triglyceride 150-199 mg/dLHigh Triglyceride: 200-499 mg/dLVery High Triglyceride: greater than or equal to 5OO mg/dL Cholesterol 278(H) <200 mg/dL [facility] Comment:Desirable Cholestero l: less than 200 mg/dLBorderline High Cholesterol: 200-239 mg/dLHigh Cholesterol: greater than 239 mg/dL LDL Cholesterol Calculated 202(H) <100 mg/dL [facility] Comment:Desirable LDL: less than 100 mg/dLNear Optimal/Above Optimal LDL: 110- 129 mg/dLBorderline High LDL: 130-159 mg/dLHigh LDL: 160-189 mg/dLVery High LDL: greater than or equal to 190 mg/dL HDL Cholesterol 42 >40 mg/dL [facility] Comment:Desirable HDL: great er than 40 mg/dL Note: This HDL assay may give artificially low results in patients with liver disease. Blood Venous blood specimen / Unknown 07/11/2024 10:37 AM EDT 07/11/2024 2:26 PM EDT us Deyvi Goldsmith MD LAB BLOOD ORDERABLES Final Result [facility] [address] [place] [phone] [phone] * BI Mammogram Diagnostic Tomosynthesis Bilateral (02/04/2023 9:30 AM EDT) Anatomical Region Laterality Modality Breast Bilateral Mammography 02/04/2023 9:30 AM EDT Narrative 02/04/2023 12:24 PM EDT [facility] [address] [place] [address] [place] [address] Mammography Report Signed Patient: Johana Kaminski MR#: [id number] : 1970 Acct:[id number] Age/Sex: 52 / F ADM Date: 02/04/23 Loc: HO.MAMMO Attending Dr: Deyvi Goldsmith MD Ordering Physician: Deyvi Goldsmith MD Results: 2 Benign Findings Date of Service: 02/04/23 Follow Up: 1 Year From [facility] Mammogram Procedure(s): MM tomosynthesis diagnostic BI Accession Number(s): [id number] cc: Deyvi Goldsmith MD EXAMINATION: MM DIAGNOSTIC [...] recent 12/16/2021. Outside ultrasound left breast 02/23/2015 ([facility]). TECHNIQUE: Digital breast tomosynthesis is performed in [...] in OV> 02/04/23 1221 DD/ 0930 TD/TT: Clinical Leader: READ Procedure Note Donotuseinterpreter, Image - 02/04/2023 [facility] [address] [place], [place] [address] Mammography Report Signed Patient: Johana Kaminski EMR#: [id number] : 1970Acct:[id number] Age/Sex: 52 / FADM Date: 02/04/23 Loc: HO.MAMMO Attending Dr: Deyvi Goldsmith MD Ordering Physician: Deyvi Goldsmith MDResults: 2 Benign Findings Date of Service: 02/04/23Follow Up: 1 Year From Orig inal Mammogram Procedure(s): MM tomosynthesis diagnostic BI Accession Number(s): [id number] cc: Deyvi Goldsmith MD EXAMINATION: MM DIAGNOSTIC [...] recent 12/16/2021. Outside ultrasound left breast 02/23/2015 ([facility]). TECHNIQUE: Digital breast tomosynthesis is performed in [...] in OV> 02/04/23 1221 DD/ 0930 TD/TT: Clinical Leader: READ [facility] External Provider IMG BI PROCEDURES Final Result * HEPATITIS C AB W/REFL TO HCV RNA, QN, PCR (07/15/2022 8:50 AM EDT) HEPATITIS C ANTIBODY NON-REACT ANAMARIA NON-REACT ANAMARIA [facility] INDEX 0.08 <1.00 [facility] Comment: HCV antibody was non-reactive. There is no laboratory evidence of HCV infection. In most cases, no further action is required. However, if recent HCV exposure is suspected, a test for HCV RNA (test code 72697) is suggested. For additional information please refer to http://[employer]/faq/WPG27w6 (This link is being provided for informational/ educational purposes only.) 07/15/2022 8:50 AM EDT us Deyvi Goldsmith MD HISTORICAL/NON ORDERABLE MEE BS Final Result [facility] [address] * HIV 1/2 ANTIGEN/ANTIBODY,FOURTH GENERATION W/RFL (07/15/2022 8:50 AM EDT) HIV-1/2 ANTIGEN AND ANTIBODIES, 4TH GENERATION W/ REFLEX NON-REACT ANAMARIA NON-REACT ANAMARIA [facility] Comment: HIV-1 antigen and HIV-1/HIV-2 antibodies were not detected. There is no laboratory evidence of HIV infection. PLEASE NOTE: This information has been disclosed to you from records whose confidentiality may be protected by state law. If your state requires such protection, then the state law prohibits you from making any further disclosure of the information without the specific written consent of the person to whom it pertains, or as otherwise permitted by law. A general authorization for the release of medical or other information is NOT sufficient for this purpose. For additional information please refer to http://[employer]/faq/YUQ690 (This link is being provided for informational/ educational purposes only.) The performance of this assay has not been clinically validated in patients less than 2 years old. 07/15/2022 8:50 AM EDT Deyvi Goldsmith MD LAB BLOOD ORDERABLES Final Result [facility] [address] from Last 3 Months or Most Recently Relevant to Health Maintenance Insurance [facility] Care Teams Robotics Software Engineer Relationship Specialty Start Date End Date Deyvi Goldsmith MD [address] [place] [phone] PCP - General Internal Medicine 11/02/18
--- OUTSIDE RECORDS SUMMARY | 2025-07-31 14:50 | XMS_ITS | Encounter Summary ---
Author Organization [employer] Address [address] [place] [address] [address] [place] [address] Care Team Providers Care Speech Correction Consultant Name Role Phone Deyvi Goldsmith MD Primary Care Provider [phone] Reason for Visit * Reason Comments Med Refill Encounter Details Date Type Department Care Team (Late Contact Info) Description 11/22/2022 Refill [facility] [address] [place], [place] [phone] Deyvi Goldsmith MD [address] [place] [address] Chronic pain syndrome Social History Tobacco Use [...] Upcoming Encounters Date Type Department Care Team ([facility] Contact Info) Description 08/09/2025 10:45 AM EDT Office Visit [facility] [address] [place] [address] Deyvi Goldsmith MD [address] [place] [address] 11/07/2025 11:00 AM EST Clinical Support [facility] [address] [place] [address] Katelin Muller, SAMANTHA [address] [place] [address] documented as of this encounter Visit Diagnoses Diagnosis Chronic pain syndrome documented in this encounter Care Teams Speech Correction Consultant Relationship Specialty Start Date End Date Deyvi Goldsmith MD [address] [place] [address] PCP - General Internal Medicine 11/02/18 documented as of this encounter
--- OUTSIDE RECORDS SUMMARY | 2025-07-31 14:50 | XMS_ITS | Encounter Summary ---
Author Organization [employer] Address [address] [place] [address] [address] [place] [address] Care Team Providers Care Transit Mixer Driver Name Role Phone Deyvi Goldsmith MD Primary Care Provider [phone] Encounter Details Date Type Department Care Team (Late Contact Info) Description 05/21/2023 Orders Only [facility] [address] [place], [place] [phone] Deyvi Goldsmith MD [address] [place] [address] Low vitamin D level (Primary Dx) Social [...] Description 08/09/2025 10:45 AM EDT Office Visit [facility] [address] [place] [address] Deyvi Goldsmith MD [address] [place] [address] 11/07/2025 11:00 AM EST Clinical Support [facility] [address] [place] [address] Katelin Muller, SAMANTHA [address] [place] [address] documented as of this encounter Visit Diagnoses Diagnosis Low vitamin D level- Primary documented in this encounter Additional Health Concerns Assessment Noted Time PHQ-9 Depression Total Score: 0 02/12/20 23 11:35 AM EDT documented as of this encounter Care Teams Transit Mixer Driver Relationship Specialty Start Date End Date Deyvi Goldsmith MD [address] [place] [address] PCP - General Internal Medicine 11/02/18 documented as of this encounter
--- NOTE | 2025-08-04 10:26 | HO.ANESPROP2 ---
Documented by User: Nanci Hand NP 08/04/25 10:26 HPI - Anesthesia Eval Consult details Narrative: 54 yr old female for colonoscopy Severe persistent Asthma: follows with [facility] pulmonary; using Qvar & prn albuterol PMFSH Active Problems Active Problems: All Active Problems Right shoulder pain (Acute) Hx of hypokalemia (Acute) Pre-op examination (Acute) Hypercholesteremia (Acute) HTN (hypertension) (Acute) Asthma (Acute) Migraine (Acute) Adhesive capsulitis of right shoulder (Acute) Carpal tunnel syndrome of right wrist (Acute) Fatigue (Acute) Environmental allergies (Acute) Severe persistent asthma (Acute) External hemorrhoids with complication (Acute) Large joint arthralgia of multiple sites (Acute) Hemorrhoids with complication (Acute) Fibromyalgia (Acute) DONA positive (Acute) Past Medical History Medical History Right shoulder pain Internal derangement of right shoulder Rotator cuff tear, left Anal abscess Anal fistula Muscle spasm of shoulder region Lower back pain Numbness in both hands Hx of hypokalemia History of blood transfusion (~2013) Nausea Arthritis Right hip pain Anxiety Rosacea External hemorrhoids with complication Large joint arthralgia of multiple sites Hemorrhoids with complication Fibromyalgia DONA positive Fibromyalgia Migraine Hypercholesteremia Internal and external bleeding hemorrhoids GERD (gastroesophageal reflux disease) Asthma HTN (hypertension) Family History Family History Mother HTN (hypertension) Asthma Glaucoma Father Diabetes HTN (hypertension) Headache Sister Down syndrome Paternal Aunt Headache Family history of problems with anesthesia: No Surgical History Surgical History History of esophagogastroduodenoscopy (EGD) H/O colonoscopy Hx of appendectomy Hx of elbow surgery History of arthroscopy of left shoulder (~10/2022) H/O hemorrhoidectomy S/P tendon repair Hx of hysterectomy (~2013) History of Problems with Anesthesia: No Social History Social History Household Members: Family Housing: House Are you a primary insurance healthcare representative to a significant other at home: No Do you presently have visiting nurse or other home services: No Alcohol intake: never Patient Tobacco Use Status: Never used Tobacco Use of substances other than those prescribed or required for medical reasons: No Advance Directives: No Advance Directives Information Provided: Yes Advance Directives Date on File: 07/08/22 service: No Current occupational status: employed 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 Sexual orientation: Straight/Heterosexual Gender identity: Female Meds Allergies Allergy/AdvReac Type Severity Reaction Status Date / Time duloxetine AdvReac Severe hallucinations Verified 05/31/25 13:16 (severe) sumatriptan (From IMITREX) AdvReac Severe HEADACHES Verified 05/31/25 13:16 Home Medications ?Medication ?Instructions ?Recorded ?Confirmed ?Last Taken ?Type ibuprofen 800 mg tablet 800 mg PO TID PRN Pain 07/08/22 05/31/25 10/25/24 History famotidine 20 mg tablet 20 mg PO BID 12/10/22 05/31/25 10/28/24 History lisinopril 10 mg tablet 10 mg PO QAM 12/10/22 05/31/25 10/27/24 History omeprazole 20 mg capsule,delayed 20 mg PO DAILY 12/10/22 08/07/25 08/07/25 08:00 History release triamcinolone acetonide 0.1 % 1 appl topical BID PRN Rash 06/09/23 05/31/25 Unknown History topical cream cholecalciferol (vitamin D3) 25 25 mcg PO DAILY 02/10/24 05/31/25 Unknown History mcg (1,000 unit) tablet (Vitamin D3) ondansetron HCl 4 mg tablet 4 mg PO TID PRN Nausea 02/10/24 08/07/25 08/07/25 08:00 History rosuvastatin 20 mg tablet 20 mg PO DAILY 08/30/24 05/31/25 Unknown History potassium chloride 20 mEq 20 meq PO DAILY 10/10/24 05/31/25 10/27/24 History tablet,extended release(part/cryst) (Klor-Con M) hydroxyzine HCl 10 mg tablet 10 mg PO DAILY 10/11/24 05/31/25 Unknown History amitriptyline 100 mg tablet 100 mg PO BEDTIME 05/02/25 05/31/25 Unknown History amitriptyline 50 mg tablet 100 mg PO 05/02/25 05/31/25 Unknown History topiramate 100 mg tablet See Rx Instructions PO BID 05/02/25 05/31/25 Unknown History Assessment and Plan Final Anesthetic Review Family History of Problems with Anesthesia: No History of Problems with Anesthesia: No Documented by User: Suman Ricardo MD 08/07/25 12:45 [facility] Past Medical History Medical History Right shoulder pain Internal derangement of right shoulder Rotator cuff tear, left Anal abscess Anal fistula Muscle spasm of shoulder region Lower back pain Numbness in both hands Hx of hypokalemia History of blood transfusion (~2013) Nausea Arthritis Right hip pain Anxiety Rosacea External hemorrhoids with complication Large joint arthralgia of multiple sites Hemorrhoids with complication Fibromyalgia DONA positive Fibromyalgia Migraine Hypercholesteremia Internal and external bleeding hemorrhoids GERD (gastroesophageal reflux disease) Asthma HTN (hypertension) Family History Family History Mother HTN (hypertension) Asthma Glaucoma Father Diabetes HTN (hypertension) Headache Sister Down syndrome Paternal Aunt Headache Surgical History Surgical History History of esophagogastroduodenoscopy (EGD) H/O colonoscopy Hx of appendectomy Hx of elbow surgery History of arthroscopy of left shoulder (~10/2022) H/O hemorrhoidectomy S/P tendon repair Hx of hysterectomy (~2013) Social History Social History Household Members: Family Housing: House Are you a primary insurance healthcare representative to a significant other at home: No Do you presently have visiting nurse or other home services: No Alcohol intake: never Patient Tobacco Use Status: Never used Tobacco Use of substances other than those prescribed or required for medical reasons: No Advance Directives: No Advance Directives Information Provided: Yes Advance Directives Date on File: 07/08/22 service: No Current occupational status: employed 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 Sexual orientation: Straight/Heterosexual Gender identity: Female Meds Allergies Allergy/AdvReac Type Severity Reaction Status Date / Time duloxetine AdvReac Severe hallucinations Verified 05/31/25 13:16 (severe) sumatriptan (From IMITREX) AdvReac Severe HEADACHES Verified 05/31/25 13:16 Home Medications ?Medication ?Instructions ?Recorded ?Confirmed ?Last Taken ?Type ibuprofen 800 mg tablet 800 mg PO TID PRN Pain 07/08/22 05/31/25 10/25/24 History famotidine 20 mg tablet 20 mg PO BID 12/10/22 05/31/25 10/28/24 History lisinopril 10 mg tablet 10 mg PO QAM 12/10/22 05/31/25 10/27/24 History omeprazole 20 mg capsule,delayed 20 mg PO DAILY 12/10/22 08/07/25 08/07/25 08:00 History release triamcinolone acetonide 0.1 % 1 appl topical BID PRN Rash 06/09/23 05/31/25 Unknown History topical cream cholecalciferol (vitamin D3) 25 25 mcg PO DAILY 02/10/24 05/31/25 Unknown History mcg (1,000 unit) tablet (Vitamin D3) ondansetron HCl 4 mg tablet 4 mg PO TID PRN Nausea 02/10/24 08/07/25 08/07/25 08:00 History rosuvastatin 20 mg tablet 20 mg PO DAILY 08/30/24 05/31/25 Unknown History potassium chloride 20 mEq 20 meq PO DAILY 10/10/24 05/31/25 10/27/24 History tablet,extended release(part/cryst) (Klor-Con M) hydroxyzine HCl 10 mg tablet 10 mg PO DAILY 10/11/24 05/31/25 Unknown History amitriptyline 100 mg tablet 100 mg PO BEDTIME 05/02/25 05/31/25 Unknown History amitriptyline 50 mg tablet 100 mg PO 05/02/25 05/31/25 Unknown History topiramate 100 mg tablet See Rx Instructions PO BID 05/02/25 05/31/25 Unknown History Exam Airway Mallampati Class: III TM Dist: >3cm Neck ROM: Full Loose/Missing/Broken Teeth: No Heart: RRR Lungs: CTA Assessment and Plan Final Anesthetic Review NPO: Yes ASA Class: III Final Preanesthetic Review: No Changes in Pt Med Stat, Meds/Allgs Chart Reviewed, Consent Obtained/Reviewed and Anes Risks/Benef Reviewed Patient Risk: Low Procedure Risk: Low Anesthetic Plan Anesthetic Plan: TIVA Disposition: Standard PACU
[2025-08-07 11:19] VITALS: BMI 28.9
[2025-08-07 11:31] VITALS: BP 127/62; PULSE 84; RESP 16; TEMP 36.8; O2SAT 100
[2025-08-07] MEDS: Lactated Ringers 1,000 ML 100 ML IVCONT (11:32)
--- NOTE | 2025-08-07 11:45 | MHC.SHP ---
Pre-Procedural Eval Section A - 24 Hr Update-Section A only Date of Service: 08/07/25 Section B - Complete if H&P > 30 days Chief Complaint: Encounter for other preprocedural examination Relevant Family History (Specify if Yes): No Relevant Social History: None Present Medications: see Short Stay Collaborative assessment Medical History: Significant History (Internal derangement of right shoulder Rotator cuff tear, left Anal abscess Anal fistula Muscle spasm of shoulder region Lower back pain Numbness in both hands Right shoulder pain Hx of hypokalemia History of blood transfusion (~2013) Nausea Arthritis Right hip pain Anxiety Rosacea External hemorrho) History of Previous Operations: Relevant previous surgery/procedure and date(s) (History of esophagogastroduodenoscopy (EGD) H/O colonoscopy Hx of appendectomy Hx of elbow surgery History of arthroscopy of left shoulder (~10/2022) H/O hemorrhoidectomy S/P tendon repair Hx of hysterectomy (~2013)) Allergies: Allergies Allergy/AdvReac Type Severity Reaction Status Date / Time duloxetine AdvReac Severe hallucinations Verified 05/31/25 13:16 (severe) sumatriptan (From IMITREX) AdvReac Severe HEADACHES Verified 05/31/25 13:16 Review of Systems Sugical H&P ROS: Negative: Constitution, Cardiovascular, Respiratory, Neurological, Psychiatric, Hem-Onc, Allergic/Immunologic, Gastrointestinal, Genitourinary, Musculoskeletal, Integumentary, Endocrine and Eyes/Ears/Nose/Throat Exam Surgical H&P Exam: Normal: HEENT, Normal: Heart, Normal: Lungs, Normal: Extremities, Normal: Abdomen, Normal: Skin and Normal: Neurological Plan Diagnosis/Plan: Unchanged I have reviewed the history and physical and performed a pertinent physical examination on my patient. No changes have occurred unless specified. Time Spent With Patient Time: Total time managing care of this patient today ____ minutes.
--- NOTE | 2025-08-07 13:19 | P.OPN-COLO_ITS ---
Colonoscopy Operative Note Operative Note Date of Service: 08/07/25 Narrative: Operative Information Procedure Description: Colonoscopy Indication: pos cologuard Anesthesia: MAC COLONOSCOPY Instrument: Olympus variable stiffness pediatric scope 190L Colonoscopy Monitoring: Vital signs and clinical assessment, continuous EKG monitoring, Pulse oximetry, Carbon Dioxide monitoring and blood pressure monitoring were done throughout the procedure. Colon withdrawal time was 10 minutes. Procedure: The patient was placed in the left lateral decubitis position and pre-procedure medications were administered. After a digital rectal examination of the ano-rectum, the video colonoscope was inserted into the rectum and advanced through the colon to the cecum/TI. The colonoscope was slowly withdrawn in a retrograde panoramic fashion and the colon mucosa was carefully examined including a retroflexed view of the rectum. Findings and interventions are described below. Procedure Difficulty: easy Findings: Terminal Ileum-normal Cecum:normal right sided retroflexion- normal Ascending Colon: normal Transverse Colon -normal Descending Colon:normal Sigmoid Colon: normal Rectum: Retroflexion with medium sized, inflammed internal hemorrhoids seen, grade I with some bleeding Anorectum - normal Intervention: none Colon preparation: [place] Bowel Preparation Scale Right colon; 2 Transverse colon: 2 Left colon; 2 (0 = Unprepared colon segment with mucosa not seen due to solid stool that cannot be cleared. 1 = Portion of mucosa of the colon segment seen, but other areas of the colon segment not well seen due to staining, residual stool and/or opaque liquid. 2 = Minor amount of residual staining, small fragments of stool and/or opaque liquid, but mucosa of colon segment seen well. 3 = Entire mucosa of colon segment seen well with no residual staining, small fragments of stool or opaque liquid) Impression and Post Procedure Diagnosis: internal hemorrhoids Plan: High fiber diet leaflet Avoid straining at stool, epsom salts and sitz bath, anusol supps or cream Repeat Colonoscopy in 10 years or earlier if clinically indicated -- Refer colorectal surgery for hemorrhoids, Above findings were reviewed with the patient and relevant handouts were provided if indicated.
[2025-08-07 13:25] VITALS: BP 110/70; PULSE 80; RESP 22; TEMP 36.5; O2SAT 100
[2025-08-07 13:40] VITALS: BP 122/69; PULSE 72; RESP 18; O2SAT 99
[2025-08-07 13:55] VITALS: BP 125/67; PULSE 71; RESP 18; TEMP 36.8; O2SAT 99
== END 2025-08-07 14:11 | disposition home or self-care (01) ==
PROVIDERS: PCP Internal Medicine; Visit Provider Internal Medicine Gastroenterology
PROC: 0DJD8ZZ Inspection of Lower Intestinal Tract, Via Natural or Artificial Opening Endoscopic (ICD-10-PCS; CPT 45378; principal; 2025-08-07 13:50)
DX: R19.5 Other fecal abnormalities (principal); K64.0 First degree hemorrhoids; I10 Essential (primary) hypertension; E87.6 Hypokalemia; J45.909 Unspecified asthma, uncomplicated
CPT/HCPCS: 45378; J2003; J2704

== ENCOUNTER → 2025-08-07 10:00 | Outpatient (BNV) | payer OTHER, SELFPAY | PROVIDERS: PCP Internal Medicine; Visit Provider Internal Medicine Gastroenterology | DX: Z12.11 Encounter for screening for malignant neoplasm of colon (principal); R19.5 Other fecal abnormalities; K64.0 First degree hemorrhoids | CPT/HCPCS: 45378 ==

== ENCOUNTER 2025-08-14 08:37 | Outpatient (REF) | payer OTHER, SELFPAY ==
--- OUTSIDE RECORDS SUMMARY | 2025-08-09 10:45 | XMS_ITS | Encounter Summary ---
Author Organization [employer] Address [address] [place] [address] 7 [place] [address] Care Team Providers Care Ep Tech Name Role Phone Deyvi Goldsmith MD Primary Care Provider [phone] Reason for Referral * Imaging (Routine) - Authorized Specialty Diagnoses / Procedures Referred By Contkrish t Referred To Contact Radiology Diagnoses Encounter for screening mammogram for malignant neoplasm of breast Procedures BI Mammogram Screening Tomosynthesis Bilateral Deyvi Goldsmith MD [address] [place] [address] Phone: tel: fax: [address] Phone: tel: fax: Referral ID Status Reason Start Date Expiration Date V isits Requested Visits Authorized [id number] Authorized 08/09/2025 08/09/2026 1 1 Reason for Visit * Reason Comments Annual Exam PE Encounter Details Date Type Department Care Team (Late st Contact Info) Description 08/09/2025 10:45 AM EDT Office Visit [facility] PEDS [address] [place] [address] Deyvi Goldsmith MD [address] [place] [phone] Encounter for screening mammogram for malignant neoplasm of breast (Primary Dx); Annual physical exam; Other constipation; Other hemorrhoids; Telogen effluvium; Dietary counseling; Exercise counseling; Overweight Social History Tobacco Use Types Packs/Day Years Used Date Smoking Tobacco: Never Passive Smoke Exposure: Never Smokeless Tobacco: Never Alcohol Use Standard Drinks/Week Comments Never 0 (1 standard drink = 0.6 oz pur e alcohol) Depression Answer Date Recorded Patient Health Questionnaire-9 Score 0 08/09/2025 Patient Health Questionnaire-9 Score 0 08/09/2025 Last PHQ-9: Questionnaire Data Not on file 1 Housing Stability Answer Date Recorded What is your housing situation today? I have escobar garay 08/09/[address] you li ve. Do you have problems with any of the following? None of the above 08/09/2025 Food Insecurity Answer Date Recorded Within the past 12 months, y ou worried that your food would run out before you got money to buy more: Never True 08/09/2025 Within the past 12 months,th e food you bought just didn't last and you didn't have enough money to get more: Never True 06/2025 Transportation Answer Date Recorded In the past 12 months, has l ack of transportation kept you from medical appts, meetings, work or from getting things needed for daily living? No 08/09/2025 Utilities Answer Date Recorded In the past 12 months, has t he electric, gas, oil or water company threatened to shut off services in your home? No 08/09/2025 Depression Answer Date Recorded Patient Health Questionnaire-2 Score 0 08/09/2025 Internet Access Answer Date Recorded Internet Access Q1 Yes 08/09/2025 Internet Access Q2 Not on file 08/09/2025 Comments Unknown Sex and Gender Information Value Date Recorded Sex Assigned at Female 09/01/2022 10:17 AM EDT Legal Sex Female 10:17 AM EDT Gender Identity Female 09/01/2022 10:17 AM EDT Sexual Orientation Straight 09/01/2022 10 :17 AM EDT documented as of this encounter Last Filed Vital Signs Vital Sign Reading Time Taken Comments Blood Pressure 117/72 08/09/2025 11:02 AM EDT Pulse 64 08/09/2025 11:02 AM EDT Temperature 36.8 C (98.2 F) 08/09/2025 11:02 AM EDT Respiratory Rate 16 08/09/2025 11:02 AM EDT Oxygen Saturation 98% 08/09/2025 11:02 AM EDT Inhaled Oxygen Concentration - - Weight 78.5 kg (173 lb) 08/09/2025 11:02 AM EDT Height 164.6 cm (5' 4.8 ) 08/09/2025 11:02 AM ED T Body Mass Index 28.97 08/09/2025 11:02 AM EDT documented in this encounter Functional Status * Over the past 2 weeks, how often have you been bothered by any of the following problems? Question Answer Date of Assessment Author Patient Health Questionnaire -2 Score 0 08/09/2025 11:10 AM EDT Sa ari Andres [place] * Little interest or pleasure in doing things Answer Date of Assessment Author Not at all 08/09/2025 11:10 AM EDT Aurelia Rm [place] * Feeling down, depressed, or hopeless Answer Date of Assessment Author Not at all 08/09/2025 11:10 AM EDT Aurelia Rm [place] * Trouble falling or staying asleep, or sleeping too much Answer Date of Assessment Author Not at all 08/09/2025 11:10 AM EDT Aurelia Rm [place] * Feeling tired or having little energy Answer Date of Assessment Author Not at all 08/09/2025 11:10 AM EDT Aurelia Rm [place] * Poor appetite or overeating Answer Date of Assessment Author Not at all 08/09/2025 11:10 AM EDT Aurelia Rm [place] * Feeling bad about yourself - or that you are a failure or have let yourself or your family down Answer Date of Assessment Author Not at all 08/09/2025 11:10 AM EDT Aurelia Rm [place] * Trouble concentrating on things, such as reading the newspaper or watching television Answer Date of Assessment Author Not at all 08/09/2025 11:10 AM EDT Aurelia Rm [place] * Moving or speaking so slowly that other people could have noticed? Or the opposite - being so fidgety or restless that you have been moving around a lot more than usual. Answer Date of Assessment Author Not at all 08/09/2025 11:10 AM EDT Aurelia Rm MA * Thoughts that you would be better off or hurting yourself in some way Answer Date of Assessment Author Not at all 08/09/2025 11:10 AM EDT Aurelia Rm MA * Patient Health Questionnaire-9 Score Answer Date of Assessment Author 0 08/09/2025 11:10 AM EDT Aurelia Rm MA documented as of this encounter Progress Notes * Deyvi Goldsmith MD - 08/09/2025 10:45 AM EDT SUBJECTIVE Johana Kaminski is a 54 y.o. female who presents for Annual Exam (PE). HPI Here for her annual physical exam. Patient is concerned mostly about the hair loss that started about a year ago. Mrs. Johana Kaminskiadmits losing an excessive amount of hair. She used to have sick hair and now she has noted hair thinning. No treatment tried. History of chronic body aches. On duloxetine. Had a recent colonoscopy done on August 07, 2025. Terminal ileum normal Cecum: Normal Right sided retroflexion: Normal Ascending colon: Normal Transverse colon: Normal Descending colon: Normal Sigmoid colon: Normal Rectum: Retroflexion with medium sized, inflamed internal hemorrhoids seen, grade 1 with some bleeding. History of right shoulder pain. Evaluated by Ortho on May 31, 2025. Patient is on ibuprofen and uses tramadol as needed. Status post right shoulder arthroscopic surgery on October 28, 2024. Advisedto continue with her home stretching program. The do's and don'ts of lifting were discussed at length with her during that visit. Problem List[1] Allergies[2] Medications Ordered Prior to Encounter[3] Review of Systems Constitutional: Negative for appetite change, chills and diaphoresis. Eyes: Negative for pain, redness and itching. Respiratory: Negative for cough, choking, shortness of breath and stridor. Cardiovascular: Negative for leg swelling. Gastrointestinal: Negative for anal bleeding, blood in stool, constipation and diarrhea. Musculoskeletal: Negative for gait problem, joint swelling and myalgias. OBJECTIVE Vitals: 08/09/25 1102 BP: 117/72 BP Location: Left arm Patient Position: Sitting BP Cuff Size: Adult Pulse: 64 Resp: 16 Temp: 98.2 ??F (36.8 ??C) TempSrc: Oral SpO2: 98% Weight: 173 lb (78.5 kg) Height: 5' 4.8 (1.646 m) Physical Exam Constitutional: General: She is not in acute distress. Appearance: Normal appearance. She is not ill-appearing, toxic-appearing or diaphoretic. HENT: Head: Normocephalic. Nose: Nose normal. Eyes: General: Right eye: No discharge. Left eye: No discharge. Cardiovascular: Rate and Rhythm: Normal rate. Pulmonary: Effort: Pulmonary effort is normal. No respiratory distress. Abdominal: General: Abdomen is flat. Skin: General: Skin is warm. Comments: Decreased hair density Scalp is noninflammatory and nonscaly Neurological: General: No focal deficit present. Mental Status: She is alert. Psychiatric: Mood and Affect: Mood normal. Assessment/Plan Assessment/Plan Diagnoses and all orders for this visit: Encounter for screening mammogram for malignant neoplasm of breast - BI Mammogram Screening Tomosynthesis Bilateral; Future Annual physical exam Comments: Normal cardiopulmonary exam Patient is to maintain a healthy and balanced diet. Orders: - CBC auto differential; Future - Comprehensive Metabolic Panel; Future - Lipid Panel, Standard; Future - TSH with Reflex to Free T4; Future - Chlamydia/N. Gonorrhoeae RNA, TMA, Urogenitial - HIV-1/2 Antigen and Antibodies, Fourth Generation, with Reflexes; Future - Hepatitis C Antibody with Reflex to HCV, RNA, Quantitative, Real-Time PCR; Future - RPR (Monitor) with Reflex to Titer; Future - Urinalysis w/reflex microscopic; Future - Trichomonas vaginalis RNA, Qualitative, TMA, Males; Future Other constipation Comments: High-fiber diet To remain well-hydrated Trial of bisacodyl as directed. Orders: - bisacodyl (Dulcolax) 5 MG EC tablet; Take 1 tablet (5 mg) by mouth if needed each day for constipation. Do not crush, chew, or split. Other hemorrhoids Comments: Sitz bath Avoid constipation Call the office if these measures are not effective Consider reevaluation by gastroenterology. Orders: - bisacodyl (Dulcolax) 5 MG EC tablet; Take 1 tablet (5 mg) by mouth if needed each day for constipation. Do not crush, chew, or split. Telogen effluvium - Minoxidil 5 % foam; To apply to the scalp daily Dietary counseling Exercise counseling Overweight Dietary Recommendations: Fruits, vegetables, whole grains, protein foods, and fat-free or low-fat dairy products are healthychoices. Eat different types of protein foods in your diet. This can include seafood, lean meats, poultry, beans, peas, lentils, nuts, seeds, soy products, and eggs. Limit foods and beverages higher in added sugars, saturated fat, and sodium. Exercise Recommendations: At least 150 minutes of moderate-intensity physical activity per week, or an equivalent combinationof moderate- and vigorous-intensity activity [1] Patient Active Problem List Diagnosis External prolapsed hemorrhoids Migraine headache Essential hypertension Mild intermittent asthma Hypercholesterolemia Chronic pain syndrome Lumbar degenerative disc disease Fibromyalgia Hypertensive disorder Degeneration of lumbar intervertebral disc Migraine Rash and nonspecific skin eruption Rosacea Chronic right shoulder pain Skin irritation Candidiasis of genitalia in female Acute otitis externa of right ear Long-term current use of opiate analgesic [2] Allergies Allergen Reactions Duloxetine Hallucinations Sumatriptan [3] Current Outpatient Medications on File Prior to Visit Medication Sig Dispense Refill albuterol (2.5 MG/3ML) 0.083% nebulizer solution Take 3 mL by nebulization every 8 (eight) hours. 75 mL 11 amoxicillin-clavulanate (Augmentin) 875-125 MG tablet Take 1 tablet by mouth 2 times daily. 14 tablet 0 Blood Pressure kit Check BP every other day 1 kit 0 Blood Pressure Monitoring (Blood Pressure Cuff) misc 1 kit Once daily. Check bp at least once a day1 each 0 D3-1000 25 MCG (1000 UT) tablet TAKE 1 TABLET (25 MCG) BY MOUTH IN THE MORNING 60 tablet 11 diphenhydrAMINE (BENADryl) 25 MG tablet Take 1 tablet (25 mg) by mouth every 6 (six) hours if needed for itching. 30 tablet 0 econazole nitrate 1 % cream Apply topically Once per day. 30 g 0 famotidine (Pepcid) 20 MG tablet TAKE 1 TABLET BY MOUTH TWICE A DAY 180 tablet 2 fluconazole (Diflucan) 150 MG tablet Take 1 tablet (150 mg) by mouth Once per day. Prn yeast infection. May repeat in 3 days prn 2 tablet 0 hydrocortisone 2.5 % cream Apply topically 2 times daily. 20 g 0 hydrOXYzine HCl (Atarax) 10 MG tablet Take 1 tablet (10 mg) by mouth every 8 (eight) hours if needed for itching for up to 10 days. 30 tablet 0 ibuprofen 800 MG tablet TAKE 1 TABLET BY MOUTH EVERY 8 HOURS NEEDED FOR MILD PAIN. 90 tablet 0 KLOR-CON 20 MEQ ER tablet TAKE 1 TABLET (20 MEQ) BY MOUTH ONCE PER DAY FOR 20 DAYS. DO NOT CRUSH ORCHEW. 20 tablet 0 lidocaine (Xylocaine) 5 % ointment APPLY TOPICALLY IF NEEDED FOR MILD PAIN. 35.44 g 3 lisinopril 10 MG tablet TAKE 1 TABLET BY MOUTH EVERY DAY IN THE MORNING 90 tablet 3 methocarbamol (Robaxin) 750 MG tablet Take 1 tablet (750 mg) by mouth 4 times daily for 10 days. 40tablet 0 naloxone (Narcan) 4 mg/0.1 mL nasal spray Administer 1 spray (4 mg) into affected nostril(s) if needed for opioid reversal. May repeat every 2-3 minutes if needed, alternating nostrils, until medicalassistance becomes available. 2 each 2 omeprazole (PriLOSEC) [address] capsule TAKE 1 CAPSULE BY MOUTH EVERY DAY 30 MINUTES TO 1 HOUR BEFORE A MEAL 90 capsule 1 ondansetron (Zofran) 4 MG tablet TAKE 1 TABLET (4 MG) BY MOUTH EVERY 8 (EIGHT) HOURS. 9 tablet 4 polyethylene glycol, PEG, 3350 (MiraLax) 17 GM/SCOOP powder Take 17 g by mouth in the morning. 527 g 2 rosuvastatin (Crestor) 20 MG tablet Take 1 tablet (20 mg) by mouth Once per day. 30 tablet 11 senna-docusate sodium (Senokot-S) 8.6-50 MG tablet Take 2 tablets by mouth if needed at bedtime forconstipation. 60 tablet 0 Spacer/Aero-Holding Chambers (OptiChamber Manisha) misc 1 each every 4 (four) hours if needed (asthma). 1 each 0 traMADol (Ultram) 50 MG tablet Take 1 tablet (50 mg) by mouth every 8 (eight) hours if needed for moderate pain. 20 tablet 0 triamcinolone (Kenalog) 0.1 % cream APPLY TOPICALLY IF NEEDED IN THE MORNING AND AT BEDTIME (PAIN AND SWELLING). 30 g 2 [DISCONTINUED] albuterol 108 (90 Base) MCG/ACT inhaler Inhale 2 puffs every 4 (four) hours if needed for wheezing or shortness of breath. 18 g 3 No current facility-administered medications on file prior to visit. documented in this encounter Plan of Treatment Upcoming Encounters Date Type Department Care Team (Late st Contact Info) Description 11/07/2025 11:00 AM EST Clinical Support [facility] MED & PEDS [address] [place] [address] Katelin Muller RN [address] [place] [address] Scheduled Orders Name Type Priority Associated Diagnoses Orde r Schedule BI Mammogram Screening Tomosynthesis Bilateral Imaging Routine Encounter for screening mammogram for malignant neoplasm of breast Expected: 08/09/2025, Expires: 10/09/2026 CBC auto differential Lab Routine Annual physical exam Expected: 08/09/2025 (Approximate), Expires: 08/09/2026 Comprehensive Metabolic Panel Lab Routine Annual physical exam Expected: 08/09/2025 (Approximate), Expires: 08/09/2026 Lipid Panel, Standard Lab Routine Annual physical exam Expected: 08/09/2025 (Approximate), Expires: 08/09/2026 TSH with Reflex to Free T4 Lab Routine Annual physical exam Expected: 08/09/2025 (Approximate), Expires: 08/09/2026 Chlamydia/N. Gonorrhoeae RNA, TMA, Urogenitial Microbiology Routine Annual physical exam Ordered: 08/09/2025 HIV-1/2 Antigen and Antibodies, Fourth Generation, with Reflexes Lab Routine Annual physical exam Expected: 08/09/2025 (Approximate), Expires: 08/09/2026 Hepatitis C Antibody with Reflex to HCV, RNA, Quantitative, Real-Time PCR Lab Routine Annual physical exam Expected: 08/09/2025, Expires: 08/09/2026 RPR (Monitor) with Reflex to Titer Lab Routine Annual physical exam Expected: 08/09/2025, Expires: 08/09/2026 Urinalysis w/reflex microscopic Lab Routine Annual physical exam Expected: 08/09/2025, Expires: 08/09/2026 Trichomonas vaginalis RNA, Qualitative, TMA, Males Lab Routine Annual physical exam Expected: 08/09/2025, Expires: 08/09/2026 documented as of this encounter Visit Diagnoses Diagnosis Encounter for screening mammogram for malignant neoplasm of breast- Primary Annual physical exam Routine general medical examination at a health care facility Other constipation Other hemorrhoids Telogen effluvium Dietary counseling Dietary surveillance and counseling Exercise counseling Overweight documented in this encounter Additional Health Concerns Assessment Noted Time PHQ-9 Depression Total Score: 0 08/09/20 25 11:10 AM EDT documented as of this encounter Care Teams Ep Tech Relationship Specialty Start Date End Date Deyvi Goldsmith MD [address] [place] [id number] PCP - General Internal Medicine 11/02/18 documented as of this encounter
--- OUTSIDE RECORDS SUMMARY | 2025-08-14 08:40 | XMS_ITS | Encounter Summary ---
Author Organization [employer] Address [address] [facility] 7 [place] [address] Care Team Providers Care Caramel Candy Maker Name Role Phone Deyvi Goldsmith MD Primary Care Provider [phone] Reason for Visit * Reason Comments Med Change Request Encounter Details Date Type Department Care Team ([facility] Contact Info) Description 08/09/2025 Refill C [facility] [address] [place], [place] [phone] Deyvi Goldsmith MD [address] [place] [address] Telogen effluvium Social History Tobacco Use Types Packs/Day Years [...] AM EDT documented as of this encounter Functional Status * Over the [...] Author Not at all 08/09/2025 11:10 AM GRABIELT Aurelia Rm MA * Trouble falling or [...] Not at all 08/09/2025 11:10 AM EDT Aureila Rm MA * Trouble concentrating on things, [...] Rm MA documented as of this encounter Plan of Treatment Upcoming Encounters Date Type Department Care Team (Late st Contact Info) Description 11/07/2025 11:00 AM EST Clinical Support [facility] MED & PEDS [address] [place] [address] Katelin Muller, SAMANTHA [address] [place] [address] documented as of this encounter Visit Diagnoses Diagnosis Telogen effluvium documented in this encounter Additional Health Concerns Assessment Noted Time PHQ-9 Depression Total Score: 0 08/09/20 25 11:10 AM EDT documented as of this encounter Care Teams Caramel Candy Maker Relationship Specialty Start Date End Date Deyvi Goldsmith MD [address] [place] [address] PCP - General Internal Medicine 11/02/18 documented as of this encounter
--- OUTSIDE RECORDS SUMMARY | 2025-08-14 08:40 | XMS_ITS | Encounter Summary ---
Author Organization [employer] Address [address] [place] [address] 7 [place] [address] Care Team Providers Care Gas Treater Name Role Phone Deyvi Goldsmith MD Primary Care Provider [phone] Reason for Visit * Reason Onset Date Comments Med Refill 08/10/2025 Encounter Details Date Type Department Care Team ([facility] st Contact Info) Description 08/10/2025 Refill [facility] MED & PEDS [address] [place] [address] Deyvi Goldsmith MD [address] [place] [address] Telogen effluvium Social History Tobacco Use Types [...] encounter Miscellaneous Notes * Telephone Encounter - Valeria De La Vega LPN - 08/10/2025 3:08 PM EDT Medication pended again transmission to pharmacy failed. documented in this encounter Plan of Treatment Upcoming Encounters Date Type Department Care Team ([facility] st Contact Info) Description 11/07/2025 11:00 AM EST Clinical Support [facility] MED [facility] PEDS [address] [place] [address] Katelin Muller, SAMANTHA [address] [place] [address] documented as of this encounter Visit Diagnoses Diagnosis Telogen effluvium documented in this encounter Additional Health Concerns Assessment Noted Time PHQ-9 Depression Total Score: 0 08/09/20 25 11:10 AM EDT documented as of this encounter Care Teams Gas Treater Relationship Specialty Start Date End Date Deyvi Goldsmith MD [address] [place] [address] PCP - General Internal Medicine 11/02/18 documented as of this encounter
--- OUTSIDE RECORDS SUMMARY | 2025-08-14 08:40 | XMS_ITS | Encounter Summary ---
Author Organization [employer] Address [address] [place] [address] 7 [place] [address] Care Team Providers Care Machinist Mechanic Name Role Phone Deyvi Goldsmith MD Primary Care Provider [phone] Reason for Visit * Reason Comments Med Refill Encounter Details Date Type Department Care Team (Late Contact Info) Description 11/22/2022 Refill [facility] MED & PEDS [address] [place], [place] [phone] Deyvi Goldsmith MD [address] [place] [address] Chronic pain syndrome Social History Tobacco Use [...] Upcoming Encounters Date Type Department Care Team ([facility] Contact Info) Description 11/07/2025 11:00 AM EST Clinical Support [facility] MED & PEDS [address] [place] [address] Katelin Muller, SAMANTHA [address] [place] [address] documented as of this encounter Visit Diagnoses Diagnosis Chronic pain syndrome documented in this encounter Care Teams Machinist Mechanic Relationship Specialty Start Date End Date Deyvi Goldsmith MD [address] [place] [address] PCP - General Internal Medicine 11/02/18 documented as of this encounter
--- OUTSIDE RECORDS SUMMARY | 2025-08-14 08:40 | XMS_ITS | Encounter Summary ---
Author Organization [email or web address] Address [address] [facility] 7t [place] [address] Care Team Providers Care Programmer Engineering And Scientific Name Role Phone Deyvi Goldsmith MD Primary Care Provider [phone] Encounter Details Date Type Department Care Team (Latest Contact Info) Description 07/12/2024 Orders Only [facility] [address] [place], [place] [phone] Deyvi Goldsmith MD 505 [place] [address] Hypercholesterolemia (Primary Dx); Hypokalemia Social History Tobacco [...] Description 11/07/2025 11:00 AM EST Clinical Support [facility] [address] [place] [address] Katelin Muller, RN 505 [place] [address] documented as of this encounter Procedures Procedure Name Priority Date/Time Associated Diagnosis Comments BASIC METABOLIC PANEL Routine 08/25/2024 1:08 PM EDT Hypokalemia MR SHOULDER WO CONTRAST RIGHT Routine 07/30/2024 12:28 PM EDT documented in this encounter Results * (ABNORMAL) Basic Metabolic Panel (08/25/2024 1:08 PM EDT) Sodium 142 135 - 145 mmol/L [facility] Potassium 2.7(LL) 3.3 - 5.1 mmol/L [facility] Comment:Critical value for t est(s):POTS Results called to and readback by: MEMO Lazcano Person calling: VITOR Date: 08/25/24Time: 1559 Chloride 110(H) 96 - 108 mmol/L [facility] Carbon Dioxide 24 22 - 29 mmol/L [facility] Anion Gap 11(L) 12 - 20 [facility] Urea Nitrogen (BUN) 21(H) 9 - 16 mg/dL [facility] Creatinine, Serum 0.80 0.5 - 1.4 mg/dL [facility] Estimated Glomerular Filt Rate >60 [facility] Comment:NOTE: For -Am erican individuals, multiply the result by 1.210.Chronic Kidney Disease: Estimated GFR < 60 mL/min/[id number] Kidney Disease: Estimated GFR < 15 mL/min/1.73m2 Glucose 86 60 - 115 mg/dL [facility] Calcium 9.4 8.4 - 10.2 mg/dL [facility] Blood Venous blood specimen / Unknown 08/25/2024 1:08 PM EDT 08/25/2024 2:21 PM EDT Deyvi Goldsmith MD LAB BLOOD ORDERABLES Final Result Performing Organization Address City/State/[facility] Co de Phone Number [facility] [address] [place] [phone] * MR Shoulder w/o Contrast Right (07/30/2024 12:28 PM EDT) Anatomical Region Laterality Modality Upper Extremities, Shoulder Right Magn etic Resonance 07/30/2024 12:2 8 PM EDT Narrative 08/02/2024 8:59 PM EDT [place] [address] Magnetic Resonance Report Signed Patient: Johana Kaminski MR#: [id number] 006 : 1970 Acct:[id number] Age/Sex: 53 / F ADM Date: 07/30/24 Loc: HO.MRI Attending Dr: Jose Francisco FITZGERALD Ordering Physician: Jose Francisco Daniel Date of Service: 07/30/24 Procedure(s): MR shoulder RT wo con Accession Number(s): [id number] cc: Jose Francisco Daniel; Deyvi Goldsmith MD EXAMINATION: MR SHOULDER WITHOUT CONTRAST, RIGHT CLINICAL INFORMATION: Right shoulder pain and numbness. Concern for adhesive capsulitis versus rotator cuff pathology. COMPARISON: Right shoulder radiographs dated 05/23/2024. TECHNIQUE: MRI of the shoulder without contrast was performed on a high-field scanner. FINDINGS: ROTATOR CUFF: Notp-gv-cnaelujc supraspinatus tendinosis with distal bursal surface partial [...] MR/MR shoulder RT wo con IMPRESSION: 1. Bxfb-ly-gnakgtwz supraspinatus tendinosis with distal bursal surface partial [...] OV> 08/02/242054 DD/ 1228 TD/TT: 07/30/24 1248 Instrumentation Instructor: Procedure Note Donotuseinterpreter, Image - 08/02/[address] [address] Magnetic Resonance Report Signed Patient: Johana Kaminski EMR#: [id number] 006 : 1970Acct:[id number] Age/Sex: 53 / FADM Date: 07/30/24 Loc: HO.MRI Attending Dr: Jose Francisco FITZGERALD Ordering Physician: Jose Francisco Daniel Date of Service: 07/30/24 Procedure(s): MR shoulder RT wo con Accession Number(s): [id number] cc: Jose Francisco Daniel; Deyvi Goldsmith MD EXAMINATION: MR SHOULDER WITHOUT CONTRAST, RIGHT CLINICAL INFORMATION: Right shoulder pain and numbness. Concern for adhesive capsulitis versus rotator cuff pathology. COMPARISON: Right shoulder radiographs dated 05/23/2024. TECHNIQUE: MRI of the shoulder without contrast was performed on a high-field scanner. FINDINGS: ROTATOR CUFF: Knjg-xf-qqeiejvw supraspinatus tendinosis with distal bursal surface partial [...] MR/MR shoulder RT wo con IMPRESSION: 1. Fpmr-mf-eykazilx supraspinatus tendinosis with distal bursal surface partial [...] MD 08/02/2024 08:55 PM EDT RP Workstation: Blooie Dictated By: Delonte Ontiveros MD Signed By: <Electronically signed by Delonte Ontiveros MD in OV> 08/02/242054 DD/ 1228 TD/TT: 07/30/24 1248 Instrumentation Instructor: [facility] External Provider IMG MRI PROCEDURES Edited Result - Final documented in this encounter Visit Diagnoses Diagnosis Hypercholesterolemia- Primary Pure hypercholesterolemia Hypokalemia Hypopotassemia documented in this encounter Additional Health Concerns Assessment Noted Time PHQ-9 Depression Total Score: 0 07/11/20 24 9:36 AM EDT documented as of this encounter Care Teams Programmer Engineering And Scientific Relationship Specialty Start Date End Date Deyvi Goldsmith MD [address] [place] [phone] PCP - General Internal Medicine 11/02/18 documented as of this encounter
--- OUTSIDE RECORDS SUMMARY | 2025-08-14 08:40 | XMS_ITS | Encounter Summary ---
Author Organization [employer] Address [address] [facility] 7t [place] [address] Care Team Providers Care Fish Bait Picker Name Role Phone Deyvi Goldsmith MD Primary Care Provider [phone] Encounter Details Date Type Department Care Team (Late Contact Info) Description 12/12/2022 Orders Only [facility] MED & PEDS [address] [place] [address] Valeria De La Vega LPN Social History [...] Description 11/07/2025 11:00 AM EST Clinical Support [facility] MED & PEDS [address] [place] [address] Katelin Muller, SAMANTHA 505 [place] [address] documented as of this encounter Visit Diagnoses Not on filedocumented in this encounter Care Teams Fish Bait Picker Relationship Specialty Start Date End Date Deyvi Goldsmith MD [address] [place] [phone] PCP - General Internal Medicine 11/02/18 documented as of this encounter
--- OUTSIDE RECORDS SUMMARY | 2025-08-14 08:40 | XMS_ITS | Clinical Summary ---
Author Organization [employer] Address [address] [facility] [address] 7[address] [place] [address] Care Team Providers Care Industrial Technician Name Role Phone Deyvi Goldsmith MD Primary Care Provider [phone] Allergies Active Allergy Reactions Criticality Noted Date Comments Duloxetine Hallucinations High 08/04/2019 Sumatriptan 02/06/2023 Medications diphenhydrAMINE (BENADryl) 25 MG tabletIndicatio ns:Rash and nonspecific skin eruption Take 1 tablet (25 mg) by mouth every 6 (six) hours if needed for itching. 30 tablet 023 Active Blood Pressure Monitoring (Blood Pressure Cuff) miscIndications :Essential hypertension 1 kit Once daily. Check bp at least once a day 1 each 023 Active Blood Pressure kit Check BP every other day 1 kit 023 Active polyethylene glycol, PEG, 3350 (MiraLax) 17 GM/SCOOP powder Take 17 g by mouth in the morning. 527 g 2 023 Active albuterol (2.5 MG/3ML) 0.083% nebulizer solution Take 3 mL by nebulization every 8 (eight) hours. 75 mL 11 024 Active triamcinolone (Kenalog) 0.1 % creamIndication s:Rash and nonspecific skin eruption APPLY TOPICALLY IF NEEDED IN THE MORNING AND AT BEDTIME (PAIN AND SWELLING). 30 g 2 024 Active ondansetron (Zofran) 4 MG tablet TAKE 1 TABLET (4 MG) BY MOUTH EVERY 8 (EIGHT) HOURS. 9 tablet 4 024 Active D3-1000 25 MCG (1000 UT) tabletIndicatio ns:Low vitamin D level TAKE 1 TABLET (25 MCG) BY MOUTH IN THE MORNING 60 tablet 11 024 Active rosuvastatin (Crestor) 20 MG tabletIndicatio ns:Hypercholest erolemia Take 1 tablet (20 mg) by mouth Once per day. 30 tablet 11 024 Active hydrocortisone 2.5 % creamIndication s:Intertrigo of genital labia Apply topically 2 times daily. 20 g 024 Active econazole nitrate 1 % creamIndication s:Intertrigo of genital labia Apply topically Once per day. 30 g 024 2024 Active hydrOXYzine HCl (Atarax) 10 MG tabletIndicatio ns:Intertrigo of genital labia Take 1 tablet (10 mg) by mouth every 8 (eight) hours if needed for itching for up to 10 days. 30 tablet 024 Active KLOR-CON 20 MEQ ER tabletIndicatio ns:Hypokalemia TAKE 1 TABLET (20 MEQ) BY MOUTH ONCE PER DAY FOR 20 DAYS. DO NOT CRUSH OR CHEW. 20 tablet 024 Active lisinopril 10 MG tabletIndicatio ns:Essential hypertension TAKE 1 TABLET BY MOUTH EVERY DAY IN THE MORNING 90 tablet 3 025 Active lidocaine (Xylocaine) 5 % ointment APPLY TOPICALLY IF NEEDED FOR MILD PAIN. 35.44 g 3 025 Active famotidine (Pepcid) 20 MG tabletIndicatio ns:Gastroesopha geal reflux disease without esophagitis TAKE 1 TABLET BY MOUTH TWICE A DAY 180 tablet 2 025 Active traMADol (Ultram) 50 MG tabletIndicatio ns:FINANCIAL AID DIRECTOR checked 10/02/22 Take 1 tablet (50 mg) by mouth every 8 (eight) hours if needed for moderate pain. 20 tablet 025 Active Spacer/Aero-Hol ding Chambers (OptiChamber Manisha) misc 1 each every 4 (four) hours if needed (asthma). 1 each 025 Active fluconazole (Diflucan) 150 MG tablet Take 1 tablet (150 mg) by mouth Once per day. Prn yeast infection. May repeat in 3 days prn 2 tablet Active ibuprofen 800 MG tabletIndicatio ns:Chronic pain syndrome TAKE 1 TABLET BY MOUTH EVERY 8 HOURS NEEDED FOR MILD PAIN. 90 tablet Active omeprazole (PriLOSEC) [address] capsuleIndicati ons:Nausea TAKE 1 CAPSULE BY MOUTH EVERY DAY 30 MINUTES TO 1 HOUR BEFORE A MEAL 90 capsule 1 Active naloxone (Narcan) 4 mg/0.1 mL nasal spray Administer 1 spray (4 mg) into affected nostril(s) if needed for opioid reversal. May repeat every 2-3 minutes if needed, alternating nostrils, until medical assistance becomes available. 2 each 2 025 2025 Active bisacodyl (Dulcolax) 5 MG EC tabletIndicatio ns:Other constipation,Ot her hemorrhoids Take 1 tablet (5 mg) by mouth if needed each day for constipation. Do not crush, chew, or split. 30 tablet 2 025 2025 Active Minoxidil (Minoxidil for Men) 5 % solutionIndicat ions:Telogen effluvium TO APPLY TO THE SCALP DAILY 60 mL 2 Active senna-docusate sodium (Senokot-S) 8.6-50 MG tablet Take 2 tablets by mouth if needed at bedtime for constipation. 60 tablet 023 2024 Discontinued(T herapy completed) methocarbamol (Robaxin) 750 MG tabletIndicatio ns:Chronic right shoulder pain Take 1 tablet (750 mg) by mouth 4 times daily for 10 days. 40 tablet 024 2024 Discontinued(T herapy completed) albuterol 108 (90 Base) MCG/ACT inhaler Inhale 2 puffs every 4 (four) hours if needed for wheezing or shortness of breath. 18 g 3 025 2024 Discontinued amoxicillin-cla vulanate (Augmentin) 875-125 MG tablet Take 1 tablet by mouth 2 times daily. 14 tablet 025 2024 Discontinued(T herapy completed) Minoxidil 5 % foamIndications :Telogen effluvium To apply to the scalp daily 60 g 2 025 2024 Discontinued Minoxidil (Minoxidil for Men) 5 % solutionIndicat ions:Telogen effluvium TO APPLY TO THE SCALP DAILY 60 mL 2 025 2024 Discontinued(R eorder (will not trigger notification to Pharmacy)) Active Problems Problem Noted Date Diagnosed Date [...] Encounters Date Type Department Care Team Description 08/13/2025 Refill [facility] [address] [place] [address] Deyvi Goldsmith MD Hypercholesterolemia 08/12/2025 Refill [facility] [address] [place] [address] Deyvi Goldsmith MD Low vitamin D level 08/10/2025 Refill [facility] MED & PEDS [address] [place] [address] Deyvi Goldsmith MD Telogen effluvium 08/09/2025 10:45 AM EDT Office Visit [facility] MED & PEDS [address] [place] [address] Deyvi Goldsmith MD Encounter for screening mammogram for malignant neoplasm of breast (Primary Dx); Annual physical exam; Other constipation; Other hemorrhoids; Telogen effluvium; Dietary counseling; Exercise counseling; Overweight 08/09/2025 Refill [facility] MED & PEDS [address] [place] [address] Deyvi Goldsmith MD Telogen effluvium 08/09/2025 Travel 08/08/2025 Travel 08/07/2025 Telephone [facility] MED & PEDS [address] [place] [address] Deyvi Goldsmith MD Chart Prep 08/01/2025 Patient Outreach [facility] [address] [place] [address] Deyvi Goldsmith MD Pre-visit Planning (Pre visit planning LVM ) 07/04/2025 1:00 PM EDT Clinical Support [facility] MED & PEDS [address] [place] [address] Katelin Muller RN Chronic pain syndrome 07/04/2025 Refill [facility] PEDS [address] [place] [address] Katelin Muller RN Lumbar degenerative disc disease 07/04/2025 Travel 07/01/2025 Travel 06/08/2025 Refill [facility] [address] [place] [address] Deyvi Goldsmith MD [facility] 06/03/2025 Refill [facility] PEDS [address] [place] [address] Deyvi Goldsmith MD Chronic pain syndrome 05/31/2025 9:20 AM EDT Office Visit [facility] [address] [place] [address] Varun Dao MD Mild intermittent asthma with acute exacerbation (Primary Dx); Acute suppurative otitis media of left ear without spontaneous rupture of tympanic membrane, recurrence not specified 05/31/2025 Travel from Last 3 Months Immunizations Immunization Administration Dates Next Due Hep B, adult 01/19/2017,09/22/2016,08/13/2016 Influenza injectable quadriv alent IIV4 with preservative 08/24/2019,07/21/2018,08/13/2016 Influenza injectable quadriv alent preservative free 08/25/2023,07/11/2022,07/31/2021,2019,12/02/2017 Influenza, Injectable, MDCK, preservative free 07/11/2024 Pneumococcal [...] Mass Index 28.97 08/09/2025 11:02 AM EDT Plan of Treatment Upcoming Encounters Date Type Department Care Team (Late st Contact Info) Description 11/07/2025 11:00 AM EST Clinical Support [facility] MED & PEDS [address] [place] [address] Katelin Muller, SAMANTHA [address] [place] [address] Health Maintenance Due Date Last Done Comments CT Colonography 1972 Colonoscopy 1972 FIT 1972 Sigmoidoscopy 1972 Family Planning (PISQ) 1987 Pap Smear 1993 HPV/Cotest 2002 Mammogram 02/04/2025 02/04/2023, 02/04/2023 Influenza Vaccine (#1) 2025 , 08/25/2023, 07/11/2022, Additional history exists FOBT 07/22/2025 07/22/2024 Disability Screening 07/01/2026 07/01/2025 Alcohol/Substance Use Screening 08/09/2026 08/09/2025 COVID-19 Vaccine ( season) 2026 07/31/2021, 01/05/2021, 12/15/2020 Postponed from 07/03/2025 (Patient Refused) Depression Screening 08/09/2026 08/09/2025, 08/09/20 SDOH Screening 08/09/2026 08/09/2025 Tobacco Screening 08/09/2026 08/09/2025 DTaP/Tdap/Td Vaccines (2 - Td or Tdap) [...] Completed 07/11/2024 Zoster Vaccines Completed 10/17/2024, 07/11/2024 Cervical Cancer Screening Discontinued HIB Vaccines Aged Out No longer eligi [...] 2:02 PM EDT Internal Pass Control Lot# [id number] Exp: 09-01-26 Deyvi Goldsmith MD POINT OF CARE TEST ENTER/ED IT ORDERABLES Final Result * Influenza B (ID NOW Rapid Molecular) (05/31/2025 10:06 AM EDT) Influenza B Negative Negative, Indeterminate [facility] Swab 05/31/2025 10:0 6 AM EDT Varun Dao MD POINT OF CARE TEST ENTER/EDIT OR DERABLES Final Result Performing Organization Address [facility] Co de Phone Number [facility] [address] [place] [phone] * Influenza A (ID NOW Rapid Molecular) (05/31/2025 10:06 AM EDT) Influenza A Negative Negative, Indeterminate [facility] Swab 05/31/2025 10:0 6 AM EDT Varun Dao MD POINT OF CARE TEST ENTER/EDIT OR DERABLES Final Result Performing Organization Address [facility] Co de Phone Number [facility] [address] [place] [phone] * POCT Rapid COVID Ag (05/31/2025 10:06 AM EDT) Rapid COVID Ag Negative [facility] Swab 05/31/2025 10:0 6 AM EDT Varun Dao MD POINT OF CARE TEST ENTER/EDIT OR DERABLES Final Result [facility] [address] [place] [phone] * (ABNORMAL) Cologuard?? colon cancer screening (07/22/2024 7:30 PM EDT) Cologuard Result Positive( A) Negative 07/30/2024 3:22 AM EDT [facility] (CLIA #:[id number]) Comment: POSITIVE TEST RESULT. A positive Cologuard [...] screened with both Cologuard and colonoscopy. (Lexus Lozada, N Engl J Med 2014;370(14):8205-9896.) Cologuard may produce a false negative or false positive result (no colorectal cancer or precancerous polyp present at colonoscopy follow up). A negative Cologuard test result does not guarantee the absence of CRC or advanced adenoma (pre-cancer). The current Cologuard screening interval is every 3 years. ([place] [employer] and U.S. Multi-Society Task Force). Cologuard performance data in a 10,000 patient pivotal study using colonoscopy as the reference method can be accessed at the following location: www.Modify.[facility]/results. Additional description of the Cologuard test process, warnings and precautions can be found at www.[employer] Markrd.com. Stool specimen (specimen) 07/22/2024 7:30 PM EDT 07/25/2024 10:50 AM EDT us Deyvi Goldsmith MD LAB MOLECULAR DIAGNOSTICS O RDERABLES Final Result [facility] (CLIA #:[id number]) [address] [place] [address], * (ABNORMAL) Lipid Panel, Standard (07/11/2024 10:37 AM EDT) Triglycerides 173(H) <150 mg/dL [facility] Comment:Desirable Triglyceri de: less than 150 mg/dLBorderline High Triglyceride 150-199 mg/dLHigh Triglyceride: 200-499 mg/dLVery High Triglyceride: greater than or equal to 5OO mg/dL Cholesterol 278(H) <200 mg/dL [facility] Comment:Desirable Cholestero l: less than 200 mg/dLBorderline High Cholesterol: 200-239 mg/dLHigh Cholesterol: greater than 239 mg/dL LDL Cholesterol Calculated 202(H) <100 mg/dL [facility] Comment:Desirable LDL: less than 100 mg/dLNear Optimal/Above Optimal LDL: 110- 129 mg/dLBorderline High LDL: 130-159 mg/dLHigh LDL: 160-189 mg/dLVery High LDL: greater than or equal to 190 mg/dL HDL Cholesterol 42 >40 mg/dL [facility] Comment:Desirable HDL: great er than 40 mg/dL Note: This HDL assay may give artificially low results in patients with liver disease. Blood Venous blood specimen / Unknown 07/11/2024 10:37 AM EDT 07/11/2024 2:26 PM EDT Deyvi Goldsmith MD LAB BLOOD ORDERABLES Final Result [facility] [address] [place] [phone] * BI Mammogram Diagnostic Tomosynthesis Bilateral (02/04/2023 9:30 AM EDT) Anatomical Region Laterality Modality Breast Bilateral Mammography 02/04/2023 9:30 AM EDT Narrative 02/04/2023 12:24 PM EDT [facility] [address] [place] [address] Mammography Report Signed Patient: Johana Kaminski MR#: [id number] 006 : 1970 Acct:[id number] Age/Sex: 52 / F ADM Date: 02/04/23 Loc: HO.MAMMO Attending Dr: Deyvi Goldsmith MD Ordering Physician: Deyvi Goldsmith MD Results: 2 Benign Findings Date of Service: 02/04/23 Follow Up: 1 Year From [facility] Mammogram Procedure(s): MM tomosynthesis diagnostic BI Accession Number(s): [id number] cc: Deyvi Goldsmith MD EXAMINATION: MM DIAGNOSTIC [...] recent 12/16/2021. Outside ultrasound left breast 02/23/2015 ([facility]). TECHNIQUE: Digital breast tomosynthesis is performed [...] the subcentimeter cyst noted on outside ultrasound 2015. There is no solid mass or architectural [...] in OV> 02/04/23 1221 DD/ 0930 TD/TT: Makeup Editor: READ Procedure Note Donotuseinterpreter, Image - 02/04/2023 [facility] [address] [place] [address] Mammography Report Signed Patient: Johana Kaminski EMR#: [id number] 006 : 1970Acct:[id number] Age/Sex: 52 / FADM Date: 02/04/23 Loc: HO.MAMMO Attending Dr: Deyvi Goldsmith MD Ordering Physician: Deyvi Goldsmith MDResults: 2 Benign Findings Date of Service: 02/04/23Follow Up: 1 Year From Orig ina Mammogram Procedure(s): MM tomosynthesis diagnostic BI Accession Number(s): [id number] cc: Deyvi Goldsmith MD EXAMINATION: MM DIAGNOSTIC [...] recent 12/16/2021. Outside ultrasound left breast 02/23/2015 ([facility]). TECHNIQUE: Digital breast tomosynthesis is performed [...] in OV> 02/04/23 1221 DD/ 0930 TD/TT: Makeup Editor: READ [facility] External Provider IMG BI PROCEDURES Final Result * HEPATITIS C AB W/REFL TO HCV RNA, QN, PCR (07/15/2022 8:50 AM EDT) HEPATITIS C ANTIBODY NON-REACT ANAMARIA NON-REACT ANAMARIA [facility] INDEX 0.08 <1.00 [facility] Comment: HCV antibody was non-reactive. There is no laboratory evidence of HCV infection. In most cases, no further action is required. However, if recent HCV exposure is suspected, a test for HCV RNA (test code 92044) is suggested. For additional information please refer to http://[employer].Sarta/faq/ZCI05u8 (This link is being provided for informational/ educational purposes only.) 07/15/2022 8:50 AM EDT Deyvi Goldsmith MD HISTORICAL/NON ORDERABLE MEE SAWANT Final Result [facility] [address] * HIV 1/2 ANTIGEN/ANTIBODY,FOURTH GENERATION W/RFL (07/15/2022 8:50 AM EDT) HIV-1/2 ANTIGEN AND ANTIBODIES, 4TH GENERATION W/ REFLEX NON-REACT ANAMARIA NON-REACT ANAMARIA [facility] Comment: HIV-1 antigen and HIV-1/HIV-2 [...] purpose. For additional information please refer to http://education.Kara[employer]Smart.co.[facility]/faq/ZYZ153 (This link is being provided for informational/ educational purposes only.) The performance of this assay has not been clinically validated in patients less than 2 years old. 07/15/2022 8:50 AM EDT Deyvi Goldsmith MD LAB BLOOD ORDERABLES Final Result [facility] [address] from Last 3 Months or Most Recently Relevant to Health Maintenance Insurance [facility] Care Teams Industrial Technician Relationship Specialty Start Date End Date Deyvi Goldsmith MD [address] [place] [phone] PCP - General Internal Medicine 11/02/18
--- OUTSIDE RECORDS SUMMARY | 2025-08-14 08:40 | XMS_ITS | Encounter Summary ---
Author Organization [employer] Address [address] [facility] 7t [place] [address] Care Team Providers Care Forensic Psychologist Name Role Phone Deyvi Goldsmith MD Primary Care Provider [phone] Encounter Details Date Type Department Care Team ([facility] st Contact Info) Description 08/25/2024 Orders Only [facility] [address] [place], [place] [phone] Deyvi Goldsmith MD [address] [place] [address] Hypokalemia (Primary Dx) Social History Tobacco Use [...] Description 11/07/2025 11:00 AM EST Clinical Support [facility] [address] [place] [address] Katelin Muller RN [address] [place] [address] Scheduled Orders Name Type Priority Associated Diagnoses Orde r Schedule Potassium Lab Routine Hypokalemia Expected: 08/25/2024, Expires: 08/25/2025 documented as of this encounter Visit Diagnoses Diagnosis Hypokalemia- Primary Hypopotassemia documented in this encounter Additional Health Concerns Assessment Noted Time PHQ-9 Depression Total Score: 0 07/11/20 24 9:36 AM EDT documented as of this encounter Care Teams Forensic Psychologist Relationship Specialty Start Date End Date Deyvi Goldsmith MD [address] [place] [address] PCP - General Internal Medicine 11/02/18 documented as of this encounter
--- OUTSIDE RECORDS SUMMARY | 2025-08-14 08:40 | XMS_ITS | Encounter Summary ---
Author Organization [employer] Address [address] [facility] 7 [place] [address] Care Team Providers Care Beading Installer Name Role Phone Deyvi Goldsmith MD Primary Care Provider [phone] Reason for Visit * Reason Comments Med Refill Encounter Details Date Type Department Care Team ([facility] Contact Info) Description 08/12/2025 Refill [facility] CHC MED & PEDS [address] [place], [place] [phone] Deyvi Goldsmith MD [address] [place] [address] Low vitamin D level Social History Tobacco Use Types Packs/Day Years [...] Description 11/07/2025 11:00 AM EST Clinical Support [facility] MED & PEDS [address] [place] [address] Katelin Muller, SAMANTHA [address] [place] [address] documented as of this encounter Visit Diagnoses Diagnosis Low vitamin D level documented in this encounter Additional Health Concerns Assessment Noted Time PHQ-9 Depression Total Score: 0 08/09/20 25 11:10 AM EDT documented as of this encounter Care Teams Beading Installer Relationship Specialty Start Date End Date Deyvi Goldsmith MD [address] [place] [address] PCP - General Internal Medicine 11/02/18 documented as of this encounter
--- OUTSIDE RECORDS SUMMARY | 2025-08-14 08:40 | XMS_ITS | Encounter Summary ---
Author Organization [employer] Address [address] [facility] 7 [place] [address] Care Team Providers Care Email Administrator Name Role Phone Deyvi Goldsmith MD Primary Care Provider [phone] Reason for Visit * Reason Onset Date Comments Med Refill 02/06/2025 Encounter Details Date Type Department Care Team ([facility] st Contact Info) Description 02/06/2025 Telephone [facility] [address] [place] [address] Deyvi Goldsmith MD [address] [place] [address] Med Refill Social History Tobacco Use Types [...] 50 MG tablet To be sent to: [facility]/pharmacy #[id number] [place] [address] [address] [facility] documented in this encounter Plan of Treatment Upcoming Encounters Date Type Department Care Team (Late st Contact Info) Description 11/07/2025 11:00 AM EST Clinical Support [facility] MED & PEDS [address] [place] [address] Katelin Muller RN [address] [place] [address] documented as of this encounter Visit Diagnoses Not on filedocumented in this encounter Additional Health Concerns Assessment Noted Time PHQ-9 Depression Total Score: 0 07/11/20 24 9:36 AM EDT documented as of this encounter Care Teams Email Administrator Relationship Specialty Start Date End Date Deyvi Goldsmith MD [address] [place] [address] PCP - General Internal Medicine 11/02/18 documented as of this encounter
--- OUTSIDE RECORDS SUMMARY | 2025-08-14 08:40 | XMS_ITS | Clinical Summary ---
Author Organization [facility] Address [address] [place] [address] Care Team Providers Care Preparation Plant Supervisor Name Role Phone Robyn Guerrier MD Primary Care Provider [phone] Surgical History Surgery Date Site/Laterality Comments HYSTERECTOMY PROCEDURE: HISTORICAL HYSTERECTOMY TUBAL LIGATION PROCEDURE: HISTORICAL TUBAL LIGATION OTHER SURGICAL HISTORY Left PROCEDURE: HISTORICAL ARM SURGERY APPENDECTOMY PROCEDURE: [place] APPENDECTOMY OTHER SURGICAL HISTORY PROCEDURE: [place] ANESTHESIA LUMBAR REGION NOS HEMORRHOID SURGERY PROCEDURE: [place] INCISION THROMBOSED HEMORRHOID EXTERNAL Medical History Medical [...] Last Done Comments Breast Cancer Screening 1972 Colorectal Cancer Screening: Colonoscopy 1972 DTaP,Tdap,and Td Vaccines (1 - Tdap) 1991 Hepatitis B Vaccines (1 of 3 - 19+ 3-dose series) 1991 Cervical Cancer Screening: P ap Smear 1993 HIV Screening 10/12/2022 Hepatitis C Screening 10/12/2022 Social Influencers of Health Screening 10/12/2022 Pneumococcal Vaccine: 50+ Ye ars (1 of 1 - PCV) 2022 Zoster Vaccines (1 of 2) 2022 Depression Screening 11/02/2024 COVID-19 Vaccine (1 - 2023-2 5 season) 2025 Influenza Vaccine (#1) 2025 RSV Immunization Adult Patie nts (1 - 1-dose 75+ series) 2047 HIB Vaccines Aged Out No longer eligi [...] age to complete this topic Care Teams Preparation Plant Supervisor Relationship Specialty Start Date End Date Robyn Guerrier MD [address] [place] [phone] PCP - General 10/04/18
--- OUTSIDE RECORDS SUMMARY | 2025-08-14 08:40 | XMS_ITS | Encounter Summary ---
Author Organization [employer] Address [address] [facility] 7t [place] [address] Care Team Providers Care Acid Plant Helper Name Role Phone Deyvi Goldsmith MD Primary Care Provider [phone] Reason for Visit * Reason Comments Med Refill Encounter Details Date Type Department Care Team ([facility] Contact Info) Description 08/13/2025 Refill [facility] CHC MED & PEDS [address] [place], [place] [phone] Deyvi Goldsmith MD [address] [place] [address] Hypercholesterolemia Social History Tobacco Use Types Packs/Day Years [...] Description 11/07/2025 11:00 AM EST Clinical Support [facility] CHC MED & PEDS [address] [place] [address] Katelin Muller, SAMANTHA 505 [place] [address] documented as of this encounter Visit Diagnoses Diagnosis Hypercholesterolemia Pure hypercholesterolemia documented in this encounter Additional Health Concerns Assessment Noted Time PHQ-9 Depression Total Score: 0 08/09/20 25 11:10 AM EDT documented as of this encounter Care Teams Acid Plant Helper Relationship Specialty Start Date End Date Deyvi Goldsmith MD [address] [place] [address] PCP - General Internal Medicine 11/02/18 documented as of this encounter
--- OUTSIDE RECORDS SUMMARY | 2025-08-14 08:41 | XMS_ITS | Data Portability ---
Author Organization [place] [facility], [facility] Address [address] [place] [phone] Care Team Providers Care User Interface Designer Name Role Phone SIL CHICAS Primary Care Provider Assessment Encounter Date Assessment Date Assessment LastModified by Organization Details LastModified Time 07/18/2025 07/18/2025 54yo female presents for evaluation of gradual hearing loss. Otologic exam demonstrates TMs are intact with well-aerated middle ear spaces. Audiogram shows essentially stable neurosensory hearing loss compared to testing 1.5 years ago in 2023. Patient is medically cleared for amplification. Patient is interested in pursuing hearing aid evaluation, and appropriate documentation was provided. We discussed amplification will likely mask her bilateral tinnitus as well. Recommend annual follow up with repeat audiometric testing, or sooner with any concerns. [email or web address] Not available 07/18/2025 16:44:44 Plan of Treatment Reminders Order Date Submit Date Provider Last Modified By Organization Details Last Modified Time Details Appointments None record ed. Lab None record ed. Referral None record ed. Procedures None record ed. Surgeries None record ed. Imaging None record ed. Medication Orders None record ed. Patient TargetsNo targets recorded. Patient InstructionsNo instructions recorded. Reason for Referral None Reported. Results Created Date Observation Date Name Description Value Unit Range Abnormal Flag Note LastModifiedBy Organization Detail LastModifiedTime 07/19/20 25 audio gram No observ ation record ed. BARCODE Not Available 2024 10:55:34 Result Notes None recorded. Problems Name Problem SNOMED Code Status Onset Date Resolution Date Notes Provider Name and Address Organization Details Recorded Time Sensorine ural hearing loss of bilateral ears 813302941 Active 2023 Sensorine ural hearing loss, bilateral ; Note: Date Diagnosed : 11/12/2023 1:26 PM (H90.3) Not Available Count includes the [facility] 4 03:24:30 Bilateral tinnitus 62434386324 02 Active 2023 Tinnitus, bilateral ; Note: Date Diagnosed : 11/12/2023 2:22 PM (H93.13) Not Available Count includes the [facility] 4 03:24:30 Sensorine ural hearing loss of bilateral ears 130528213 Active 2024 AARON PETERSEN, [facility] [address] [facility],[address], [address] , [facility] 5 15:38:05 Problem Notes None recorded. Procedures Surgical History Date Name Laterality Status Provider Name and Address Organization Details Recorded Time 07/18/2025 Air & Speech Audio with Tymps - 15698, 69888 & 15307 completed AARON PETERSEN, [facility] [address] [facility],[place] [address], [place], [address], [facility] 07/18/2025 15:38:01 Imaging Results None recorded. Procedure Notes None recorded. Medical Equipment None Reported. Allergies Allergen ID Allergen Name Allergen Category Reaction Reaction Severity Criticality Documentation Date Start Date Code Code System Note Provider Name and Address Organization Details Recorded Time 61579 Cymbalta medicatio n other Not available Not available 03/15/2024 39504 4 RxNorm React ion: Unkno wn; Not Available Count includes the [facility] 4 00:49:19 Medications Name Sig Start Date Stop Date Status Note LastModified by Organization Details LastModified Time dicloxacill in 500 mg capsule TAKE 1 CAPSULE BY MOUTH 4 TIMES DAILY FOR 5 DAYS. 07/18 completed Not Available Not Available Not Available neomycin-po lymyxin-hyd rocort 3.5 mg/mL-10,00 0 unit/mL-1 % ear solution ADMINISTE R 3 DROPS INTO THE RIGHT EAR 3 TIMES DAILY FOR 10 DAYS. active Not Available Not Available No t Available ibuprofen 800 mg tablet TAKE 1 TABLET BY MOUTH EVERY 8 HOURS NEEDED FOR MILD PAIN. active Not Available Not Available No t Available fluconazole 150 mg tablet TAKE 1 TABLET (150 MG) BY MOUTH ONCE PER DAY. NEEDED YEAST INFECTION . MAY REPEAT IN 3 DAYS active Not Available Not Available No t Available ondansetron HCl 4 mg tablet TAKE 1 TABLET (4 MG) BY MOUTH EVERY 8 (EIGHT) HOURS. active Not Available Not Available No t Available prednisone 20 mg tablet TAKE 2 TABLETS (40 MG) BY MOUTH ONCE PER DAY FOR 5 DAYS. active Not Available Not Available No t Available sumatriptan 50 mg tablet TAKE 1 TABLET ORALLY ONCE NEEDED, MAY TAKE SECOND DOSE AT LEAST 4 HOURS AFTER FIRST DOSE 30 DAYS active Not Available Not Available No t Available bacitracin zinc 500 unit/gram topical ointment APPLY TO AFFECTED AREA TWICE A DAY TOPICALLY active Not Available Not Available No t Available tramadol 50 mg tablet TAKE 1 TABLET (50 MG) BY MOUTH EVERY 8 (EIGHT) HOURS IF NEEDED FOR MODERATE PAIN. active Not Available Not Available No t Available amitriptyli ne 50 mg tablet TAKE 2 TABLETS AT BEDTIME ORALLY ONCE A DAY 30 DAYS active Not Available Not Available No t Available potassium chloride ER 20 mEq tablet,exte nded release(par t/cryst) TAKE 1 TABLET (20 MEQ) BY MOUTH ONCE PER DAY FOR 20 DAYS. DO NOT CRUSH OR CHEW. active Not Available Not Available No t Available famotidine 20 mg tablet TAKE 1 TABLET BY MOUTH TWICE A DAY active Not Available Not Available No t Available rizatriptan 10 mg disintegrat ing tablet TAKE 1 TAB AT ONSET OF HEADACHE IF NO RELIEF MAY REPEAT 1 TAB AFTER AT LEAST 4 HOURS MAX 2 TABS/DAY active Not Available Not Available No t Available econazole nitrate 1 % topical cream APPLY TOPICALLY ONCE PER DAY. active Not Available Not Available No t Available triamcinolo ne acetonide 0.1 % topical ointment APPLY TO AFFECTED AREA TWICE A DAY TOPICALLY active Not Available Not Available No t Available lisinopril 10 mg tablet TAKE 1 TABLET BY MOUTH EVERY DAY IN THE MORNING active Not Available Not Available No t Available docusate sodium 100 mg capsule TAKE 1 CAPSULE BY MOUTH TWICE A DAY 07/18 completed Not Available Not Available Not Available omeprazole 20 mg capsule,del ayed release TAKE 1 CAPSULE BY MOUTH EVERY DAY 30 MINUTES TO 1 HOUR BEFORE A MEAL active Not Available Not Available No t Available hydrocortis one 2.5 % topical cream APPLY TO AFFECTED AREA TWICE A DAY active Not Available Not Available No t Available bisacodyl 5 mg tablet,larry yed release TAKE TWO TABLETS BY MOUTH AT BEDTIME FOR 2 DAYS active Not Available Not Available No t Available albuterol sulfate HFA 90 mcg/actuati on aerosol inhaler INHALE 2 PUFFS EVERY 4 (FOUR) HOURS IF NEEDED FOR WHEEZING OR SHORTNESS OF BREATH. active Not Available Not Available No t Available hydroxyzine HCl 10 mg tablet TAKE 1 TABLET BY MOUTH EVERY 8 HOURS IF NEEDED FOR ITCHING FOR UP TO 10 DAYS. active Not Available Not Available No t Available topiramate 100 mg tablet TAKE 2 TABLETS BY MOUTH TWICE A DAY active Not Available Not Available No t Available amitriptyli ne 100 mg tablet TAKE 1 TABLET BY MOUTH EVERY DAY AT BEDTIME FOR 30 DAYS active Not Available Not Available No t Available amoxicillin 875 mg-potassiu m clavulanate 125 mg tablet TAKE 1 TABLET BY MOUTH TWICE A DAY 07/18 completed Not Available Not Available Not Available oxycodone 5 mg tablet TAKE 1 TABLET ORALLY EVERY 4 HOURS NEEDED FOR PAIN PARTIAL FILL UPON PATIENT REQUEST. 07/18 completed Not Available Not Available Not Available Vitamin D3 25 mcg (1,000 unit) tablet TAKE 1 TABLET (25 MCG) BY MOUTH IN THE MORNING active Not Available Not Available No t Available cyclobenzap rine 5 mg tablet TAKE 1 TABLET BY MOUTH TWICE A DAY (DO NOT TAKE WITH TRAMADOL) active Not Available Not Available No t Available ciprofloxac in 0.3 %-dexametha sone 0.1 % ear drops,suspe nsion ADMINISTE R 4 DROPS INTO THE RIGHT EAR 2 TIMES DAILY FOR 7 DAYS. 06/26 completed Not Available Not Available Not Available rosuvastati n 20 mg tablet TAKE 1 TABLET BY MOUTH ONCE PER DAY. active Not Available Not Available No t Available pregabalin 100 mg capsule TAKE 1 CAPSULE BY MOUTH TWICE A DAY active Not Available Not Available No t Available hydrochloro thiazide 12.5 mg tablet TAKE 1 TABLET BY MOUTH EVERY DAY active Not Available Not Available No t Available Gavilax 17 gram/dose oral powder DISSOLVE IN WATER AND TAKE 238 G ORALLY ONCE FOR COLONOSCO PY PREP FOR 1 DAY active Not Available Not Available No t Available Keith Dyer [facility] spacer 1 EACH EVERY 4 (FOUR) HOURS IF NEEDED (ASTHMA). active Not Available Not Available No t Available lidocaine 5 % topical ointment APPLY TOPICALLY IF NEEDED FOR MILD PAIN. active Not Available Not Available No t Available naloxone 4 mg/actuatio n nasal spray PLEASE SEE ATTACHED FOR DETAILED DIRECTION S active Not Available Not Available No t Available Qvar RediHaler 80 mcg/actuati on HFA breath activated aerosol INHALE 1 PUFF BY MOUTH 2 TIMES A DAY active Not Available Not Available No t Available Vitals None Recorded Social History Question Answer Notes LastModified by Organizat ion Details LastModified Time Tobacco Smoking Status Never Smoker Zita maddox [place] - [facility] 07/18/2025 14:50:35 What Type Of [employer] Do You Use? None [email or web address] Information not available 07/18/2025 Do You Have Any Pets? Yes [email or web address] Information not available 07/18/2025 Are You Passively Exposed To Smoke? No Information not available 07/18/2025 Are There Any Smokers In Your House? No Information not available 07/18/2025 Sex: Unknown Functional Status Question Answer Note LastModified by Organization Details LastModified Time Do you use any illicit or recreational drugs? No [email or web address] Information not available 07/18/2025 Do you or have you ever used any other forms of tobacco or nicotine? No [email or web address] Information not available 07/18/2025 What is your level of alcohol consumption? None [email or web address] Information not available 07/18/2025 What type of noise exposure are you exposed to? noExposureToExcessiveNoise Infor mation not available 07/18/2025 Mental Status None recorded. Family History Nothing Reported. Medical History Condition Response Hearing Loss Y Gynecological HistoryNo gynecological history recorded. Obstetrics History GPAL:G 0 P 0 0 0 0 Past Encounters Encounter ID Performer Location Encounter Start Date Encounter Closed Date Diagnosis/Indication Diagnosis SNOMED-CT Code Diagnosis ICD10 Code Diagnosis IMO Codes Diagnosis Note [id number] ARMIN GROVE PA-C [facility] [address] [place] [address] 07/18/2025 14:46:31 07/18/2025 15:51:55 Sensorineural hearing loss of bilateral ears 529898507 H90.3 [id number] Audiologic al evaluation results: Normal sloping to moderate sensorineu ral hearing loss with excellent word recognitio n, bilaterall y. Tympanomet ry:Right Ear:Type CLeft Ear:Type A Bilateral tinnitus 35487 50890 102 H93.13 Health Concerns Section Related Observation LastModified by Organization Detai ls LastModified Time None Recorded Concern Status LastModified by Organization Details LastModified Time None Recorded Advance Directives Directive None Recorded Payers Insurance Date Sequence Insurance Name Policy Number Policy Hale Covered Member ID Hale Member ID Guarantor Name 07/18/2025 1 [facility] [employer] - DIRECT CONNECTORCARE TYPE I (HMO) [id number] Johana Kaminski [id number] Johana Kaminski Notes Date Note Type Note Provider Name and Address Organization Details Recorded Time 07/18/2025 text/html ROS as noted in the HPI 54yo female presents for evaluation of hearing loss. This has been gradual for 2+ years, worse in the left ear. Reports bilateral tinnitus is stable. She did have one ear infection 1 month ago. Denies ear pain, drainage, or dizziness. Denies prior ear surgeries. No history of loud noise exposure. HARIS THORNTON MD [address] [place] [address], [phone] - [facility] 07/19/2025 08:35:08 OBGyn Episode No OBEpisode recorded.
--- OUTSIDE RECORDS SUMMARY | 2025-08-14 08:41 | XMS_ITS | Encounter Summary ---
Author Organization [employer] Address [address] [place] [address] 7t [place] [address] Care Team Providers Care Auto Air Conditioning Mechanic Name Role Phone Deyvi Goldsmith MD Primary Care Provider [phone] Encounter Details Date Type Department Care Team (Late Contact Info) Description 05/21/2023 Orders Only [facility] CHC MED & PEDS [address] [place], [place] [phone] Deyvi Goldsmith MD [address] [place] [address] Low vitamin D level (Primary Dx) Social [...] Department Care Team (Late Contact Info) Description 11/07/2025 11:00 AM EST Clinical Support [facility] MED & PEDS [address] [place] [address] Katelin Muller, RN [address] [place] [address] documented as of this encounter Visit Diagnoses Diagnosis Low vitamin D level- Primary documented in this encounter Additional Health Concerns Assessment Noted Time PHQ-9 Depression Total Score: 0 02/12/20 23 11:35 AM EDT documented as of this encounter Care Teams Auto Air Conditioning Mechanic Relationship Specialty Start Date End Date Deyvi Goldsmith MD [address] [place] [address] PCP - General Internal Medicine 11/02/18 documented as of this encounter
--- OUTSIDE RECORDS SUMMARY | 2025-08-14 08:41 | XMS_ITS | Encounter Summary ---
Author Organization [employer] Address [address] [facility] [address] 7[address] [place] [address] Care Team Providers Care Network Support Administrator Name Role Phone Deyvi Goldsmith MD Primary Care Provider [phone] Reason for Visit * Reason Comments Med Change Request Encounter Details Date Type Department Care Team ([facility] Contact Info) Description 03/20/2023 Refill [facility] [address] [place] [address] Colby Love FNP Essential hypertension Social History [...] Upcoming Encounters Date Type Department Care Team ([facility] Contact Info) Description 11/07/2025 11:00 AM EST Clinical Support [facility] CHC MED & PEDS [address] [place] [address] Katelin Muller, SAMANTHA [address] [facility] [place] [address] documented as of this encounter Visit Diagnoses Diagnosis Essential hypertension Unspecified essential hypertension documented in this encounter Additional Health Concerns Assessment Noted Time PHQ-9 Depression Total Score: 0 02/12/20 23 11:35 AM EDT documented as of this encounter Care Teams Network Support Administrator Relationship Specialty Start Date End Date Deyvi Goldsmith MD 505 [facility] [place] [address] PCP - General Internal Medicine 11/02/18 documented as of this encounter
--- OUTSIDE RECORDS SUMMARY | 2025-08-14 08:41 | XMS_ITS | Encounter Summary ---
Author Organization [employer] Address [address] [facility] [address] [place] [address] Care Team Providers Care Junior Linux Administrator Name Role Phone Deyvi Goldsmith MD Primary Care Provider [phone] Reason for Visit * Reason Comments Med Change Request Encounter Details Date Type Department Care Team ([facility] Contact Info) Description 09/01/2023 Refill [facility] CHC MED & PEDS [address] [place], [place] [phone] Yessy Hughes MD [address] [place] [address] Social History Tobacco Use Types Packs/Day Years [...] Description 11/07/2025 11:00 AM EST Clinical Support [facility] CHC MED & PEDS [address] [place] [address] Katelin Muller, SAMANTHA [address] [place] [address] documented as of this encounter Visit Diagnoses Not on filedocumented in this encounter Additional Health Concerns Assessment Noted Time PHQ-9 Depression Total Score: 0 02/12/20 23 11:35 AM EDT documented as of this encounter Care Teams Junior Linux Administrator Relationship Specialty Start Date End Date Deyvi Goldsmith MD [address] [place] [address] PCP - General Internal Medicine 11/02/18 documented as of this encounter
--- OUTSIDE RECORDS SUMMARY | 2025-08-14 08:41 | XMS_ITS | Encounter Summary ---
Author Organization [employer] Address [address] [place] [address] [place] [address] Care Team Providers Care Concrete Pourer Name Role Phone Deyvi Goldsmith MD Primary Care Provider [phone] Reason for Visit * Reason Onset Date Comments triage 02/06/2023 Encounter Details Date Type Department Care Team ([facility] st Contact Info) Description 02/06/2023 Telephone [facility] CHC MED & PEDS [address] [place], [place] [phone] Deyvi Goldsmith MD [address] [place] [address] triage Social History Tobacco Use Types Packs/Day [...] be seen by provider today. apt in [facility] 02/06 @ 1020AM . Pt agrees [...] Description 11/07/2025 11:00 AM EST Clinical Support [facility] [address] [place] [address] Katelin Muller, SAMANTHA [address] [place], [place] [phone] documented as of this encounter Visit Diagnoses Not on filedocumented in this encounter Care Teams Concrete Pourer Relationship Specialty Start Date End Date Deyvi Goldsmith MD [address] [place] [address] PCP - General Internal Medicine 11/02/18 documented as of this encounter
--- OUTSIDE RECORDS SUMMARY | 2025-08-14 08:41 | XMS_ITS | Encounter Summary ---
Author Organization [employer] Address [address] [place] [address] Care Team Providers Care Automotive Parts Counter Associate Name Role Phone Deyvi Goldsmith MD Primary Care Provider [phone] Encounter Details Date Type Department Care Team (Latest Contact Info) Description 08/09/2025 Travel Social History Tobacco Use Types Packs/Day Years [...] 11:10 AM GRABIELT Aurelia Rm [place] * Feeling tired or having little energy Answer Date of Assessment Author Not at all 08/09/2025 11:10 AM GRABIELT Aurelia Rm [place] * Poor appetite or overeating Answer Date of Assessment Author Not at all 08/09/2025 11:10 AM EDT Aurelia Rm [place] * Feeling bad about yourself - or that you are a failure or have let yourself or your family down Answer Date of Assessment Author Not at all 08/09/2025 11:10 AM GRABIELT Aurelia Rm [place] * Trouble concentrating on [...] Description 11/07/2025 11:00 AM EST Clinical Support [facility] MED & PEDS [address] [place] [address] Katelin Muller, RN [address] [place] [address] documented as of this encounter Visit Diagnoses Not on filedocumented in this encounter Additional Health Concerns Assessment Noted Time PHQ-9 Depression Total Score: 0 08/09/20 25 11:10 AM EDT documented as of this encounter Care Teams Automotive Parts Counter Associate Relationship Specialty Start Date End Date Deyvi Goldsmith MD [address] [place] [address] PCP - General Internal Medicine 11/02/18 documented as of this encounter
--- OUTSIDE RECORDS SUMMARY | 2025-08-14 08:41 | XMS_ITS | Encounter Summary ---
Author Organization [employer] Address [address] [place] [address] Care Team Providers Care Director Of Special Events Name Role Phone Deyvi Goldsmith MD Primary Care Provider [phone] Reason for Visit * Reason Comments Med Change Request Encounter Details Date Type Department Care Team ([facility] Contact Info) Description 03/18/[address] [facility] [address] [place] [address] Colby Love FNP Essential hypertension [...] Upcoming Encounters Date Type Department Care Team ([facility] Contact Info) Description 11/07/2025 11:00 AM EST Clinical Support [facility] MED & PEDS [address] [place] [address] Katelin Muller, SAMANTHA [address] [facility] [place] [address] documented as of this encounter Visit Diagnoses Diagnosis Essential hypertension Unspecified essential hypertension documented in this encounter Additional Health Concerns Assessment Noted Time PHQ-9 Depression Total Score: 0 02/12/20 23 11:35 AM EDT documented as of this encounter Care Teams Director Of Special Events Relationship Specialty Start Date End Date Deyvi Goldsmith MD [address] [facility] [address] PCP - General Internal Medicine 11/02/18 documented as of this encounter
[2025-08-14 14:18] LABS: MANUAL DIFF FLAG NO
[2025-08-14 14:24] LABS: Hematocrit 41.1 % (37.0-47.0); Hemoglobin 13.4 g/dl (12.0-16.0); Imm Gran Abs Auto 0.06 X10*3/uL (0.00-0.03); Imm Gran Pct Auto 0.6 % (0.0-0.4); Lymphocytes Absolute Auto 2.3 X10*3/uL (1.2-4.9); Mean Corpuscular HGB Conc 32.6 g/dl (31.0-35.0); Mean Corpuscular Hemoglobin 30.0 pg (27.0-33.0); Mean Corpuscular Volume 92.2 fL (80.0-98.0); NRBC Abs Auto 0.000 X10*3/uL (0.0-0.012); NRBC Pct Auto 0.0 /100WBC (0.0-0.2); Platelet Count 289 X10*3/uL (160-400); Red Blood Count 4.46 X10*6/uL (4.20-5.50); White Blood Count 10.1 X10*3/uL (4.8-10.8)
[2025-08-14 14:44] LABS: Appearance Urine Clear; Glucose Urine UA Negative (Negative); PH 5.5 (5.0-9.0); Specific Gravity - Urine 1.020 (1.005-1.025)
[2025-08-14 14:55] LABS: Alanine Aminotransferase 19 U/L (0-31); Albumin Level 4.3 g/dL (3.5-5.0); Alkaline Phosphatase 63 U/L (39-117); Anion Gap 13 (12-20); Aspartate Amino Transferase 26 U/L (5-31); Blood Urea Nitrogen 21 mg/dL (9-16); Calcium 9.0 mg/dL (8.4-10.2); Carbon Dioxide 21 mmol/L (22-29); Chloride 112 mmol/L (96-108); Cholesterol 164 mg/dL (<200); Estimated Glomerular Filt Rate > 60; HDL Cholesterol 50 mg/dL (>40); Potassium 3.8 mmol/L (3.3-5.1); Sodium 142 mmol/L (135-145); Total Protein 7.2 g/dL (6.5-8.0); Triglycerides 76 mg/dL (<150)
[2025-08-15 04:25] LABS: HIV Num 1 0.07 S/CO (0.00-0.99); ~HepC Num1 0.32 S/CO (0.00-0.79); ~Hepatitis C Antibody Nonreactive (Nonreactive)
== END 2025-08-14 08:38 | disposition home or self-care (01) ==
LOC: HO.CHCLDS 08:37
PROVIDERS: Visit Provider Internal Medicine
DX: Z00.00 Encounter for general adult medical examination without abnormal findings (principal); Z11.4 Encounter for screening for human immunodeficiency virus [HIV]
CPT/HCPCS: 36415; 80053; 80061; 81003; 84443; 85025; 86592; 86803; 87389

== ENCOUNTER 2025-09-27 10:46 | Outpatient (AMB) | payer OTHER, SELFPAY ==
--- NOTE | 2025-09-27 10:54 | MHC.OFFVIS ---
Vital Signs 09/27/25 10:57 Height 5 ft 5 in Weight 178 lb BMI 29.6 BP 114/62 Blood Pressure Location Rt brachial Position Sitting Pulse 65 Intake Visit Reasons: Hemorrhoids Intake Note: This patient presents for an assessment for hemorrhoids. Pt c/o; reports occasional rectal bleeding. Adhesive Primer Required: No Accompanied by: Self / Same As Patient Allergies duloxetine Adverse Reaction (Severe, Verified 09/27/25 11:14) hallucinations (severe) sumatriptan (From IMITREX) Adverse Reaction (Severe, Verified 09/27/25 11:14) HEADACHES Medication List - Last Reconciled 09/27/25 by Jesus Gonzalez MD albuterol sulfate 2.5 mg (3 mL) inhalation QID 30 days albuterol sulfate 90 mcg/actuation 1 puff PO QID amitriptyline 100 mg PO BEDTIME amitriptyline 100 mg PO beclomethasone dipropionate 80 mcg/actuation (Qvar RediHaler) 1 inh inhalation BID bisacodyl (Dulcolax (bisacodyl)) 20 mg (4 x 5 mg) PO ONCE 1 day Brace,wrist wear on right wrist at night cholecalciferol (vitamin D3) (Vitamin D3) 25 mcg PO DAILY cyclobenzaprine 5 mg PO BID docusate sodium (Colace) 100 mg PO BID famotidine 20 mg PO BID hydroxyzine HCl 10 mg PO DAILY ibuprofen 800 mg PO TID PRN lidocaine 4% 1 appl topical TID PRN lisinopril 10 mg PO QAM omeprazole 20 mg PO DAILY ondansetron HCl 4 mg PO TID PRN polyethylene glycol 3350 (Miralax) 238 grams PO ONCE 1 day potassium chloride ER (Klor-Con M) 20 mEq PO DAILY pregabalin 100 mg PO BID rimegepant (Nurtec ODT) 75 mg PO Q OTHER DAY PRN 30 days rizatriptan take 1 tab at onset of headache; if no relief may repeat 1 tab after at least 4 hrs; max = 2 tabs/24 hr PO 30 days rosuvastatin 20 mg PO DAILY topiramate 200 mg (2 x 100 mg) PO BID 90 days triamcinolone acetonide 0.1% 1 appl topical BID PRN HPI HPI Hemorrhoids: Details: [age] year old female referred by GI for internal hemorrhoids. She apparently had a colonoscopy last month and this showed internal hemorrhoids which appeared to be ?inflamed? The patient actually denied any problems with her anus. She did have a hemorrhoidectomy done last year over a year ago but she says that she has had no issues since then. She denies any pain, bleeding or discomfort with bowel movements. [facility] Medical History (Updated 09/27/25 @ 11:17 by Jesus Gonzalez MD) Internal hemorrhoids Right shoulder pain Internal derangement of right shoulder Rotator cuff tear, left Anal abscess Anal fistula Muscle spasm of shoulder region Lower back pain Numbness in both hands Hx of hypokalemia History of blood transfusion (~2013) Nausea Arthritis Right hip pain Anxiety Rosacea External hemorrhoids with complication Large joint arthralgia of multiple sites Hemorrhoids with complication Fibromyalgia DONA positive Fibromyalgia Migraine Hypercholesteremia Internal and external bleeding hemorrhoids GERD (gastroesophageal reflux disease) Asthma HTN (hypertension) Surgical History History of esophagogastroduodenoscopy (EGD) H/O colonoscopy Hx of appendectomy Hx of elbow surgery History of arthroscopy of left shoulder (~10/2022) H/O hemorrhoidectomy S/P tendon repair Hx of hysterectomy (~2013) Family History Mother HTN (hypertension) Asthma Glaucoma Father Diabetes HTN (hypertension) Headache Sister Down syndrome Paternal Aunt Headache Social History Household Members: Family Housing: House Are you a primary direct support professional caregiver to a significant other at home: No Do you presently have visiting nurse or other home services: No 75 years or older and lives alone: No Alcohol intake: never Patient Tobacco Use Status: Never used Tobacco Advance Directives Date on File: 07/08/22 service: No Current occupational status: employed 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 Sexual orientation: Straight/Heterosexual Gender identity: Female Review of Systems Const Denies chills and Denies fever(s) Card Denies chest pain, Denies dyspnea and Denies dyspnea on exertion Resp Denies cough, Denies dyspnea and Denies dyspnea on exertion GI Denies hematochezia and Denies change in bowel habits Denies hematuria Musc Denies back pain and Denies limited range of motion Neuro Denies focal weakness and Denies convulsions Psych Denies depression and Denies mood swings Physical Exam Vital Signs: Last Vital Signs Pulse 65 09/27/25 10:57 BP 114/62 09/27/25 10:57 BMI result Body Mass Index 29.6 Const General: comfortable and no acute distress Resp Effort & Inspection: normal respiratory effort Cardio Rate: regular rate GI Other: Rectal exam shows no perianal lesions, no large hemorrhoidal tissue Office Procedures Anoscopy She was in kneeling tammy-knife position. The anoscope was gently inserted. A full examination of the anal canal was done. I did not see any lesions. There were small internal hemorrhoids but no bleeding or any ulceration. There is no induration or tenderness. [id number] Assessment & Plan Assessment & Plan (1) Internal hemorrhoids: Code(s): K64.8 - Other hemorrhoids Category: Medical Plan: She denies any pain, bleeding or discomfort. She does not require any intervention for these small internal hemorrhoids seen on anoscopy. She was advised on avoiding straining and constipation. She can follow up on a p.r.n. basis. Coding Level of Care Code Est Pt Level 3 (12998) Diagnoses Internal hemorrhoids K64.8 CPT Codes Details - CPT: 27119-[id number] ([id number])
[2025-09-27 10:57] VITALS: BP 114/62; PULSE 65; BMI 29.6
--- OUTSIDE RECORDS SUMMARY | 2025-09-27 13:08 | XMS_ITS | Encounter Summary ---
Author Organization [employer] Address [address] [place] [address] Care Team Providers Care Measurement Advisor Name Role Phone Deyvi Goldsmith MD Primary Care Provider [phone] Encounter Details Date Type Department Care Team ([facility] st Contact Info) Description 08/25/2024 Orders Only [facility] MED & PEDS [address] [place], [place] [phone] Deyvi Goldsmith MD [address] [place] [address] Hypokalemia (Primary Dx) Social History Tobacco Use [...] Description 11/07/2025 11:00 AM EST Clinical Support [facility] MED & PEDS [address] [place] [address] Katelin Muller RN [address] [place] [address] Scheduled Orders Name Type Priority Associated Diagnoses Orde r Schedule Potassium Lab Routine Hypokalemia Expected: 08/25/2024, Expires: 08/25/2025 documented as of this encounter Visit Diagnoses Diagnosis Hypokalemia- Primary Hypopotassemia documented in this encounter Additional Health Concerns Assessment Noted Time PHQ-9 Depression Total Score: 0 07/11/20 24 9:36 AM EDT documented as of this encounter Care Teams Measurement Advisor Relationship Specialty Start Date End Date Deyvi Goldsmith MD [address] [place] [address] PCP - General Internal Medicine 11/02/18 documented as of this encounter
--- OUTSIDE RECORDS SUMMARY | 2025-09-27 13:08 | XMS_ITS | Encounter Summary ---
Author Organization [employer] Address [address] [place] [address] Care Team Providers Care Customer Servicer Name Role Phone Deyvi Goldsmith MD Primary Care Provider [phone] Reason for Visit * Reason Onset Date Comments Med Refill 02/06/2025 Encounter Details Date Type Department Care Team ([facility] st Contact Info) Description 02/06/2025 Telephone [facility] [address] [place] [address] Deyvi Goldsmith MD [address] [place] [address] Med Refill Social History Tobacco Use Types [...] 50 MG tablet To be sent to: [facility]/pharmacy #[id number] [place] [id number] [address] [facility] documented in this encounter Plan of Treatment Upcoming Encounters Date Type Department Care Team (Late st Contact Info) Description 11/07/2025 11:00 AM EST Clinical Support [facility] MED & PEDS [address] [place] [address] Katelin Mulelr RN [address] [place] [address] documented as of this encounter Visit Diagnoses Not on filedocumented in this encounter Additional Health Concerns Assessment Noted Time PHQ-9 Depression Total Score: 0 07/11/20 24 9:36 AM EDT documented as of this encounter Care Teams Customer Servicer Relationship Specialty Start Date End Date Deyvi Goldsmith MD [address] [place] [address] PCP - General Internal Medicine 11/02/18 documented as of this encounter
--- OUTSIDE RECORDS SUMMARY | 2025-09-27 13:08 | XMS_ITS | Encounter Summary ---
Author Organization [employer] Address [address] [place] [address] Care Team Providers Care Colorman Name Role Phone Deyvi Goldsmith MD Primary Care Provider [phone] Reason for Visit * Reason Comments Med Change Request Encounter Details Date Type Department Care Team ([facility] Contact Info) Description 09/01/2023 Refill [facility] MED & PEDS [address] [place], [place] [phone] Yessy Hughes MD [address] [place] [address] Social History Tobacco Use Types Packs/Day Years [...] Description 11/07/2025 11:00 AM EST Clinical Support [facility] MED & PEDS [address] [place] [address] Katelin Muller, SAMANTHA [address] [place] [address] documented as of this encounter Visit Diagnoses Not on filedocumented in this encounter Additional Health Concerns Assessment Noted Time PHQ-9 Depression Total Score: 0 02/12/20 23 11:35 AM EDT documented as of this encounter Care Teams Colorman Relationship Specialty Start Date End Date Deyvi Goldsmith MD [address] [place] [address] PCP - General Internal Medicine 11/02/18 documented as of this encounter
--- OUTSIDE RECORDS SUMMARY | 2025-09-27 13:08 | XMS_ITS | Clinical Summary ---
Author Organization [employer] Address [address] [place] [address] Care Team Providers Care Audio Video Mechanic Name Role Phone Deyvi Goldsmith MD Primary Care Provider [phone] Allergies Active Allergy Reactions Criticality Noted Date [...] morning. 527 g 2 09/01/20 23 Active albuterol (2.5 MG/3ML) 0.083% nebulizer solution Take 3 mL by nebulization every 8 (eight) hours. 75 mL 11 01/14/20 24 Active triamcinolone (Kenalog) 0.1 % creamIndications :Rash and nonspecific skin eruption APPLY TOPICALLY IF NEEDED IN THE MORNING AND AT BEDTIME (PAIN AND SWELLING). 30 g 2 02/24/20 24 Active ondansetron (Zofran) 4 MG tablet TAKE 1 TABLET (4 MG) BY MOUTH EVERY 8 (EIGHT) HOURS. 9 tablet 4 04/14/20 24 Active hydrocortisone 2.5 % creamIndications :Intertrigo of genital labia Apply topically 2 times daily. 20 g 09/19/20 24 Active hydrOXYzine HCl (Atarax) 10 MG tabletIndication s:Intertrigo of genital labia Take 1 tablet (10 mg) by mouth every 8 (eight) hours if needed for itching for up to 10 days. 30 tablet 09/19/20 24 Active KLOR-CON 20 MEQ ER tabletIndication s:Hypokalemia TAKE 1 TABLET (20 MEQ) BY MOUTH ONCE PER DAY FOR 20 DAYS. DO NOT CRUSH OR CHEW. 20 tablet 10/24/20 24 Active lisinopril 10 MG tabletIndication s:Essential hypertension TAKE 1 TABLET BY MOUTH EVERY DAY IN THE MORNING 90 tablet 3 11/07/19 25 Active lidocaine (Xylocaine) 5 % ointment APPLY TOPICALLY IF NEEDED FOR MILD PAIN. 35.44 g 3 11/14/19 25 Active Spacer/Aero-Hold ing Chambers (OptiChamber Manisha) misc 1 each every 4 (four) hours if needed (asthma). 1 each 05/31/20 25 Active fluconazole (Diflucan) 150 MG tablet Take 1 tablet (150 mg) by mouth Once per day. Prn yeast infection. May repeat in 3 days prn 2 tablet 05/31/20 25 Active ibuprofen 800 MG tabletIndication s:Chronic pain syndrome TAKE 1 TABLET BY MOUTH EVERY 8 HOURS NEEDED FOR MILD PAIN. 90 tablet 06/05/20 25 Active omeprazole (PriLOSEC) [address] capsuleIndicatio ns:Nausea TAKE 1 CAPSULE BY MOUTH EVERY DAY 30 MINUTES TO 1 HOUR BEFORE A MEAL 90 capsule 1 06/08/20 25 Active naloxone (Narcan) 4 mg/0.1 mL nasal spray Administer 1 spray (4 mg) into affected nostril(s) if needed for opioid reversal. May repeat every 2-3 minutes if needed, alternating nostrils, until medical assistance becomes available. 2 each 2 07/04/20 25 026 Active bisacodyl (Dulcolax) 5 MG EC tabletIndication s:Other constipation,Oth er hemorrhoids Take 1 tablet (5 mg) by mouth if needed each day for constipation. Do not crush, chew, or split. 30 tablet 2 08/09/20 25 026 Active Minoxidil (Minoxidil for Men) 5 % solutionIndicati ons:Telogen effluvium TO APPLY TO THE SCALP DAILY 60 mL 2 08/10/20 25 Active D3-1000 25 MCG (1000 UT) tabletIndication s:Low vitamin D level TAKE 1 TABLET (25 MCG) BY MOUTH IN THE MORNING 60 tablet 11 08/14/20 25 Active rosuvastatin (Crestor) 20 MG tabletIndication s:Hypercholester olemia TAKE 1 TABLET BY MOUTH ONCE PER DAY. 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 20 tablet 08/28/20 25 Active econazole nitrate 1 % creamIndications :Intertrigo of genital labia Apply topically Once per day. 30 g 09/19/20 24 025 Active Problems Problem Noted Date Diagnosed Date [...] Encounters Date Type Department Care Team Description 08/29/2025 Telephone [facility] [address] [place] [phone] Deyvi Goldsmith MD 08/28/2025 Refill [facility] [address] [place] [address] Katelin Muller RN Lumbar degenerative disc disease 08/28/2025 Telephone [facility] [address] [place] [address] Deyvi Goldsmith MD Med Refill 08/25/2025 Refill [facility] [address] [place] [address] Deyvi Goldsmith MD Gastroesophageal reflux disease without esophagitis 08/14/2025 Results Follow-Up [facility] [address] [place] [address] Deyvi Goldsmith MD CBC auto differential, Comprehensive Metabolic Panel, Lipid Panel, Standard, Additional followed-up results: 5 08/13/2025 Refill [facility] [address] [place] [address] Deyvi Goldsmith MD Hypercholesterolemia 08/12/2025 Refill [facility] [address] [place] [address] Deyvi Goldsmith MD Low vitamin D level 08/10/2025 Refill [facility] [address] [place] [address] Deyvi Goldsmith MD Telogen effluvium 08/09/2025 10:45 AM EDT Office Visit [facility] [address] [place] [address] Deyvi Goldsmith MD Encounter for screening mammogram for malignant neoplasm of breast (Primary Dx); Annual physical exam; Other constipation; Other hemorrhoids; Telogen effluvium; Dietary counseling; Exercise counseling; Overweight 08/09/2025 Refill [facility] [address] [place] [address] Deyvi Goldsmith MD Telogen effluvium 08/09/2025 Travel 08/08/2025 Travel 08/07/2025 Telephone [facility] [address] [place] [address] Deyvi Goldsmith MD Chart Prep 08/01/2025 Patient Outreach [facility] [address] [place] [address] Deyvi Goldsmith MD Pre-visit Planning (Pre visit planning LVM ) 07/04/2025 1:00 PM EDT Clinical Support [facility] [address] [place] [address] Katelin Muller RN Chronic pain syndrome 07/04/2025 Refill [facility] [address] [place] [address] Katelin Muller RN Lumbar degenerative disc disease 07/04/2025 Travel 07/01/2025 Travel from Last 3 Months Immunizations Immunization [...] Upcoming Encounters Date Type Department Care Team ([facility] st Contact Info) Description 11/07/2025 11:00 AM EST Clinical Support [facility] [address] [place] [address] Katelin Muller, RN [address] [place] [address] Health Maintenance Due Date Last Done Comments CT Colonography 1972 Colonoscopy 1972 FIT 1972 Sigmoidoscopy 1972 Family Planning (PISQ) 1987 Pap Smear 1993 HPV/Cotest 2002 RSV Patients and Patients Aged 60 years or older (1 - Risk 50-74 years 1-dose series) 2022 Mammogram 02/04/2025 02/04/2023, 02/04/2023 Influenza Vaccine (#1) [...] 07/22/2027 FIT DNA/Cologuard 07/22/2027 07/22/2024 Lipid Panel 08/14/2030 08/14/2025, 09/0 07/2024, 07/15/2022 Hepatitis B Vaccines Completed 01/19/2017, 09/22/2016, 08/13/2016 Pneumococcal Vaccine: 50+ Years Completed 07/11/2024 Zoster Vaccines Completed 10/17/2024, 07/11/2024 HIV Screening Completed 08/14/2025, 07/15/2022 Hepatitis C Screening Completed 08/14/2025, 022 Cervical Cancer Screening Discontinued HIB Vaccines Aged [...] Procedure Name Priority Date/Time Associated Diagnosis Comments URINALYSIS WITH REFLEX MICROSCOPIC Routine 08/14/2025 8:50 AM EDT Annual physical exam RPR (MONITOR) W/REFL TITER Routine 08/14/2025 8:39 AM EDT Annual physical exam TSH W/REFLEX TO FT4 Routine 08/14/2025 8 :39 AM EDT Annual physical exam LIPID PANEL, STANDARD Routine 08/14/2025 8:39 AM EDT Annual physical exam COMPREHENSIVE METABOLIC PANEL Routine 08/14/2025 8:39 AM EDT Annual physical exam CBC WITH AUTO DIFFERENTIAL Routine 08/14/2025 8:39 AM EDT Annual physical exam HEPATITIS C AB W/REFL TO HCV RNA, QN, PCR Routine 08/14/2025 8:34 AM EDT Annual physical exam HIV 1/2 ANTIGEN/ANTIBODY, FOURTH GENERATION W/RFL Routine 08/14/2025 8:34 AM EDT Annual physical exam POCT JUNE-14 URINE DRUG SCREEN Routine 07/04/2025 2:02 PM EDT Chronic pain syndrome LAB COLOGUARD COLON CANCER SCREEN Routine 07/22/2024 7:30 PM EDT Screening for colon cancer BI MAMMOGRAM DIAGNOSTIC TOMOSYNTHESIS BILATERAL Routine 02/04/2023 9:30 AM EDT from Last 3 Months or Most Recently Relevant to Health Maintenance Results * Urinalysis w/reflex microscopic (08/14/2025 8:50 AM EDT) Color Urine Yellow [facility] Appearance Urine Clear [facility] PH 5.5 5.0 - 9.0 [facility] Glucose Urine UA Negative Negative mg/dL [facility] Urine Blood Negative Negative [facility] Specific Foster - Urine 1.020 1.005 - 1.025 [facility] Urine Protein Negative Neg-Trace mg/dL [facility] Urine Ketones Negative Negative mg/dL [facility] Nitrite Urine Negative Negative [facility] Leukocyte Esterase Urine Negative Negative [facility] Urine (Urine, Random) 08/14/2025 8:50 AM EDT 08/14/2025 1:58 PM EDT Narrative [facility] - 08/14/2025 2:45 PM EDT [id number], Clean Catch us Deyvi Goldsmith MD LAB URINE ORDERABLES Final Result [facility] [address] [place] [phone] [phone] * TSH with Reflex to Free T4 (08/14/2025 8:39 AM EDT) TSH reflex Free T4 2.85 0.32 - 4.0 uIU/mL [facility] Blood Venous blood specimen / Unknown 08/14/2025 8:39 AM EDT 08/14/2025 2:09 PM EDT Deyvi Goldsmith MD LAB BLOOD ORDERABLES Final Result [facility] [address] [place] [address] [phone] * (ABNORMAL) CBC auto differential (08/14/2025 8:39 AM EDT) White Blood Count 10.1 4.8 - 10.8 X10*3/uL [facility] Red Blood Count 4.46 4.20 - 5.50 X10*6/uL [facility] Hemoglobin 13.4 12.0 - 16.0 g/dl [facility] Hematocrit 41.1 37.0 - 47.0 % [facility] Mean Corpuscular Volume 92.2 80.0 - 98.0 fL [facility] Mean Corpuscular Hemoglobin 30.0 27.0 - 33.0 pg [facility] Mean Corpuscular HGB Conc 32.6 31.0 - 35.0 g/dl [facility] Red Cell Distribution Width 13.5 11.0 - 16.0 % [facility] Platelet Count 289 160 - 400 X10*3/uL [facility] Mean Platelet Volume 11.2 9.4 - 12.3 fL [facility] Neutrophils Percent Auto 64.5 45 - 73 % [facility] Imm Gran Pct Auto 0.6(H) 0.0 - 0.4 % [facility] Lymphocytes Percent Auto 23.1 20 - 40 % [facility] Monocytes Percent Auto 9.3 2 - 11 % [facility] Eosinophils Percent Auto 1.8 0 - 4 % [facility] Basophils Percent Auto 0.7 0 - 2 % [facility] NRBC Pct Auto 0.0 0.0 - 0.2 /100WBC [facility] Neutrophils Absolute Auto 6.5 2.0 - 8.3 x10*3/uL [facility] Imm Gran Abs Auto 0.06(H) 0.00 - 0.03 X10*3/uL [facility] Lymphocytes Absolute Auto 2.3 1.2 - 4.9 X10*3/uL [facility] Monocytes Absolute Auto 0.9 0.1 - 1.2 X10*3/uL [facility] Eosinophils Absolute Auto 0.2 0.0 - 0.4 X10*3/uL [facility] Basophils Absolute Auto 0.1 0.0 - 0.2 X10*3/uL [facility] NRBC Abs Auto 0.000 0.0 - 0.012 X10*3/uL [facility] Blood Venous blood specimen / Unknown 08/14/2025 8:39 AM EDT 08/14/2025 2:14 PM EDT us Deyvi Goldsmith MD LAB BLOOD ORDERABLES Final Result [facility] [address] [place] [phone] * RPR (Monitor) with Reflex to??Titer (08/14/2025 8:39 AM EDT) RPR (Monitor) w/Refl Titer NON-REACTI VE NON-REACT ANAMARIA [facility] Comment:THIS TEST WAS PERFOR MED AT:[facility] [place] [phone] FAN MD Rapid Plasma Reagin Ab Titer TNP [facility] Blood Venous blood specimen / Unknown 08/14/2025 8:39 AM EDT 08/14/2025 2:09 PM EDT us Deyvi Goldsmith MD LAB BLOOD ORDERABLES Final Result Performing Organization Address [facility] Co de Phone Number [facility] [address] [place] [address] [phone] * Lipid Panel, Standard (08/14/2025 8:39 AM EDT) Triglycerides 76 <150 mg/dL [facility] Comment:Desirable Triglyceri de: less than 150 mg/dLBorderline High Triglyceride 150-199 mg/dLHigh Triglyceride: 200-499 mg/dLVery High Triglyceride: greater than or equal to 5OO mg/dL Cholesterol 164 <200 mg/dL [facility] Comment:Desirable Cholestero l: less than 200 mg/dLBorderline High Cholesterol: 200-239 mg/dLHigh Cholesterol: greater than 239 mg/dL LDL Cholesterol Calculated 99 <100 mg/dL [facility] Comment:Desirable LDL: less than 100 mg/dLNear Optimal/Above Optimal LDL: 110- 129 mg/dLBorderline High LDL: 130-159 mg/dLHigh LDL: 160-189 mg/dLVery High LDL: greater than or equal to 190 mg/dL HDL Cholesterol 50 >40 mg/dL [facility] Comment:Desirable HDL: great er than 40 mg/dL Note: This HDL assay may give artificially low results in patients with liver disease. Blood Venous blood specimen / Unknown 08/14/2025 8:39 AM EDT 08/14/2025 2:09 PM EDT Deyvi Goldsmith MD LAB BLOOD ORDERABLES Final Result Performing Organization Address [facility]/ZIP Co de Phone Number [facility] [address] [place] [address] [phone] * (ABNORMAL) Comprehensive Metabolic Panel (08/14/2025 8:39 AM EDT) Sodium 142 135 - 145 mmol/L [facility] Potassium 3.8 3.3 - 5.1 mmol/L [facility] Chloride 112(H) 96 - 108 mmol/L [facility] Carbon Dioxide 21(L) 22 - 29 mmol/L [facility] Anion Gap 13 12 - 20 [facility] Urea Nitrogen (BUN) 21(H) 9 - 16 mg/dL [facility] Creatinine, Serum 0.67 0.5 - 1.4 mg/dL [facility] Estimated Glomerular Filt Rate >60 [facility] Comment:Chronic Kidney Disea se: Estimated GFR < 60 mL/min/1.00q2Umiibv Kidney Disease: Estimated GFR < 15 mL/min/1.73m2 Glucose 83 60 - 115 mg/dL [facility] Calcium 9.0 8.4 - 10.2 mg/dL [facility] Bilirubin, Total 0.2 0.0 - 1.0 mg/dL [facility] Aspartate Amino Transferase 26 5 - 31 U/L [facility] Alanine Aminotransferase 19 0 - 31 U/L [facility] Total Protein 7.2 6.5 - 8.0 g/dL [facility] Albumin Level 4.3 3.5 - 5.0 g/dL [facility] Alkaline Phosphatase 63 39 - 117 U/L [facility] Blood Venous blood specimen / Unknown 08/14/2025 8:39 AM EDT 08/14/2025 2:09 PM EDT us Deyvi Goldsmith MD LAB BLOOD ORDERABLES Final Result [facility] [address] [place] [address] [phone] * Hepatitis C Antibody with Reflex to HCV, RNA, Quantitative, Real-Time PCR (08/14/2025 8:34 AM EDT) Hepatitis C Antibody Nonreactive Nonreactive [facility] Comment:Antibodies to HCV no t detected; does not exclude early acuteHCV infection. Blood Venous blood specimen / Unknown 08/14/2025 8:34 AM EDT 08/14/2025 2:02 PM EDT us Deyvi Goldsmith MD LAB BLOOD ORDERABLES Final Result Performing Organization Address [facility] Co de Phone Number [facility] [address] [place] [phone] * HIV-1/2 Antigen and Antibodies, Fourth Generation, with Reflexes (08/14/2025 8:34 AM EDT) HIV AB/AG Nonreactive Nonreactive [facility] Comment:HIV-1 p24 Ag and/or HIV-1/HIV-2 Ab not detected.A test result that is nonreactive does not exclude thepossibility of exposure to or infection with HIV-1 and/orHIV-2. Nonreactive results in this assay for individualswith prior exposure to HIV-1 and/or HIV-2 may be due toantigen and antibody levels that are below the limit ofdetection of this assay.The [email or web address] HIV Ag/Ab Combo assay result andsupplemental assay results should be interpreted inconjunction with the patient's clinical presentation,history and other laboratory results. If the results areinconsistent with clinical evidence, additional testing issuggested to confirm the result. Blood Venous blood specimen / Unknown 08/14/2025 8:34 AM EDT 08/14/2025 2:02 PM EDT us Deyvi Goldsmith MD LAB BLOOD ORDERABLES Final Result Performing Organization Address [facility] Co de Phone Number [facility] [address] [place] [phone] * (ABNORMAL) POCT JUNE-14 Urine Drug Screen [...] 2:02 PM EDT Internal Pass Control Lot# [id number] Exp: 09-01-26 Deyvi Goldsmith MD POINT OF CARE TEST ENTER/ED IT ORDERABLES Final Result * (ABNORMAL) Cologuard?? colon cancer screening (07/22/2024 7:30 PM EDT) Cologuard Result Positive( A) Negative 07/30/2024 3:22 AM EDT [facility] (CLIA #:[id number]) Comment: POSITIVE TEST RESULT. A positive Cologuard [...] (Lexus Tamez al, N Engl J Med 2014;370(14):3681-7192.) Cologuard may produce a false negative or false positive result (no colorectal cancer or precancerous polyp present at colonoscopy follow up). A negative Cologuard test result does not guarantee the absence of CRC or advanced adenoma (pre-cancer). The current Cologuard screening interval is every 3 years. ([place] [employer] Society and U.S. Multi-Society Task Force). Cologuard performance data in a 10,000 patient pivotal study using colonoscopy as the reference method can be accessed at the following location: www.[employer]/results. Additional description of the Cologuard test process, warnings and precautions can be found at www.cologuard.com. Stool specimen (specimen) 07/22/2024 7:30 PM EDT 07/25/2024 10:50 AM EDT Deyvi Goldsmith MD LAB MOLECULAR DIAGNOSTICS O RDERABLES Final Result [facility] (CLIA #:[id number]) [address] [place] [address], * BI Mammogram Diagnostic Tomosynthesis Bilateral (02/04/2023 9:30 AM EDT) Anatomical Region Laterality Modality Breast Bilateral Mammography 02/04/2023 9:30 AM EDT Narrative 02/04/2023 12:24 PM EDT [facility] [address] [place] [address] Mammography Report Signed Patient: Johana Kaminski MR#: [id number] : 1970 Acct:[id number] Age/Sex: 52 / F ADM Date: 02/04/23 Loc: HO.MAMMO Attending Dr: Deyvi Goldsmith MD Ordering Physician: Deyvi Goldsmith MD Results: 2 Benign Findings Date of Service: 02/04/23 Follow Up: 1 Year From Orig ina Mammogram Procedure(s): MM tomosynthesis diagnostic BI Accession Number(s): [id number] cc: Deyvi Goldsmith MD EXAMINATION: MM DIAGNOSTIC [...] recent 12/16/2021. Outside ultrasound left breast 02/23/2015 ([facility]). TECHNIQUE: Digital breast tomosynthesis is performed [...] in OV> 02/04/23 1221 DD/ 0930 TD/TT: Organ Grinder: RORO Procedure Note Donotuseinterpreter, Image - 02/04/2023 [facility] [address] [place] [address] Mammography Report Signed Patient: Johana Kaminski EMR#: [id number] : 1970Acct:[id number] Age/Sex: 52 / FADM Date: 02/04/23 Loc: HO.MAMMO Attending Dr: Deyvi Goldsmith MD Ordering Physician: Deyvi Goldsmith MDResults: 2 Benign Findings Date of Service: 02/04/23Follow Up: 1 Year From [facility] Mammogram Procedure(s): MM tomosynthesis diagnostic BI Accession Number(s): [id number] cc: Deyvi Goldsmith MD EXAMINATION: MM DIAGNOSTIC [...] recent 12/16/2021. Outside ultrasound left breast 02/23/2015 ([facility]). TECHNIQUE: Digital breast tomosynthesis is performed [...] Hammond MD in OV> 02/04/23 1221 DD/ 9 TD/TT: Organ Grinder: READ [facility] External Provider IMG BI PROCEDURES Final Result from Last 3 Months or Most Recently Relevant to Health Maintenance Insurance [facility] Care Teams Audio Video Mechanic Relationship Specialty Start Date End Date Deyvi Goldsmith MD [address] [place] [phone] PCP - General Internal Medicine 11/02/18
--- OUTSIDE RECORDS SUMMARY | 2025-09-27 13:08 | XMS_ITS | Encounter Summary ---
Author Organization [employer] Address [address] [place] [address] [address] [place] [address] Care Team Providers Care Pump House Operator Name Role Phone Deyvi Goldsmith MD Primary Care Provider [phone] Reason for Visit * Reason Comments Med Refill Encounter Details Date Type Department Care Team (Late Contact Info) Description 11/22/2022 Refill [facility] [address] [place], [place] [phone] Deyvi Goldsmith MD [address] [place] [address] Chronic pain syndrome Social History Tobacco Use [...] Upcoming Encounters Date Type Department Care Team ([facility] Contact Info) Description 11/07/2025 11:00 AM EST Clinical Support [facility] [address] [place] [address] Katelin Muller, SAMANTHA [address] [place] [address] documented as of this encounter Visit Diagnoses Diagnosis Chronic pain syndrome documented in this encounter Care Teams Pump House Operator Relationship Specialty Start Date End Date Deyvi Goldsmith MD [address] [place] [address] PCP - General Internal Medicine 11/02/18 documented as of this encounter
--- OUTSIDE RECORDS SUMMARY | 2025-09-27 13:08 | XMS_ITS | Encounter Summary ---
Author Organization [employer] Address [address] [facility] [address] [place] [address] Care Team Providers Care Preschool Head Teacher Name Role Phone Deyvi Goldsmith MD Primary Care Provider [phone] Encounter Details Date Type Department Care Team (Late Contact Info) Description 12/12/2022 Orders Only [facility] [address] [place] [address] Valeria De La Vega LPN Social History [...] Description 11/07/2025 11:00 AM EST Clinical Support [facility] [address] [place] [address] Katelin Muller, SAMANTHA [address] [place] [address] documented as of this encounter Visit Diagnoses Not on filedocumented in this encounter Care Teams Preschool Head Teacher Relationship Specialty Start Date End Date Deyvi Goldsmith MD [address] [place] [phone] PCP - General Internal Medicine 11/02/18 documented as of this encounter
--- OUTSIDE RECORDS SUMMARY | 2025-09-27 13:08 | XMS_ITS | Encounter Summary ---
Author Organization [employer] Address [address] [facility] 7t [place] [address] Care Team Providers Care Ramp Service Employee Name Role Phone Deyvi Goldsmith MD Primary Care Provider [phone] Encounter Details Date Type Department Care Team (Latest Contact Info) Description 07/12/2024 Orders Only [facility] MED & PEDS [address] [place], [place] [phone] Deyvi Goldsmith MD 505 [place], [place] [phone] Hypercholesterolemia (Primary Dx); Hypokalemia Social History Tobacco [...] Description 11/07/2025 11:00 AM EST Clinical Support [facility] MED [facility] PED[facility] 505 [place] [address] Katelin Muller, RN 505 [place] [address] documented as of this encounter Procedures Procedure Name Priority Date/Time Associated Diagnosis Comments BASIC METABOLIC PANEL Routine 08/25/2024 1:08 PM EDT Hypokalemia MR SHOULDER WO CONTRAST RIGHT Routine 07/30/2024 12:28 PM EDT documented in this encounter Results * (ABNORMAL) Basic Metabolic Panel (08/25/2024 1:08 PM EDT) Sodium 142 135 - 145 mmol/L [facility] Potassium 2.7(LL) 3.3 - 5.1 mmol/L [facility] Comment:Critical value for t est(s):POTS Results called to and readback by: MEMO Lazcano Person calling: VITOR Date: 08/25/24Time: 1559 Chloride 110(H) 96 - 108 mmol/L [facility] Carbon Dioxide 24 22 - 29 mmol/L [facility] Anion Gap 11(L) 12 - 20 [facility] Urea Nitrogen (BUN) 21(H) 9 - 16 mg/dL [facility] Creatinine, Serum 0.80 0.5 - 1.4 mg/dL [facility] Estimated Glomerular Filt Rate >60 [facility] Comment:NOTE: For -Am erican individuals, multiply the result by 1.210.Chronic Kidney Disease: Estimated GFR < 60 mL/min/1.61r3Lztcpt Kidney Disease: Estimated GFR < 15 mL/min/1.73m2 Glucose 86 60 - 115 mg/dL [facility] Calcium 9.4 8.4 - 10.2 mg/dL [facility] Blood Venous blood specimen / Unknown 08/25/2024 1:08 PM EDT 08/25/2024 2:21 PM EDT Deyvi Goldsmith MD LAB BLOOD ORDERABLES Final Result Performing Organization Address City/State/[facility] Co de Phone Number [facility] [address] [place] [phone] * MR Shoulder w/o Contrast Right (07/30/2024 12:28 PM EDT) Anatomical Region Laterality Modality Upper Extremities, Shoulder Right Magn etic Resonance 07/30/2024 12:2 8 PM EDT Narrative 08/02/2024 8:59 PM EDT [place] [address] Magnetic Resonance Report Signed Patient: Johana Kaminski MR#: [id number] : 1970 Acct:[id number] Age/Sex: 53 / F ADM Date: 07/30/24 Loc: HO.MRI Attending Dr: Jose Francisco FITZGERALD Ordering Physician: Jose Francisco Daniel Date of Service: 07/30/24 Procedure(s): MR shoulder RT wo con Accession Number(s): [id number] cc: Jose Francisco Daniel; Deyvi Goldsmith MD EXAMINATION: MR SHOULDER WITHOUT CONTRAST, RIGHT CLINICAL INFORMATION: Right shoulder pain and numbness. Concern for adhesive capsulitis versus rotator cuff pathology. COMPARISON: Right shoulder radiographs dated 05/23/2024. TECHNIQUE: MRI of the shoulder without contrast was performed on a high-field scanner. FINDINGS: ROTATOR CUFF: Lqrg-kv-umdefled supraspinatus tendinosis with distal bursal surface partial [...] MR/MR shoulder RT wo con IMPRESSION: 1. Vcuy-op-pvacjvae supraspinatus tendinosis with distal bursal surface partial [...] OV> 08/02/242054 DD/ 1228 TD/TT: 07/30/24 1248 Continuous Mining Machine Coal Miner: Procedure Note Donotuseinterpreter, Image - 08/02/[address] [address] Magnetic Resonance Report Signed Patient: Johana Kaminski EMR#: [id number] : 1970Acct:[id number] Age/Sex: 53 / FADM Date: 07/30/24 Loc: HO.MRI Attending Dr: Jose Francisco FITZGERALD Ordering Physician: Jose Francisco Daniel Date of Service: 07/30/24 Procedure(s): MR shoulder RT wo con Accession Number(s): [id number] cc: Jose Francisco Daniel; Deyvi Goldsmith MD EXAMINATION: MR SHOULDER WITHOUT CONTRAST, RIGHT CLINICAL INFORMATION: Right shoulder pain and numbness. Concern for adhesive capsulitis versus rotator cuff pathology. COMPARISON: Right shoulder radiographs dated 05/23/2024. TECHNIQUE: MRI of the shoulder without contrast was performed on a high-field scanner. FINDINGS: ROTATOR CUFF: Jnyl-ao-riikpxpc supraspinatus tendinosis with distal bursal surface partial [...] MR/MR shoulder RT wo con IMPRESSION: 1. 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
--- OUTSIDE RECORDS SUMMARY | 2025-09-27 13:08 | XMS_ITS | Clinical Summary ---
Author Organization [facility] it Address [address] [place] [address] Care Team Providers Care Activity Leader Name Role Phone Robyn Guerrier MD Primary Care Provider [phone] Surgical History Surgery Date Site/Laterality Comments HYSTERECTOMY PROCEDURE: HISTORICAL HYSTERECTOMY TUBAL LIGATION PROCEDURE: HISTORICAL TUBAL LIGATION OTHER SURGICAL HISTORY Left PROCEDURE: HISTORICAL ARM SURGERY APPENDECTOMY PROCEDURE: NC APPENDECTOMY OTHER SURGICAL HISTORY PROCEDURE: NC ANESTHESIA LUMBAR REGION NOS HEMORRHOID SURGERY PROCEDURE: NC INCISION THROMBOSED HEMORRHOID EXTERNAL Medical History Medical [...] Depression Screening 11/02/2024 COVID-19 Vaccine (1 - 2024-2 6 season) 2025 Influenza Vaccine (#1) 2025 RSV [...] age to complete this topic Care Teams Activity Leader Relationship Specialty Start Date End Date Robyn Guerrier MD [address] [place] [phone] PCP - General 10/04/18
--- OUTSIDE RECORDS SUMMARY | 2025-09-27 13:09 | XMS_ITS | Encounter Summary ---
Author Organization [employer] Address [address] [facility] 7t [place] [address] Care Team Providers Care Budget And Policy Analyst Name Role Phone Deyvi Goldsmith MD Primary Care Provider [phone] Encounter Details Date Type Department Care Team (Latest Contact Info) Description 08/14/2025 Results Follow-Up [facility] CHC MED & PEDS [address] [place], [place] [phone] Deyvi Goldsmith MD 505 [place] [address] CBC auto differential, Comprehensive Metabolic Panel, Lipid Panel, Standard, Additional followed-up results: 5 Social History Tobacco Use Types Packs/Day Years [...] Upcoming Encounters Date Type Department Care Team ([facility] st Contact Info) Description 11/07/2025 11:00 AM EST Clinical Support [facility] CHC MED & PEDS [address] [place] [address] Katelin Muller, SAMANTHA 505 [place] [address] documented as of this encounter Visit Diagnoses Not on filedocumented in this encounter Additional Health Concerns Assessment Noted Time PHQ-9 Depression Total Score: 0 08/09/20 25 11:10 AM EDT documented as of this encounter Care Teams Budget And Policy Analyst Relationship Specialty Start Date End Date Deyvi Goldsmith MD 505 [place] [address] PCP - General Internal Medicine 11/02/18 documented as of this encounter
--- OUTSIDE RECORDS SUMMARY | 2025-09-27 13:09 | XMS_ITS | Encounter Summary ---
Author Organization [employer] Address [address] [place] [address] 7 [place] [address] Care Team Providers Care Ship Cleaner Name Role Phone Deyvi Goldsmith MD Primary Care Provider [phone] Reason for Visit * Reason Onset Date Comments triage 02/06/2023 Encounter Details Date Type Department Care Team ([facility] st Contact Info) Description 02/06/2023 Telephone [facility] CHC MED & PEDS [address] [place], [place] [phone] Deyvi Goldsmith MD [address] [place] [address] triage Social History Tobacco Use Types Packs/Day [...] be seen by provider today. apt in [facility] 02/06 @ 1020AM . Pt agrees [...] CHC MED & PEDS [address] [place] [address] Katelin Muller, SAMANTHA 505 [place], [place] [phone] documented as of this encounter Visit Diagnoses Not on filedocumented in this encounter Care Teams Ship Cleaner Relationship Specialty Start Date End Date Deyvi Goldsmith MD [address] [place] [address] PCP - General Internal Medicine 11/02/18 documented as of this encounter
--- OUTSIDE RECORDS SUMMARY | 2025-09-27 13:09 | XMS_ITS | Encounter Summary ---
Author Organization [employer] Address [address] [facility] [address] [place] [address] Care Team Providers Care Die Maker Apprentice Name Role Phone Deyvi Goldsmith MD Primary Care Provider [phone] Reason for Visit * Reason Comments Med Change Request Encounter Details Date Type Department Care Team ([facility] Contact Info) Description 03/18/2023 Refill [facility] [address] [place] [address] Colby Love FNP Essential hypertension [...] Team ([facility] Contact Info) Description 11/07/2025 11:00 AM EST Clinical Support [facility] CHC MED & PEDS [address] [place] [address] Katelin Muller, SAMANTHA [address] [facility] [place] [address] documented as of this encounter Visit Diagnoses Diagnosis Essential hypertension Unspecified essential hypertension documented in this encounter Additional Health Concerns Assessment Noted Time PHQ-9 Depression Total Score: 0 02/12/20 23 11:35 AM EDT documented as of this encounter Care Teams Die Maker Apprentice Relationship Specialty Start Date End Date Deyvi Goldsmith MD 505 [facility] [place] [address] PCP - General Internal Medicine 11/02/18 documented as of this encounter
--- OUTSIDE RECORDS SUMMARY | 2025-09-27 13:09 | XMS_ITS | Encounter Summary ---
Author Organization [employer] Address [address] [facility] [address] 7[address] [place] [address] Care Team Providers Care Turret Lathe Set Up Operator Name Role Phone Deyvi Goldsmith MD Primary Care Provider [phone] Reason for Visit * Reason Comments Med Change Request Encounter Details Date Type Department Care Team ([facility] Contact Info) Description 03/20/2023 Refill [facility] [address] [place] [address] Colby Love FNP Essential hypertension [...] Upcoming Encounters Date Type Department Care Team ([facility] Contact Info) Description 11/07/2025 11:00 AM EST Clinical Support [facility] CHC MED & PEDS [address] [place] [address] Katelin Muller, SAMANTHA 505 [facility] [place] [address] documented as of this encounter Visit Diagnoses Diagnosis Essential hypertension Unspecified essential hypertension documented in this encounter Additional Health Concerns Assessment Noted Time PHQ-9 Depression Total Score: 0 02/12/20 23 11:35 AM EDT documented as of this encounter Care Teams Turret Lathe Set Up Operator Relationship Specialty Start Date End Date Deyvi Goldsmith MD 505 [facility] [place] [address] PCP - General Internal Medicine 11/02/18 documented as of this encounter
--- OUTSIDE RECORDS SUMMARY | 2025-09-27 13:09 | XMS_ITS | Encounter Summary ---
Author Organization [employer] Address [address] [place] [address] 7t [place] [address] Care Team Providers Care Form Setter Supervisor Name Role Phone Deyvi Goldsmith MD Primary Care Provider [phone] Encounter Details Date Type Department Care Team (Late Contact Info) Description 05/21/2023 Orders Only [facility] CHC MED & PEDS [address] [place], [place] [phone] Deyvi Goldsmith MD 505 [place], [place] [phone] Low vitamin D level (Primary Dx) Social [...] Description 11/07/2025 11:00 AM EST Clinical Support [facility] MED & PEDS [address] [place] [address] Katelin Muller, RN 505 [place] [address] documented as of this encounter Visit Diagnoses Diagnosis Low vitamin D level- Primary documented in this encounter Additional Health Concerns Assessment Noted Time PHQ-9 Depression Total Score: 0 02/12/20 23 11:35 AM EDT documented as of this encounter Care Teams Form Setter Supervisor Relationship Specialty Start Date End Date Deyvi Goldsmith MD [address] [place] [address] PCP - General Internal Medicine 11/02/18 documented as of this encounter
--- OUTSIDE RECORDS SUMMARY | 2025-09-27 13:09 | XMS_ITS | Encounter Summary ---
Author Organization [employer] Address [address] [facility] 7 [place] [address] Care Team Providers Care Service Person Name Role Phone Deyvi Lopez MD Primary Care Provider [phone] Reason for Visit * Reason Onset Date Comments Med Refill 08/28/2025 Encounter Details Date Type Department Care Team ([facility] st Contact Info) Description 08/28/2025 Telephone [facility] MEDICINE [address] [place] [address] Deyvi Lopez MD [address] [place] [address] Med Refill Social History Tobacco Use Types [...] encounter Miscellaneous Notes * Telephone Encounter - Mira Laura - 08/28/2025 3:25 PM EDT TC from pt requesting med refill traMADol (Ultram) [address] lopez documented in this encounter Plan of Treatment Upcoming Encounters Date Type Department Care Team (Late st Contact Info) Description 11/07/2025 11:00 AM EST Clinical Support [facility] MED & PEDS [address] [place] [address] Katelin Muller, SAMANTHA 505 [place] [address] documented as of this encounter Visit Diagnoses Not on filedocumented in this encounter Additional Health Concerns Assessment Noted Time PHQ-9 Depression Total Score: 0 08/09/20 25 11:10 AM EDT documented as of this encounter Care Teams Service Person Relationship Specialty Start Date End Date Deyvi Lopez MD [address] [place] [address] PCP - General Internal Medicine 11/02/18 documented as of this encounter
== END 2025-09-27 11:15 | disposition home or self-care (01) ==
LOC: HO.HGS 10:47
PROVIDERS: PCP Internal Medicine; Visit Provider Surgery
DX: K64.8 Other hemorrhoids (principal)
CPT/HCPCS: 46600; 99213

== ENCOUNTER → 2025-09-27 10:46 | Outpatient (BNVA) | payer OTHER, SELFPAY | PROVIDERS: PCP Internal Medicine; Visit Provider Surgery | DX: K64.8 Other hemorrhoids (principal) | CPT/HCPCS: 46600; 99212 ==

== ENCOUNTER 2025-10-12 13:23 | Outpatient (REF) | payer OTHER, SELFPAY ==
--- NOTE | ~2025-10-12 | MM_ITS ---
EXAMINATION: MM SCREENING DIGITAL BREAST TOMOSYNTHESIS, BILATERAL CLINICAL INFORMATION: Screening. Asymptomatic. Left breast biopsy of unknown year. COMPARISON: Comparison made to multiple prior, most recent February 04, 2023, and most remote February 12, 2015. TECHNIQUE: Digital breast tomosynthesis is performed in mediolateral oblique and craniocaudal views along with computer-aided detection (CAD). Synthesized 2D images are generated from the tomosynthesis. FINDINGS: BREAST COMPOSITION: There are scattered areas of fibroglandular density. RIGHT BREAST: No significant masses, suspicious calcifications or other abnormalities are seen. LEFT BREAST: Tissue marker from previous needle core biopsy. No significant masses, suspicious calcifications or other abnormalities are seen. MM/MM tomosynthesis screening BI IMPRESSION: BILATERAL BREASTS: Benign, no mammographic evidence of malignancy. Normal interval follow-up is recommended in 12 months. ASSESSMENT: BI-RADS: Category 2: Benign RECOMMENDATION: Routine annual mammography screening. FOLLOW-UP: 1 year F/U This examination should not preclude the clinical evaluation of a suspicious palpable abnormality. This patient's information was entered into a reminder system with a target due date for their next mammogram. Electronically signed by: Debbie Barnes MD 10/12/2025 08:19 PM [facility] [place]
== END 2025-10-12 13:24 | disposition home or self-care (01) ==
LOC: HO.MAMMO 13:23
PROVIDERS: PCP Internal Medicine; Visit Provider Internal Medicine
DX: Z12.31 Encounter for screening mammogram for malignant neoplasm of breast (principal)
CPT/HCPCS: 77063; 77067

== ENCOUNTER → 2025-10-12 13:45 | Outpatient (BNV) | payer OTHER, SELFPAY | PROVIDERS: PCP Internal Medicine; Visit Provider Radiology Body Imaging | DX: Z12.31 Encounter for screening mammogram for malignant neoplasm of breast (principal) | CPT/HCPCS: 77063; 77067 ==